=== PATIENT | male | born 1945 | race Caucasian/White ===

== ENCOUNTER → 2016-10-08 | Day surgery (SDC) | payer OTHER, BC ==
[~2016-10-08] VITALS: Ht 172.7 cm; Wt 91.0 kg
[~2016-10-08] MED LIST: ALBU1AER9 INH; ASCO100061 PO; ASPI81TA28 PO; ATV/1 PO; CALC0.25 PO; CALC0.5C2; CRD200 PO; CZR50 PO; DIPH-416 PO; ESCI10TA17 PO; FLUT0.15 NAE; FLUT1INH PO; HYT/2 PO; HYT1 PO; INSDGI SC; LEVO100T7 PO; LIDOCAINE HCL 2% 2 ML VIAL (20MG/ML) ONE; LSX40 PO; MCRK20 PO; METO50TA7 PO; MULT-506 PO; NRV/5 PO; NTRGSL/4 UT; NVLGI/PEN SQ; OMEG10007 PO; ONDA4TAB46 PO; POTA20TA13 PO; PROPOFOL IV EMULSION 10 MG/ML 20 ML VIAL IV ONE; PRT40 PO; TIOT1SPR INH; TRAM-10 PO; VITA400C15 PO; VITACAP26 PO; WARF-246 PO
[2016-10-08 07:02] VITALS: Ht 172.7 cm; Wt 91.0 kg
[2016-10-08 07:03] VITALS: BP 146/90; PULSE 67; TEMP 36.7; O2SAT 98
[2016-10-08 07:40] VITALS: BP 115/75; PULSE 53; O2SAT 94
[2016-10-08 07:45] VITALS: BP 144/102; PULSE 66; O2SAT 94
[2016-10-08 07:47] VITALS: BP 140/92; PULSE 52; O2SAT 94
--- NOTE | 2016-10-08 07:51 | History & Physical Bridge Note ---
H&P Re-Evaluation Bridge Note: I have examined the patient, reviewed the History & Physical and in the interval since the performance of the History & Physical I have noted the following changes of clinical significance: No changes noted
[2016-10-08 07:52] VITALS: BP 123/70; PULSE 53; O2SAT 94
--- NOTE | 2016-10-08 07:56 | Cardiology Procedure Brief Nt ---
Preliminary Cardiology Note Procedure Date Oct 08, 2016. Pre-Procedure Diagnosis Atrial fibrillation Post-Procedure Diagnosis Successful synchronized electrical cardioversion Procedure(s) Performed Successful synchronized electrical cardioversion Pharmacy Technician Assistant Justin Director Of Music(s) None Estimated Blood Loss None Preliminary Findings Successful synchronized electrical cardioversion was performed using intracardiac shocks 35J x3 then external countershock with 200J biphasic shock with return to sinus mechanism ultimately Patient tolerated well Recommendations Continued medical therapies Fluids (cc crystalloids) 70 Specimens None Anesthesia Per consult Complication(s) None Disposition Security Representative Holding Area
--- NOTE | 2016-10-08 08:39 | Discharge Instructions ---
Discharge Instructions Procedure Procedure Date: Oct 08, 2016. Reason for Visit: A-Fib *Dr Anderson Doing* *Anethesia Notified*. Discharge Discharge Date: Oct 08, 2016. Discharge Diagnosis: Successful [id number] electrical cardioversion Last Recorded Wt (Kilograms): 91 Anesthesia Post Anesthesia Instructions: If you have had General Anesthesia or IV Sedation: * Do not drive today. * Resume driving when surgeon permits. * Do not make important decisions or sign legal documents today. * Call surgeon for: 1. Temperature elevations greater than 101 degrees F. 2. Uncontrollable pain. 3. Excessive bleeding. 4. Persistent nausea and vomiting. 5. Medication intolerance (nausea, vomiting or rash). * For nausea and vomiting use only clear liquids such as: tea, soda, bouillon until nausea subsides, then gradually increase diet as tolerated. * If you have any concerns or questions, call your surgeon's office. If physician is unavailable and it is an emergency, call 911 or go to the nearest emergency room. Instructions Activity Recommendations: limitations as noted below Recommended Home Diet: resume previous diet Allergies: Coded Allergies: Amoxicillin (Unverified Allergy, Severe, Anaphylaxis, 07/13/15) Clavulanic Acid (Unverified Allergy, Severe, Anaphylaxis, 07/13/15) Provider Instructions ACTIVITY RECOMMENDATIONS: Resume activities as tolerated with no limitations unless specified. __ No lifting over __ pounds for 24 hours. __ Do not engage in vigorous exercise, sexual activity, or sports for 24 hours. __ Do not drive or operate any motorized equipment for 24 hours. __ You may return to work/school tomorrow. _ Follow Up Follow-up with: Dr Anderson's office as scheduled Karen Reyes Recommendations: Call your doctor if: * Temperature above 101 degrees * Pain not relieved by pain medicine ordered * There is increased drainage or redness from any incision * You have any unanswered questions or concerns. Your Doctors Instructions noted above were prepared by provider Marbin Anderson. Patient Signature Section: Patient Instructions Signature Page Christopher Abbasi Patient (or Guardian) Signature/Date: I have read and understand the instructions given to me by my caregivers. Caregiver/RN/Doctor Signature/Date: The above-named patient and/or guardian has received patient instructions on this date. + Original Patient Signature Page (only) stays with chart. Please make copy for patient.
--- NOTE | 2016-10-08 08:52 | Anesthesiology Progress Note ---
Anesthesia Post Op Note Date & Time Oct 08, 2016 at 08:52 Vital Signs Pain Intensity: 0 Vital Signs Past 12 Hours Date Time Temp Pulse Resp B/P (MAP) Pulse Ox O2 Delivery O2 Flow Rate FiO2 10/08/16 08:45 60 16 130/69 (89) 95 Room Air 10/08/16 08:30 60 16 133/71 (91) 95 Room Air 10/08/16 08:15 55 16 138/75 (96) 95 Room Air 10/08/16 08:10 55 16 127/75 (92) 95 Room Air 10/08/16 08:05 52 16 141/74 (96) 95 Room Air 10/08/16 08:00 52 16 138/75 (96) 95 Room Air 10/08/16 07:55 52 16 128/72 (90) 95 Room Air 10/08/16 07:52 53 16 123/70 94 Room Air 10/08/16 07:47 52 16 140/92 94 Nasal Cannula 6 10/08/16 07:45 66 16 144/102 94 Nasal Cannula 6 10/08/16 07:40 53 16 115/75 94 Nasal Cannula 6 10/08/16 07:03 36.7 67 16 146/90 98 Room Air Notes Mental Status: alert / awake / arousable, participated in evaluation Pt Amnestic to Procedure: Yes Nausea / Vomiting: adequately controlled Pain: adequately controlled Airway Patency, RR, SpO2: stable & adequate BP & HR: stable & adequate Hydration State: stable & adequate Anesthetic Complications: no major complications apparent
[2016-10-08 09:00] VITALS: BP 113/65; PULSE 60; O2SAT 95
--- NOTE | 2016-10-08 10:43 | CARDIOVERSION ---
DATE OF OPERATION: 10/08/2016 DATE OF PROCEDURE: 10/08/2016. INDICATIONS: Atrial fibrillation with elevated ventricular response rate. PROCEDURE: Synchronized electrical cardioversion. PROCEDURE NOTE: After the patient seen and examined and informed consent was obtained the patient was sedated via consultation with Dr. Velez of anesthesia and with device claims service representative present pacer defibrillator was interrogated and patient underwent synchronized electrical cardioversion initially intracardiac using indwelling pacer defibrillator. He received 3 shocks at 35 joules without successful conversion to sinus. External patches had been placed prior to procedure and external defibrillation was performed using synchronized 200 joule biphasic shock with successful conversion to sinus rhythm. Post procedure patient aroused having tolerated well. EKG post procedure demonstrated sinus bradycardia with first degree AV block and rate of 51, Q-waves consistent with old inferior infarct and nonspecific intraventricular conduction delay. The patient aroused after the procedure having tolerated well. RECOMMENDATIONS: Continued medical therapy with continued amiodarone at 200 mg twice per day, reduction of metoprolol to 50 mg per day. Followup will be scheduled in the next month's time. I attest to the content of the Intraoperative Record and any orders documented therein. Any exception s are noted below.
== END | disposition home or self-care (01) ==
LOC: C.CATH 06:22
PROVIDERS: ATTEND Internal Medicine Cardiovascular Disease
DX: I48.0 Paroxysmal atrial fibrillation (principal); I25.5 Ischemic cardiomyopathy; N18.2 Chronic kidney disease, stage 2 (mild); E03.9 Hypothyroidism, unspecified; I10 Essential (primary) hypertension; E78.5 Hyperlipidemia, unspecified; E11.9 Type 2 diabetes mellitus without complications; G47.33 Obstructive sleep apnea (adult) (pediatric); F41.9 Anxiety disorder, unspecified; Z90.49 Acquired absence of other specified parts of digestive tract; Z98.42 Cataract extraction status, left eye; Z87.891 Personal history of nicotine dependence; Z79.4 Long term (current) use of insulin; Z79.01 Long term (current) use of anticoagulants; J44.9 Chronic obstructive pulmonary disease, unspecified; Z95.5 Presence of coronary angioplasty implant and graft; I25.2 Old myocardial infarction

== ENCOUNTER 2017-04-27 15:20 | Inpatient (IN) | payer OTHER, BC ==
[~2017-04-27] VITALS: Ht 172.7 cm; Wt 92.9 kg
[~2017-04-27 15:20] MED LIST changes: -ASCO100061 PO; -HYT1 PO; -LIDOCAINE HCL 2% 2 ML VIAL (20MG/ML) ONE; -MCRK20 PO; -METO50TA7 PO; +METO50TA8 PO; -PROPOFOL IV EMULSION 10 MG/ML 20 ML VIAL IV ONE
[2017-04-27] MEDS ORDERED: NITROGLYCERIN/D5W 100 MCG/ML BTL ONE ×2 (15:27→15:42)
[2017-04-27] MEDS ORDERED: AMIODARONE 150MG / 100ML D5W IV STA (15:31)
[2017-04-27] MEDS ORDERED: ALBUT/IPRATROP 3MG/0.5MG NEB 3 ML VIAL INH STA (15:31)
[2017-04-27] MEDS ORDERED: AMIODARONE 360MG / 200ML D5W IV STA (15:31)
[2017-04-27] MEDS ORDERED: AMIODARONE 150MG / 100ML D5W ONE (15:38)
[2017-04-27] MEDS ORDERED: AMIODARONE 360MG / 200ML D5W ONE (15:39)
[2017-04-27] MEDS ORDERED: FUROSEMIDE 40 MG/4 ML VIAL IV STA (15:42)
[2017-04-27] MEDS ORDERED: NURSING VERBAL MED ORDER ONE ×2 (15:45→19:30)
[2017-04-27] MEDS ORDERED: AMIODARONE / D5W 200 ML IV SCH (15:45)
--- NOTE | 2017-04-27 15:45 | EMERGENCY ROOM VISIT NOTE ---
History Report prepared by Cynthia: David Khalil Under the Supervision of: Dr. Azeem Dietz M.D. First contact with patient: 15:20 Stated Complaint: CARDIAC History of Present Illness The patient is a 71 year old male who presents to the Emergency Room with complaints of left sided chest pain that occurred about 1 hour ago. He has an extensive past medical history including atrial fibrillation, V-Tach, CHF, CAD, CABG, AAA repair, and has a pacemaker/defibrillator in place. Over the past couple of days, the patient has been experiencing flu-like symptoms including a cough. He denies any recent fevers or sore throat. His tested positively for influenza recently. Today, the patient was walking out to his car to come to the ER to be evaluated for a possible flu when he suddenly clutched his chest and maybe briefly lost consciousness, collapsing to the ground. Per EMS, the patient was found to be hypoxic with an oxygen saturation of 78%. CPR was not performed and he was placed onto C-PAP. His oxygenation then stephanie to around 88%. They started him on a Nitroglycerin drip and brought him to the ER. He did not receive ASA. The patient currently states that his chest pain has resolved and he is beginning to feel better. He is currently on Coumadin. The patient states that he would like full resuscitation measures. Source of History: patient, spouse/significant other, EMS Onset: about 1 hour ago Position: chest (left) Symptom Intensity: moderate Quality: sharp Timing: resolved Associated Symptoms: + LOC, + cough, + SOB, No fevers, No sorethroat Review of Systems See HPI for pertinent positives & negatives. A total of 10 systems reviewed and were otherwise negative. Past Medical & Surgical Medical Problems: (1) AAA (abdominal aortic aneurysm) (2) Anticoagulated on warfarin (3) Chest pain (4) CHF (congestive heart failure) (5) CKD (chronic kidney disease) stage 3, GFR 30-59 ml/min (6) Coronary artery disease (7) Diabetes mellitus, type II (8) Dyslipidemia (9) Elevated liver function tests (10) History of ventricular tachycardia (11) HTN (hypertension) (12) Hypomagnesemia (13) Hypothyroidism (14) Non-sustained ventricular tachycardia (15) Pacemaker (16) PAF (paroxysmal atrial fibrillation) (17) V-tach Surgical Problems: (1) S/P triple vessel bypass (2) Status post abdominal aortic aneurysm repair (3) Status post cataract extraction (4) Status post cholecystectomy (5) Status post coronary artery bypass grafting (6) Status post implantation of automatic cardioverter/defibrillator (AICD) Family History FH: heart disease FATHER FH: lung cancer MOTHER Hypertension MOTHER Social History Smoking Status: Former Smoker Alcohol Use: occasionally Drug Use: none Marital Status: Housing Status: lives with family Occupation Status: retired Current/Historical Medications Scheduled Albuterol Sulfate (Proair Hfa), 2 PUFFS INH QID Amiodarone HCl (Amiodarone HCl), 200 MG PO BID Amlodipine Besylate (Amlodipine Besylate), 5 MG PO HS Aspirin (Aspirin Ec), 81 MG PO QPM Calcitriol (Rocaltrol Cap), 1 CAP PO MWF Escitalopram (Lexapro), 10 MG PO DAILY Fish Oil ([place]-3), 1 CAP PO BID Fluticasone Furoate-Vilanterol (Breo Ellipta), 1 PUFF PO DAILY Fluticasone Propionate (Nasal) (Flonase Allergy Relief), 2 SPRAYS PHANI DAILY Furosemide (Lasix), 40 MG PO 5XWK Furosemide (Lasix), 80 MG PO 2XWK Insulin Aspart (Novolog Flexpen), UNITS SQ ACHS Insulin Glargine (Lantus), 40 UNITS SC QPM Levothyroxine Sodium (Levothyroxine Sodium), 1 TAB PO 6XWK Levothyroxine Sodium (Levothyroxine Sodium), 2 TAB PO WK Losartan Potassium (Losartan Potassium), 50 MG PO BID Metoprolol Succ (Toprol Xl) (Toprol-Xl), 50 MG PO DAILY Multivitamin (Multivitamin), 1 TAB PO QPM Pantoprazole (Pantoprazole Sodium), 40 MG PO QAM Potassium Chloride (Micro-K Ext Rel), 10 MEQ PO DAILY Spironolactone (Aldactone), 12.5 MG PO MWF Terazosin Hcl (Hytrin), 2 MG PO HS Tiotropium Laura (Spiriva Respimat), 1 PUFF INH DAILY Tocopheryl Acet,Dl-Alpha (Vitamin E), 400 INTER.UNIT PO QPM Warfarin Sodium (Warfarin Sodium), 1 TAB PO DAILY Scheduled PRN Diphenoxylate/Atropine (Lomotil), 1 TAB PO QID PRN for Diarrhea Lorazepam (Ativan), 1 MG PO Q8 PRN for ANXIETY OR SLEEP Nitroglycerin (Nitrostat), 0.4 MG UT UD PRN for Chest Pain Ondansetron Hcl (Zofran), 4 MG PO Q8 PRN for Nausea Tramadol (Ultram), 50 MG PO Q8H PRN for Pain Allergies Coded Allergies: Amoxicillin (Unverified Allergy, Severe, Anaphylaxis, 07/13/15) Clavulanic Acid (Unverified Allergy, Severe, Anaphylaxis, 07/13/15) Physical Exam Vital Signs Date Time Temp Pulse Resp B/P (MAP) Pulse Ox O2 Delivery O2 Flow Rate FiO2 04/27/17 16:11 79 17 121/76 94 BiPAP 04/27/17 16:04 96 15 106/75 98 BiPAP 04/27/17 15:50 96 19 120/66 96 BiPAP 04/27/17 15:41 96 BiPAP 04/27/17 15:31 94 BiPAP 04/27/17 15:31 124 04/27/17 15:29 37.3 134 28 100/71 92 CPAP 04/27/17 15:27 92 BiPAP Physical Exam GENERAL: Patient is in no acute distress. Presently on BiPAP. HEENT: No acute trauma, normocephalic atraumatic, mucous membranes moist, no nasal congestion, no scleral icterus. NECK: No stridor, no adenopathy, no meningismus, trachea is midline. LUNGS: Crackles bilaterally. No wheezing. Breath sounds are equal. HEART: Tachycardic rate. Auscultation is difficult secondary to overriding lung sounds. Rhythm seems regular. ABDOMEN: Soft, nontender, bowel sounds positive, no hernias, no peritonitis. EXTREMITIES: No cyanosis or edema, full range of motion of all the joints without pain or difficulty, no signs for acute trauma. NEUROLOGIC: Oriented x 3, no acute motor or sensory deficits, no focal weakness. SKIN: No rash, no jaundice, no diaphoresis. Medical Decision & Procedures ER Provider Diagnostic Interpretation: Radiology results as stated below per my review and radiologist interpretation: CHEST ONE VIEW PORTABLE CLINICAL HISTORY: 71 years-old Male presenting with SOB. TECHNIQUE: Portable upright AP view of the chest was obtained. COMPARISON: 07/13/2015. FINDINGS: Left subclavian implanted cardiac defibrillator with 2 leads to the right ventricular apex. Median sternotomy wires, bypass graft rings, and mediastinal surgical clips noted. Atherosclerosis of aortic arch. Cardiac silhouette mildly enlarged, unchanged. Pulmonary vascular prominence. Hazy diffuse opacities with a basilar predominance. Small left pleural effusion may be present. No pneumothorax. IMPRESSION: 1. Cardiomegaly with volume overload and moderate pulmonary edema. Electronically signed by: Isaiah Young M.D. 04/27/2017 3:42 PM Dictated Date/Time: 04/27/2017 3:40 PM Laboratory Results 04/27/17 15:30 04/27/17 15:30 Test 04/27/17 15:30 04/27/17 15:34 04/27/17 15:37 04/27/17 15:55 Red Blood Count 4.59 M/uL (4.7-6.1) Mean Corpuscular Volume 89.1 fL (80-100) Mean Corpuscular Hemoglobin 30.5 pg (25-34) Mean Corpuscular Hemoglobin Concent 34.2 g/dl (32-36) RDW Standard Deviation 46.9 fL (36.4-46.3) RDW Coefficient of Variation 14.4 % (11.5-14.5) Mean Platelet Volume 10.2 fL (7.4-10.4) Prothrombin Time 22.3 SECONDS (9.0-12.0) Prothromb Time International Ratio 2.2 (0.9-1.1) Activated Partial Thromboplast Time 39.3 SECONDS (21.0-31.0) Partial Thromboplastin Ratio 1.5 Est Creatinine Clear Calc Drug Dose 41.1 ml/min Estimated GFR () 39.7 Estimated GFR (Non- 34.3 BUN/Creatinine Ratio 11.0 (10-20) Calcium Level 8.2 mg/dl (8.5-10.1) Magnesium Level 2.3 mg/dl (1.8-2.4) Total Bilirubin 2.1 mg/dl (0.2-1) Aspartate Amino Transf (AST/SGOT) 155 U/L (15-37) Alanine Aminotransferase (ALT/SGPT) 159 U/L (12-78) Alkaline Phosphatase 67 U/L (45-117) Pro-B-Type Natriuretic Peptide 3918 pg/ml (0-900) Total Protein 6.9 gm/dl (6.4-8.2) Albumin 3.0 gm/dl (3.4-5.0) Globulin 3.9 gm/dl (2.5-4.0) Albumin/Globulin Ratio 0.8 (0.9-2) Beta-Hydroxybutyric Acid 3.96 mg/dL (0.2-2.81) Bedside Troponin I < 0.030 ng/ml (0-0.045) Bedside Hemoglobin 14.6 g/dl (14.0-18.0) Bedside Hematocrit 43 % (42-52) Bedside Sodium 137 mEq/L (135-144) Bedside Potassium 4.3 mEq/L (3.3-5.0) Bedside Chloride 99 mEq/L (101-112) Bedside Total CO2 20 mEq/l (24-31) Anion Gap 23.0 mmol/L (16-25) Bedside Blood Urea Nitrogen 23 mg/dl (7-18) Bedside Creatinine 1.6 mg/dl (0.6-1.3) Bedside Glucose (other) 349 mg/dl (70-99) Bedside Ionized Calcium (Mauro) 1.02 mmol/l (1.12-1.32) Influenza Type A (RT-PCR) Neg for Influ A (NEG) Influenza Type B (RT-PCR) Neg for Influ B (NEG) Laboratory results reviewed by me. Medications Administered Medications (Trade) Dose Ordered Sig/Obi Route Start Time Stop Time Status Last Admin Dose Admin Nitroglycerin/ Dextrose (Nitroglycerin/ D5w 100 Mcg/Ml) 25 mg STK-MED ONCE .ROUTE 04/27/17 15:27 04/27/17 15:28 DC 04/27/17 15:46 25 MG Amiodarone HCL/ Dextrose (Nexterone / D5w) 150 mg STK-MED ONCE .ROUTE 04/27/17 15:38 04/27/17 15:39 DC 04/27/17 15:47 150 MG Amiodarone HCL/ Dextrose 200 ml @ 33.3 mls/hr Q6H1M IV 04/27/17 15:45 04/27/17 21:45 04/27/17 15:53 33.3 MLS/HR Albuterol/ Ipratropium (Duoneb) 12 ml NOW STAT INH 04/27/17 15:31 04/27/17 15:43 DC 04/27/17 16:25 12 ML Furosemide (Lasix Inj) 60 mg NOW STAT IV 04/27/17 15:42 04/27/17 15:43 DC 04/27/17 15:48 60 MG ECG Indication: chest pain Rate (beats per minute): 129 Rhythm: other (Wide Complex Tachycardia, rhythm is quite regular) Findings: other (No PVCs or pacer spikes) Comparison ECG Date: 10/08/16 Change: Significant changes have occurred compared to previous. 2nd ECG: Atrial fibrillation at 93 with a LBBB. No PVC's or ST elevations. Patient's electrocardiograms interpreted by me. ED Course 1520: The patient was evaluated in room B1. A complete history and physical exam was performed. 1531: Ordered Bipap, Amiodarone HCl/Dextrose 360 mg IV, Amiodarone HCl/Dextrose 150 mg IV 1533: I discussed the patient's case with Dr. Whitmore of Cardiology at this time. He recommended starting the patient on Amiodarone. He will be coming to the ER to evaluate the patient. 1542: Ordered Lasix Inj 60 mg IV 1621: I discussed the patient's case with Dr. Tiwari of the ICU. He will evaluate the patient in the ICU. 1624: Upon reexamination the patient is resting. I discussed results and treatment plan with the patient and his family. They verbalize agreement and understanding. I spoke with Dr. Porter of the [facility] service. We discussed the patient's results and findings. The patient will be evaluated by her for further management. Medical Decision Differential diagnosis includes but is not limited to ventricular tachycardia, defibrillator firing, MO, electrolyte imbalance, CHF, pneumonia, influenza, and anemia. There is a mild leukocytosis, this could be consistent with infection or the stress of the situation. No concerning anemia. ABG demonstrates a mildly low PO2, no acidosis. No CO2 retention. Chest film does show CHF, no pneumonia. There is evidence for some renal insufficiency/dehydration with an elevation to the creatinine. The patient's glucose is elevated. LFTs are mildly elevated. INR is therapeutic for someone using Coumadin. EKG initially showed a wide complex tachycardia, possibly V. tach. Second EKG showed a rate controlled atrial fibrillation with a left bundle branch block. Cardiac enzyme testing 1 is not consistent with acute cardiac injury. Influenza testing returned negative. The patient presents after grabbing his chest and collapsing. There was concern for defibrillator firing, there was concern for MO. The patient was without complaints of chest pain, he was comfortable with his breathing. His blood pressure was around 100 systolic. Despite the concerning appearing wide complex tachycardia on EKG, the patient seemed to be doing better than just a short time ago. I spoke with Dr. Whitmore of cardiology. The patient was ordered for IV amiodarone as a bolus and then as a drip. Because of the CHF, IV Lasix was given. The nitroglycerin drip was continued at 20 g. The patient was maintained on BiPAP. With this treatment, the patient is continuing to improve. His heart rate is now in the 90s. As mentioned above, the patient's wide-complex tachycardia resolved with just supportive measures, no stat antiarrhythmic medication was given, no defibrillation was performed. I spoke with the on-call lockstitch shoulder joiner, I spoke with the on-call hospitalist. Admission/observation is warranted. The patient and family have been updated. Case management has been involved. Medication Reconcilliation Current Medication List: was personally reviewed by me Blood Pressure Screening Patient's blood pressure: Low blood pressure Consults Time Called: 1530 Consulting Physician: Dr. Whitmore - Cardiology Returned Call: [phone] We discussed the patient's case. He recommended starting the patient on an Amiodarone drip. He will be coming to the ER to evaluate the patient. Additional Consults: Time Called: 1615 Consulted Physician: Dr. Tiwari - ICU Returned Call: [phone] Additional Comments: We discussed the patient's case. He will evaluate the patient in the ICU. Time Called: 1615 Consulted Physician: [facility] Returned Call: [phone] Additional Comments: We discussed the patient's case. She will evaluate the patient in the ICU with Dr. Tiwari with consult to Dr. Whitmore. Impression Primary Impression: CHF (congestive heart failure) Additional Impressions: Dysrhythmia Hypoxia Hyperglycemia Critical Care I have personally spent greater than 46 minutes of critical care time in the direct management of this patient. This includes bedside care, interpretation of diagnostic studies, and testing, discussion with consultants, patient, and family members, and other required patient management activities. This 46 minutes is in excess of all separately billable procedures. Scribe Attestation The scribe's documentation has been prepared under my direction and personally reviewed by me in its entirety. I confirm that the note above accurately reflects all work, treatment, procedures, and medical decision making performed by me. Departure Information Dispostion Being Evaluated By Hospitalist Referrals Candelaria Navas DO (PCP) Problem Qualifiers
[2017-04-27 15:49] LABS: HEMATOCRIT 40.9 % (42-52); MEAN CELL VOLUME 89.1 fL (80-100); MEAN CORPUSCULAR HEMOGLOBIN 30.5 pg (25-34); MEAN CORPUSCULAR HGB CONC 34.2 g/dl (32-36); MEAN PLATELET VOLUME 10.2 fL (7.4-10.4); PLATELET COUNT 178 K/uL (130-400); RED CELL DISTRIBUTION WIDTH CV 14.4 % (11.5-14.5); RED CELL DISTRIBUTION WIDTH SD 46.9 fL (36.4-46.3); WHITE BLOOD COUNT 14.44 K/uL (4.8-10.8)
[2017-04-27 15:49] LABS: ISTAT CREATININE 1.6 mg/dl (0.6-1.3); ISTAT IONIZED CALCIUM 1.02 mmol/l (1.12-1.32); ISTAT POTASSIUM 4.3 mEq/L (3.3-5.0)
[2017-04-27] MEDS ORDERED: TIOT1SPR INH (15:52)
[2017-04-27 15:57] LABS: INR 2.2 (0.9-1.1); PTT PATIENT 39.3 SECONDS (21.0-31.0)
[2017-04-27] MEDS ORDERED: POTA10CA28 PO (16:00)
[2017-04-27] MEDS ORDERED: SPIR25TA PO (16:00)
[2017-04-27] MEDS ORDERED: WARF-246 PO (16:16)
[2017-04-27] MEDS ORDERED: LEVO100T7 PO ×2 (16:16)
[2017-04-27] MEDS ORDERED: FRS/40 PO ×2 (16:18)
[2017-04-27 16:25] VITALS: PULSE 79; O2SAT 97
[2017-04-27 16:26] VITALS: PULSE 129; PULSE 87; O2SAT 97
--- NOTE | 2017-04-27 16:30 | History and Physical ---
History & Physical Date & Time of Service: Apr 27, 2017 at 16:30 Chief Complaint: Cardiac Primary Care Physician: Candelaria Navas DO History of Present Illness Source: patient This is a 71 yo M with complex medical hx of CAD s/p CABG in 1991 , ischemic cardiomyopathy EF 35 % , hx of Vtach s/p ablation in September 2014 s/p AICD placement AAA repair 10/29/2011 presented to ER with syncope /collapse due to Vtach Pt reports of not feeling well for the past 3 days , had flu like symptom with congestion , cough , very poor appetite, generalized weakness , N/V , chills , worsening of GUAN with minimum activity decided to come to ER today -while getting in car -pt collapsed and fell on ground in front of family , EMS was called -pt regained conciseness while in ambulance mentions of having chest pain and SOB pt was found to be Wide complex tachycardia /Vtach , started on IV Nitro gtt , Cxray shows pulmonary congestion -given IV Lasix 60 mg X1 , and placed on Bipap Cardiology evaluated the pt in ER , started on Amiodarone gtt- rhythm converted to Afib rate controlled ICD interrogation showed Vtach with rate > 250 bpm/had ICD firing -converted to sinus later changed to Afib pt is admitted to ICU during my time of interview in ICU 107 /pt is awake and alert , conversing appropriately. on Nasal Canula 2 L 02 ( was not on home 02 prior ) denies of any chest pain or discomfort , has + orthopnea remains in Rate controlled Afib while on Amiodarone gtt Past Medical/Surgical History Medical Problems: (1) AAA (abdominal aortic aneurysm) Status: Chronic (2) Anticoagulated on warfarin Status: Chronic (3) CHF (congestive heart failure) Permanent Comment: echo 05/28/13 LVEF 30-35% Status: Chronic (4) CKD (chronic kidney disease) stage 3, GFR 30-59 ml/min Status: Chronic (5) Coronary artery disease Permanent Comment: s/p PA ischemic cardiomyopathy s/p CABG Status: Chronic (6) Diabetes mellitus, type II Status: Chronic (7) Dyslipidemia Status: Chronic (8) Elevated liver function tests Status: Chronic (9) History of ventricular tachycardia Status: Chronic (10) HTN (hypertension) Status: Chronic (11) Hypomagnesemia Status: Chronic (12) Hypothyroidism Status: Chronic (13) Non-sustained ventricular tachycardia Status: Chronic (14) Pacemaker Status: Chronic (15) PAF (paroxysmal atrial fibrillation) Status: Chronic Surgical Problems: (1) S/P triple vessel bypass Status: Chronic (2) Status post abdominal aortic aneurysm repair [place] [facility] [place]. Gallagher stent graft Status: Chronic (3) Status post cataract extraction Status: Chronic (4) Status post cholecystectomy Status: Chronic (5) Status post coronary artery bypass grafting Status: Chronic (6) Status post implantation of automatic cardioverter/defibrillator (AICD) Status: Chronic Family History FH: heart disease FATHER FH: lung cancer MOTHER Hypertension MOTHER Social History Smoking Status: Former Smoker Drug Use: none Marital Status: Housing status: lives with family Occupational Status: retired Immunizations History of Influenza Vaccine: Yes Influenza Vaccine Date: Nov 25, 2013 History of Tetanus Vaccine?: Yes Tetanus Immunization Date: Apr 18, 2010 History of Pneumococcal: Yes Pneumococcal Date: May 09, 2010 History of Hepatitis B Vaccine: Yes Hepatitis Immunization Date: Aug 21, 1996 Multi-Drug Resistant Organisms History of MDRO: No Allergies Coded Allergies: Amoxicillin (Unverified Allergy, Severe, Anaphylaxis, 07/13/15) Clavulanic Acid (Unverified Allergy, Severe, Anaphylaxis, 07/13/15) Home Medications Scheduled Albuterol Sulfate (Proair Hfa), 2 PUFFS INH QID Amiodarone HCl (Amiodarone HCl), 200 MG PO BID Amlodipine Besylate (Amlodipine Besylate), 5 MG PO HS Aspirin (Aspirin Ec), 81 MG PO QPM Calcitriol (Rocaltrol Cap), 1 CAP PO MWF Escitalopram (Lexapro), 10 MG PO DAILY Fish Oil ([place]-3), 1 CAP PO BID Fluticasone Furoate-Vilanterol (Breo Ellipta), 1 PUFF PO DAILY Fluticasone Propionate (Nasal) (Flonase Allergy Relief), 2 SPRAYS PHANI DAILY Furosemide (Lasix), 40 MG PO 5XWK Furosemide (Lasix), 80 MG PO 2XWK Insulin Aspart (Novolog Flexpen), UNITS SQ ACHS Insulin Glargine (Lantus), 40 UNITS SC QPM Levothyroxine Sodium (Levothyroxine Sodium), 1 TAB PO 6XWK Levothyroxine Sodium (Levothyroxine Sodium), 2 TAB PO WK Losartan Potassium (Losartan Potassium), 50 MG PO BID Metoprolol Succ (Toprol Xl) (Toprol-Xl), 50 MG PO DAILY Multivitamin (Multivitamin), 1 TAB PO QPM Pantoprazole (Pantoprazole Sodium), 40 MG PO QAM Potassium Chloride (Micro-K Ext Rel), 10 MEQ PO DAILY Spironolactone (Aldactone), 12.5 MG PO MWF Terazosin Hcl (Hytrin), 2 MG PO HS Tiotropium [place] (Spiriva Respimat), 1 PUFF INH DAILY Tocopheryl Acet,Dl-Alpha (Vitamin E), 400 INTER.UNIT PO QPM Warfarin Sodium (Warfarin Sodium), 1 TAB PO DAILY Scheduled PRN Diphenoxylate/Atropine (Lomotil), 1 TAB PO QID PRN for Diarrhea Lorazepam (Ativan), 1 MG PO Q8 PRN for ANXIETY OR SLEEP Nitroglycerin (Nitrostat), 0.4 MG UT UD PRN for Chest Pain Ondansetron Hcl (Zofran), 4 MG PO Q8 PRN for Nausea Tramadol (Ultram), 50 MG PO Q8H PRN for Pain Review of Systems Constitutional: + fever, + chills, + sweats, + weakness, + fatigue, + problem reported (generalized body ache ) Respiratory: + cough, + sputum, + wheezing, + shortness of breath, + dyspnea on exertion, + dyspnea at rest, + problem reported (orthopnea ) Cardiovascular: + chest pain, + orthopnea, + palpitations Abdomen: + nausea, + vomiting, + diarrhea Musculoskeletal: + muscle pain Neurologic: + weakness, + numbness/tingling, + vertigo Endocrine: + fatigue Physical Exam Vital Signs Date Time Temp Pulse Resp B/P (MAP) Pulse Ox O2 Delivery O2 Flow Rate FiO2 04/27/17 16:26 87 97 40 04/27/17 16:25 79 25 97 BiPAP/CPAP 40 04/27/17 16:24 77 18 117/71 94 BiPAP 04/27/17 16:11 79 17 121/76 94 BiPAP 04/27/17 16:04 96 15 106/75 98 BiPAP 04/27/17 15:50 96 19 120/66 96 BiPAP 04/27/17 15:41 96 BiPAP 04/27/17 15:31 94 BiPAP 04/27/17 15:31 124 04/27/17 15:29 37.3 134 28 100/71 92 CPAP 04/27/17 15:27 92 BiPAP General Appearance: no apparent distress Head: normocephalic, atraumatic Eyes: PERRL, EOMI, sclerae normal ENT: normal ENT inspection Neck: thyroid normal, no JVD, no carotid bruits, trachea midline Respiratory/Chest: chest non-tender, no respiratory distress, no accessory muscle use, + decreased breath sounds, + rales Cardiovascular: no edema, no JVD, normal peripheral pulses, + irregularly irregular Abdomen/GI: normal bowel sounds, non tender, soft Extremities/Musculoskelatal: normal inspection, no calf tenderness, normal capillary refill, no pedal edema Neurologic/Psych: no motor/sensory deficits, alert, normal mood/affect, oriented x 3 Skin: normal color, warm/dry, no rash Lymphatic: no adenopathy Diagnostics Laboratory Results Results Past 24 Hours Test 04/27/17 15:30 04/27/17 15:34 04/27/17 15:37 04/27/17 15:55 Range/Units White Blood Count 14.44 4.8-10.8 K/uL Red Blood Count 4.59 4.7-6.1 M/uL Hemoglobin 14.0 14.0-18.0 g/dL Hematocrit 40.9 42-52 % Mean Corpuscular Volume 89.1 80-100 fL Mean Corpuscular Hemoglobin 30.5 25-34 pg Mean Corpuscular Hemoglobin Concent 34.2 32-36 g/dl RDW Standard Deviation 46.9 36.4-46.3 fL RDW Coefficient of Variation 14.4 11.5-14.5 % Platelet Count 178 130-400 K/uL Mean Platelet Volume 10.2 7.4-10.4 fL Prothrombin Time 22.3 9.0-12.0 SECONDS Prothromb Time International Ratio 2.2 0.9-1.1 Activated Partial Thromboplast Time 39.3 21.0-31.0 SECONDS Partial Thromboplastin Ratio 1.5 Bedside Troponin I < 0.030 0-0.045 ng/ml Bedside Hemoglobin 14.6 14.0-18.0 g/dl Bedside Hematocrit 43 42-52 % Bedside Sodium 137 135-144 mEq/L Bedside Potassium 4.3 3.3-5.0 mEq/L Bedside Chloride 99 101-112 mEq/L Bedside Total CO2 20 24-31 mEq/l Anion Gap 23.0 16-25 mmol/L Bedside Blood Urea Nitrogen 23 7-18 mg/dl Bedside Creatinine 1.6 0.6-1.3 mg/dl Bedside Glucose (other) 349 70-99 mg/dl Bedside Ionized Calcium (Mauro) 1.02 1.12-1.32 mmol/l Test 04/27/17 16:12 Range/Units Diagnostic Radiology CHEST ONE VIEW PORTABLE CLINICAL HISTORY: 71 years-old Male presenting with SOB. TECHNIQUE: Portable upright AP view of the chest was obtained. COMPARISON: 07/13/2015. FINDINGS: Left subclavian implanted cardiac defibrillator with 2 leads to the right ventricular apex. Median sternotomy wires, bypass graft rings, and mediastinal surgical clips noted. Atherosclerosis of aortic arch. Cardiac silhouette mildly enlarged, unchanged. Pulmonary vascular prominence. Hazy diffuse opacities with a basilar predominance. Small left pleural effusion may be present. No pneumothorax. IMPRESSION: 1. Cardiomegaly with volume overload and moderate pulmonary edema. EKG Vent. rate 93 BPM [place] interval * ms QRS duration 154 ms QT/QTc 540/671 ms P-R-T axes * -6 148 Atrial fibrillation with a competing junctional pacemaker Left bundle branch block Abnormal ECG When compared with ECG of 27-APR-2017 15:25, (unconfirmed) Atrial fibrillation has replaced Wide QRS tachycardia Impression Assessment and Plan VENTRICULAR TACHYCARDIA : presented with wide complex tachycardia -leading to syncope /collapse AICD firing on amiodarone gtt, rhythm changed to Afib appreciate input form Cardiology pt will be monitored in ICU , cont Amiodarone gtt ordered for serial Troponin -initial aquiles negative monitor electrolytes ECHO ordered on AM FLU LIKE SYMPTOM : had poor PO intake , fever , chills , weakness for past 1 week , symptom worse in last 2-3 days possible cause of Cardiac arrhythmia influenza PCR negative cont supportive care sputum culture and gram statin ordered no obvious infiltrate noted in Cxray , leukocytosis 14 K empiric tx with Doxycycline ( avoid quinolones for prolong Qtc ) ACUTE CHF WITH SYSTOLIC DYSFUNCTION : due to ventricular arrhythmia severe ischemic cardiomyopathy EF 35 % chest xray shows pulmonary congestion , BNP elevated 3918 given IV Lasix 60 mg X1 in ER repeat ECHO ordered monitor I's/O's and daily wt cardiology following ACUTE HYPOXEMIC RESPIRATORY FAILURE : due to above symptom improved with Bipap , supplemental 02 cont diuresis as per Cardiology repeat Cxray in AM CAD : hx of CABG in 1991 , repeat Cath in 2005 shows total occlusion of circle Coronary arteries with occluded graft on RCA developed angina symptom due to cardiac arrhythmia on Nitro gtt at present chest pain free serial troponin ordered ECHO in am Cardiology eval appreciated pt is continued with Aspirin , Beta katharina , Nitro , ARB not on Statin due to chronic transaminitis /Elevated liver enzyme fasting lipid panel ordered in AM labs ANNA on CKD STAGE 3 baseline cr 1.2 ( 12/03/2016 ) Cr 1.6 due to decompensated CHF /poor PO intake due to flu like symptom given IV diuretics due to Acute systolic CHF hold diuretics in AM BMP daily ordered avoid contrast studies -unless life saving procedure no NSAID's Nephrology consult requested PAROXYSMAL AFIB : on Coumadin , INR therapeutic cont Beta katharina PROLONG Q TC : Qtc > 600 due to severe arrhythmia /AICD daily EKG ordered avoid medication the prolongs Qtc cardiology following closely TYPE 2 DM : BSG > 300 ,with elevated beta hydroxy butyrate normal AG appreciate Pharmacy consult for glycemic management started on insulin gtt cont basal Lantus for easy transition to SC insulin regimen Hb A1c in AM lab DEPRESSION : Hold SSRI -Celexa due to prolong Qtc FULL CODE DVT PROPHYLAXIS : on Coumadin DISPOSITION : ICU admission due to critical illness /life threatening cardiac arrhythmia will need PT/OT eval when medically stable -generalized weakness /decline in functional status Medicine follow up with Dr Navas Cardiology follow up with Dr Anderson Level of Care Critical Care Resuscitation Status FULL RESUSCITATION VTE Prophylaxis VTE Risk Assessment Done? Y/N: Yes Risk Level: Moderate Given or contraindicated: Warfarin (Coumadin) Additional Copies To Marbin Anderson M.D. Candelaria Navas,DO
[2017-04-27 16:32] LABS: CALCIUM 8.2 mg/dl (8.5-10.1); CREATININE 1.92 mg/dl (0.60-1.40); POTASSIUM 4.2 mmol/L (3.5-5.1)
[2017-04-27 16:34] LABS: TOTAL PROTEIN 6.9 gm/dl (6.4-8.2)
[2017-04-27 16:51] LABS: INFLUENZA A PCR Neg for Influ A (NEG); INFLUENZA B PCR Neg for Influ B (NEG)
--- NOTE | 2017-04-27 17:26 | CARDIOLOGY CONSULTATION ---
DATE OF CONSULTATION: 04/27/2017 REFERRING PHYSICIAN: Dr. Azeem Dietz. REASON FOR CONSULTATION: Ventricular tachycardia. HISTORY OF PRESENT ILLNESS: Mr. Abbasi is a 71-year-old with a complex cardiovascular history listed below. He had been feeling unwell for the past 24 hours with symptoms including nausea, vomiting, poor p.o. intake, fevers, rigors, and chills. He became severely weak and collapsed in front of his family. Family states that they noticed his chest moving as his ICD had fired. They had witnessed this in the past. The patient was brought to the hospital via EMS. The nitroglycerin infusion was initiated and the patient was treated with intravenous Lasix. BiPAP was placed. Upon arrival to the ED, he was noted to be in a wide complex rhythm at approximately 130 beats per minute. This spontaneously slowed down to approximately 100 beats per minute and became regular. The QRS duration also narrowed. It appears he is currently in atrial fibrillation. The patient currently awake on BiPAP. Denies any chest discomfort. Reports profound weakness, fevers, nausea over the past 24 hours. Denies any orthopnea, PND, weight gain, or lower extremity edema. He has been able to take his a.m. medications without vomiting. Denies chest discomfort or palpitations currently. ICD interrogation performed at the bedside in the Emergency Department demonstrated ventricular tachycardia which accelerated to a rate of greater than 250 beats per minute. This was treated initially with antitachycardia pacing followed by ICD discharge of 36 joules. The patient converted to sinus rhythm and then returned to atrial fibrillation. It appears he was in sinus rhythm prior to developing ventricular tachycardia. Amiodarone infusion has been initiated. He received 150 mg bolus and is currently receiving an infusion rate of 1 mg per minute. and daughter are present at bedside. The reports influenza infection approximately 2 weeks ago which is slowly recovering. She offers no other concerns/complaints at this time. REVIEW OF SYSTEMS: The pertinent positives noted as per HPI; comprehensive 10-system review is otherwise negative. PAST MEDICAL HISTORY: 1. Ventricular tachycardia and ventricular storm, status post ventricular tachycardia ablation in September 2014 after a complicated course. 2. Ischemic cardiomyopathy, ejection fraction of 35%. 3. Compensated systolic heart failure. 4. Coronary artery bypass grafting 1991 with epigastric gastroepiploic graft to the right coronary artery, a free right inferior epigastric artery to the left anterior descending and a free gastroepiploic graft to diagonal with noted complete occlusion of the little traverse vessels by cardiac catheterization in 2005, occluded graft to the right coronary noted. 5. Abdominal aortic aneurysm status post percutaneous endovascular repair in 2011. 6. Chronic transaminase elevation. 7. Chronic kidney disease stage III. 8. Hypertension. 9. Hypomagnesemia. 10. Hypothyroidism. 11. ICD. 12. Paroxysmal atrial fibrillation. 13. Diabetes type 2. PAST SURGICAL HISTORY: 1. Coronary artery bypass graft x3 with occluded RCA graft as noted above. 2. Abdominal aortic aneurysm repair percutaneously in 2011. 3. Cataract extraction. 4. Cardiac catheterization. 5. Cholecystectomy. 6. AICD implantation. FAMILY HISTORY: Significant for ischemic heart disease in patient's father. No premature CAD or sudden cardiac . SOCIAL HISTORY: Former tobacco abuse. Uses alcohol occasionally. Retired, lives with his family. ALLERGIES: LISTED TO AUGMENTIN. OUTPATIENT MEDICATIONS: 1. Metoprolol succinate 50 mg daily. 2. Lantus 40 units daily. 3. Lexapro 10 mg daily. 4. Tiotropium bromide monohydrate 2.5 mcg daily. 5. Coumadin 5-10 mg as directed by the anticoagulation clinic. 6. Amiodarone 200 mg twice daily. 7. Synthroid 100 mcg daily. 8. Lasix 40 mg daily plus additional tablet 2 days per week as directed. 9. Protonix 40 mg daily. 10. FlexPen insulin 6-12 units before dinner. 11. Potassium chloride 10 mEq daily. 12. Rocaltrol 0.25 mcg daily. 13. Ativan 1 mg every 8 hours. 14. Aldactone 0.5 mg daily on Wednesday, Wednesday, and Wednesday. 15. Lomotil 4 times a day as needed. 16. Losartan 50 mg twice daily. 17. Ultram 50 mg every 8 hours. 18. Nitrostat as needed. 19. Zofran as needed. 20. Flonase daily. 21. Breo 1 puff daily. 22. Albuterol 2 puffs as needed. 23. Aspirin 81 mg daily. 24. Multivitamin daily. DATA: ICD interrogation demonstrates ventricular tachycardia at a rate entering the VF zone greater than 215 beats per minute, receiving multiple runs of antitachycardia pacing followed by ICD discharge at 36 joules with conversion to sinus rhythm followed by atrial fibrillation. LABORATORY DATA: White blood cell count is 14.44, hemoglobin is 14.0, and platelet count is 178. Sodium is 137, potassium 4.3, chloride 99, CO2 is 20, BUN is 23; creatinine is 1.6, baseline creatinine 1.2; glucose 349. Point of care troponin less than 0.03. INR is 2.2. Per review of records INRs have been therapeutic dating back to December. Chest x-ray on admission demonstrates cardiomegaly with volume overload, interstitial edema. PHYSICAL EXAMINATION: VITAL SIGNS: Temperature 37.3 degrees centigrade, pulse 77 beats per minute and regular, respiratory rate 18, blood pressure 117/71, SAO2 is 94% on BiPAP. GENERAL: NAD, chronically ill, awake, alert and oriented x3. THROAT: His mucous membranes are moist. There is no scleral icterus. Conjunctivae pink. NECK: Supple. There is no JVD or HJR. No carotid bruit. HEART: Regular with a normal S1 and S2. There is no murmur, rub, or gallop. LUNGS: Demonstrate expiratory wheezing and coarse breath sounds bilaterally. There are no rales appreciated. ABDOMEN: Soft, nontender. No rebound or guarding. Normal bowel sounds. EXTREMITIES: Warm and dry with stasis changes; however, no edema, clubbing or cyanosis. NEUROLOGIC: Demonstrates no focal motor deficit. FINAL IMPRESSION: 1. 71-year-old male admitted with syncope/collapse and implantable cardioverter defibrillator interrogation demonstrating ventricular tachycardia reaching the VF zone greater than 250 beats per minute, receiving implantable cardioverter defibrillator shock x1. The patient currently in atrial fibrillation with borderline rate control. Amiodarone infusion has been initiated. I suspect events precipitated by acute febrile illness, nausea, vomiting, electrolyte derangement with acute renal insufficiency, hypoxia and hypotension. 2. History of recurrent ventricular tachycardia, ventricular tachycardia storm, status post ventricular tachycardia ablation in 2014. 3. Paroxysmal atrial fibrillation with a history of external direct current cardioversion September 2016. INR is therapeutic dating back to December 2016. 4. Chronic complex coronary artery disease as noted above. 5. Ischemic cardiomyopathy with ejection fraction 35% - chest x-ray demonstrates pulmonary vascular congestion; however, the patient carries a history of interstitial lung disease. He has received 2 doses of Lasix thus far. His respiratory status is stable on BiPAP. 6. History of abdominal aortic aneurysm status post percutaneous repair. 7. Left bundle branch block - chronic. 8. Diabetes type 2. PLAN AND RECOMMENDATIONS: Continue intravenous amiodarone infusion at 1 mg per minute overnight. We will hold off on further diuretic therapy at this time and wean BiPAP as tolerated. Continue to observe telemetry in the intensive care unit. Cardiac enzymes will be trended x3 sets with plans for repeat resting 2D transthoracic echocardiogram in the a.m. The patient is a full code. Other cardiovascular medications including metoprolol, aspirin, and warfarin will be continued as previously ordered. Further recommendations pending clinical response to medical therapies as well as result of serial testing in the upcoming hours. Thank you for allowing me to take part in the care of your patient. 40 minutes critical care time spent reviewing medical records, examoning patient , formulating plan of care, and discussion of complex medical issues with consultants and family. UZMA
[2017-04-27 17:55] VITALS: BP 115/50; PULSE 82; TEMP 37.1; O2SAT 94; BMI 30.7
--- NOTE | 2017-04-27 18:09 | Critical Care Consultation ---
Critical Care Consultation Date of Consultation: Apr 27, 2017. Attending Physician: Jonel Logan MD Reason for Consultation: V-tach s/p AICD cardioversion, afib, pulmonary edema. History of Present Illness 71 yo male notes past 24-48 hour history of N/V, fevers, and poor PO intake. He noted some left-sided chest pain concurrent to a witnessed brief syncopal event by family. Family says his AICD had fired and EMS was called. Noted to be hypoxic and in afib. On my initial evaluation in the ED, the patient was sitting up on BiPAP, conversing easily and answering questions appropriately. He denied any present chest pain or acute SOB. Says his has recently had (subjective) flu. He denies any known cough or respiratory issues. Past Medical/Surgical History Medical Problems: (1) AAA (abdominal aortic aneurysm) Status: Chronic (2) Anticoagulated on warfarin Status: Chronic (3) CHF (congestive heart failure) Permanent Comment: echo 05/28/13 LVEF 30-35% Status: Chronic (4) CKD (chronic kidney disease) stage 3, GFR 30-59 ml/min Status: Chronic (5) Coronary artery disease Permanent Comment: s/p PR ischemic cardiomyopathy s/p CABG Status: Chronic (6) Diabetes mellitus, type II Status: Chronic (7) Dyslipidemia Status: Chronic (8) Elevated liver function tests Status: Chronic (9) History of ventricular tachycardia Status: Chronic (10) HTN (hypertension) Status: Chronic (11) Hypomagnesemia Status: Chronic (12) Hypothyroidism Status: Chronic (13) Non-sustained ventricular tachycardia Status: Chronic (14) Pacemaker Status: Chronic (15) PAF (paroxysmal atrial fibrillation) Status: Chronic Surgical Problems: (1) S/P triple vessel bypass Status: Chronic (2) Status post abdominal aortic aneurysm repair [place]ermanent [place] [facility] [place]. Gallagher stent graft Status: Chronic (3) Status post cataract extraction Status: Chronic (4) Status post cholecystectomy Status: Chronic (5) Status post coronary artery bypass grafting Status: Chronic (6) Status post implantation of automatic cardioverter/defibrillator (AICD) Status: Chronic Family History FH: heart disease FATHER FH: lung cancer MOTHER Hypertension MOTHER Social History Smoking Status: Former Smoker Drug Use: none Marital Status: Housing Status: lives with family Occupation Status: retired Allergies Coded Allergies: Amoxicillin (Unverified Allergy, Severe, Anaphylaxis, 07/13/15) Clavulanic Acid (Unverified Allergy, Severe, Anaphylaxis, 07/13/15) Home Medications Scheduled Albuterol Sulfate (Proair Hfa), 2 PUFFS INH QID Amiodarone HCl (Amiodarone HCl), 200 MG PO BID Amlodipine Besylate (Amlodipine Besylate), 5 MG PO HS Aspirin (Aspirin Ec), 81 MG PO QPM Calcitriol (Rocaltrol Cap), 1 CAP PO MWF Escitalopram (Lexapro), 10 MG PO DAILY Fish Oil ([place]-3), 1 CAP PO BID Fluticasone Furoate-Vilanterol (Breo Ellipta), 1 PUFF PO DAILY Fluticasone Propionate (Nasal) (Flonase Allergy Relief), 2 SPRAYS PHANI DAILY Furosemide (Lasix), 40 MG PO 5XWK Furosemide (Lasix), 80 MG PO 2XWK Insulin Aspart (Novolog Flexpen), UNITS SQ ACHS Insulin Glargine (Lantus), 40 UNITS SC QPM Levothyroxine Sodium (Levothyroxine Sodium), 1 TAB PO 6XWK Levothyroxine Sodium (Levothyroxine Sodium), 2 TAB PO WK Losartan Potassium (Losartan Potassium), 50 MG PO BID Metoprolol Succ (Toprol Xl) (Toprol-Xl), 50 MG PO DAILY Multivitamin (Multivitamin), 1 TAB PO QPM Pantoprazole (Pantoprazole Sodium), 40 MG PO QAM Potassium Chloride (Micro-K Ext Rel), 10 MEQ PO DAILY Spironolactone (Aldactone), 12.5 MG PO MWF Terazosin Hcl (Hytrin), 2 MG PO HS Tiotropium [place] (Spiriva Respimat), 1 PUFF INH DAILY Tocopheryl Acet,Dl-Alpha (Vitamin E), 400 INTER.UNIT PO QPM Warfarin Sodium (Warfarin Sodium), 1 TAB PO DAILY Scheduled PRN Diphenoxylate/Atropine (Lomotil), 1 TAB PO QID PRN for Diarrhea Lorazepam (Ativan), 1 MG PO Q8 PRN for ANXIETY OR SLEEP Nitroglycerin (Nitrostat), 0.4 MG UT UD PRN for Chest Pain Ondansetron Hcl (Zofran), 4 MG PO Q8 PRN for Nausea Tramadol (Ultram), 50 MG PO Q8H PRN for Pain Current Inpatient Medications Current Inpatient Medications Medications (Trade) Dose Ordered Sig/Obi Route Start Time Stop Time Status Last Admin Dose Admin Amiodarone HCL/ Dextrose 200 ml @ 33.3 mls/hr Q6H1M IV 04/27/17 15:45 04/27/17 21:45 04/27/17 15:53 33.3 MLS/HR Miscellaneous Information (Consult Glycemic Management Pharmacy) 1 ea NOW STAT N/A 04/27/17 17:15 04/27/17 17:16 UNV Review of Systems Constitutional: + fever, + chills Respiratory: No cough, No shortness of breath Cardiovascular: No chest pain, No edema Abdomen: + nausea, + vomiting, No diarrhea (says normal BM recently) Neurologic: No weakness, No numbness/tingling Endocrine: No fatigue, No excessive urination Integumentary: No rash Physical Exam Date Time Temp Pulse Resp B/P (MAP) Pulse Ox O2 Delivery O2 Flow Rate FiO2 04/27/17 17:26 97 18 120/64 95 BiPAP 04/27/17 17:16 87 17 113/63 96 BiPAP 04/27/17 17:05 76 17 117/67 94 BiPAP 04/27/17 16:52 73 18 124/64 95 BiPAP 04/27/17 16:42 97 18 96/69 96 BiPAP 04/27/17 16:26 87 97 40 04/27/17 16:25 79 25 97 BiPAP/CPAP 40 04/27/17 16:24 77 18 117/71 94 BiPAP 04/27/17 16:11 79 17 121/76 94 BiPAP 04/27/17 16:04 96 15 106/75 98 BiPAP 04/27/17 15:50 96 19 120/66 96 BiPAP 04/27/17 15:41 96 BiPAP 04/27/17 15:31 94 BiPAP 04/27/17 15:31 124 04/27/17 15:29 37.3 134 28 100/71 92 CPAP 04/27/17 15:27 92 BiPAP General Appearance: WD/WN, no apparent distress (but has BiPAP in place) Head: normocephalic, atraumatic Eyes: EOMI, conjunctivae normal Neck: normal range of motion, trachea midline, supple Respiratory: other (crackles bilaterally at bases) Cardiovasular: regular rate/rhythm, normal S1S2, no murmur, other (Left upper chest AICD in place. Median sternotomy scar. ) Abdomen: non tender, normal bowel sounds, no rebound, no guarding Upper Extremities: no edema, normal ROM Lower Extremities: no edema, normal ROM Neuro: alert, oriented x 3, normal motor exam, normal sensation Psychiatric: normal affect Laboratory Results Last 24 Hours Test 04/27/17 15:30 04/27/17 15:34 04/27/17 15:37 04/27/17 15:55 White Blood Count 14.44 K/uL Red Blood Count 4.59 M/uL Hemoglobin 14.0 g/dL Hematocrit 40.9 % Mean Corpuscular Volume 89.1 fL Mean Corpuscular Hemoglobin 30.5 pg Mean Corpuscular Hemoglobin Concent 34.2 g/dl RDW Standard Deviation 46.9 fL RDW Coefficient of Variation 14.4 % Platelet Count 178 K/uL Mean Platelet Volume 10.2 fL Prothrombin Time 22.3 SECONDS Prothromb Time International Ratio 2.2 Activated Partial Thromboplast Time 39.3 SECONDS Partial Thromboplastin Ratio 1.5 Sodium Level 134 mmol/L Potassium Level 4.2 mmol/L Chloride Level 99 mmol/L Carbon Dioxide Level 20 mmol/L Anion Gap 14.0 mmol/L 23.0 mmol/L Blood Urea Nitrogen 21 mg/dl Creatinine 1.92 mg/dl Est Creatinine Clear Calc Drug Dose 41.1 ml/min Estimated GFR () 39.7 Estimated GFR (Non- 34.3 BUN/Creatinine Ratio 11.0 Random Glucose 340 mg/dl Calcium Level 8.2 mg/dl Magnesium Level 2.3 mg/dl Total Bilirubin 2.1 mg/dl Aspartate Amino Transf (AST/SGOT) 155 U/L Alanine Aminotransferase (ALT/SGPT) 159 U/L Alkaline Phosphatase 67 U/L Pro-B-Type Natriuretic Peptide 3918 pg/ml Total Protein 6.9 gm/dl Albumin 3.0 gm/dl Globulin 3.9 gm/dl Albumin/Globulin Ratio 0.8 Beta-Hydroxybutyric Acid 3.96 mg/dL Bedside Troponin I < 0.030 ng/ml Bedside Hemoglobin 14.6 g/dl Bedside Hematocrit 43 % Bedside Sodium 137 mEq/L Bedside Potassium 4.3 mEq/L Bedside Chloride 99 mEq/L Bedside Total CO2 20 mEq/l Bedside Blood Urea Nitrogen 23 mg/dl Bedside Creatinine 1.6 mg/dl Bedside Glucose (other) 349 mg/dl Bedside Ionized Calcium ([place]) 1.02 mmol/l Influenza Type A (RT-PCR) Neg for Influ A Influenza Type B (RT-PCR) Neg for Influ B Test 04/27/17 17:11 Arterial Blood pH 7.45 Arterial Blood Partial Pressure CO2 33 mmHg Arterial Blood Partial Pressure O2 78 mm/Hg Arterial Blood HCO3 23 mmol/L Arterial Blood Oxygen Saturation 95.4 % Arterial Blood Base Excess -0.7 mEq/L Arterial Blood Gas Delivery 40% Ted Test p Diagnostic Results CHEST ONE VIEW PORTABLE FINDINGS: Left subclavian implanted cardiac defibrillator with 2 leads to the right ventricular apex. Median sternotomy wires, bypass graft rings, and mediastinal surgical clips noted. Atherosclerosis of aortic arch. Cardiac silhouette mildly enlarged, unchanged. Pulmonary vascular prominence. Hazy diffuse opacities with a basilar predominance. Small left pleural effusion may be present. No pneumothorax. IMPRESSION: 1. Cardiomegaly with volume overload and moderate pulmonary edema. Assessment & Plan 71 yo male presents with recent N/V, fevers/chills, now s/p AICD firing for V tach and noted hypoxia. Notable PMH: AAA s/p endovascular repair, ischemic cardiomyopathy and systolic CHF (EF 35%), CKD stage 3, ventricular tachycardia s/p ablation as well as paroxysmal afib now s/p AICD, CAD s/p three vessel CABG and occluded RCA graft, HTN, DM2, hypothyroidism. RUMPER: Awake, alert, conversing, no focal deficits. CAM-ICU negative. Pulm: Reported history of underlying interstitial lung disease. Hypoxia to 78% in ED, placed on CPAP. CXR suggestive of cardiomegaly, volume overload, and moderate pulmonary edema. ABG 7.45/33/23. Received NTG and lasix in ED. - Monitor I&O. Keep on BiPAP overnight (uses same at home). CVS: On interrogation, noted V tach / V fib with rates to >250. AICD shock x 1 , then noted to be in afib. All thought to be precipitated by acute N/V along with flu-like illness ( with similar symptoms). Has PMH afib, on coumadin at home. In ED was started on NTG infusion and given IV lasix. BNP 3918. Initial TnI <0.03. - Began amiodarone bolus then infusion. On BiPAP with wean as tolerated. - Trend TnI. TTE in AM. - Cardiology onboard. ID: [id number], may be related to stress from acute N/V. Negative for influenza here. Soft, non-peritoneal abdomen. Endo: PMH hypothyroidism and DM2. HbA1c pending. Glucose on admit 340. - Begin inpatient glycemic control. Renal/Electrolytes: Hx CKD stage 3. Admit Cr 1.92 (with most recent comparison in Jun 2015 of 1.2). Low Ca. - Monitoring. GI: Mildly elevated transaminases. Low albumin. Heme: Hb 14.0. INR 2.2. Skin: Mild chronic stasis changes on lower legs. Lines: RUE PIV. LUE PIV. Code status: Full code. DVT prophy: PT/OT: Hold for now. Dispo: Admit to ICU. Resident Physician Supervision Note: Dr. Yoder was resident physician during care of patient. I separately evaluated patient and did history and exam. I discussed the case with the resident and generally agree with the findings and plan. This note is reflective of service dated April 27, 2017. Patient is not experiencing any chest pain during my evaluation. He is coming for close observation with a history of ventricular tachycardia requiring AICD placement. It is reported that he has a very pronounced SIRS type response when he falls ill. His influenza is negative despite his being told she had influenza. She was not directly tested for influenza. We will replete his electrolytes. Continue to trend his troponins and evaluate for ischemic event. Resident Tracking Resident Involvement: Resident Care Provided (ICU care) Care Provided: Adult Hospital Medicine
[2017-04-27] MEDS ORDERED: LORAZEPAM 2 MG/ML 1 ML VIAL IV PRN (18:15)
[2017-04-27] MEDS ORDERED: NITROGLYCERIN 0.4 MG SL PER TAB CHARGE SL PRN (18:15)
[2017-04-27] MEDS ORDERED: ICU PROTOCOL FOR HYPERGLYCEMIA PRN (18:15)
[2017-04-27] MEDS ORDERED: PHARMACY GLYCEMIC MGMT CONSULT PRN (18:26)
[2017-04-27] MEDS ORDERED: NITROGLYCERIN 0.4 MG SL PER TAB CHARGE UT PRN (18:30)
[2017-04-27] MEDS ORDERED: TRAMADOL HCL 50 MG TAB PO PRN (18:30)
[2017-04-27] MEDS ORDERED: PHARMACY GLYCEMIC MGMT CONSULT STA (18:39)
[2017-04-27] MEDS ORDERED: DEXTROSE 50% 50 ML SYR IV PRN (18:45)
[2017-04-27] MEDS ORDERED: GLUCAGON FOR INJ 1 MG VIAL SQ PRN (18:45)
[2017-04-27] MEDS ORDERED: GLUCOSE 10 TABS/TUBE PO PRN (18:45)
[2017-04-27] MEDS ORDERED: GLUCOSE 40% GEL 15 GM TUBE PO PRN (18:45)
[2017-04-27] MEDS: ACETAMINOPHEN 325 MG TAB PO PRN (19:41)
--- NOTE | 2017-04-27 19:48 | Pharmacy Progress Note ---
Glycemic Control Intl Consult Date of Service Apr 27, 2017. Scope Glycemic Pharmacist consulted by Dr Porter on 04/27/17 for glycemic control and to write orders per [facility] inpatient glycemic control protocol Objective Weight (Kilograms): 91.700 Accuchecks BSG (last 24hrs): Test 04/27/17 15:30 Random Glucose 340 mg/dl (70-99) Laboratory Data (last 24hrs) Test 04/27/17 15:30 04/27/17 15:37 Anion Gap 14.0 mmol/L 23.0 mmol/L BUN/Creatinine Ratio 11.0 Blood Urea Nitrogen 21 mg/dl Creatinine 1.92 mg/dl Potassium Level 4.2 mmol/L Sodium Level 134 mmol/L White Blood Count 14.44 K/uL HbA1c Test 04/27/17 15:30 Recent Pertinent Medications Outpatient Anti-diabetic Regimen: * Lantus 40 units qPM * Novolog 6-8 units w/ meals * TDD ~ 64 units * A1c = 6.3 % 06/23/15 -> updated one currently pending Risk Factors for Insulin Resistance: * Vtach * Diet: AHA diet ordered Assessment & Plan ASSESSMENT: * 71 y/o male admitted for V tach, history of type 2 diabetes managed w/ basal + bolus insulin * Outpatient regimen heavily weighted on basal insulin but patient needs that much for now w/ current stress/BSG * ICU hyperlglycemia protocol in place so patient will be appropriately initiated on an insulin drip * Will continue basal insulin in addition to the insulin drip for ease of transition off the drip when appropriate -> may need to decrease once stressors removed PLAN FOR INPATIENT GLYCEMIC CONTROL: * Starting IV insulin infusion per severe stress protocol * Goal Range 110 - 180 mg/dl * In the critical care setting, continuous IV insulin infusion has been shown to be the best method for achieving glycemic targets. * Continue basal insulin with LANTUS 40 units qPM * Please note that the plan above was derived based on current level of insulin resistance and hospital stress. These recommendations are appropriate for inpatient admission only. Plan of care upon discharge will need to be reassessed to avoid potential outpatient hypo/hyperglycemia. Thank you.
[2017-04-27 20:00] VITALS: BP 96/56; PULSE 96; TEMP 38.1; O2SAT 93
[2017-04-27] MEDS ORDERED: MODERATE STRESS LEVEL ONE (20:00)
[2017-04-27] MEDS ORDERED: INSULIN PROTOCOL GOAL RANGE ONE (20:00)
[2017-04-27] MEDS ORDERED: INSULIN IV INFUSION PROTOCOL ONE (20:03)
[2017-04-27] MEDS: TOCOPHERYL, DL-ALPHA 400 INTER.UNIT CAP PO SCH (20:10)
[2017-04-27] MEDS: OMEGA-3 (PURIFIED FISH OIL) 1 GM CAP PO SCH (20:10)
[2017-04-27] MEDS: ALBUTEROL HFA 8 GM INHALER INH SCH (20:10)
[2017-04-27] MEDS: ASPIRIN 81 MG ECTAB PO SCH (20:11)
[2017-04-27] MEDS: MULTIVITAMIN TAB PO SCH (20:11)
[2017-04-27] MEDS: LOSARTAN POTASSIUM 50 MG TAB PO SCH (20:11)
[2017-04-27] MEDS ORDERED: NovoLIN R BOLUS FROM BAG IV ONE (20:15)
[2017-04-27] MEDS: INSULIN REGULAR 250 UNITS in SODIUM CHLORIDE 0.9% 250ML 250 ML IV SCH (20:24)
[2017-04-27] MEDS: INSULIN GLARGINE SOLOSTAR 100 UNITS/ML 3 ML PEN SC SCH (20:25)
[2017-04-27] MEDS: INSULIN ASPART 100 UNITS/ML 3 ML PEN SC SCH (21:30)
[2017-04-27] MEDS ORDERED: AMIODARONE IV BOLUS / DRIP IV STA (21:47)
[2017-04-27 22:00] VITALS: BP 93/63; PULSE 104; O2SAT 93
[2017-04-27] MEDS: AMIODARONE / D5W 200 ML IV SCH (22:03)
[2017-04-27 23:59] VITALS: O2SAT 93
[2017-04-28] VITALS (12 sets, daily range): BP systolic 88–138; BP diastolic 58–82; PULSE 89–106; TEMP 36.8–38; O2SAT 93–96; Ht 172.7 cm; Wt 92.9 kg
[2017-04-28] MEDS: DOXYCYCLINE HYCLATE 100 MG CAP PO SCH ×3 (02:29→19:41)
[2017-04-28] MEDS: LEVOTHYROXINE 100 MCG TAB PO SCH (05:52)
[2017-04-28 06:00] LABS: BASO % 0.1 %; BASO ABS # 0.01 K/uL (0-0.2); EOS % 0.2 %; EOS ABS # 0.02 K/uL (0-0.5); HEMATOCRIT 36.1 % (42-52); HEMOGLOBIN 12.5 g/dL (14.0-18.0); IG# 0.02 K/uL (0.00-0.02); LYMPH % 8.5 %; LYMPH ABS # 0.86 K/uL (1.2-3.4); MEAN CELL VOLUME 86.8 fL (80-100); MEAN CORPUSCULAR HGB CONC 34.6 g/dl (32-36); MEAN PLATELET VOLUME 9.7 fL (7.4-10.4); MONO % 5.2 %; MONO ABS # 0.53 K/uL (0.11-0.59); NEUT % 85.8 %; NEUT ABS # 8.68 K/uL (1.4-6.5); PLATELET COUNT 150 K/uL (130-400); RED CELL DISTRIBUTION WIDTH CV 14.4 % (11.5-14.5); RED CELL DISTRIBUTION WIDTH SD 45.5 fL (36.4-46.3); WHITE BLOOD COUNT 10.12 K/uL (4.8-10.8)
[2017-04-28 06:32] LABS: INR 1.9 (0.9-1.1); PTT PATIENT 42.1 SECONDS (21.0-31.0)
[2017-04-28 06:45] LABS: ALBUMIN 2.8 gm/dl (3.4-5.0); CREATININE 1.84 mg/dl (0.60-1.40); PHOSPHORUS 2.5 mg/dl (2.5-4.9); TOTAL PROTEIN 6.3 gm/dl (6.4-8.2)
[2017-04-28] MEDS ORDERED: POTASSIUM CHLORIDE 20 MEQ TABCR PO STA (06:48)
[2017-04-28] MEDS ORDERED: PERFLUTREN LIPID MICROSPHERE (DEFINITY) IV ONE (06:51)
--- NOTE | 2017-04-28 07:18 | Clinical Documentation Query ---
Dr. SILVA, [facility] : CLINICAL DOCUMENTATION QUERY Patient is a 71 year old male admitted for evaluation of syncope/collapse in the setting of ventricular tachycardia and ICD firing. Initial serum troponin negative with subsequent values of 16.6 and 13.1 ng/ml. He's been treated with IV amiodarone, repeat 2D echocardiogram, lopressor, ASA, warfarin, cardiology consultation, ICU standard of care. In your clinical opinion is this patient being managed for: ( X ) Type 2 IL ( ) Not Agree ( ) Other explanation of clinical findings (Please Explain) ( ) Unable to determine (Please Define) ( ) Need to Discuss The medical record reflects the following clinical findings, treatment, and risk factors. Clinical Indicators: As above Treatment: IV amiodarone, repeat 2D echocardiogram, lopressor, ASA, warfarin Risk Factors: CAD, ischemic cardiomyopathy, acute on chronic systolic CHF, acute febrile illness, vomiting, electrolyte derangement. Please clarify and document your clinical opinion in the progress notes and discharge summary. Terms such as "probable", "suspected", "likely", "questionable", "possible", or "still to be ruled out" are acceptable. IF IN AGREEMENT, YOU MUST DOCUMENT ABOVE DIAGNOSTIC STATEMENT IN DAILY PROGRESS NOTES AND DISCHARGE SUMMARY. This document is not part of the patient's record. Thank You, Edinson Urena, JEFFREY [phone]
--- NOTE | 2017-04-28 07:27 | DIAGNOSTIC IMAGING REPORT ---
CHEST ONE VIEW PORTABLE CLINICAL HISTORY: Shortness of breath. COMPARISON STUDY: Chest radiograph April 27, 2017. FINDINGS: A left subclavian pacer/AICD, median sternotomy wires and mediastinal surgical clips are noted. Moderate cardiomegaly is unchanged. Mild elevation of the left hemidiaphragm is unchanged. There may be a small left pleural effusion. Interstitial thickening has improved. There is mild residual interstitial thickening. IMPRESSION: Interval improvement in pulmonary edema. Electronically signed by: Reilly Rock M.D. 04/28/2017 7:26 AM Dictated Date/Time: 04/28/2017 7:25 AM
[2017-04-28] MEDS: POTASSIUM CHLR 10 MEQ / WTR 10 MEQ in PREMIXED WATER 100 ML IV SCH ×2 (07:34→08:45)
[2017-04-28] MEDS: PANTOprazole SOD 40 MG TAB PO SCH (07:35)
[2017-04-28] MEDS ORDERED: POTASSIUM CHLR 10 MEQ / WTR 10 MEQ in PREMIXED WATER 100 ML IV SCH (07:45)
[2017-04-28] MEDS: INSULIN ASPART 100 UNITS/ML 3 ML PEN SC SCH ×4 (08:00→20:54)
--- NOTE | 2017-04-28 08:37 | NEPHROLOGY CONSULTATION ---
DATE OF CONSULTATION: 04/28/2017 ATTENDING OF RECORD: Dr. Logan. REASON FOR CONSULTATION: ANNA. HISTORY OF PRESENT ILLNESS: This is a 71-year-old male who was last seen in my office about a year ago and at that time had CKD stage II with microalbuminuria with the right kidney of 12.4 cm and left kidney of 12.6 cm, diabetes and hypertension. He has had hypertension for over 15 years and diabetes for over 4 years with underlying history of significant heart disease with a bypass in 1991 with defibrillator in 2006 with a history of paroxysmal AFib as well as a history of AAA repair in 2011 and 2 stents and a new defibrillator placed in December 2015. He has been on BiPAP. Creatinine at the time that I saw him a year ago was around 1 with microalbuminuria and was trying to control his diabetes better. Blood pressure was well controlled. The patient's creatinines have been in the 1.2-1.3 range at baseline. The patient comes into the hospital after not feeling well for several days with poor appetite, generalized weakness, nausea, vomiting and worsening shortness of breath. The patient also noted worsening abdominal pain, quite severe with having bowel movements. The patient collapsed while trying to get into his car and was found to be in V-tach. He was started on IV nitro. Also given Lasix for some pulmonary congestion. He was on an amiodarone drip with AFib and when interrogated the defibrillator, the patient noted to have rate greater than 250 in V-tach and with the defibrillator firing and then eventually converting over to AFib. The patient is still quite exhausted and weak with nausea, but overall feeling better than he did when he came in. PAST MEDICAL HISTORY/PAST SURGICAL HISTORY: CKD stage III with baseline creatinine of 1.2-1.3, CHF, history of AAA, bypass surgery, type 2 diabetes, hypertension, history of V-tach with defibrillator, paroxysmal AFib, cataract surgery, cholecystectomy, defibrillator, stenting, bypass, and AAA repair. FAMILY HISTORY: Significant for heart disease. SOCIAL HISTORY: Former smoker. No alcohol. No drugs. He is and lives with family. CURRENT MEDICATIONS: Levothyroxine 100 mcg daily; doxycycline 100 mg p.o. b.i.d.; amiodarone drip; insulin drip; Lantus 40 units at night; aspirin 81 mg a day; Cozaar 50 mg p.o. b.i.d.; multivitamin daily; Hytrin 2 mg at night; Flonase 2 sprays daily; Protonix 40 mg daily; Toprol-XL 50 mg daily; spironolactone 12.5 mg p.o. on Mondays, Wednesdays, and Fridays; potassium 10 mEq daily; and Coumadin 5 mg daily. REVIEW OF SYSTEMS: Positive fatigue. Positive nausea. Positive decreased appetite. Positive generalized weakness. Positive cough. Denies chest pain. Denies headaches. No blurry vision. No dysphagia. No rash. No diarrhea. No dysuria or hematuria. All other review of systems otherwise negative. PHYSICAL EXAMINATION: VITAL SIGNS: The patient did have a T-max of 38.1 last night, now down to 37.5, pulse of 90, respiratory rate is 14, blood pressure is 118/77, and satting 96% on 3 liters. GENERAL: Awake, alert, and oriented x3. HEENT: Moist mucous membranes. NECK: Supple. PULMONARY: Decreased breath sounds at the bases. CARDIAC: Irregularly irregular. ABDOMEN: Bowel sounds positive. Soft and nontender. EXTREMITIES: No clubbing, cyanosis or edema. NEUROLOGICALLY: Nonfocal. DERMATOLOGIC: No rash or ulcers noted. LABORATORY DATA: Flu is negative. Sodium level is 136, potassium 3, chloride is 103, bicarb is 24, BUN is 30, creatinine is 1.84, glucose is 84, and calcium is 8. AST is 15.05 and ALT 1085. Troponins peaked at 16 and trending down to 13. Albumin is 2.8. T-bili is 1.4. Mag is 2.4. Phos 2.5. White count 10, H&H 12 and 36, and platelet count is 150. INR is 1.9. Chest x-ray on admission showed cardiomegaly with volume overload and moderate pulmonary edema. ASSESSMENT AND PLAN: Acute kidney injury with a baseline creatinine of 1.2-1.3 and it was 1.92 on admission in the setting of a viral upper respiratory tract infection with findings of congestive heart failure and then likely with hemodynamic compromise in the setting of ventricular tachycardia, requiring defibrillator firing. He did receive a dose of Lasix last night for moderate pulmonary congestion. No indication for emergent dialysis at this time. Trying to optimize his electrolytes with low potassium of 3. It appears that the patient's liver enzymes are trending up significantly. Troponins elevated. We will discuss the case further with cardiology and would respectfully defer to cardiology to try to optimize heart rhythm as best as possible. If needed to diurese more, okay to diuresis. Once the patient's cardiac function stabilizes, hopefully, creatinine will eventually trend back down to baseline. For now, diuresis as needed and optimize heart and lungs. The patient did have a temperature of 38. Could consider checking blood cultures to be thorough to make sure there is no underlying infection and would consider checking a urine culture as well. We will order a UA with micro to be thorough. I appreciate the consultation. UZMA
[2017-04-28] MEDS: AMIODARONE / D5W 200 ML IV SCH (08:46)
[2017-04-28] MEDS: CALCITRIOL 0.25 MCG CAP PO SCH (08:49)
[2017-04-28] MEDS: SPIRONOLACTONE 25 MG TAB PO SCH (08:49)
[2017-04-28] MEDS: LOSARTAN POTASSIUM 50 MG TAB PO SCH ×2 (08:50→19:43)
[2017-04-28] MEDS: FLUTICASONE PROPIONATE NA SPR 16 GM BTL NAE SCH (08:50)
[2017-04-28] MEDS: ALBUTEROL HFA 8 GM INHALER INH SCH ×4 (08:50→19:42)
[2017-04-28] MEDS: POTASSIUM CHLORIDE 10 MEQ TABCR PO SCH (08:50)
[2017-04-28] MEDS: OMEGA-3 (PURIFIED FISH OIL) 1 GM CAP PO SCH ×2 (08:51→19:41)
[2017-04-28] MEDS: TIOTROPIUM BROMIDE 5 PUFF/90 MCG INH INH SCH (08:51)
[2017-04-28] MEDS ORDERED: METOPROLOL SUCC 50MG EXT REL TAB PO SCH (09:00)
--- NOTE | 2017-04-28 09:10 | ECHOCARDIOGRAM REPORT ---
*NOTICE TO RECEIVING [employer] This information is strictly Confidential and protected under [place] law. [place] law prohibits you from making any further disclosure of this information unless further disclosure is expressly permitted by the written consent of the person to whom it pertains or is authorized by law. A general authorization for the release of medical or other information is not sufficient for this purpose. Hospital accepts no responsibility if the information is made available to any other person, INCLUDING THE PATIENT. Interpretation Summary * The study was technically limited. * Compared to prior study, changes are noted. * -- Conclusions -- * The rhythm is atrial fibrillation. * Ejection Fraction = 20-25%. * Akinesis of the inferior, inferolateral and apical fofana, otherwise, moderate global hypokinesis. * Aortic valve sclerosis moderate, without significant aortic valvular stenosis. * There is mild mitral regurgitation. * There is mild tricuspid regurgitation. * Doppler findings do not suggest pulmonary hypertension. Procedure Details * A complete two-dimensional transthoracic echocardiogram was performed (2D, M-mode, Doppler and color flow Doppler). * The study was technically difficult. * A contrast injection of Definity was performed to improve assessment of LV function. * Contrast was injected into an intravenous site in the left arm. * One vial of Definity ultrasound contrast was diluted in normal saline to a total volume of 10 ml. A total of '2' ml of solution was administered during imaging. * Lot # [id number] of Definity utilized for procedure. * Expiration date . * The attending nurse who injected the contrast agent was JEFFREY Bynum. Left Ventricle * The left ventricle is mildly dilated. * The rhythm is atrial fibrillation. * The is myocardial thinning of the inferior wall consistent with scar. The LV myocardial thickness is otherwise normal. * Ejection Fraction = 20-25%. * Akinesis of the inferior, inferolateral and apical fofana, otherwise, moderate global hypokinesis. Right Ventricle * The right ventricle is not well visualized. * Right ventricular function cannot be assessed due to poor image quality. Atria * The left atrium is mildly dilated. * Right atrium not well visualized. Mitral Valve * The mitral valve anatomy is normal. * There is no mitral valve stenosis. * There is mild mitral regurgitation. Tricuspid Valve * The tricuspid valve is not well visualized. * There is no tricuspid stenosis. * There is mild tricuspid regurgitation. * Doppler findings do not suggest pulmonary hypertension. Aortic Valve * The aortic valve is trileaflet. * Aortic valve sclerosis moderate, without significant aortic valvular stenosis. * Trace aortic regurgitation. Pulmonic Valve * The pulmonary valve is not well seen, but the Doppler examination is normal without significant regurgitation or stenosis. Pericardium/Pleural * There is no pericardial effusion. Great Vessels * Normal IVC diameter with limited respiratory variation suggesting RA pressure of 8mmHg. Left Ventricular Diastolic Function * Pulse wave TDI of the anterior and posterior mitral annulas demonstrates abnormal LV relaxation MMode 2D Measurements and Calculations IVSd 1.0 cm IVSs 1.3 cm LVIDd 6.3 cm LVIDs 5.4 cm LVPWd 1.1 cm LVPWs 1.4 cm IVS/LVPW 0.96 FS 14.5 % EDV(Teich) 200.3 ml ESV(Teich) 139.9 ml EF(Teich) 30.1 % EDV(cubed) 248.6 ml ESV(cubed) 155.4 ml EF(cubed) 37.5 % % IVS thick 22.5 % % LVPW thick 24.3 % LV mass(C)d 290.8 grams LV mass(C)dI 135.2 grams/m\S\2 LV mass(C)s 299.2 grams LV mass(C)sI 139.1 grams/m\S\2 SV(Teich) 60.4 ml SI(Teich) 28.1 ml/m\S\2 SV(cubed) 93.1 ml SI(cubed) 43.3 ml/m\S\2 EPSS 2.4 cm Ao root diam 3.4 cm Ao root area 9.1 cm\S\2 ACS 2.0 cm LA dimension 4.6 cm LA/Ao 1.3 LVAd ap4 39.9 cm\S\2 LVLd ap4 9.5 cm EDV(MOD-sp4) 139.3 ml EDV(sp4-el) 142.6 ml LVAs ap4 33.3 cm\S\2 LVLs ap4 9.0 cm ESV(MOD-sp4) 102.3 ml ESV(sp4-el) 104.5 ml EF(MOD-sp4) 26.6 % EF(sp4-el) 26.7 % LVAd ap2 29.8 cm\S\2 LVLd ap2 8.7 cm EDV(MOD-sp2) 84.3 ml EDV(sp2-el) 86.5 ml LVAs ap2 24.7 cm\S\2 LVLs ap2 8.7 cm ESV(MOD-sp2) 58.2 ml ESV(sp2-el) 59.4 ml EF(MOD-sp2) 31.0 % EF(sp2-el) 31.4 % LVLd %diff -8.84 % EDV(MOD-bp) 113.5 ml LVLs %diff -2.99 % ESV(MOD-bp) 77.9 ml EF(MOD-bp) 31.3 % SV(MOD-sp4) 37.0 ml SI(MOD-sp4) 17.2 ml/m\S\2 SV(MOD-sp2) 26.1 ml SI(MOD-sp2) 12.1 ml/m\S\2 SV(MOD-bp) 35.6 ml SI(MOD-bp) 16.5 ml/m\S\2 SV(sp4-el) 38.1 ml SI(sp4-el) 17.7 ml/m\S\2 SV(sp2-el) 27.2 ml SI(sp2-el) 12.6 ml/m\S\2 Doppler Measurements and Calculations MV E max jey 139.2 cm/sec MV dec time 0.17 sec Ao V2 max 143.0 cm/sec Ao max PG 8.2 mmHg Ao max PG (full) 4.9 mmHg AI max jey 243.1 cm/sec AI max PG 23.6 mmHg AI dec slope 220.0 cm/sec\S\2 AI P1/2t 323.7 msec LV V1 max PG 3.3 mmHg LV V1 max 90.8 cm/sec PA V2 max 74.8 cm/sec PA max PG 2.2 mmHg TR max jey 268.5 cm/sec
[2017-04-28] MEDS: AMIODARONE 200 MG TAB PO SCH ×2 (10:03→19:41)
--- NOTE | 2017-04-28 10:38 | Gastrointestinal Consultation ---
Gastrointestinal Consultation Date of Consultation: Apr 28, 2017 Attending Physician: Te Consulting Physician: Oren Reason for Consultation: amiodorne hepatitis History of Present Illness Patient is a 71 year old male w/ PMH significant for AAA, CHF, CKD, CAD, vtach, HTN, hypothyroidism w/ history of CABG triple vessel bypass, AAA repair, pacemaker placement following a syncopal episode. Pt is seen and evaluated, chart reviewed. Family is at bedside. who is aiding in history. Per , she had viral gastroenteritis and sinus infection about a week ago - a lot of nausea , vomiting and diarrhea. About 4 days ago, her developed similar symptoms. He endorses generalized abd pain, nausea, vomiting and diarrhea without evidence of hematemesis, coffee ground emesis, black/bloody stools. Was concerned bout his symptoms, went to PCP with negative flu swab. His symptoms persisted and he developed fiver, chills rigors. Family was planning to take the pt to the ED as the pt developed left sided CP, when he collapsed. Pt notes that he does not recall the incident. When EMS arrived, pt was hypoxic, sating 78% on RA, he was placed on CPAP and nitro drip on route to ED. In the ED, he had resolution of his CP, vtach on monitor w/ rate in 250's requiring defib firing. Was evaluated by cardiology, started on amiodarone gtt with conversion to afib. Now, converted to PO. GI was ask to evaluate the pt for his elevated LFTs. Today, no fever, chills. Did have nausea and dry heaving last night. No vomiting x 24 hours. Continue to have loose stools. + SOB on O2. No CP. He is afebrile, [employer] 122/79 tachycardiac w/ rate 106. No evidence of leukocytosis, stable H&H with LFT trending below. TB 2.1 --> 1.4 DB 0.6 --> AST 155 --> 1505 ALT 159 --> 1085 ALKP 67 --> 65 INR 2.2 --> 1.9 RUQ US 04/28/17: ordered Chest XR 04/28/17: Interval improvement in pulmonary edema. Chest XR 04/27/17: Cardiomegaly with volume overload and moderate pulmonary edema. Past Medical/Surgical History Medical Problems: (1) Acute chest pain Status: Acute (2) Allergic reaction Status: Acute (3) CHF (congestive heart failure) Permanent Comment: echo 05/28/13 LVEF 30-35% Status: Chronic (4) CHF (congestive heart failure) Status: Acute (5) Dysrhythmia Status: Acute (6) Hyperglycemia Status: Acute (7) Hypoxia Status: Acute (8) Subtherapeutic international normalized ratio (INR) Status: Acute Past Medical History: AAA, CHF, CKD, CAD, T2DM, hyperlipidemia, elevated LFTs, vtach, HTN, hypothyroidism Past Surgical History: CABG, S/P triple vessel bypass, AAA repair, pacemaker, cholecystectomy, cataract Family History FH: heart disease FATHER FH: lung cancer MOTHER Hypertension MOTHER Social History Smoking Status: Former Smoker Alcohol Use: occasionally Drug Use: none Marital Status: Housing Status: lives with family Occupation Status: retired Allergies Coded Allergies: Amoxicillin (Unverified Allergy, Severe, Anaphylaxis, 07/13/15) Clavulanic Acid (Unverified Allergy, Severe, Anaphylaxis, 07/13/15) Current Medications Home Meds and Scripts Medications Dose Route/Sig Max Daily Dose Days Date Category Dose Instructions Lasix (Furosemide) 40 Mg Tab 80 Mg PO 2XWK 04/27/17 Reported TUESDAYS AND THURSDAYS Lasix (Furosemide) 40 Mg Tab 40 Mg PO 5XWK 04/27/17 Reported Levothyroxine Sodium 100 Mcg Tab 2 Tab PO WK 30 04/27/17 Reported SUNDAYS Levothyroxine Sodium 100 Mcg Tab 1 Tab PO 6XWK 30 04/27/17 Reported Warfarin Sodium 5 Mg Tab 1 Tab PO DAILY 90 04/27/17 Reported Aldactone (Spironolactone) 25 Mg Tab 12.5 Mg PO MWF 04/27/17 Reported Micro-K Ext Rel (Potassium Chloride) 10 Meq Capcr 10 Meq PO DAILY 04/27/17 Reported Spiriva Respimat (Tiotropium Clarence) 2.5 Mcg/Act Spr 1 Puff INH DAILY 04/27/17 Reported Amiodarone HCl 200 Mg Tab 200 Mg PO BID 10/08/16 Rx Toprol-Xl (Metoprolol Succinate) 50 Mg Tabcr 50 Mg PO DAILY 10/08/16 Rx Lomotil (Diphenoxylate HCl/Atropine) Tab 1 Tab PO QID PRN 10/08/16 Reported Lexapro (Escitalopram Oxalate) 10 Mg Tab 10 Mg PO DAILY 10/08/16 Reported Rocaltrol Cap (Calcitriol) 0.25 Mcg Cap 1 Cap PO MWF 30 10/08/16 Reported Hytrin (Terazosin HCl) 2 Mg Cap 2 Mg PO HS 10/08/16 Reported Pantoprazole Sodium (Pantoprazole) 40 Mg Tab 40 Mg PO QAM 7 07/14/15 Rx 30 minutes before breakfast Flonase Allergy Relief (Fluticasone Propionate (Nasal)) 50 Mcg/Act Spr 2 Sprays PHANI DAILY 07/13/15 Reported Zofran (Ondansetron HCl) 4 Mg Tab 4 Mg PO Q8 PRN 07/13/15 Reported [place]-3 (Fish Oil) 1 Ea Cap 1 Cap PO BID 06/23/15 Reported Breo Ellipta (Fluticasone Furoate-Vilanterol) 1 Inh Inh 1 Puff PO DAILY 04/02/15 Reported 100/25MCG/INH STRENGTH Ativan (Lorazepam) 1 Mg Tab 1 Mg PO Q8 PRN 04/02/15 Reported Lantus (Insulin Glargine) Vial 40 Units SC QPM 04/02/15 Reported Ultram (Tramadol HCl) 50 Mg Tab 50 Mg PO Q8H PRN 04/02/15 Reported Vitamin E (tz-Csmjt-Hxabnognar Acetate) 400 Inter.unit Cap 400 Inter.unit PO QPM 05/18/14 Reported Aspirin Ec (Aspirin) 81 Mg Tab 81 Mg PO QPM 05/18/14 Reported Amlodipine Besylate 5 Mg Tab 5 Mg PO HS 05/18/14 Reported Losartan Potassium 50 Mg Tab 50 Mg PO BID 05/18/14 Reported Proair Hfa (Albuterol Sulfate) 108 Mcg/ Aer 2 Puffs INH QID 05/18/14 Reported Novolog Flexpen (Insulin Aspart) 100 Units/Ml Inj Units SQ ACHS 04/13/14 Reported COVERAGE DIRECTED BY SLIDING SCALE. USUALLY TAKES 6-8 UNITS W/ MEALS PER SCALE. Nitrostat (Nitroglycerin) 0.4 Mg Tab 0.4 Mg UT UD PRN 03/25/10 Reported Multivitamin (Multivitamins) Tab 1 Tab PO QPM 08/23/06 Reported Review of Systems Constitutional: + weakness, + fatigue, No fever, No chills, No sweats Eyes: No diplopia ENT: + nasal symptoms, No unusual epistaxis, No tinnitus, No trouble swallowing , No pain on swallowing Respiratory: + shortness of breath, + dyspnea on exertion, No sputum, No wheezing, No hemoptysis Cardiac: No chest pain, No edema Abdomen: + nausea, No pain, No vomiting, No diarrhea, No constipation, No GI bleeding, No dysphagia, No odynophagia Musculoskeletal: No joint pain Male : No dysuria Neuro: No numbness/tingling, No vertigo Endo: + fatigue Skin: No rash, No itch Physical Exam Date Time Temp Pulse Resp B/P (MAP) Pulse Ox O2 Delivery O2 Flow Rate FiO2 04/28/17 10:07 37.3 106 18 122/79 (93) 95 Nasal Cannula 3.0 04/28/17 08:02 Nasal Cannula 3.0 04/28/17 08:00 36.8 105 20 112/79 (90) 94 Nasal Cannula 3.0 04/28/17 06:00 90 14 118/77 (91) 96 Nasal Cannula 3.0 04/28/17 04:00 37.5 96 20 96/66 (76) 95 Nasal Cannula 3.0 04/28/17 04:00 95 Nasal Cannula 3.0 04/28/17 02:00 94 20 88/58 (68) 94 Nasal Cannula 4.0 04/28/17 00:01 38.0 99 15 113/82 (92) 93 Nasal Cannula 5.0 Humidified Oxygen 04/27/17 23:59 93 Nasal Cannula 5.0 04/27/17 22:00 104 22 93/63 (73) 93 Nasal Cannula 5.0 04/27/17 20:00 93 Room Air 5.0 Humidified Air 04/27/17 20:00 38.1 96 20 96/56 (69) 93 Nasal Cannula 5.0 Humidified Oxygen 04/27/17 17:55 37.1 82 16 115/50 94 BiPAP 40 04/27/17 17:26 97 18 120/64 95 BiPAP 04/27/17 17:16 87 17 113/63 96 BiPAP 04/27/17 17:05 76 17 117/67 94 BiPAP 04/27/17 16:52 73 18 124/64 95 BiPAP 04/27/17 16:42 97 18 96/69 96 BiPAP 04/27/17 16:26 87 97 40 04/27/17 16:25 79 25 97 BiPAP/CPAP 40 04/27/17 16:24 77 18 117/71 94 BiPAP 04/27/17 16:11 79 17 121/76 94 BiPAP 04/27/17 16:04 96 15 106/75 98 BiPAP 04/27/17 15:50 96 19 120/66 96 BiPAP 04/27/17 15:41 96 BiPAP 04/27/17 15:31 94 BiPAP 04/27/17 15:31 124 04/27/17 15:29 37.3 134 28 100/71 92 CPAP 04/27/17 15:27 92 BiPAP General Appearance: no apparent distress (pt is resting comfortably in bed wearing O2, at bedside) Eyes: PERRL ENT: hearing grossly normal Neck: supple, trachea midline Respiratory/Chest: chest non-tender, no respiratory distress, no accessory muscle use, + crackles (bilateral), + pertinent finding (wearing O2) Cardiovascular: no edema, no gallop, no JVD, no murmur, + tachycardia, + irregularly irregular, + pertinent finding (normal s1, s2) Abdomen: normal bowel sounds, non tender, soft, no organomegaly, no pulsatile mass Neurologic/Psych: alert, normal mood/affect, oriented x 3 Skin: normal color, warm/dry, no rash Laboratory Results Last 24 Hours Test 04/27/17 15:30 04/27/17 15:34 04/27/17 15:37 04/27/17 15:55 White Blood Count 14.44 K/uL Red Blood Count 4.59 M/uL Hemoglobin 14.0 g/dL Hematocrit 40.9 % Mean Corpuscular Volume 89.1 fL Mean Corpuscular Hemoglobin 30.5 pg Mean Corpuscular Hemoglobin Concent 34.2 g/dl RDW Standard Deviation 46.9 fL RDW Coefficient of Variation 14.4 % Platelet Count 178 K/uL Mean Platelet Volume 10.2 fL Prothrombin Time 22.3 SECONDS Prothromb Time International Ratio 2.2 Activated Partial Thromboplast Time 39.3 SECONDS Partial Thromboplastin Ratio 1.5 Sodium Level 134 mmol/L Potassium Level 4.2 mmol/L Chloride Level 99 mmol/L Carbon Dioxide Level 20 mmol/L Anion Gap 14.0 mmol/L 23.0 mmol/L Blood Urea Nitrogen 21 mg/dl Creatinine 1.92 mg/dl Est Creatinine Clear Calc Drug Dose 41.1 ml/min Estimated GFR () 39.7 Estimated GFR (Non- 34.3 BUN/Creatinine Ratio 11.0 Random Glucose 340 mg/dl Estimated Average Glucose 212 mg/dl Hemoglobin A1c 9.0 % Calcium Level 8.2 mg/dl Magnesium Level 2.3 mg/dl Total Bilirubin 2.1 mg/dl Aspartate Amino Transf (AST/SGOT) 155 U/L Alanine Aminotransferase (ALT/SGPT) 159 U/L Alkaline Phosphatase 67 U/L Pro-B-Type Natriuretic Peptide 3918 pg/ml Total Protein 6.9 gm/dl Albumin 3.0 gm/dl Globulin 3.9 gm/dl Albumin/Globulin Ratio 0.8 Beta-Hydroxybutyric Acid 3.96 mg/dL Bedside Troponin I < 0.030 ng/ml Bedside Hemoglobin 14.6 g/dl Bedside Hematocrit 43 % Bedside Sodium 137 mEq/L Bedside Potassium 4.3 mEq/L Bedside Chloride 99 mEq/L Bedside Total CO2 20 mEq/l Bedside Blood Urea Nitrogen 23 mg/dl Bedside Creatinine 1.6 mg/dl Bedside Glucose (other) 349 mg/dl Bedside Ionized Calcium (Mauro) 1.02 mmol/l Influenza Type A (RT-PCR) Neg for Influ A Influenza Type B (RT-PCR) Neg for Influ B Test 04/27/17 17:11 04/27/17 19:47 04/27/17 21:36 04/27/17 22:33 Arterial Blood pH 7.45 Arterial Blood Partial Pressure CO2 33 mmHg Arterial Blood Partial Pressure O2 78 mm/Hg Arterial Blood HCO3 23 mmol/L Arterial Blood Oxygen Saturation 95.4 % Arterial Blood Base Excess -0.7 mEq/L Arterial Blood Gas Delivery 40% Ted Test p Bedside Glucose 349 mg/dl 291 mg/dl 237 mg/dl Test 04/27/17 23:26 04/28/17 00:11 04/28/17 00:35 04/28/17 01:32 Bedside Glucose 241 mg/dl 192 mg/dl 168 mg/dl Troponin I 16.600 ng/ml Test 04/28/17 02:32 04/28/17 03:35 04/28/17 05:34 04/28/17 05:40 Bedside Glucose 164 mg/dl 143 mg/dl 85 mg/dl White Blood Count 10.12 K/uL Red Blood Count 4.16 M/uL Hemoglobin 12.5 g/dL Hematocrit 36.1 % Mean Corpuscular Volume 86.8 fL Mean Corpuscular Hemoglobin 30.0 pg Mean Corpuscular Hemoglobin Concent 34.6 g/dl Platelet Count 150 K/uL Mean Platelet Volume 9.7 fL Neutrophils (%) (Auto) 85.8 % Lymphocytes (%) (Auto) 8.5 % Monocytes (%) (Auto) 5.2 % Eosinophils (%) (Auto) 0.2 % Basophils (%) (Auto) 0.1 % Neutrophils # (Auto) 8.68 K/uL Lymphocytes # (Auto) 0.86 K/uL Monocytes # (Auto) 0.53 K/uL Eosinophils # (Auto) 0.02 K/uL Basophils # (Auto) 0.01 K/uL RDW Standard Deviation 45.5 fL RDW Coefficient of Variation 14.4 % Immature Granulocyte % (Auto) 0.2 % Immature Granulocyte # (Auto) 0.02 K/uL Prothrombin Time 19.4 SECONDS Prothromb Time International Ratio 1.9 Activated Partial Thromboplast Time 42.1 SECONDS Partial Thromboplastin Ratio 1.6 Sodium Level 136 mmol/L Potassium Level 3.0 mmol/L Chloride Level 103 mmol/L Carbon Dioxide Level 24 mmol/L Anion Gap 9.0 mmol/L Blood Urea Nitrogen 30 mg/dl Creatinine 1.84 mg/dl Est Creatinine Clear Calc Drug Dose 38.5 ml/min Estimated GFR () 41.8 Estimated GFR (Non- 36.1 BUN/Creatinine Ratio 16.3 Random Glucose 87 mg/dl Calcium Level 8.0 mg/dl Phosphorus Level 2.5 mg/dl Magnesium Level 2.4 mg/dl Total Bilirubin 1.4 mg/dl Direct Bilirubin 0.6 mg/dl Aspartate Amino Transf (AST/SGOT) 1505 U/L Alanine Aminotransferase (ALT/SGPT) 1085 U/L Alkaline Phosphatase 65 U/L Troponin I 13.100 ng/ml Total Protein 6.3 gm/dl Albumin 2.8 gm/dl Triglycerides Level 162 mg/dl Cholesterol Level 241 mg/dl HDL Cholesterol 33 mg/dl LDL Cholesterol, Calculated 176 mg/dl VLDL Cholesterol, Calculated 32 mg/dl Cholesterol/HDL Ratio 7.3 Beta-Hydroxybutyric Acid 1.25 mg/dL Test 04/28/17 06:04 04/28/17 07:07 04/28/17 08:02 04/28/17 08:43 Bedside Glucose 87 mg/dl 110 mg/dl 142 mg/dl Hepatitis B Surface Antigen NEG Test 04/28/17 08:56 04/28/17 09:20 04/28/17 10:15 Bedside Glucose 159 mg/dl Urine Color DK YELLOW Urine Appearance CLOUDY Urine pH 5.0 Urine Specific [place] 1.023 Urine Protein 2+ Urine Glucose (UA) NEG Urine Ketones TRACE Urine Occult Blood 2+ Urine Nitrite POS Urine Bilirubin NEG Urine Urobilinogen POS Urine Leukocyte Esterase TRACE Urine WBC (Auto) 1-5 /hpf Urine RBC (Auto) 0-4 /hpf Urine Hyaline Casts (Auto) 1-5 /lpf Urine Epithelial Cells (Auto) >30 /lpf Urine Bacteria (Auto) NEG Urine Crystals AMORPHOUS SEDIMENT Urine Pathogenic Casts /lpf Urine Yeast (Auto) Blood Gas Sample Site R Radial Bedside Blood Gas pH (LAB) 7.49 Bedside Blood Gas pCO2 (LAB) 29 mmHg Bedside Blood Gas pO2 (LAB) 64 mmHg Bedside Blood Gas HCO3 (LAB) 22 meq/L Bedside Blood Gas Total CO2 23 mEq/l Bedside Blood Gas Base Excess (LAB) -1.0 meq/L Bedside Blood Gas O2 Saturation 94.0 % Ted Test Pass Oxygen Delivery Device Cannula Impression Patient is a 71 year old male admitted following nausea, vomiting, diarrhea x 1 week w/ acute CP followed by syncopal episode, EMS called w/ nitrodrip initiated. He was in v-tach rates >250 w/ defibrillation shock x 1, was evaluated by cardiology who started IV amiodarone. GI was asked to evaluate the pt given elevated LFTs. On exam, no RUQ, nausea, vomiting, evidence of asterixis or confusion. TB 2.1 --> 1.4 DB 0.6 --> AST 155 --> 1505 ALT 159 --> 1085 ALKP 67 --> 65 INR 2.2 --> 1.9 DILI vs shock liver vs other. Amiodarone induced liver injury from IV administration of drug during admission is low on the differential as there is little tissue accumulation of this drug in short term IV use. Will order acute hepatitis panel, CHRIST, AMA, ASMA. He likely has acute hepatitis secondary to shock liver Plan Please continue Amiodarone Follow up ABD US Follow up acute hepatitis panel Follow up CHRIST, AMA, ASMA Daily LFTs Daily PT/INR Daily abd exam, mental status evaluation Currently, no role for liver biopsy GI will continue to follow LFTs during course of admission. Please call with any questions or concerns I have seen , examined and agree with the plan as outlined by VERONICA Rivers as above. -Exam reveals soft abd -No signs of hepatic decompensation -May have some chronic amiodarone issues, but acute setting is likely due to ischemic hepatopathy. -Given issues of continued VT, certainly defer usage to cardiology and is clearly indicated at this time for cardioprotection. -Follow Daily LFT's -Follow daily INR (aware on Coumadin) -If has development of jaundice, or confusion, then likely needs transfer given overall clinical issues.
[2017-04-28 10:41] LABS: HEP C IGG 13 YRS+OLDER_RFLX NEG (NEG)
--- NOTE | 2017-04-28 11:24 | Critical Care Progress Note ---
Critical Care Progress Note Date of Service Apr 28, 2017. ICU Day ICU Day Number: [address] Tiwari Subjective Found patient resting comfortably, NC in place, pleasantly conversant. Denies any current N/V, focal pains, CP or SOB, or acute concerns. Objective General Appearance: Awake, alert, oriented, lucid, and in NAD. HEENT: NCAT, EOMI, clear conjunctiva, supple neck. Respiratory: Minimal crackles at bases. Cardiovascular: +S1S2 irregularly irregular with borderline tachycardia, no murmur. Left upper chest AICD in place. Median sternotomy scar. Abdomen: + BS, soft, non-tender, non-distended. Extremities: Moving about easily, no distal edema. Neuro: alert, oriented, normal motor exam, normal sensation Assessment & Plan 71 yo male presents with recent N/V, fevers/chills, now s/p AICD firing for V tach and noted hypoxia. Notable PMH: AAA s/p endovascular repair, ischemic cardiomyopathy and systolic CHF (EF 35%), CKD stage 3, ventricular tachycardia s/p ablation as well as paroxysmal afib now s/p AICD, CAD s/p three vessel CABG and occluded RCA graft, HTN, DM2, hypothyroidism. 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 CAM-ICU negative. PMH depression, holding SSRI due to prolonged QTc. Pulm: Acute hypoxic respiratory failure (78% in ED), placed on CPAP, given NTG and lasix. Last ABG 7.49/29/22. Now on 3L NC. CXR interval improvement in pulmonary edema. Reported PMH underlying interstitial lung disease, ? related to chronic amiodarone use. On albuterol QID scheduled, spiriva. - Monitor I&O. Keep on BiPAP overnight (uses same at home). CVS: Initial V tach, AICD shock x1, then afib. ? precipitated by infectious issue. Has PMH afib, on coumadin at home. In ED was started on NTG infusion, given IV lasix, & started on amiodarone infusion. Transitioned to PO amiodarone. BNP 3918. TnI up to 13.1. QTc 549. 14Feb TTE noted EF 20-25%, moderate global hypokinesis, moderate aortic sclerosis without stenosis, mild MR and TR, and not suggestive of pulm HTN. Here on metoprolol, losartan, spironolactone, terazosin. - Wondering about amiodarone options (? other agent, ? stop amio for now). - Monitor for afib with RVR vs other ectopy vs return of V tach. - Cardiology onboard. ID: Febrile overnight. WBC 14 -> 10. Negative for influenza here. Soft, non- tender, non-peritoneal abdomen. Recent acute N/V. LFT issues here (see "GI"). Nasal MRSA negative. 13Feb sputum gram stain positive for gram-pos cocci, gram neg bacilli, gram pos bacilli (with culture pending). - 14Feb BCx x 2 pending. Endo: PMH hypothyroidism (on synthroid) and DM2 (on lantus + novolog). HbA1c 9.0. Glucose improved since admit. Renal/Electrolytes: Hx CKD stage 2. Admit Cr 1.92 (with most recent comparison in Jun 2015 of 1.2), stable. Monitoring I&O's. Low Ca. Replacing K. - Checking UA. - Nephrology onboard. GI: Acutely worsening AST and ALT but improved T bili. Did have recent N/V without diarrhea. AHA diet here. - Ordered hepatitis panel and abdominal ultrasound. - GI consulted. Heme: Hb 12.5. INR 1.9, on coumadin for afib. - Monitor INR in light of GI issues as above. Skin: Mild chronic stasis changes on lower legs. Lines: RUE PIV. LUE PIV. Code status: Full code. Palliative care consult ordered. DVT prophy: On coumadin (also for afib). PT/OT: Hold for now. Dispo: ICU. We have consulted gastroenterology regarding the elevation of his LFTs, I believe at this time it is likely secondary to amiodarone use. I have sent a hepatitis panel. I discussed the case with cardiology with regards to amiodarone use, we have discontinued the IV amiodarone was discussed that the patient may have a low level amiodarone toxicity at all times, however, stopping amiodarone given his extreme electrical irritability of his conducting system it is felt that amiodarone is his best antiarrhythmic at this time. A abdominal ultrasound is pending to exclude an anatomic cause. I have personally spent 35 minutes of critical care time in the direct management of this patient. This is a life/limb threatening event. This includes time spent evaluating patient, direct bedside care, chart review, placing orders, interpretation of diagnostic studies, discussion with consultants, patient, and/or family members regarding treatment decisions, as well as other required patient management activities. This time is exclusive of all separately billable procedures, and teaching time and separate from and in addition to any other critical care service time. Documented By: Edinson Tiwari DO Consults & Procedures Consultants: Cardiology (Dr. Whitmore) Nephrology (Dr. Barry) GI pending Data Medications: Current Inpatient Medications Medications (Trade) Dose Ordered Sig/Obi Route Start Time Stop Time Status Last Admin Dose Admin Miscellaneous Information (Consult Glycemic Management Pharmacy) 1 ea UD PRN N/A 04/27/17 18:26 05/27/17 18:25 Lorazepam (Ativan Inj) 1 mg Q6H PRN IV 04/27/17 18:15 05/27/17 18:14 Nitroglycerin (Nitrostat Tab) 0.4 mg UD PRN SL 04/27/17 18:15 05/27/17 18:14 Miscellaneous Information (Icu Protocol For Hyperglycemia) 1 ea PRN PRN N/A 04/27/17 18:15 04/29/17 18:14 Albuterol (Ventolin Hfa Inhaler) 2 puffs QID INH 04/27/17 21:00 05/27/17 20:59 04/28/17 08:50 2 PUFFS Aspirin (Ecotrin Tab) 81 mg QPM PO 04/27/17 21:00 05/27/17 20:59 04/27/17 20:11 81 MG Calcitriol (Rocaltrol Cap) 0.25 mcg MoWeFr@0900 PO 04/28/17 09:00 05/28/17 08:59 04/28/17 08:49 0.25 MCG Fish Oil ([place]-3 (Purified Fish Oil) Cap) 1 gm BID PO 04/27/17 21:00 05/27/17 20:59 04/28/17 08:51 1 GM Fluticasone Propionate (Flonase Nasal [place]) 2 sprays DAILY PHANI 04/28/17 09:00 05/28/17 08:59 04/28/17 08:50 2 SPRAYS Insulin Glargine (Lantus Solostar Pen) 40 units QPM SC 04/27/17 21:00 05/27/17 20:59 04/27/17 20:25 40 UNITS Levothyroxine Sodium (Synthroid Tab) 100 mcg MoTuWeThFrSa@0600 PO 04/28/17 06:00 05/28/17 05:59 04/28/17 05:52 100 MCG Levothyroxine Sodium (Synthroid Tab) 200 mcg Humphrey@0600 PO 05/02/17 06:00 06/01/17 05:59 Lorazepam (Ativan Tab) 1 mg Q8 PRN PO 04/27/17 18:30 05/27/17 18:29 Losartan Potassium (coZAAR TAB) 50 mg BID PO 04/27/17 21:00 05/27/17 20:59 04/28/17 08:50 50 MG Metoprolol Succinate (Toprol Xl Tab) 50 mg DAILY PO 04/28/17 09:00 05/28/17 08:59 04/28/17 08:49 50 MG Multivitamins (Multivitamin Tab) 1 tab QPM PO 04/27/17 21:00 05/27/17 20:59 04/27/17 20:11 1 TAB Pantoprazole Sodium (Protonix Tab) 40 mg DAILY@0645 PO 04/28/17 06:45 05/28/17 06:44 04/28/17 07:35 40 MG Potassium Chloride (Klor-Con M10) 10 meq DAILY PO 04/28/17 09:00 05/28/17 08:59 04/28/17 08:50 10 MEQ Spironolactone (Aldactone Tab) 12.5 mg MoWeFr@0900 PO 04/28/17 09:00 05/28/17 08:59 04/28/17 08:49 12.5 MG Terazosin HCl (Hytrin Cap) 2 mg HS PO 04/27/17 21:00 05/27/17 20:59 04/27/17 20:11 2 MG xd-Mxyui-Aabdujshhj Acetate (Vitamin E Cap) 400 interunit QPM PO 04/27/17 21:00 05/27/17 20:59 04/27/17 20:10 400 INTERUNIT Warfarin Sodium (Coumadin Tab) 5 mg DAILY@1600 PO 04/28/17 16:00 05/28/17 15:59 Miscellaneous Information (Order Awaiting Action) 1 ea QS N/A 04/27/17 18:00 05/27/17 17:59 Tiotropium [place] (Spiriva Handihaler Inhaler) 1 puff DAILY INH 04/28/17 09:00 05/28/17 08:59 04/28/17 08:51 1 PUFF Glucose (Glucose 40% Gel) 15-30 GRAMS 15 GRAMS... UD PRN PO 04/27/17 18:45 05/27/17 18:44 Glucose (Glucose Chew Tab) 4-8 Tablets 4 Tabl... UD PRN PO 04/27/17 18:45 05/27/17 18:44 Dextrose (Dextrose 50% 50ML Syringe) 25-50ML OF 50% DW IV FOR... UD PRN IV 04/27/17 18:45 05/27/17 18:44 Glucagon (Glucagon Inj) 1 mg UD PRN SQ 04/27/17 18:45 05/27/17 18:44 Acetaminophen (Tylenol Tab) 650 mg Q6H PRN PO 04/27/17 19:45 05/27/17 19:44 04/27/17 19:41 650 MG Insulin Aspart (novoLOG ASPART) SLIDING SCALE HS KS 04/27/17 21:00 05/27/17 20:59 Insulin Human Regular 250 units/ Sodium Chloride 252.5 ml @ 0 mls/hr Q24H IV 04/27/17 20:15 05/27/17 20:14 04/27/17 20:24 2.3 MLS/HR Doxycycline Hyclate (Vibramycin Cap) 100 mg BID PO 04/28/17 02:00 05/05/17 01:59 04/28/17 08:51 100 MG Amiodarone HCl (Cordarone Tab) 200 mg BID PO 04/28/17 10:30 05/28/17 10:29 04/28/17 10:03 200 MG Vital Signs: Date Time Temp Pulse Resp B/P (MAP) Pulse Ox O2 Delivery O2 Flow Rate FiO2 04/28/17 10:07 37.3 106 18 122/79 (93) 95 Nasal Cannula 3.0 04/28/17 08:02 Nasal Cannula 3.0 04/28/17 08:00 36.8 105 20 112/79 (90) 94 Nasal Cannula 3.0 04/28/17 06:00 90 14 118/77 (91) 96 Nasal Cannula 3.0 04/28/17 04:00 37.5 96 20 96/66 (76) 95 Nasal Cannula 3.0 04/28/17 04:00 95 Nasal Cannula 3.0 04/28/17 02:00 94 20 88/58 (68) 94 Nasal Cannula 4.0 04/28/17 00:01 38.0 99 15 113/82 (92) 93 Nasal Cannula 5.0 Humidified Oxygen 04/27/17 23:59 93 Nasal Cannula 5.0 04/27/17 22:00 104 22 93/63 (73) 93 Nasal Cannula 5.0 04/27/17 20:00 93 Room Air 5.0 Humidified Air 04/27/17 20:00 38.1 96 20 96/56 (69) 93 Nasal Cannula 5.0 Humidified Oxygen 04/27/17 17:55 37.1 82 16 115/50 94 BiPAP 40 04/27/17 17:26 97 18 120/64 95 BiPAP 04/27/17 17:16 87 17 113/63 96 BiPAP 04/27/17 17:05 76 17 117/67 94 BiPAP 04/27/17 16:52 73 18 124/64 95 BiPAP 04/27/17 16:42 97 18 96/69 96 BiPAP 04/27/17 16:26 87 97 40 04/27/17 16:25 79 25 97 BiPAP/CPAP 40 04/27/17 16:24 77 18 117/71 94 BiPAP 04/27/17 16:11 79 17 121/76 94 BiPAP 04/27/17 16:04 96 15 106/75 98 BiPAP 04/27/17 15:50 96 19 120/66 96 BiPAP 04/27/17 15:41 96 BiPAP 04/27/17 15:31 94 BiPAP 04/27/17 15:31 124 04/27/17 15:29 37.3 134 28 100/71 92 CPAP 04/27/17 15:27 92 BiPAP Laboratory Results: Last 24 Hours Test 04/27/17 15:30 04/27/17 15:34 04/27/17 15:37 04/27/17 15:55 White Blood Count 14.44 K/uL Red Blood Count 4.59 M/uL Hemoglobin 14.0 g/dL Hematocrit 40.9 % Mean Corpuscular Volume 89.1 fL Mean Corpuscular Hemoglobin 30.5 pg Mean Corpuscular Hemoglobin Concent 34.2 g/dl RDW Standard Deviation 46.9 fL RDW Coefficient of Variation 14.4 % Platelet Count 178 K/uL Mean Platelet Volume 10.2 fL Prothrombin Time 22.3 SECONDS Prothromb Time International Ratio 2.2 Activated Partial Thromboplast Time 39.3 SECONDS Partial Thromboplastin Ratio 1.5 Sodium Level 134 mmol/L Potassium Level 4.2 mmol/L Chloride Level 99 mmol/L Carbon Dioxide Level 20 mmol/L Anion Gap 14.0 mmol/L 23.0 mmol/L Blood Urea Nitrogen 21 mg/dl Creatinine 1.92 mg/dl Est Creatinine Clear Calc Drug Dose 41.1 ml/min Estimated GFR () 39.7 Estimated GFR (Non- 34.3 BUN/Creatinine Ratio 11.0 Random Glucose 340 mg/dl Estimated Average Glucose 212 mg/dl Hemoglobin A1c 9.0 % Calcium Level 8.2 mg/dl Magnesium Level 2.3 mg/dl Total Bilirubin 2.1 mg/dl Aspartate Amino Transf (AST/SGOT) 155 U/L Alanine Aminotransferase (ALT/SGPT) 159 U/L Alkaline Phosphatase 67 U/L Pro-B-Type Natriuretic Peptide 3918 pg/ml Total Protein 6.9 gm/dl Albumin 3.0 gm/dl Globulin 3.9 gm/dl Albumin/Globulin Ratio 0.8 Beta-Hydroxybutyric Acid 3.96 mg/dL Bedside Troponin I < 0.030 ng/ml Bedside Hemoglobin 14.6 g/dl Bedside Hematocrit 43 % Bedside Sodium 137 mEq/L Bedside Potassium 4.3 mEq/L Bedside Chloride 99 mEq/L Bedside Total CO2 20 mEq/l Bedside Blood Urea Nitrogen 23 mg/dl Bedside Creatinine 1.6 mg/dl Bedside Glucose (other) 349 mg/dl Bedside Ionized Calcium (Mauro) 1.02 mmol/l Influenza Type A (RT-PCR) Neg for Influ A Influenza Type B (RT-PCR) Neg for Influ B Test 04/27/17 17:11 04/27/17 19:47 04/27/17 21:36 04/27/17 22:33 Arterial Blood pH 7.45 Arterial Blood Partial Pressure CO2 33 mmHg Arterial Blood Partial Pressure O2 78 mm/Hg Arterial Blood HCO3 23 mmol/L Arterial Blood Oxygen Saturation 95.4 % Arterial Blood Base Excess -0.7 mEq/L Arterial Blood Gas Delivery 40% Ted Test p Bedside Glucose 349 mg/dl 291 mg/dl 237 mg/dl Test 04/27/17 23:26 04/28/17 00:11 04/28/17 00:35 04/28/17 01:32 Bedside Glucose 241 mg/dl 192 mg/dl 168 mg/dl Troponin I 16.600 ng/ml Test 04/28/17 02:32 04/28/17 03:35 04/28/17 05:34 04/28/17 05:40 Bedside Glucose 164 mg/dl 143 mg/dl 85 mg/dl White Blood Count 10.12 K/uL Red Blood Count 4.16 M/uL Hemoglobin 12.5 g/dL Hematocrit 36.1 % Mean Corpuscular Volume 86.8 fL Mean Corpuscular Hemoglobin 30.0 pg Mean Corpuscular Hemoglobin Concent 34.6 g/dl Platelet Count 150 K/uL Mean Platelet Volume 9.7 fL Neutrophils (%) (Auto) 85.8 % Lymphocytes (%) (Auto) 8.5 % Monocytes (%) (Auto) 5.2 % Eosinophils (%) (Auto) 0.2 % Basophils (%) (Auto) 0.1 % Neutrophils # (Auto) 8.68 K/uL Lymphocytes # (Auto) 0.86 K/uL Monocytes # (Auto) 0.53 K/uL Eosinophils # (Auto) 0.02 K/uL Basophils # (Auto) 0.01 K/uL RDW Standard Deviation 45.5 fL RDW Coefficient of Variation 14.4 % Immature Granulocyte % (Auto) 0.2 % Immature Granulocyte # (Auto) 0.02 K/uL Prothrombin Time 19.4 SECONDS Prothromb Time International Ratio 1.9 Activated Partial Thromboplast Time 42.1 SECONDS Partial Thromboplastin Ratio 1.6 Sodium Level 136 mmol/L Potassium Level 3.0 mmol/L Chloride Level 103 mmol/L Carbon Dioxide Level 24 mmol/L Anion Gap 9.0 mmol/L Blood Urea Nitrogen 30 mg/dl Creatinine 1.84 mg/dl Est Creatinine Clear Calc Drug Dose 38.5 ml/min Estimated GFR () 41.8 Estimated GFR (Non- 36.1 BUN/Creatinine Ratio 16.3 Random Glucose 87 mg/dl Calcium Level 8.0 mg/dl Phosphorus Level 2.5 mg/dl Magnesium Level 2.4 mg/dl Total Bilirubin 1.4 mg/dl Direct Bilirubin 0.6 mg/dl Aspartate Amino Transf (AST/SGOT) 1505 U/L Alanine Aminotransferase (ALT/SGPT) 1085 U/L Alkaline Phosphatase 65 U/L Troponin I 13.100 ng/ml Total Protein 6.3 gm/dl Albumin 2.8 gm/dl Triglycerides Level 162 mg/dl Cholesterol Level 241 mg/dl HDL Cholesterol 33 mg/dl LDL Cholesterol, Calculated 176 mg/dl VLDL Cholesterol, Calculated 32 mg/dl Cholesterol/HDL Ratio 7.3 Beta-Hydroxybutyric Acid 1.25 mg/dL Test 04/28/17 06:04 04/28/17 07:07 04/28/17 08:02 04/28/17 08:43 Bedside Glucose 87 mg/dl 110 mg/dl 142 mg/dl Hepatitis B Surface Antigen NEG Hepatitis C Antibody NEG Test 04/28/17 08:56 04/28/17 09:20 04/28/17 10:15 Bedside Glucose 159 mg/dl Urine Color DK YELLOW Urine Appearance CLOUDY Urine pH 5.0 Urine Specific [place] 1.023 Urine Protein 2+ Urine Glucose (UA) NEG Urine Ketones TRACE Urine Occult Blood 2+ Urine Nitrite POS Urine Bilirubin NEG Urine Urobilinogen POS Urine Leukocyte Esterase TRACE Urine WBC (Auto) 1-5 /hpf Urine RBC (Auto) 0-4 /hpf Urine Hyaline Casts (Auto) 1-5 /lpf Urine Epithelial Cells (Auto) >30 /lpf Urine Bacteria (Auto) NEG Urine Crystals AMORPHOUS SEDIMENT Urine Pathogenic Casts /lpf Urine Yeast (Auto) Blood Gas Sample Site R Radial Bedside Blood Gas pH (LAB) 7.49 Bedside Blood Gas pCO2 (LAB) 29 mmHg Bedside Blood Gas pO2 (LAB) 64 mmHg Bedside Blood Gas HCO3 (LAB) 22 meq/L Bedside Blood Gas Total CO2 23 mEq/l Bedside Blood Gas Base Excess (LAB) -1.0 meq/L Bedside Blood Gas O2 Saturation 94.0 % Ted Test Pass Oxygen Delivery Device Cannula Resident Tracking Resident Involvement: Resident Care Provided Care Provided: Adult Hospital Medicine (ICU care)
[2017-04-28] MEDS: LORAZEPAM 1 MG TAB PO PRN ×2 (12:10→19:40)
--- NOTE | 2017-04-28 12:24 | CARDIOLOGY PROGRESS NOTE ---
DATE: 04/28/2017 CARDIOLOGY FOLLOWUP SUBJECTIVE: The patient is seen and examined at the bedside. He is feeling better today. Denies shortness of breath or chest discomfort. Troponins and transaminases elevated as noted below. He remains in atrial fibrillation on telemetry with a heart rate of approximately 100 beats per minute. Remains on an intravenous amiodarone infusion. Hypokalemia noted this morning as well. No orthopnea or PND. Denies palpitations or recurrent lightheadedness. Notes muscular aches which have improved. Offers no other complaints at this time. is present at bedside. REVIEW OF SYSTEMS: The pertinent positives noted above and a 4-system review including cardiovascular, pulmonary, gastroenterologic, and musculoskeletal systems otherwise negative. MEDICATIONS: Reviewed via EMR. Please see list for details. LABORATORY DATA: Sodium 136, potassium 3.0, chloride is 103, CO2 is 24, BUN is 30, and creatinine is 1.84. AST is 1505, ALT is 1085. Initial troponin 16.60 and repeat troponin is 13.10. Triglycerides 162, total cholesterol 241 and LDL is 176. White blood cell count 10.12, hemoglobin is 12.5, platelet count is 150. Blood gas performed this morning is 7.49/29/64/23/94% on nasal cannula. INR is 1.9. Hepatitis panel is pending; mycoplasma, IgG, IgM pending. TELEMETRY: Atrial fibrillation with a heart rate of approximately 100 beats per minute on average. PHYSICAL EXAMINATION: VITAL SIGNS: Temperature is 37.3 degrees centigrade. T-max overnight 38.1 degrees centigrade. Pulse is 106 beats per minute and irregular, respiratory rate is 18 breaths per minute, blood pressure 122/70, SAO2 is 95% on 3 liters. GENERAL: NAD, awake, alert and oriented x3. THROAT: His mucous membranes are dry. No scleral icterus. Conjunctivae pink. NECK: Supple. Neck veins are flat. No JVD or HJR. HEART: Irregular and borderline tachycardic with a normal S1, S2. There is no murmur, rub, or gallop appreciated. LUNGS: Demonstrate coarse breath sounds bilaterally with rhonchi at the bases. ABDOMEN: Soft, nontender. No rebound or guarding. EXTREMITIES: Warm and dry without clubbing, cyanosis, or edema. NEUROLOGIC: Demonstrates no focal neuro deficit. FINAL IMPRESSION: 1. A 71-year-old male admitted with sustained ventricular tachycardia status post implantable cardioverter defibrillator shock. 2. Paroxysmal atrial fibrillation with borderline rate control. 3. Ischemic cardiomyopathy with compensated systolic heart failure 4. Elevated troponin secondary to hypotension, hypoxia, decompensated heart failure, sustained ventricular dysrhythmia, rapid atrial fibrillation. Plaque rupture less likely without new discrete wall motion abnormality on echocardiogram, although left ventricular systolic function has declined mildly. 5. Interstitial lung disease. 6. 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 7. History of abdominal aortic aneurysm status post percutaneous repair. 8. Chronic left bundle branch block. 9. Diabetes. PLAN AND RECOMMENDATIONS: Case discussed with critical care medicine. I have also discussed the case with the patient's outpatient patient service representative. The only other antiarrhythmic option at this point appears to be mexiletine, however, will continue oral amiodarone and trend transaminase levels serially. If there is a significant increase, may withhold amiodarone within the upcoming days. This will be a day to day treatment decision. I do not believe the patient requires additional IV diuretic therapy today. We will continue his beta-katharina and Coumadin as previously ordered. Will continue to follow the patient during hospitalization. UZMA
[2017-04-28] MEDS: CEFTRIAXONE SOD INJ 1 GM in DEXTROSE 5% ADD-VANTAGE 50ML 50 ML IV SCH (12:59)
--- NOTE | 2017-04-28 13:25 | DIAGNOSTIC IMAGING REPORT ---
ABDOMEN COMPLETE (US) CLINICAL HISTORY: 71 years-old Male presenting with elevated LFTs, eval liver. TECHNIQUE: Real-time grayscale and limited color Doppler ultrasound imaging of the abdomen was performed. COMPARISON: CT from 07/13/2015 and ultrasound from 11/04/2014. FINDINGS: Pancreas: Visualized portions of the pancreatic head and body normal. Liver: Mildly hyperechogenic parenchyma, although the right hemidiaphragm remains visible, likely indicating mild steatosis. The liver measures 18.0 cm in maximal sagittal dimension. No sonographic evidence of hepatic mass. Main portal vein patent with normal directional flow. Biliary: No intrahepatic biliary ductal dilatation. Common bile duct measures up to 9 mm in diameter. Hypoechogenic debris may be present in the common duct. Gallbladder: Surgically absent. Spleen: Normal in echogenicity and size, measuring 12 cm in length. Splenule noted. Kidneys: 5 mm hyperechogenic focus at the lower pole of the right kidney as well as a 5 mm hyperechogenic focus at the upper pole of the right kidney, suggestive of nonobstructing renal calculi. 6 mm hyperechogenic focus at the lower pole the left kidney with twinkling artifact consistent with renal calculus. Right kidney measures 13.0 cm, and left kidney measures 13.0 cm. No hydronephrosis. Vasculature: Aneurysmal dilatation of the mid abdominal aorta as seen on prior CT. The midportion measures approximately 3.4 cm in maximal transverse dimension, previously 4.[address] A stent is visualized. Ascites: None. IMPRESSION: 1. Suggestion of mild hepatic steatosis. Correlate with liver function tests to exclude steatohepatitis. 2. Infrarenal abdominal aortic aneurysm, measuring approximately 3.4 cm. This would be better depicted on CT. Please see previous CT from 07/13/2015. 3. Bilateral nephrolithiasis suspected. No hydronephrosis. 4. Status post cholecystectomy. 5. Biliary ductal prominence likely a reservoir effect in the post cholecystectomy state. Apparent hypoechogenic debris in the common duct may represent sludge or be artifactual. No intrahepatic biliary ductal dilatation. Electronically signed by: Isaiah Young M.D. 04/28/2017 1:24 PM Dictated Date/Time: 04/28/2017 1:19 PM
[2017-04-28 15:39] LABS: CREATININE 1.54 mg/dl (0.60-1.40); POTASSIUM 4.2 mmol/L (3.5-5.1)
[2017-04-28] MEDS ORDERED: WARFARIN SOD 5 MG TAB PO SCH (16:00)
--- NOTE | 2017-04-28 17:47 | Progress Note ---
Internal Med Progress Note Date of Service: Apr 28, 2017. Provider Documentation: SUBJECTIVE: Seen and examined at bedside States having nausea and intermittent dizziness Denies chest pain Less SOB Denies abdominal pain No other complaints Family at bedside Off amiodarone drip OBJECTIVE: Vital Signs-as noted below Physical Exam: General Appearance:Moderately built and nourished, no apparent distress Head: normocephalic, Atraumatic Eyes: normal inspection, EOMI, PERRL Neck: supple, Trachea midline Respiratory/Chest: Normal breath sounds, scattered wheezes and rales Cardiovascular: Irregular, +Tachycardia, No murmur Abdomen/GI:Soft, Non tender, Bowel sounds present Extremities/Musculoskelatal:normal inspection, no edema Neurologic/Psych:AAOX3, grossly no focal neurological deficits Skin: normal color, warm Lab data as noted below. ASSESSMENT & PLAN: Sustained Ventricular Tachycardia S/P AICD shock P.Afib Chronic LBBB Ischemic cardiomyopathy with systolic heart failure Type II demand Ischemia Repeat CXR:Improved Pulmonary edema Troponin trending down Received IV lasix yesterday Patient denies chest pain Currently off amiodarone drip Continue PO amiodarone, metoprolol Continue Aldactone Appreciate Cardiology and [employer] Input monitor electrolytes ECHO as below On Coumadin for anticoagulation Monitor INR:1.9 today Pacemaker Interrogation done Acute Hypoxic respiratory failure H/O Interstitial lung disease ?? related to amiodarone Influenza PCR negative Leukocytosis normalized Fever resolved CXR:Improved pulmonary edema. Sputum culture: Normal rad Blood cultures: Pending Continue empiric Antibiotics Continue nebs, Oxygen support BiPAP PRN Mycoplasma serology pending CAD: H/O CABG in 1991 , repeat Cath in 2005 shows total occlusion of [place] Coronary arteries with occluded graft on RCA Nitro gtt discontinued Denies chest pain Cardiology on board continue Aspirin , Beta katharina , Nitro , ARB Not on Statin due to chronic transaminitis /Elevated liver enzyme ANNA on CKD III baseline cr 1.2 ( 12/03/2016 ) Cr 1.54 today Monitor renal function On Aldactone and losartan Appreciate Nephrology Input Prolonged QTC : Qtc > 600 due to severe arrhythmia /AICD Monitor QTC avoid medication that prolong QTC DM II: A1C:9.0 appreciate Pharmacy consult for glycemic management Insulin gtt discontinued Continue ISS, lantus Transaminitis: Likely secondary to shock liver Denies abd pain Amiodarone could be contributing to elevated LFTs Monitor LFTS Abd USD:suggestive of mild hepatic steatosis Appreciate GI input Follow up Hepatitis panel Hypothyroidism: Continue levothyroxine Check TSH, Free T4 in AM H/O AAA: S/P endovascular repair Depression: Hold SSRI -Celexa due to prolong Qtc Code Status: Full Code DVT Px: on Coumadin Disposition: Monitor in ICU PROCEDURES: ECHO: * The rhythm is atrial fibrillation. * Ejection Fraction = 20-25%. * Akinesis of the inferior, inferolateral and apical fofana, otherwise, moderate global hypokinesis. * Aortic valve sclerosis moderate, without significant aortic valvular stenosis. * There is mild mitral regurgitation. * There is mild tricuspid regurgitation. * Doppler findings do not suggest pulmonary hypertension. Vital Signs: Date Time Temp Pulse Resp B/P (MAP) Pulse Ox O2 Delivery O2 Flow Rate FiO2 04/28/17 18:00 104 15 99/58 (72) 94 Nasal Cannula 6.0 04/28/17 16:00 37.1 105 20 118/67 (84) 95 Nasal Cannula 6.0 04/28/17 16:00 Nasal Cannula 6.0 04/28/17 14:00 89 23 117/75 (89) 95 Nasal Cannula 6.0 04/28/17 12:00 Nasal Cannula 6.0 04/28/17 12:00 37.4 95 21 107/80 (89) 94 Nasal Cannula 6.0 04/28/17 10:07 37.3 106 18 122/79 (93) 95 Nasal Cannula 3.0 04/28/17 08:02 Nasal Cannula 3.0 04/28/17 08:00 36.8 105 20 112/79 (90) 94 Nasal Cannula 3.0 04/28/17 08:00 Nasal Cannula 04/28/17 06:00 90 14 118/77 (91) 96 Nasal Cannula 3.0 04/28/17 04:00 37.5 96 20 96/66 (76) 95 Nasal Cannula 3.0 04/28/17 04:00 95 Nasal Cannula 3.0 04/28/17 02:00 94 20 88/58 (68) 94 Nasal Cannula 4.0 04/28/17 00:01 38.0 99 15 113/82 (92) 93 Nasal Cannula 5.0 Humidified Oxygen 04/27/17 23:59 93 Nasal Cannula 5.0 04/27/17 22:00 104 22 93/63 (73) 93 Nasal Cannula 5.0 04/27/17 20:00 93 Room Air 5.0 Humidified Air 04/27/17 20:00 38.1 96 20 96/56 (69) 93 Nasal Cannula 5.0 Humidified Oxygen Lab Results: Results Past 24 Hours Test 04/27/17 19:47 04/27/17 21:36 04/27/17 22:33 04/27/17 23:26 Range/Units Bedside Glucose 349 291 237 241 70-99 mg/dl Test 04/28/17 00:11 04/28/17 00:35 04/28/17 01:32 04/28/17 02:32 Range/Units Troponin I 16.600 0-0.045 ng/ml Bedside Glucose 192 168 164 70-99 mg/dl Test 04/28/17 03:35 04/28/17 05:34 04/28/17 05:40 04/28/17 06:04 Range/Units Bedside Glucose 143 85 87 70-99 mg/dl White Blood Count 10.12 4.8-10.8 K/uL Red Blood Count 4.16 4.7-6.1 M/uL Hemoglobin 12.5 14.0-18.0 g/dL Hematocrit 36.1 42-52 % Mean Corpuscular Volume 86.8 80-100 fL Mean Corpuscular Hemoglobin 30.0 25-34 pg Mean Corpuscular Hemoglobin Concent 34.6 32-36 g/dl Platelet Count 150 130-400 K/uL Mean Platelet Volume 9.7 7.4-10.4 fL Neutrophils (%) (Auto) 85.8 % Lymphocytes (%) (Auto) 8.5 % Monocytes (%) (Auto) 5.2 % Eosinophils (%) (Auto) 0.2 % Basophils (%) (Auto) 0.1 % Neutrophils # (Auto) 8.68 1.4-6.5 K/uL Lymphocytes # (Auto) 0.86 1.2-3.4 K/uL Monocytes # (Auto) 0.53 0.11-0.59 K/uL Eosinophils # (Auto) 0.02 0-0.5 K/uL Basophils # (Auto) 0.01 0-0.2 K/uL RDW Standard Deviation 45.5 36.4-46.3 fL RDW Coefficient of Variation 14.4 11.5-14.5 % Immature Granulocyte % (Auto) 0.2 % Immature Granulocyte # (Auto) 0.02 0.00-0.02 K/uL Prothrombin Time 19.4 9.0-12.0 SECONDS Prothromb Time International Ratio 1.9 0.9-1.1 Activated Partial Thromboplast Time 42.1 21.0-31.0 SECONDS Partial Thromboplastin Ratio 1.6 Sodium Level 136 136-145 mmol/L Potassium Level 3.0 3.5-5.1 mmol/L Chloride Level 103 98-107 mmol/L Carbon Dioxide Level 24 21-32 mmol/L Anion Gap 9.0 3-11 mmol/L Blood Urea Nitrogen 30 7-18 mg/dl Creatinine 1.84 0.60-1.40 mg/dl Est Creatinine Clear Calc Drug Dose 38.5 ml/min Estimated GFR () 41.8 Estimated GFR (Non- 36.1 BUN/Creatinine Ratio 16.3 10-20 Random Glucose 87 70-99 mg/dl Calcium Level 8.0 8.5-10.1 mg/dl Phosphorus Level 2.5 2.5-4.9 mg/dl Magnesium Level 2.4 1.8-2.4 mg/dl Total Bilirubin 1.4 0.2-1 mg/dl Direct Bilirubin 0.6 0-0.2 mg/dl Aspartate Amino Transf (AST/SGOT) 1505 15-37 U/L Alanine Aminotransferase (ALT/SGPT) 1085 12-78 U/L Alkaline Phosphatase 65 45-117 U/L Troponin I 13.100 0-0.045 ng/ml Total Protein 6.3 6.4-8.2 gm/dl Albumin 2.8 3.4-5.0 gm/dl Triglycerides Level 162 0-150 mg/dl Cholesterol Level 241 0-200 mg/dl HDL Cholesterol 33 mg/dl LDL Cholesterol, Calculated 176 mg/dl VLDL Cholesterol, Calculated 32 mg/dl Cholesterol/HDL Ratio 7.3 Beta-Hydroxybutyric Acid 1.25 0.2-2.81 mg/dL Test 04/28/17 07:07 04/28/17 08:02 04/28/17 08:43 04/28/17 08:56 Range/Units Bedside Glucose 110 142 159 70-99 mg/dl Hepatitis B Surface Antigen NEG NEG Hepatitis C Antibody NEG NEG Test 2/14/18 09:20 04/28/17 10:15 04/28/17 12:24 04/28/17 13:02 Range/Units Urine Color DK YELLOW Urine Appearance CLOUDY CLEAR Urine pH 5.0 4.5-7.5 Urine Specific [place] 1.023 1.000-1.030 Urine Protein 2+ NEG Urine Glucose (UA) NEG NEG Urine Ketones TRACE NEG Urine Occult Blood 2+ NEG Urine Nitrite POS NEG Urine Bilirubin NEG NEG Urine Urobilinogen POS NEG Urine Leukocyte Esterase TRACE NEG Urine WBC (Auto) 1-5 0-5 /hpf Urine RBC (Auto) 0-4 0-4 /hpf Urine Hyaline Casts (Auto) 1-5 0-5 /lpf Urine Epithelial Cells (Auto) >30 0-5 /lpf Urine Bacteria (Auto) NEG NEG Urine Crystals AMORPHOUS SEDIMENT NONE PRSENT Urine Pathogenic Casts 0 /lpf Urine Yeast (Auto) NONE PRSENT Blood Gas Sample Site R Radial Bedside Blood Gas pH (LAB) 7.49 7.35-7.45 Bedside Blood Gas pCO2 (LAB) 29 35-46 mmHg Bedside Blood Gas pO2 (LAB) 64 80-95 mmHg Bedside Blood Gas HCO3 (LAB) 22 19-24 meq/L Bedside Blood Gas Total CO2 23 24-31 mEq/l Bedside Blood Gas Base Excess (LAB) -1.0 -9-1.8 meq/L Bedside Blood Gas O2 Saturation 94.0 90-95 % Ted Test Pass Oxygen Delivery Device Cannula Troponin I 6.260 0-0.045 ng/ml Lipase 45 73-393 U/L Bedside Glucose 174 70-99 mg/dl Test 04/28/17 15:03 04/28/17 15:07 04/28/17 17:48 Range/Units Bedside Glucose 159 70-99 mg/dl Sodium Level 132 136-145 mmol/L Potassium Level 4.2 3.5-5.1 mmol/L Chloride Level 102 98-107 mmol/L Carbon Dioxide Level 23 21-32 mmol/L Anion Gap 7.0 3-11 mmol/L Blood Urea Nitrogen 25 7-18 mg/dl Creatinine 1.54 0.60-1.40 mg/dl Est Creatinine Clear Calc Drug Dose 46.0 ml/min Estimated GFR () 51.8 Estimated GFR (Non- 44.7 BUN/Creatinine Ratio 16.0 10-20 Random Glucose 157 70-99 mg/dl Calcium Level 8.0 8.5-10.1 mg/dl Microbiology Results 04/28/17 Blood Culture, Received Pending 04/28/17 Blood Culture, Received Pending
--- NOTE | 2017-04-28 17:50 | Critical Care Progress Note ---
Critical Care Progress Note Date of Service Apr 28, 2017. Critical Care Progress Note Patient has started to have runs of either slow ventricular tachycardia or A. fib with aberrancy. I believe it is more consistent with ventricular tachycardia. I am rechecking his electrolytes at this point and will be giving cardiology a call once we have these results regarding further management. We have discontinued the amiodarone infusion at this point. I am unsure if he may be a candidate for an overdrive pace setting in his AICD.
[2017-04-28] MEDS ORDERED: METOPROLOL TARTRATE 1 MG/ML VIAL ONE (18:57)
[2017-04-28 18:58] LABS: CALCIUM 8.1 mg/dl (8.5-10.1); CREATININE 1.52 mg/dl (0.60-1.40); PHOSPHORUS 1.8 mg/dl (2.5-4.9); POTASSIUM 4.1 mmol/L (3.5-5.1)
[2017-04-28] MEDS ORDERED: NURSING VERBAL MED ORDER ONE ×2 (19:00→19:45)
[2017-04-28] MEDS ORDERED: METOPROLOL TARTRATE 1 MG/ML VIAL IV ONE ×2 (19:05→19:45)
[2017-04-28] MEDS ORDERED: POTASSIUM PHOS 3 MMOL/1 ML INFUSION IV STA (19:37)
[2017-04-28] MEDS: TOCOPHERYL, DL-ALPHA 400 INTER.UNIT CAP PO SCH (19:40)
[2017-04-28] MEDS: MULTIVITAMIN TAB PO SCH (19:41)
[2017-04-28] MEDS: ASPIRIN 81 MG ECTAB PO SCH (19:42)
[2017-04-28] MEDS ORDERED: POTASSIUM PHOSPHATE INJ 21 MMOL in SODIUM CHLORIDE 0.9% 500ML 500 ML IV ONE (20:15)
[2017-04-28] MEDS: INSULIN REGULAR 250 UNITS in SODIUM CHLORIDE 0.9% 250ML 250 ML IV SCH (20:52)
[2017-04-28] MEDS: INSULIN GLARGINE SOLOSTAR 100 UNITS/ML 3 ML PEN SC SCH (20:54)
[2017-04-28] MEDS: METOPROLOL TARTRATE 1 MG/ML VIAL IV. SCH (23:42)
[2017-04-28] MEDS: ACETAMINOPHEN 325 MG TAB PO PRN (23:43)
[2017-04-29] VITALS (36 sets, daily range): BP systolic 71–140; BP diastolic 58–88; PULSE 63–132; TEMP 36.5–38.5; O2SAT 90–96
[2017-04-29] MEDS ORDERED: METOPROLOL TARTRATE 1 MG/ML VIAL IV STA (01:32)
[2017-04-29] MEDS ORDERED: COUGH DROP (SUGAR FREE) LOZ 24 LOZ/1 BOX LOZ ONE (01:37)
[2017-04-29] MEDS: METOPROLOL TARTRATE 1 MG/ML VIAL IV. SCH ×2 (04:00→07:50)
[2017-04-29] MEDS: LEVOTHYROXINE 100 MCG TAB PO SCH (05:17)
[2017-04-29 05:36] LABS: HEPATITIS A IGM TC 51813E NON-REACTIVE (NON-REACTIVE); HEPATITIS B CORE IGM TC51854R NON-REACTIVE (NON-REACTIVE)
[2017-04-29 05:55] LABS: BASO % 0.1 %; BASO ABS # 0.01 K/uL (0-0.2); EOS % 1.4 %; HEMATOCRIT 36.1 % (42-52); HEMOGLOBIN 12.4 g/dL (14.0-18.0); IG# 0.02 K/uL (0.00-0.02); LYMPH % 11.2 %; LYMPH ABS # 0.78 K/uL (1.2-3.4); MEAN CORPUSCULAR HEMOGLOBIN 30.2 pg (25-34); MEAN CORPUSCULAR HGB CONC 34.3 g/dl (32-36); MEAN PLATELET VOLUME 10.3 fL (7.4-10.4); MONO % 8.9 %; MONO ABS # 0.62 K/uL (0.11-0.59); NEUT % 78.1 %; NEUT ABS # 5.46 K/uL (1.4-6.5); PLATELET COUNT 163 K/uL (130-400); RED CELL DISTRIBUTION WIDTH CV 14.6 % (11.5-14.5); RED CELL DISTRIBUTION WIDTH SD 47.4 fL (36.4-46.3); WHITE BLOOD COUNT 6.99 K/uL (4.8-10.8)
[2017-04-29 06:10] LABS: INR 1.6 (0.9-1.1); PTT PATIENT 38.7 SECONDS (21.0-31.0)
[2017-04-29 06:27] LABS: ALBUMIN 2.5 gm/dl (3.4-5.0); CALCIUM 8.2 mg/dl (8.5-10.1); CREATININE 1.39 mg/dl (0.60-1.40); POTASSIUM 3.9 mmol/L (3.5-5.1)
[2017-04-29 06:36] LABS: PHOSPHORUS 3.7 mg/dl (2.5-4.9)
[2017-04-29] MEDS: PANTOprazole SOD 40 MG TAB PO SCH (07:02)
--- NOTE | 2017-04-29 07:02 | DIAGNOSTIC IMAGING REPORT ---
CHEST ONE VIEW PORTABLE HISTORY: 71 years-old Male SOB acute shortness of breath COMPARISON: Chest radiograph 04/28/2017 TECHNIQUE: Portable AP view of the chest FINDINGS: Cardiac silhouette is again enlarged. Prior median sternotomy. Surgical clips project over the left mediastinum. Left subclavian pacer/AICD appears unchanged. Pulmonary vascular congestion with persistent interstitial coarsening compatible with pulmonary edema. Mild blunting of the left costophrenic angle suggests trace effusion. Patchy subsegmental left basilar opacities appear unchanged. Bones of the chest appear grossly intact. IMPRESSION: 1. Cardiomegaly with persistent mild pulmonary edema. 2. Trace left pleural effusion with unchanged patchy left basilar opacities suggesting atelectasis or pneumonitis. The above report was generated using voice recognition software. It may contain grammatical, syntax or spelling errors. Electronically signed by: Robinson Tejeda M.D. 04/29/2017 7:01 AM Dictated Date/Time: 04/29/2017 6:59 AM
[2017-04-29] MEDS: INSULIN ASPART 100 UNITS/ML 3 ML PEN SC SCH ×4 (07:50→23:16)
[2017-04-29] MEDS: FLUTICASONE FUROATE-VILANTEROL 30 PUFFS/INHALER INH INH SCH (09:38)
[2017-04-29] MEDS: AMIODARONE 200 MG TAB PO SCH ×2 (09:39→19:20)
[2017-04-29] MEDS: LOSARTAN POTASSIUM 50 MG TAB PO SCH (09:39)
[2017-04-29] MEDS: OMEGA-3 (PURIFIED FISH OIL) 1 GM CAP PO SCH ×2 (09:40→20:35)
[2017-04-29] MEDS: FLUTICASONE PROPIONATE NA SPR 16 GM BTL NAE SCH (09:40)
[2017-04-29] MEDS: TIOTROPIUM BROMIDE 5 PUFF/90 MCG INH INH SCH (09:41)
[2017-04-29] MEDS: ALBUTEROL HFA 8 GM INHALER INH SCH ×4 (09:41→19:57)
[2017-04-29] MEDS: DOXYCYCLINE HYCLATE 100 MG CAP PO SCH ×2 (09:42→20:35)
[2017-04-29] MEDS: POTASSIUM CHLORIDE 10 MEQ TABCR PO SCH (09:44)
--- NOTE | 2017-04-29 10:22 | Gastroenterology Progress Note ---
Progress Note Date of Service: Apr 29, 2017 Subjective Pt evaluation today including: conversation w/ patient, physical exam, chart review, lab review, review of studies, review of inpatient medication list Mr. Abbasi is a 71 yr old male with a hx of heart disease, with defibrillator , on amiodorone who experienced a GI illness with diarrhea as well as sinus symptoms (now for a total of 6 days), then on 04/27, experienced chest pain, syncope, V-tach 250's requiring defibrillation. GI is consulted for elevated LFTs. when asked about abdominal pain, he describes a few minutes of significant RLQ cramping in the morning on 04/27 which was relieved with defecation, otherwise no abdominal pain. No jaundice. Regarding his diarrheal illness, he continues with loose BMs, about 5 BMs in the past 24 hrs. No blood in stools. LFTs: Baseline (June 2015) 04/27 04/28 today WBC was 14 on arrival, now normal. T Bili 1.0 2.1 1.3 D Bili 0.2 0.6 0.6 AST 41 155 1505 903 ALT 72 159 1085 1088 Alk Phos 62 67 62 RUQ Ultrasound 04/28: possible sludge in the CBD w/o biliary ductal dilation. CBD 9mm. Review of Systems Constitutional: No fever Respiratory: No cough Cardiac: + see HPI, No edema Abdomen: + pain, + diarrhea, No nausea, No vomiting, No constipation, No GI bleeding Male : No dysuria Neuro: No memory loss Psych: No depression symptoms Heme: No abnormal bleeding/bruising Skin: No rash, No jaundice Medications Current Inpatient Medications Medications (Trade) Dose Ordered Sig/Obi Route Start Time Stop Time Status Last Admin Dose Admin Miscellaneous Information (Consult Glycemic Management Pharmacy) 1 ea UD PRN N/A 04/27/17 18:26 05/27/17 18:25 Lorazepam (Ativan Inj) 1 mg Q6H PRN IV 04/27/17 18:15 05/27/17 18:14 Nitroglycerin (Nitrostat Tab) 0.4 mg UD PRN SL 04/27/17 18:15 05/27/17 18:14 Albuterol (Ventolin Hfa Inhaler) 2 puffs QID INH 04/27/17 21:00 05/27/17 20:59 04/28/17 19:42 2 PUFFS Aspirin (Ecotrin Tab) 81 mg QPM PO 04/27/17 21:00 05/27/17 20:59 04/28/17 19:42 81 MG Calcitriol (Rocaltrol Cap) 0.25 mcg MoWeFr@0900 PO 04/28/17 09:00 05/28/17 08:59 04/28/17 08:49 0.25 MCG Fish Oil ([place]-3 (Purified Fish Oil) Cap) 1 gm BID PO 04/27/17 21:00 05/27/17 20:59 04/28/17 19:41 1 GM Fluticasone Propionate (Flonase Nasal [place]) 2 sprays DAILY PHANI 04/28/17 09:00 05/28/17 08:59 04/28/17 08:50 2 SPRAYS Insulin Glargine (Lantus Solostar Pen) 40 units QPM SC 04/27/17 21:00 05/27/17 20:59 04/28/17 20:54 40 UNITS Levothyroxine Sodium (Synthroid Tab) 100 mcg MoTuWeThFrSa@0600 PO 04/28/17 06:00 05/28/17 05:59 04/29/17 05:17 100 MCG Levothyroxine Sodium (Synthroid Tab) 200 mcg [place]@0600 PO 05/02/17 06:00 06/01/17 05:59 Lorazepam (Ativan Tab) 1 mg Q8 PRN PO 04/27/17 18:30 05/27/17 18:29 04/28/17 19:40 1 MG Losartan Potassium (coZAAR TAB) 50 mg BID PO 04/27/17 21:00 05/27/17 20:59 04/28/17 19:43 50 MG Metoprolol Succinate (Toprol Xl Tab) 50 mg DAILY PO 04/28/17 09:00 05/28/17 08:59 04/28/17 08:49 50 MG Multivitamins (Multivitamin Tab) 1 tab QPM PO 04/27/17 21:00 05/27/17 20:59 04/28/17 19:41 1 TAB Pantoprazole Sodium (Protonix Tab) 40 mg DAILY@0645 PO 04/28/17 06:45 05/28/17 06:44 04/29/17 07:02 40 MG Potassium Chloride (Klor-Con M10) 10 meq DAILY PO 04/28/17 09:00 05/28/17 08:59 04/28/17 08:50 10 MEQ Spironolactone (Aldactone Tab) 12.5 mg MoWeFr@0900 PO 04/28/17 09:00 05/28/17 08:59 04/28/17 08:49 12.5 MG Terazosin HCl (Hytrin Cap) 2 mg HS PO 04/27/17 21:00 05/27/17 20:59 04/28/17 19:43 2 MG gi-Ntnwk-[place] Acetate (Vitamin E Cap) 400 interunit QPM PO 04/27/17 21:00 05/27/17 20:59 04/28/17 19:40 400 INTERUNIT Warfarin Sodium (Coumadin Tab) 5 mg DAILY@1600 PO 04/28/17 16:00 05/28/17 15:59 04/28/17 16:26 5 MG Tiotropium [place] (Spiriva Handihaler Inhaler) 1 puff DAILY INH 04/28/17 09:00 05/28/17 08:59 04/28/17 08:51 1 PUFF Glucose (Glucose 40% Gel) 15-30 GRAMS 15 GRAMS... UD PRN PO 04/27/17 18:45 05/27/17 18:44 Glucose (Glucose Chew Tab) 4-8 Tablets 4 Tabl... UD PRN PO 04/27/17 18:45 05/27/17 18:44 Dextrose (Dextrose 50% 50ML Syringe) 25-50ML OF 50% DW IV FOR... UD PRN IV 04/27/17 18:45 05/27/17 18:44 04/29/17 05:49 25 ML Glucagon (Glucagon Inj) 1 mg UD PRN SQ 04/27/17 18:45 05/27/17 18:44 Acetaminophen (Tylenol Tab) 650 mg Q6H PRN PO 04/27/17 19:45 05/27/17 19:44 04/28/17 23:43 650 MG Insulin Aspart (novoLOG ASPART) SLIDING SCALE PCHS SC 04/27/17 21:00 05/27/17 20:59 04/29/17 07:50 4 UNITS Insulin Human Regular 250 units/ Sodium Chloride 252.5 ml @ 0 mls/hr Q24H IV 04/27/17 20:15 05/27/17 20:14 04/28/17 20:52 1.9 MLS/HR Doxycycline Hyclate (Vibramycin Cap) 100 mg BID PO 04/28/17 02:00 05/05/17 01:59 04/28/17 19:41 100 MG Amiodarone HCl (Cordarone Tab) 200 mg BID PO 04/28/17 10:30 05/28/17 10:29 04/28/17 19:41 200 MG Ceftriaxone Sodium 1 gm/ Dextrose 50 ml @ 100 mls/hr Q24H IV 04/28/17 12:30 05/05/17 12:29 04/28/17 12:59 100 MLS/HR Metoprolol Tartrate (Lopressor Iv) 5 mg Q4 IV. 04/28/17 23:30 05/28/17 23:29 04/29/17 07:50 5 MG Fluticasone/ Vilanterol (Breo Ellipta 100-25 Mcg/Inh) 1 puffs DAILY INH 04/29/17 09:00 05/29/17 08:59 Objective Vital Signs Date Time Temp Pulse Resp B/P (MAP) Pulse Ox O2 Delivery O2 Flow Rate FiO2 04/29/17 08:04 36.5 63 21 95/63 (74) 93 Nasal Cannula 4.0 04/29/17 07:50 71 101/59 04/29/17 06:00 68 18 111/68 (82) 96 4.0 04/29/17 04:00 36.6 79 27 98/64 (75) 94 4.0 04/29/17 04:00 94 Nasal Cannula 4.0 04/29/17 04:00 68 98/64 04/29/17 02:00 80 18 105/64 (78) 4.0 04/29/17 01:46 87 20 95/63 (74) 93 4.0 04/29/17 01:31 84 22 97/66 (76) 94 4.0 04/29/17 01:21 92 21 90/68 (75) 94 4.0 04/29/17 01:16 102 15 98/64 (75) 93 4.0 04/29/17 01:11 124 21 76/58 (64) 93 4.0 04/29/17 01:08 122 17 81/60 (67) 93 4.0 04/29/17 01:03 124 20 78/65 (69) 94 4.0 04/29/17 01:01 125 19 78/59 (65) 93 4.0 04/29/17 01:00 125 76/54 04/29/17 00:01 38.5 102 20 110/71 (84) 94 Nasal Cannula 4.0 04/28/17 23:59 Nasal Cannula 4.0 04/28/17 23:42 100 121/83 04/28/17 22:00 95 15 128/75 (92) 96 Nasal Cannula 6.0 04/28/17 20:00 Nasal Cannula 6.0 04/28/17 20:00 36.8 97 16 138/81 (100) 96 Nasal Cannula 6.0 04/28/17 19:47 100 135/77 04/28/17 19:01 104 158/78 04/28/17 18:00 104 15 99/58 (72) 94 Nasal Cannula 6.0 04/28/17 16:00 37.1 105 20 118/67 (84) 95 Nasal Cannula 6.0 04/28/17 16:00 Nasal Cannula 6.0 04/28/17 14:00 89 23 117/75 (89) 95 Nasal Cannula 6.0 04/28/17 12:00 Nasal Cannula 6.0 04/28/17 12:00 37.4 95 21 107/80 (89) 94 Nasal Cannula 6.0 04/28/17 10:07 37.3 106 18 122/79 (93) 95 Nasal Cannula 3.0 Physical Exam General Appearance: no apparent distress Neck: supple, no JVD Respiratory/Chest: lungs clear Cardiovascular: regular rate, rhythm, no murmur Abdomen: non tender, soft Extremities: no pedal edema Neurologic/Psych: alert, normal mood/affect, oriented x 3 Skin: no jaundice, warm/dry Laboratory Results Last 24 Hours Test 04/28/17 10:00 04/28/17 10:15 04/28/17 10:59 04/28/17 12:01 Bedside Glucose 159 mg/dl 171 mg/dl 164 mg/dl Blood Gas Sample Site R Radial Bedside Blood Gas pH (LAB) 7.49 Bedside Blood Gas pCO2 (LAB) 29 mmHg Bedside Blood Gas pO2 (LAB) 64 mmHg Bedside Blood Gas HCO3 (LAB) 22 meq/L Bedside Blood Gas Total CO2 23 mEq/l Bedside Blood Gas Base Excess (LAB) -1.0 meq/L Bedside Blood Gas O2 Saturation 94.0 % Ted Test Pass Oxygen Delivery Device Cannula Test 04/28/17 12:24 04/28/17 13:02 04/28/17 15:03 04/28/17 15:07 Troponin I 6.260 ng/ml Lipase 45 U/L Bedside Glucose 174 mg/dl 159 mg/dl Sodium Level 132 mmol/L Potassium Level 4.2 mmol/L Chloride Level 102 mmol/L Carbon Dioxide Level 23 mmol/L Anion Gap 7.0 mmol/L Blood Urea Nitrogen 25 mg/dl Creatinine 1.54 mg/dl Est Creatinine Clear Calc Drug Dose 46.0 ml/min Estimated GFR () 51.8 Estimated GFR (Non- 44.7 BUN/Creatinine Ratio 16.0 Random Glucose 157 mg/dl Calcium Level 8.0 mg/dl Test 04/28/17 16:29 04/28/17 18:26 04/28/17 20:50 04/28/17 20:56 Bedside Glucose 137 mg/dl 130 mg/dl Sodium Level 134 mmol/L Potassium Level 4.1 mmol/L Chloride Level 102 mmol/L Carbon Dioxide Level 24 mmol/L Anion Gap 8.0 mmol/L Blood Urea Nitrogen 24 mg/dl Creatinine 1.52 mg/dl Est Creatinine Clear Calc Drug Dose 46.6 ml/min Estimated GFR () 52.7 Estimated GFR (Non- 45.4 BUN/Creatinine Ratio 15.9 Random Glucose 143 mg/dl Calcium Level 8.1 mg/dl Phosphorus Level 1.8 mg/dl Magnesium Level 2.1 mg/dl Troponin I 3.720 ng/ml Test 04/29/17 01:09 04/29/17 05:20 04/29/17 05:21 04/29/17 05:43 Bedside Glucose 112 mg/dl 71 mg/dl 76 mg/dl White Blood Count 6.99 K/uL Red Blood Count 4.10 M/uL Hemoglobin 12.4 g/dL Hematocrit 36.1 % Mean Corpuscular Volume 88.0 fL Mean Corpuscular Hemoglobin 30.2 pg Mean Corpuscular Hemoglobin Concent 34.3 g/dl Platelet Count 163 K/uL Mean Platelet Volume 10.3 fL Neutrophils (%) (Auto) 78.1 % Lymphocytes (%) (Auto) 11.2 % Monocytes (%) (Auto) 8.9 % Eosinophils (%) (Auto) 1.4 % Basophils (%) (Auto) 0.1 % Neutrophils # (Auto) 5.46 K/uL Lymphocytes # (Auto) 0.78 K/uL Monocytes # (Auto) 0.62 K/uL Eosinophils # (Auto) 0.10 K/uL Basophils # (Auto) 0.01 K/uL RDW Standard Deviation 47.4 fL RDW Coefficient of Variation 14.6 % Immature Granulocyte % (Auto) 0.3 % Immature Granulocyte # (Auto) 0.02 K/uL Prothrombin Time 16.9 SECONDS Prothromb Time International Ratio 1.6 Activated Partial Thromboplast Time 38.7 SECONDS Partial Thromboplastin Ratio 1.5 Sodium Level 138 mmol/L Potassium Level 3.9 mmol/L Chloride Level 105 mmol/L Carbon Dioxide Level 25 mmol/L Anion Gap 8.0 mmol/L Blood Urea Nitrogen 24 mg/dl Creatinine 1.39 mg/dl Est Creatinine Clear Calc Drug Dose 54.3 ml/min Estimated GFR () 58.7 Estimated GFR (Non- 50.6 BUN/Creatinine Ratio 17.1 Random Glucose 67 mg/dl Calcium Level 8.2 mg/dl Phosphorus Level 3.7 mg/dl Magnesium Level 2.3 mg/dl Total Bilirubin 1.3 mg/dl Direct Bilirubin 0.6 mg/dl Aspartate Amino Transf (AST/SGOT) 903 U/L Alanine Aminotransferase (ALT/SGPT) 1088 U/L Alkaline Phosphatase 62 U/L Total Protein 6.0 gm/dl Albumin 2.5 gm/dl Thyroid Stimulating Hormone (TSH) 1.470 uIu/ml Free Thyroxine 1.70 ng/dl Test 04/29/17 06:07 Bedside Glucose 121 mg/dl Assessment and Plan Mr. Abbasi is a 71 yr old male with elevated LFTs, mostly in a hepatocellular pattern. At baseline, his LFTs are approx 1.5 times the upper limit of normal, likely from either non alcoholic fatty liver disease or from Amiodarone. He experienced a sudden dramatic rise in his transaminases after a syncopal event which included V-fib and defibrillation during which time the liver likely had a lower blood flow. Most likely, his current dramatic increase in his transaminases represents shock liver. His RUQ ultrasound suggests some possible debris in the CBD with borderline upper limit of normal diameter of 9mm post cholecystectomy. Because he has not had typical symptoms of biliary colic, WBC has normalized, and the LFT elevation is in the hepatocellular pattern, it is unlikely that his elevated LFTs are caused by bile duct obstruction. We are unable to perform MRCP as his defibrillator is not compatible with MRI. Plan: 1. Will continue to trend LFTs. 2. No plans for further biliary imaging or for ERCP at this time. 3. Regarding diarrhea, will order stool for C-diff and culture. 4. Diet as tolerated. I have seen , examined and agree with the plan as outlined by VERONICA Marroquin as above. -Exam reveals soft abd -LFTs improved -Reviewed US with Radiology, upon a review there seems to be a consensus and low likelihood that any sludge is in bile duct, nonetheless, would not intervene on in the absence of ascending cholangitis until arrhythmia is very stable given very high anesthesia risks. He is clinically improving and has no signs of infection now. -Follow Liver functions daily.
[2017-04-29] MEDS: METOPROLOL SUCC 50MG EXT REL TAB PO SCH (11:05)
[2017-04-29] MEDS ORDERED: POTASSIUM CHLORIDE 20 MEQ TABCR PO ONE (11:30)
[2017-04-29] MEDS ORDERED: FUROSEMIDE 40 MG TAB PO SCH (11:30)
[2017-04-29] MEDS ORDERED: INSULIN GLARGINE SOLOSTAR 100 UNITS/ML 3 ML PEN SC ONE (11:45)
[2017-04-29 11:54] LABS: BASO % 0.2 %; BASO ABS # 0.01 K/uL (0-0.2); EOS % 1.9 %; EOS ABS # 0.12 K/uL (0-0.5); HEMATOCRIT 36.9 % (42-52); HEMOGLOBIN 12.6 g/dL (14.0-18.0); IG# 0.01 K/uL (0.00-0.02); LYMPH % 8.4 %; LYMPH ABS # 0.54 K/uL (1.2-3.4); MEAN CELL VOLUME 87.4 fL (80-100); MEAN CORPUSCULAR HEMOGLOBIN 29.9 pg (25-34); MEAN PLATELET VOLUME 10.2 fL (7.4-10.4); MONO % 8.8 %; MONO ABS # 0.57 K/uL (0.11-0.59); NEUT % 80.5 %; NEUT ABS # 5.21 K/uL (1.4-6.5); PLATELET COUNT 147 K/uL (130-400); RED CELL DISTRIBUTION WIDTH CV 14.6 % (11.5-14.5); RED CELL DISTRIBUTION WIDTH SD 47.1 fL (36.4-46.3); WHITE BLOOD COUNT 6.46 K/uL (4.8-10.8)
[2017-04-29 11:59] LABS: MEAN CORPUSCULAR HGB CONC 34.1 g/dl (32-36)
[2017-04-29] MEDS ORDERED: INSULIN ASPART 100 UNITS/ML 3 ML PEN SC SCH (12:00)
[2017-04-29] MEDS ORDERED: INSULIN DRIP - STOP ORDER ONE ×2 (12:00→16:00)
[2017-04-29] MEDS ORDERED: INSULIN ASPART 100 UNITS/ML 3 ML PEN SC ONE (12:00)
[2017-04-29 12:02] LABS: INR 1.6 (0.9-1.1); PTT PATIENT 35.3 SECONDS (21.0-31.0)
[2017-04-29] MEDS: CEFTRIAXONE SOD INJ 1 GM in DEXTROSE 5% ADD-VANTAGE 50ML 50 ML IV SCH (12:23)
[2017-04-29] MEDS: HEPARIN 25,000 UNIT/500ML D5W 500 ML IV PRN (12:31)
--- NOTE | 2017-04-29 12:50 | Pharmacy Progress Note ---
Glycemic Control Progress Note Date of Service Apr 29, 2017. Scope Glycemic Pharmacist consulted for glycemic control to write orders per [facility] inpatient glycemic control protocol. Objective Accuchecks BSG (last 24hrs): Test 04/28/17 13:02 04/28/17 15:03 04/28/17 15:07 04/28/17 16:29 Bedside Glucose 174 mg/dl (70-99) 159 mg/dl (70-99) 137 mg/dl (70-99) Random Glucose 157 mg/dl (70-99) Test 04/28/17 18:26 04/28/17 20:50 04/29/17 01:09 04/29/17 05:20 Random Glucose 143 mg/dl (70-99) Bedside Glucose 130 mg/dl (70-99) 112 mg/dl (70-99) 71 mg/dl (70-99) Test 04/29/17 05:21 04/29/17 05:43 04/29/17 06:07 04/29/17 08:12 Random Glucose 67 mg/dl (70-99) Bedside Glucose 76 mg/dl (70-99) 121 mg/dl (70-99) 178 mg/dl (70-99) Test 04/29/17 09:57 Bedside Glucose 167 mg/dl (70-99) HbA1c: Test 04/27/17 15:30 Hemoglobin A1c 9.0 % (4.5-5.6) H Recent Pertinent Medications The patient is currently receiving: * Basal insulin: Lantus 40 units SC HS * Correctional Insulin: Insulin drip * Prandial insulin: Per carb ratio determined by insulin drip rates Assessment & Plan ASSESSMENT: * On home dose of Lantus * Insulin drip running at 1.1 units/hr this AM, but then BSG's increased 2nd post-prandial elevation with only minimal coverage due to [facility] insulin calculator * OK to transition to basal/bolus today per Dr. Tiwari * Will give pre-specified CHO ratio at lunch (instead of relying on insulin gtt calculator) * Will give very small additional dose of Lantus, but will aim to maintain larger dose qHS to help with transition back to outpatient regimen * Will initiate Novolog at dinner with correction factor and carb ratio based on estimated basal dose of 40 units * Two overnight checks * Stop insulin drip at dinner PLAN FOR INPATIENT GLYCEMIC CONTROL: * Stop IV insulin infusion @ 1600 * Basal insulin: Lantus 10 units SQ x1 now then qHS based on BSG * 20 units for BSG less than 110 mg/dL * 30 units for BSG 110-180 mg/dL * 40 units for BSG greater than 180 mg/dL * Bolus insulin * NovoLog per scale ACHS or Q6hrs while NPO and two overnight checks * Goal Range: Low 120 mg/dL - High 160 mg/dL * Correction Factor: 20 mg/dL/unit * Nutritional / Prandial insulin per carb ratio of 1 unit per 7 grams CHO consumed * Please note that the plan above was derived based on current level of insulin resistance and hospital stress. These recommendations are appropriate for inpatient admission only. Plan of care upon discharge will need to be reassessed to avoid potential outpatient hypo/hyperglycemia. Thank you.
--- NOTE | 2017-04-29 14:56 | Progress Note ---
Internal Med Progress Note Date of Service: Apr 29, 2017. Provider Documentation: SUBJECTIVE: Seen and examined at bedside Diarrhea improving Feels well overall Denies chest pain Less SOB and cough Denies abdominal pain No other complaints OBJECTIVE: Vital Signs-as noted below Physical Exam: General Appearance:Moderately built and nourished, no apparent distress Head: normocephalic, Atraumatic Eyes: normal inspection, EOMI, PERRL Neck: supple, Trachea midline Respiratory/Chest: Normal breath sounds, CTA Cardiovascular: Irregular, No murmur Abdomen/GI:Soft, Non tender, Bowel sounds present Extremities/Musculoskelatal:normal inspection, no edema Neurologic/Psych:AAOX3, grossly no focal neurological deficits Skin: normal color, warm Lab data as noted below. ASSESSMENT & PLAN: Sustained Ventricular Tachycardia S/P AICD shock P.Afib Chronic LBBB Ischemic cardiomyopathy with systolic heart failure Type II demand Ischemia Repeat CXR:Improved Pulmonary edema Troponin trended down Received IV lasix Patient denies chest pain Currently off amiodarone drip Continue PO amiodarone, metoprolol for rate control Continue Aldactone Appreciate Cardiology and Inspector Missile Input monitor electrolytes ECHO as below Continue Coumadin for anticoagulation Monitor INR:1.6 today Pacemaker Interrogation done Also on heparin drip Acute Hypoxic respiratory failure H/O Interstitial lung disease ?? related to amiodarone Influenza PCR negative Leukocytosis normalized Fever resolved CXR:Improved pulmonary edema. Sputum culture: gram negative bacilli Blood cultures: Pending Continue empiric Antibiotics Continue nebs, Oxygen support BiPAP PRN Mycoplasma serology pending CAD: H/O CABG in 1991 , repeat Cath in [address] [place] Coronary arteries with occluded graft on RCA Nitro gtt discontinued Denies chest pain Cardiology on board continue Aspirin , Beta katharina , Nitro , ARB Not on Statin due to chronic transaminitis /Elevated liver enzyme Diarrhea: Stool for C.diff negative Monitor ANNA on CKD III baseline cr 1.2 ( 12/03/2016 ) Cr 1.39 today Monitor renal function On Aldactone and losartan Appreciate Nephrology Input Prolonged QTC : Qtc > 600 due to severe arrhythmia /AICD Monitor QTC avoid medication that prolong QTC DM II: A1C:9.0 appreciate Pharmacy consult for glycemic management Insulin gtt discontinued Continue ISS, lantus Transaminitis: Likely secondary to shock liver Denies abd pain Amiodarone could be contributing to elevated LFTs Monitor LFTS Abd USD:suggestive of mild hepatic steatosis Appreciate GI input Hepatitis panel negative No plan for biliary imaging or ERCP Hypothyroidism: Continue levothyroxine TSH, Free T4 normal H/O AAA: S/P endovascular repair Depression: Hold SSRI -Celexa due to prolong Qtc Code Status: Full Code DVT Px: on Coumadin Disposition: To be determined PROCEDURES: ECHO: * The rhythm is atrial fibrillation. * Ejection Fraction = 20-25%. * Akinesis of the inferior, inferolateral and apical fofana, otherwise, moderate global hypokinesis. * Aortic valve sclerosis moderate, without significant aortic valvular stenosis. * There is mild mitral regurgitation. * There is mild tricuspid regurgitation. * Doppler findings do not suggest pulmonary hypertension. Vital Signs: Date Time Temp Pulse Resp B/P (MAP) Pulse Ox O2 Delivery O2 Flow Rate FiO2 04/29/17 14:00 78 15 105/67 (80) 95 Nasal Cannula 4.0 04/29/17 12:01 37.1 77 16 113/71 (85) 92 Nasal Cannula 4.0 04/29/17 12:00 Nasal Cannula 4.0 04/29/17 10:00 72 19 71/62 (65) 96 Nasal Cannula 4.0 04/29/17 08:04 36.5 63 21 95/63 (74) 93 Nasal Cannula 4.0 04/29/17 08:00 Nasal Cannula 04/29/17 08:00 Nasal Cannula 4.0 04/29/17 07:50 71 101/59 04/29/17 06:00 68 18 111/68 (82) 96 4.0 04/29/17 04:00 36.6 79 27 98/64 (75) 94 4.0 04/29/17 04:00 94 Nasal Cannula 4.0 04/29/17 04:00 68 98/64 04/29/17 02:00 80 18 105/64 (78) 4.0 04/29/17 01:46 87 20 95/63 (74) 93 4.0 04/29/17 01:31 84 22 97/66 (76) 94 4.0 04/29/17 01:21 92 21 90/68 (75) 94 4.0 04/29/17 01:16 102 15 98/64 (75) 93 4.0 04/29/17 01:11 124 21 76/58 (64) 93 4.0 04/29/17 01:08 122 17 81/60 (67) 93 4.0 04/29/17 01:03 124 20 78/65 (69) 94 4.0 04/29/17 01:01 125 19 78/59 (65) 93 4.0 04/29/17 01:00 125 76/54 04/29/17 00:01 38.5 102 20 110/71 (84) 94 Nasal Cannula 4.0 04/28/17 23:59 Nasal Cannula 4.0 04/28/17 23:42 100 121/83 04/28/17 22:00 95 15 128/75 (92) 96 Nasal Cannula 6.0 04/28/17 20:00 Nasal Cannula 6.0 04/28/17 20:00 36.8 97 16 138/81 (100) 96 Nasal Cannula 6.0 04/28/17 19:47 100 135/77 04/28/17 19:01 104 158/78 04/28/17 18:00 104 15 99/58 (72) 94 Nasal Cannula 6.0 04/28/17 16:00 37.1 105 20 118/67 (84) 95 Nasal Cannula 6.0 04/28/17 16:00 Nasal Cannula 6.0 Lab Results: Results Past 24 Hours Test 04/28/17 15:03 04/28/17 15:07 04/28/17 16:29 04/28/17 18:26 Range/Units Bedside Glucose 159 137 70-99 mg/dl Sodium Level 132 134 136-145 mmol/L Potassium Level 4.2 4.1 3.5-5.1 mmol/L Chloride Level 102 102 98-107 mmol/L Carbon Dioxide Level 23 24 21-32 mmol/L Anion Gap 7.0 8.0 3-11 mmol/L Blood Urea Nitrogen 25 24 7-18 mg/dl Creatinine 1.54 1.52 0.60-1.40 mg/dl Est Creatinine Clear Calc Drug Dose 46.0 46.6 ml/min Estimated GFR () 51.8 52.7 Estimated GFR (Non- 44.7 45.4 BUN/Creatinine Ratio 16.0 15.9 10-20 Random Glucose 157 143 70-99 mg/dl Calcium Level 8.0 8.1 8.5-10.1 mg/dl Phosphorus Level 1.8 2.5-4.9 mg/dl Magnesium Level 2.1 1.8-2.4 mg/dl Test 04/28/17 20:50 04/28/17 20:56 04/29/17 01:09 04/29/17 05:20 Range/Units Bedside Glucose 130 112 71 70-99 mg/dl Troponin I 3.720 0-0.045 ng/ml Test 04/29/17 05:21 04/29/17 05:43 04/29/17 06:07 04/29/17 08:12 Range/Units White Blood Count 6.99 4.8-10.8 K/uL Red Blood Count 4.10 4.7-6.1 M/uL Hemoglobin 12.4 14.0-18.0 g/dL Hematocrit 36.1 42-52 % Mean Corpuscular Volume 88.0 80-100 fL Mean Corpuscular Hemoglobin 30.2 25-34 pg Mean Corpuscular Hemoglobin Concent 34.3 32-36 g/dl Platelet Count 163 130-400 K/uL Mean Platelet Volume 10.3 7.4-10.4 fL Neutrophils (%) (Auto) 78.1 % Lymphocytes (%) (Auto) 11.2 % Monocytes (%) (Auto) 8.9 % Eosinophils (%) (Auto) 1.4 % Basophils (%) (Auto) 0.1 % Neutrophils # (Auto) 5.46 1.4-6.5 K/uL Lymphocytes # (Auto) 0.78 1.2-3.4 K/uL Monocytes # (Auto) 0.62 0.11-0.59 K/uL Eosinophils # (Auto) 0.10 0-0.5 K/uL Basophils # (Auto) 0.01 0-0.2 K/uL RDW Standard Deviation 47.4 36.4-46.3 fL RDW Coefficient of Variation 14.6 11.5-14.5 % Immature Granulocyte % (Auto) 0.3 % Immature Granulocyte # (Auto) 0.02 0.00-0.02 K/uL Prothrombin Time 16.9 9.0-12.0 SECONDS Prothromb Time International Ratio 1.6 0.9-1.1 Activated Partial Thromboplast Time 38.7 21.0-31.0 SECONDS Partial Thromboplastin Ratio 1.5 Sodium Level 138 136-145 mmol/L Potassium Level 3.9 3.5-5.1 mmol/L Chloride Level 105 98-107 mmol/L Carbon Dioxide Level 25 21-32 mmol/L Anion Gap 8.0 3-11 mmol/L Blood Urea Nitrogen 24 7-18 mg/dl Creatinine 1.39 0.60-1.40 mg/dl Est Creatinine Clear Calc Drug Dose 54.3 ml/min Estimated GFR () 58.7 Estimated GFR (Non- 50.6 BUN/Creatinine Ratio 17.1 10-20 Random Glucose 67 70-99 mg/dl Calcium Level 8.2 8.5-10.1 mg/dl Phosphorus Level 3.7 2.5-4.9 mg/dl Magnesium Level 2.3 1.8-2.4 mg/dl Total Bilirubin 1.3 0.2-1 mg/dl Direct Bilirubin 0.6 0-0.2 mg/dl Aspartate Amino Transf (AST/SGOT) 903 15-37 U/L Alanine Aminotransferase (ALT/SGPT) 1088 12-78 U/L Alkaline Phosphatase 62 45-117 U/L Total Protein 6.0 6.4-8.2 gm/dl Albumin 2.5 3.4-5.0 gm/dl Thyroid Stimulating Hormone (TSH) 1.470 0.300-4.500 uIu/ml Free Thyroxine 1.70 0.80-1.60 ng/dl Bedside Glucose 76 121 178 70-99 mg/dl Test 04/29/17 09:57 04/29/17 11:37 Range/Units Bedside Glucose 167 70-99 mg/dl White Blood Count 6.46 4.8-10.8 K/uL Red Blood Count 4.22 4.7-6.1 M/uL Hemoglobin 12.6 14.0-18.0 g/dL Hematocrit 36.9 42-52 % Mean Corpuscular Volume 87.4 80-100 fL Mean Corpuscular Hemoglobin 29.9 25-34 pg Mean Corpuscular Hemoglobin Concent 34.1 32-36 g/dl Platelet Count 147 130-400 K/uL Mean Platelet Volume 10.2 7.4-10.4 fL Neutrophils (%) (Auto) 80.5 % Lymphocytes (%) (Auto) 8.4 % Monocytes (%) (Auto) 8.8 % Eosinophils (%) (Auto) 1.9 % Basophils (%) (Auto) 0.2 % Neutrophils # (Auto) 5.21 1.4-6.5 K/uL Lymphocytes # (Auto) 0.54 1.2-3.4 K/uL Monocytes # (Auto) 0.57 0.11-0.59 K/uL Eosinophils # (Auto) 0.12 0-0.5 K/uL Basophils # (Auto) 0.01 0-0.2 K/uL RDW Standard Deviation 47.1 36.4-46.3 fL RDW Coefficient of Variation 14.6 11.5-14.5 % Immature Granulocyte % (Auto) 0.2 % Immature Granulocyte # (Auto) 0.01 0.00-0.02 K/uL Prothrombin Time 16.4 9.0-12.0 SECONDS Prothromb Time International Ratio 1.6 0.9-1.1 Activated Partial Thromboplast Time 35.3 21.0-31.0 SECONDS Partial Thromboplastin Ratio 1.4 Microbiology Results 04/29/17 C.difficile Toxin B Gene (PCR) - Final, Complete No C. difficile toxin B gene detected 04/29/17 Shiga Toxin Test, Received Pending 04/29/17 Stool Culture, Received Pending
--- NOTE | 2017-04-29 15:14 | Critical Care Progress Note ---
Critical Care Progress Note Date of Service Apr 29, 2017. ICU Day ICU Day Number: [address] Tiwari Subjective Found patient resting comfortably. Pleasantly conversational, denies any present concerns to include any CP, SOB, abdominal pain, or N/V/D. When asked about overnight events, though, he says he was unaware that he had any arrhythmia issues. Objective General Appearance: Awake, alert, oriented to person/place/time at present, and in NAD. HEENT: NCAT, EOMI, clear conjunctiva, supple neck. Respiratory: Minimal crackles at bases. Cardiovascular: +S1S2 irregularly irregular with borderline tachycardia, no murmur. Left upper chest AICD in place. Median sternotomy scar. Abdomen: + BS, soft, non-tender, non-distended. Extremities: Moving about easily, no distal edema. Neuro: No focal neuro deficits, moving extremities easily. Assessment & Plan 71 yo male presents with recent N/V, fevers/chills, now s/p AICD firing for V tach and noted hypoxia. Notable PMH: AAA s/p endovascular repair, ischemic cardiomyopathy and systolic CHF (EF 35%), CKD stage 3, ventricular tachycardia s/p ablation as well as paroxysmal afib now s/p AICD, CAD s/p three vessel CABG and occluded RCA graft, HTN, DM2, hypothyroidism. [employer]: CAM-positive with some new delirium, confused/unaware about last night's cardiac events. Overall, though, remains awake, aware of name + date + location , pleasantly conversational. PMH depression, holding SSRI due to prolonged QTc. Pulm: Acute hypoxic respiratory failure (78% in ED), placed on CPAP, given NTG and lasix. Last ABG (14Feb) 7.49/. Currently on 4 liters NC. CXR with improved but persistent mild pulmonary edema and patchy left basilar opacities ( see "ID" below). Reported PMH underlying interstitial lung disease, ? related to chronic amiodarone use. On albuterol QID scheduled, spiriva. - Monitor I&O (see "renal/lytes" below). Keep on BiPAP overnight (uses same at home). CVS: (1) Initial V tach, AICD shock x1, then afib. ? precipitated by infectious issue. In ED was started on NTG infusion, given IV lasix, & started on amiodarone infusion. Transitioned to PO amiodarone. QTc 549. Overnight 14- 15Feb noted 25 minute period of likely afib with aberrancy, treated with metoprolol 5 mg IV. No immediate return of same. - Place on metoprolol succinate XL 75 mg BID. Will keep metoprolol tartrate 5 mg IV prn for wide tachycardia for a HR > 115 that lasts over one minute. - Holding amlodipine. Still on losartan. - ? candidate for overdrive pacing though he has an AICD. May benefit from EP study. (2) NSTEMI: TnI up to 16.1, since trending down. (3) 14Feb TTE noted EF 20-25%, moderate global hypokinesis, moderate aortic sclerosis without stenosis, mild MR and TR, and not suggestive of pulm HTN. BNP 3918. (4) Has PMH afib, on coumadin at home. Cardiology onboard. ID: Continued febrile overnight. - Resp: Negative for influenza here. Nasal MRSA negative. CXR concerning for left basilar opacities. 13Feb sputum gram stain positive for gram-pos cocci, gram neg bacilli, gram pos bacilli. Prelim sputum culture results noted moderate normal rad. Mycoplasma pneumoniae IgG & IgM pending. - Blood: 14Feb BCx x 2 pending. WBC 14 -> 6. - Abdomen: Recent acute N/V. Soft, non-tender, non-peritoneal abdomen. Hepatitis panel negative. C diff negative. 15Feb shiga toxin and stool culture pending. LFT issues here (see "GI"). - Renal: UA was positive for LE and nitrites but a reflex UCx was not performed. - Overall plan: On doxy empirically for ? URI. Started 14Feb ceftriaxone (now D2). Sending UCx today, knowing patient has already been on abx as above. Endo: PMH hypothyroidism (on synthroid) and DM2 (on lantus + novolog, with goal transition off insulin drip). HbA1c 9.0. Glucose improved since admit. Renal/Lytes: ANNA: Admit Cr 1.92, trending down (Hx CKD stage 2 with most recent comparison in Jun 2015 of 1.2). On K replacement. On spironolactone. Yesterday UOP 0.34 mL/kg/hr, net positive 824 mL. Overall balance positive 1798 mL. - Goal for electrolyte optimization, including K > 4.5. Ordered KDur today. - Goal net negative I/O today. Single-dose lasix 40 mg PO today. Watching UOP. - Nephrology onboard. GI: Acute hepatitis with acutely worsening AST & ALT, though improved today. Hepatocellular pattern. Prior cholecystectomy. 14Feb RUQ u/s noted possible sludge in the CBD w/o biliary ductal dilation and CBD 9 mm. Cannot do MRCP due to AICD incompatibility. Thought that above is related to NAFLD along with amiodarone toxicity. Has not had RUQ ttp or classic colicky symptoms. Lipase 45. See "ID" for cultures. - Follow LFTs. - AHA, DM2 diet with 1800 mL fluid restriction and carb counting. - GI onboard. Heme: Hb stable in 12's. INR down to 1.6, on coumadin for afib. - Increased coumadin to 7.5 mg daily. Monitor INR in light of GI issues as above. Skin: Mild chronic stasis changes on lower legs. Lines: LUE PIV. Code status: Full code. Palliative care consult ordered. DVT prophy: On coumadin (also for afib and low EF) but will start heparin due to low INR. PT/OT: Hold for now. Dispo: ICU. Resident Physician Supervision Note: Dr. Yoder was resident physician during care of patient. I separately evaluated patient and did history and exam. I discussed the case with the resident and generally agree with the findings and plan. Started heparin drip due to low INR. Patient having frequent bouts of what appears to be atrial fibrillation with rapid ventricular response and aberrant conduction. Rates routinely are less than 130. We have increased his beta- katharina and taken off his alpha blockade at this time. He is also on Rocephin and doxycycline which will cover both atypicals as well as urinary and respiratory pathogens. Given significant comorbidities I discussed the case with palliative care, if the patient were to suffer cardiac arrest I anticipate a very poor outcome if we were even to able to reestablish spontaneous circulation. In discussion with patient and his medical caregivers should he be incapacitated all are in agreement that he would want attempted resuscitation however would not want long-term life-sustaining treatment. Patient is not experiencing hemodynamic instability from his arrhythmias. Is stable for downgrade out of the ICU to telemetry status. Documented By: Edinson Tiwari DO Consults & Procedures Consultants: Cardiology (Dr. Whitmore) Nephrology (Dr. Barry) GI (Dr. Lott) Data Medications: Current Inpatient Medications Medications (Trade) Dose Ordered Sig/Obi Route Start Time Stop Time Status Last Admin Dose Admin Miscellaneous Information (Consult Glycemic Management Pharmacy) 1 ea UD PRN N/A 04/27/17 18:26 05/27/17 18:25 Lorazepam (Ativan Inj) 1 mg Q6H PRN IV 04/27/17 18:15 05/27/17 18:14 Nitroglycerin (Nitrostat Tab) 0.4 mg UD PRN SL 04/27/17 18:15 05/27/17 18:14 Albuterol (Ventolin Hfa Inhaler) 2 puffs QID INH 04/27/17 21:00 05/27/17 20:59 04/29/17 12:24 2 PUFFS Aspirin (Ecotrin Tab) 81 mg QPM PO 04/27/17 21:00 05/27/17 20:59 04/28/17 19:42 81 MG Calcitriol (Rocaltrol Cap) 0.25 mcg MoWeFr@0900 PO 04/28/17 09:00 05/28/17 08:59 04/28/17 08:49 0.25 MCG Fish Oil ([place]-3 (Purified Fish Oil) Cap) 1 gm BID PO 04/27/17 21:00 05/27/17 20:59 04/29/17 09:40 1 GM Fluticasone Propionate (Flonase Nasal [place]) 2 sprays DAILY PHANI 04/28/17 09:00 05/28/17 08:59 04/29/17 09:40 2 SPRAYS Levothyroxine Sodium (Synthroid Tab) 100 mcg MoTuWeThFrSa@0600 PO 04/28/17 06:00 05/28/17 05:59 04/29/17 05:17 100 MCG Levothyroxine Sodium (Synthroid Tab) 200 mcg [place]@0600 PO 05/02/17 06:00 06/01/17 05:59 Lorazepam (Ativan Tab) 1 mg Q8 PRN PO 04/27/17 18:30 05/27/17 18:29 04/28/17 19:40 1 MG Multivitamins (Multivitamin Tab) 1 tab QPM PO 04/27/17 21:00 05/27/17 20:59 04/28/17 19:41 1 TAB Pantoprazole Sodium (Protonix Tab) 40 mg DAILY@0645 PO 04/28/17 06:45 05/28/17 06:44 04/29/17 07:02 40 MG Potassium Chloride (Klor-Con M10) 10 meq DAILY PO 04/28/17 09:00 05/28/17 08:59 04/29/17 09:44 10 MEQ Spironolactone (Aldactone Tab) 12.5 mg MoWeFr@0900 PO 04/28/17 09:00 05/28/17 08:59 04/28/17 08:49 12.5 MG su-[id number]-Hgdpxvvlcs Acetate (Vitamin E Cap) 400 interunit QPM PO 04/27/17 21:00 05/27/17 20:59 04/28/17 19:40 400 INTERUNIT Tiotropium [place] (Spiriva Handihaler Inhaler) 1 puff DAILY INH 04/28/17 09:00 05/28/17 08:59 04/29/17 09:41 1 PUFF Glucose (Glucose 40% Gel) 15-30 GRAMS 15 GRAMS... UD PRN PO 04/27/17 18:45 05/27/17 18:44 Glucose (Glucose Chew Tab) 4-8 Tablets 4 Tabl... UD PRN PO 04/27/17 18:45 05/27/17 18:44 Dextrose (Dextrose 50% 50ML Syringe) 25-50ML OF 50% DW IV FOR... UD PRN IV 04/27/17 18:45 05/27/17 18:44 04/29/17 05:49 25 ML Glucagon (Glucagon Inj) 1 mg UD PRN SQ 04/27/17 18:45 05/27/17 18:44 Acetaminophen (Tylenol Tab) 650 mg Q6H PRN PO 04/27/17 19:45 05/27/17 19:44 04/28/17 23:43 650 MG Insulin Human Regular 250 units/ Sodium Chloride 252.5 ml @ 0 mls/hr Q24H IV 04/27/17 20:15 04/29/17 16:00 04/28/17 20:52 1.9 MLS/HR Doxycycline Hyclate (Vibramycin Cap) 100 mg BID PO 04/28/17 02:00 05/05/17 01:59 04/29/17 09:42 100 MG Amiodarone HCl (Cordarone Tab) 200 mg BID PO 04/28/17 10:30 05/28/17 10:29 04/29/17 09:39 200 MG Ceftriaxone Sodium 1 gm/ Dextrose 50 ml @ 100 mls/hr Q24H IV 04/28/17 12:30 05/05/17 12:29 04/29/17 12:23 100 MLS/HR Fluticasone/ Vilanterol (Breo Ellipta 100-25 Mcg/Inh) 1 puffs DAILY INH 04/29/17 09:00 05/29/17 08:59 04/29/17 09:38 1 PUFFS Metoprolol Succinate (Toprol Xl Tab) 75 mg DAILY PO 04/29/17 11:00 05/29/17 10:59 04/29/17 11:05 75 MG Metoprolol Tartrate (Lopressor Iv) 5 mg Q4 PRN IV 04/29/17 10:45 05/29/17 10:44 Warfarin Sodium (Coumadin Tab) 7.5 mg TODAY@1600 ONCE PO 04/29/17 16:00 04/29/17 16:01 Furosemide (Lasix Tab) 40 mg DAILY PO 04/29/17 11:30 05/29/17 11:29 04/29/17 12:21 40 MG Insulin Aspart (novoLOG ASPART) SLIDING SCALE TODAY@0000,0400 SC 04/30/17 00:00 04/30/17 04:01 Heparin Sodium/ Dextrose 500 ml @ 28 mls/hr [id number] PRN IV 04/29/17 11:45 05/29/17 11:44 04/29/17 12:31 28 MLS/HR Insulin Aspart (novoLOG ASPART) SLIDING SCALE ACHS SC 04/29/17 16:00 05/29/17 15:59 Miscellaneous (Stop Order) 1 ea TODAY@1600 ONCE N/A 04/29/17 16:00 04/29/17 16:01 Insulin Glargine (Lantus Solostar Pen) QPM SC 04/29/17 21:00 05/29/17 20:59 Losartan Potassium (coZAAR TAB) 50 mg DAILY PO 04/30/17 09:00 05/27/17 20:59 I & O: 24-Hour Column 04/30/17 08:00 Intake Total 636 ml Balance 636 ml Vital Signs: Date Time Temp Pulse Resp B/P (MAP) Pulse Ox O2 Delivery O2 Flow Rate FiO2 04/29/17 14:00 78 15 105/67 (80) 95 Nasal Cannula 4.0 04/29/17 12:01 37.1 77 16 113/71 (85) 92 Nasal Cannula 4.0 04/29/17 12:00 Nasal Cannula 4.0 04/29/17 10:00 72 19 71/62 (65) 96 Nasal Cannula 4.0 04/29/17 08:04 36.5 63 21 95/63 (74) 93 Nasal Cannula 4.0 04/29/17 08:00 Nasal Cannula 04/29/17 08:00 Nasal Cannula 4.0 04/29/17 07:50 71 101/59 04/29/17 06:00 68 18 111/68 (82) 96 4.0 04/29/17 04:00 36.6 79 27 98/64 (75) 94 4.0 04/29/17 04:00 94 Nasal Cannula 4.0 04/29/17 04:00 68 98/64 04/29/17 02:00 80 18 105/64 (78) 4.0 04/29/17 01:46 87 20 95/63 (74) 93 4.0 04/29/17 01:31 84 22 97/66 (76) 94 4.0 04/29/17 01:21 92 21 90/68 (75) 94 4.0 04/29/17 01:16 102 15 98/64 (75) 93 4.0 04/29/17 01:11 124 21 76/58 (64) 93 4.0 04/29/17 01:08 122 17 81/60 (67) 93 4.0 04/29/17 01:03 124 20 78/65 (69) 94 4.0 04/29/17 01:01 125 19 78/59 (65) 93 4.0 04/29/17 01:00 125 76/54 04/29/17 00:01 38.5 102 20 110/71 (84) 94 Nasal Cannula 4.0 04/28/17 23:59 Nasal Cannula 4.0 04/28/17 23:42 100 121/83 04/28/17 22:00 95 15 128/75 (92) 96 Nasal Cannula 6.0 04/28/17 20:00 Nasal Cannula 6.0 04/28/17 20:00 36.8 97 16 138/81 (100) 96 Nasal Cannula 6.0 04/28/17 19:47 100 135/77 04/28/17 19:01 104 158/78 04/28/17 18:00 104 15 99/58 (72) 94 Nasal Cannula 6.0 04/28/17 16:00 37.1 105 20 118/67 (84) 95 Nasal Cannula 6.0 04/28/17 16:00 Nasal Cannula 6.0 Laboratory Results: Last 24 Hours Test 04/28/17 16:29 04/28/17 18:26 04/28/17 20:50 04/28/17 20:56 Bedside Glucose 137 mg/dl 130 mg/dl Sodium Level 134 mmol/L Potassium Level 4.1 mmol/L Chloride Level 102 mmol/L Carbon Dioxide Level 24 mmol/L Anion Gap 8.0 mmol/L Blood Urea Nitrogen 24 mg/dl Creatinine 1.52 mg/dl Est Creatinine Clear Calc Drug Dose 46.6 ml/min Estimated GFR () 52.7 Estimated GFR (Non- 45.4 BUN/Creatinine Ratio 15.9 Random Glucose 143 mg/dl Calcium Level 8.1 mg/dl Phosphorus Level 1.8 mg/dl Magnesium Level 2.1 mg/dl Troponin I 3.720 ng/ml Test 04/29/17 01:09 04/29/17 05:20 04/29/17 05:21 04/29/17 05:43 Bedside Glucose 112 mg/dl 71 mg/dl 76 mg/dl White Blood Count 6.99 K/uL Red Blood Count 4.10 M/uL Hemoglobin 12.4 g/dL Hematocrit 36.1 % Mean Corpuscular Volume 88.0 fL Mean Corpuscular Hemoglobin 30.2 pg Mean Corpuscular Hemoglobin Concent 34.3 g/dl Platelet Count 163 K/uL Mean Platelet Volume 10.3 fL Neutrophils (%) (Auto) 78.1 % Lymphocytes (%) (Auto) 11.2 % Monocytes (%) (Auto) 8.9 % Eosinophils (%) (Auto) 1.4 % Basophils (%) (Auto) 0.1 % Neutrophils # (Auto) 5.46 K/uL Lymphocytes # (Auto) 0.78 K/uL Monocytes # (Auto) 0.62 K/uL Eosinophils # (Auto) 0.10 K/uL Basophils # (Auto) 0.01 K/uL RDW Standard Deviation 47.4 fL RDW Coefficient of Variation 14.6 % Immature Granulocyte % (Auto) 0.3 % Immature Granulocyte # (Auto) 0.02 K/uL Prothrombin Time 16.9 SECONDS Prothromb Time International Ratio 1.6 Activated Partial Thromboplast Time 38.7 SECONDS Partial Thromboplastin Ratio 1.5 Sodium Level 138 mmol/L Potassium Level 3.9 mmol/L Chloride Level 105 mmol/L Carbon Dioxide Level 25 mmol/L Anion Gap 8.0 mmol/L Blood Urea Nitrogen 24 mg/dl Creatinine 1.39 mg/dl Est Creatinine Clear Calc Drug Dose 54.3 ml/min Estimated GFR () 58.7 Estimated GFR (Non- 50.6 BUN/Creatinine Ratio 17.1 Random Glucose 67 mg/dl Calcium Level 8.2 mg/dl Phosphorus Level 3.7 mg/dl Magnesium Level 2.3 mg/dl Total Bilirubin 1.3 mg/dl Direct Bilirubin 0.6 mg/dl Aspartate Amino Transf (AST/SGOT) 903 U/L Alanine Aminotransferase (ALT/SGPT) 1088 U/L Alkaline Phosphatase 62 U/L Total Protein 6.0 gm/dl Albumin 2.5 gm/dl Thyroid Stimulating Hormone (TSH) 1.470 uIu/ml Free Thyroxine 1.70 ng/dl Test 04/29/17 06:07 04/29/17 08:12 04/29/17 09:57 04/29/17 11:37 Bedside Glucose 121 mg/dl 178 mg/dl 167 mg/dl White Blood Count 6.46 K/uL Red Blood Count 4.22 M/uL Hemoglobin 12.6 g/dL Hematocrit 36.9 % Mean Corpuscular Volume 87.4 fL Mean Corpuscular Hemoglobin 29.9 pg Mean Corpuscular Hemoglobin Concent 34.1 g/dl Platelet Count 147 K/uL Mean Platelet Volume 10.2 fL Neutrophils (%) (Auto) 80.5 % Lymphocytes (%) (Auto) 8.4 % Monocytes (%) (Auto) 8.8 % Eosinophils (%) (Auto) 1.9 % Basophils (%) (Auto) 0.2 % Neutrophils # (Auto) 5.21 K/uL Lymphocytes # (Auto) 0.54 K/uL Monocytes # (Auto) 0.57 K/uL Eosinophils # (Auto) 0.12 K/uL Basophils # (Auto) 0.01 K/uL RDW Standard Deviation 47.1 fL RDW Coefficient of Variation 14.6 % Immature Granulocyte % (Auto) 0.2 % Immature Granulocyte # (Auto) 0.01 K/uL Prothrombin Time 16.4 SECONDS Prothromb Time International Ratio 1.6 Activated Partial Thromboplast Time 35.3 SECONDS Partial Thromboplastin Ratio 1.4 Resident Tracking Resident Involvement: Resident Care Provided Care Provided: Adult Hospital Medicine (ICU care)
[2017-04-29] MEDS ORDERED: WARFARIN SOD 7.5 MG TAB PO ONE (16:00)
--- NOTE | 2017-04-29 16:09 | PROGRESS NOTE ---
DATE: 04/29/2017 The patient seen and examined. Chart, medications, telemetry reviewed. SUBJECTIVE: The patient feels improved this morning, arrhythmia issues have settled down since last evening and remains in atrial fibrillation. Denies any chest pains. Notes breathing is substantially improved. Notes no fevers, chills though has a loose rhonchorous cough, persistent. Has been able to eat today which represents a new finding. Notes no headache or visual changes. OBJECTIVE: VITAL SIGNS: Heart rate is 78, blood pressure is 105/67. NECK: Thick. There is no distinct jugular venous distention. LUNGS: Notable for coarse rhonchorous sounds on forced expiration and cough. CARDIOVASCULAR: IRREG There is no S3 gallop. ABDOMEN: Soft with mild distention. There is no palpable hepatosplenomegaly. EXTREMITIES: Without cyanosis or clubbing. There are chronic stasis changes with trace edema. LABORATORY DATA: White cell count today is 6.4, hemoglobin is 12.6. Sodium is 138, potassium is 3.9, chloride is 105, bicarbonate is 25, BUN is 24, creatinine is 1.3. Hepatic enzymes remain elevated but are trending downward substantially. TSH is 1.47. IMAGING DATA: Chest x-ray today demonstrates cardiomegaly with mild increase in interstitial markings, trace edema with left basilar opacity. IMPRESSION: A very complex 71-year-old male well known to me with issues as follows: 1. Acute clinical decline, possibly in a relationship to tracheobronchitis pneumonia with associated paroxysmal ventricular and atrial arrhythmias consistent with patient's prior history, carries an underlying history of atrial and ventricular arrhythmias and prior defibrillator implantation with appropriate defibrillator shock this admission. Rhythms have come under control with use of beta katharina. I agree with increase in Toprol dosing. Despite elevated hepatic enzymes and chronic interstitial lung disease, amiodarone remains necessary and will be continued at oral dosing. I agree with holding terazosin for blood pressure and as well as reducing losartan today. Clinical course is depending on gradual improvement as he has already appears to be making such. will be to initiate anticoagulation as already begun. Continue amiodarone and Toprol for rhythm and rate control. Amiodarone will be used for ventricular arrhythmias rather than atrial arrhythmias and will be maintained even in the setting of atrial fibrillation. Heart failure at this time appears relatively compensated and usual dose of 40 mg of furosemide has been ordered. Will continue to follow closely in the hospital. UZMA
--- NOTE | 2017-04-29 16:19 | Palliative Care Consultation ---
Consultation Date of Consultation: Apr 29, 2017. Requesting Physician: Dr Tiwari Attending Physician: Dr Tiwari Reason for Consultation: Address goals of care and address code status History of Present Illness Pt seen and examined, daughter,Stephanie, at bedside. Chart, consult notes, X rays and labs reviewed. Pt stated his HCSs are his and daughter Stephanie. He also has 3 sons that live locally. Pt is a 71 yo male with a PMH of A fib, V tach - s/p AICD, CHF, CAD, CKD, DM, HLD, HTN and PHAN who was brought in by EMS when he collapsed at his home. Pt stated his had been sick for approx 10 days and he felt like he was starting to be ill. Pt with a h/o easily decompensated CHF with mild illness. He has been vomiting for 24-48 hours, had minimal PO intake and was starting to have diarrhea. He stated he knew he had waited too long to seek medical attention for illness. He was getting ready to go to ER when he collapsed. His daughter was present and reports "feeling" his AICD fire. Pt was brought to ER by EMS. Pt was found to be hypoxic - sat 78%, he was placed on CPAP, he was nory having chest pain and a NTG drip was started en route. Pt admitted to ICU due to cardiac issues and arrhythmia. His creat was up at 1.92, INR was therapeutic at 2.2, bili was elevated at 2.1, BNP 3918. LFT's elevated with ALT> AST. An ECHO showed decreased EF from prior study - now 20-25%, prior was 25-30% . Pt tested negative for Flu A&B, as well as MRSA and C diff. Diarrhea improving - only 2 bouts so far today. Discussed what pt would want done and not want done incase of further decompensation - pt did want to be intubated and resuscitated. He does not want to be kept alive on life support if there was no chance of recovery. Pt reports he decompensates with any illness, but has always returned to his prior baseline. Pt's 3 children have moved back to the area over the past 2 years and he has 8 grandchildren ranging in age from 9 mos to 17 years. He wants to live as long as possible for his grandchildren. Daughter and aware of his wishes. Past Medical/Surgical History Medical History: A fib, V tach,CHF, CAD, s/p 3 vessel CABG, AAA repair, ablation , AICD, CKD stage III, DM, HLD, HTN, PHAN Surgical History: Triple vessel CABG, AAA repair, cataract, cholecystectomy, AICD Family History + for heart disease, cancer and HTN Social History Smoking Status: Former Smoker History of Alcohol Use: No Drug Use: none Marital Status: Housing Status: lives with family Occupation Status: retired Review of Systems Constitutional: No fever, No chills Eyes: No worsening of vision ENT: No hearing loss Respiratory: + shortness of breath, No cough Cardiac: No chest pain, No edema Abdomen: + diarrhea, No pain Male : No dysuria Neurologic: No memory loss Psychiatric: No depression symptoms, No anxiety Heme: No abnormal bleeding/bruising Allergies Coded Allergies: Amoxicillin (Verified Allergy, Severe, Anaphylaxis, 04/28/17) Clavulanic Acid (Verified Allergy, Severe, Anaphylaxis, 04/28/17) Medications Current Inpatient Medications Medications (Trade) Dose Ordered Sig/Obi Route Start Time Stop Time Status Last Admin Dose Admin Miscellaneous Information (Consult Glycemic Management Pharmacy) 1 ea UD PRN N/A 04/27/17 18:26 05/27/17 18:25 Lorazepam (Ativan Inj) 1 mg Q6H PRN IV 04/27/17 18:15 05/27/17 18:14 Nitroglycerin (Nitrostat Tab) 0.4 mg UD PRN SL 04/27/17 18:15 05/27/17 18:14 Albuterol (Ventolin Hfa Inhaler) 2 puffs QID INH 04/27/17 21:00 05/27/17 20:59 04/29/17 12:24 2 PUFFS Aspirin (Ecotrin Tab) 81 mg QPM PO 04/27/17 21:00 05/27/17 20:59 04/28/17 19:42 81 MG Calcitriol (Rocaltrol Cap) 0.25 mcg MoWeFr@0900 PO 04/28/17 09:00 05/28/17 08:59 04/28/17 08:49 0.25 MCG Fish Oil ([place]-3 (Purified Fish Oil) Cap) 1 gm BID PO 04/27/17 21:00 05/27/17 20:59 04/29/17 09:40 1 GM Fluticasone Propionate (Flonase Nasal [place]) 2 sprays DAILY PHANI 04/28/17 09:00 05/28/17 08:59 04/29/17 09:40 2 SPRAYS Levothyroxine Sodium (Synthroid Tab) 100 mcg MoTuWeThFrSa@0600 PO 04/28/17 06:00 05/28/17 05:59 04/29/17 05:17 100 MCG Levothyroxine Sodium (Synthroid Tab) 200 mcg Humphrey@0600 PO 05/02/17 06:00 06/01/17 05:59 Lorazepam (Ativan Tab) 1 mg Q8 PRN PO 04/27/17 18:30 05/27/17 18:29 04/28/17 19:40 1 MG Multivitamins (Multivitamin Tab) 1 tab QPM PO 04/27/17 21:00 05/27/17 20:59 04/28/17 19:41 1 TAB Pantoprazole Sodium (Protonix Tab) 40 mg DAILY@0645 PO 04/28/17 06:45 05/28/17 06:44 04/29/17 07:02 40 MG Potassium Chloride (Klor-Con M10) 10 meq DAILY PO 04/28/17 09:00 05/28/17 08:59 04/29/17 09:44 10 MEQ Spironolactone (Aldactone Tab) 12.5 mg MoWeFr@0900 PO 04/28/17 09:00 05/28/17 08:59 04/28/17 08:49 12.5 MG sg-Laftb-Bfyzhaqxeg Acetate (Vitamin E Cap) 400 interunit QPM PO 04/27/17 21:00 05/27/17 20:59 04/28/17 19:40 400 INTERUNIT Tiotropium [place] (Spiriva Handihaler Inhaler) 1 puff DAILY INH 04/28/17 09:00 05/28/17 08:59 04/29/17 09:41 1 PUFF Glucose (Glucose 40% Gel) 15-30 GRAMS 15 GRAMS... UD PRN PO 04/27/17 18:45 05/27/17 18:44 Glucose (Glucose Chew Tab) 4-8 Tablets 4 Tabl... UD PRN PO 04/27/17 18:45 05/27/17 18:44 Dextrose (Dextrose 50% 50ML Syringe) 25-50ML OF 50% DW IV FOR... UD PRN IV 04/27/17 18:45 05/27/17 18:44 04/29/17 05:49 25 ML Glucagon (Glucagon Inj) 1 mg UD PRN SQ 04/27/17 18:45 05/27/17 18:44 Acetaminophen (Tylenol Tab) 650 mg Q6H PRN PO 04/27/17 19:45 05/27/17 19:44 04/28/17 23:43 650 MG Insulin Human Regular 250 units/ Sodium Chloride 252.5 ml @ 0 mls/hr Q24H IV 04/27/17 20:15 04/29/17 16:00 04/28/17 20:52 1.9 MLS/HR Doxycycline Hyclate (Vibramycin Cap) 100 mg BID PO 04/28/17 02:00 05/05/17 01:59 04/29/17 09:42 100 MG Amiodarone HCl (Cordarone Tab) 200 mg BID PO 04/28/17 10:30 05/28/17 10:29 04/29/17 09:39 200 MG Ceftriaxone Sodium 1 gm/ Dextrose 50 ml @ 100 mls/hr Q24H IV 04/28/17 12:30 05/05/17 12:29 04/29/17 12:23 100 MLS/HR Fluticasone/ Vilanterol (Breo Ellipta 100-25 Mcg/Inh) 1 puffs DAILY INH 04/29/17 09:00 05/29/17 08:59 04/29/17 09:38 1 PUFFS Metoprolol Succinate (Toprol Xl Tab) 75 mg DAILY PO 04/29/17 11:00 05/29/17 10:59 04/29/17 11:05 75 MG Metoprolol Tartrate (Lopressor Iv) 5 mg Q4 PRN IV 04/29/17 10:45 05/29/17 10:44 Warfarin Sodium (Coumadin Tab) 7.5 mg TODAY@1600 ONCE PO 04/29/17 16:00 04/29/17 16:01 Furosemide (Lasix Tab) 40 mg DAILY PO 04/29/17 11:30 05/29/17 11:29 04/29/17 12:21 40 MG Insulin Aspart (novoLOG ASPART) SLIDING SCALE TODAY@0000,0400 SC 04/30/17 00:00 04/30/17 04:01 Heparin Sodium/ Dextrose 500 ml @ 28 mls/hr [id number] PRN IV 04/29/17 11:45 05/29/17 11:44 04/29/17 12:31 28 MLS/HR Insulin Aspart (novoLOG ASPART) SLIDING SCALE ACHS SC 04/29/17 16:00 05/29/17 15:59 Miscellaneous (Stop Order) 1 ea TODAY@1600 ONCE N/A 04/29/17 16:00 04/29/17 16:01 Insulin Glargine (Lantus Solostar Pen) QPM SC 04/29/17 21:00 05/29/17 20:59 Losartan Potassium (coZAAR TAB) 50 mg DAILY PO 04/30/17 09:00 05/27/17 20:59 Physical Exam Date Time Temp Pulse Resp B/P (MAP) Pulse Ox O2 Delivery O2 Flow Rate FiO2 04/29/17 14:00 78 15 105/67 (80) 95 Nasal Cannula 4.0 04/29/17 12:01 37.1 77 16 113/71 (85) 92 Nasal Cannula 4.0 04/29/17 12:00 Nasal Cannula 4.0 04/29/17 10:00 72 19 71/62 (65) 96 Nasal Cannula 4.0 04/29/17 08:04 36.5 63 21 95/63 (74) 93 Nasal Cannula 4.0 04/29/17 08:00 Nasal Cannula 04/29/17 08:00 Nasal Cannula 4.0 04/29/17 07:50 71 101/59 04/29/17 06:00 68 18 111/68 (82) 96 4.0 04/29/17 04:00 36.6 79 27 98/64 (75) 94 4.0 04/29/17 04:00 94 Nasal Cannula 4.0 04/29/17 04:00 68 98/64 04/29/17 02:00 80 18 105/64 (78) 4.0 04/29/17 01:46 87 20 95/63 (74) 93 4.0 04/29/17 01:31 84 22 97/66 (76) 94 4.0 04/29/17 01:21 92 21 90/68 (75) 94 4.0 04/29/17 01:16 102 15 98/64 (75) 93 4.0 04/29/17 01:11 124 21 76/58 (64) 93 4.0 04/29/17 01:08 122 17 81/60 (67) 93 4.0 04/29/17 01:03 124 20 78/65 (69) 94 4.0 04/29/17 01:01 125 19 78/59 (65) 93 4.0 04/29/17 01:00 125 76/54 04/29/17 00:01 38.5 102 20 110/71 (84) 94 Nasal Cannula 4.0 04/28/17 23:59 Nasal Cannula 4.0 04/28/17 23:42 100 121/83 04/28/17 22:00 95 15 128/75 (92) 96 Nasal Cannula 6.0 04/28/17 20:00 Nasal Cannula 6.0 04/28/17 20:00 36.8 97 16 138/81 (100) 96 Nasal Cannula 6.0 04/28/17 19:47 100 135/77 04/28/17 19:01 104 158/78 04/28/17 18:00 104 15 99/58 (72) 94 Nasal Cannula 6.0 04/28/17 16:00 37.1 105 20 118/67 (84) 95 Nasal Cannula 6.0 04/28/17 16:00 Nasal Cannula 6.0 General Appearance: no apparent distress (on O2) Eyes: EOMI ENT: hearing grossly normal Neck: supple Respiratory: + decreased breath sounds, + crackles Cardiovascular: + pertinent finding (irreg, with long periods of RR) Abdomen: normal bowel sounds, non tender, soft Musculoskeletal: normal tone Neurologic/Psychiatric: alert, normal mood/affect Skin: warm/dry Laboratory Results Last 24 Hours Test 04/28/17 16:29 04/28/17 18:26 04/28/17 20:50 04/28/17 20:56 Bedside Glucose 137 mg/dl 130 mg/dl Sodium Level 134 mmol/L Potassium Level 4.1 mmol/L Chloride Level 102 mmol/L Carbon Dioxide Level 24 mmol/L Anion Gap 8.0 mmol/L Blood Urea Nitrogen 24 mg/dl Creatinine 1.52 mg/dl Est Creatinine Clear Calc Drug Dose 46.6 ml/min Estimated GFR () 52.7 Estimated GFR (Non- 45.4 BUN/Creatinine Ratio 15.9 Random Glucose 143 mg/dl Calcium Level 8.1 mg/dl Phosphorus Level 1.8 mg/dl Magnesium Level 2.1 mg/dl Troponin I 3.720 ng/ml Test 04/29/17 01:09 04/29/17 05:20 04/29/17 05:21 04/29/17 05:43 Bedside Glucose 112 mg/dl 71 mg/dl 76 mg/dl White Blood Count 6.99 K/uL Red Blood Count 4.10 M/uL Hemoglobin 12.4 g/dL Hematocrit 36.1 % Mean Corpuscular Volume 88.0 fL Mean Corpuscular Hemoglobin 30.2 pg Mean Corpuscular Hemoglobin Concent 34.3 g/dl Platelet Count 163 K/uL Mean Platelet Volume 10.3 fL Neutrophils (%) (Auto) 78.1 % Lymphocytes (%) (Auto) 11.2 % Monocytes (%) (Auto) 8.9 % Eosinophils (%) (Auto) 1.4 % Basophils (%) (Auto) 0.1 % Neutrophils # (Auto) 5.46 K/uL Lymphocytes # (Auto) 0.78 K/uL Monocytes # (Auto) 0.62 K/uL Eosinophils # (Auto) 0.10 K/uL Basophils # (Auto) 0.01 K/uL RDW Standard Deviation 47.4 fL RDW Coefficient of Variation 14.6 % Immature Granulocyte % (Auto) 0.3 % Immature Granulocyte # (Auto) 0.02 K/uL Prothrombin Time 16.9 SECONDS Prothromb Time International Ratio 1.6 Activated Partial Thromboplast Time 38.7 SECONDS Partial Thromboplastin Ratio 1.5 Sodium Level 138 mmol/L Potassium Level 3.9 mmol/L Chloride Level 105 mmol/L Carbon Dioxide Level 25 mmol/L Anion Gap 8.0 mmol/L Blood Urea Nitrogen 24 mg/dl Creatinine 1.39 mg/dl Est Creatinine Clear Calc Drug Dose 54.3 ml/min Estimated GFR () 58.7 Estimated GFR (Non- 50.6 BUN/Creatinine Ratio 17.1 Random Glucose 67 mg/dl Calcium Level 8.2 mg/dl Phosphorus Level 3.7 mg/dl Magnesium Level 2.3 mg/dl Total Bilirubin 1.3 mg/dl Direct Bilirubin 0.6 mg/dl Aspartate Amino Transf (AST/SGOT) 903 U/L Alanine Aminotransferase (ALT/SGPT) 1088 U/L Alkaline Phosphatase 62 U/L Total Protein 6.0 gm/dl Albumin 2.5 gm/dl Thyroid Stimulating Hormone (TSH) 1.470 uIu/ml Free Thyroxine 1.70 ng/dl Test 04/29/17 06:07 04/29/17 08:12 04/29/17 09:57 04/29/17 11:37 Bedside Glucose 121 mg/dl 178 mg/dl 167 mg/dl White Blood Count 6.46 K/uL Red Blood Count 4.22 M/uL Hemoglobin 12.6 g/dL Hematocrit 36.9 % Mean Corpuscular Volume 87.4 fL Mean Corpuscular Hemoglobin 29.9 pg Mean Corpuscular Hemoglobin Concent 34.1 g/dl Platelet Count 147 K/uL Mean Platelet Volume 10.2 fL Neutrophils (%) (Auto) 80.5 % Lymphocytes (%) (Auto) 8.4 % Monocytes (%) (Auto) 8.8 % Eosinophils (%) (Auto) 1.9 % Basophils (%) (Auto) 0.2 % Neutrophils # (Auto) 5.21 K/uL Lymphocytes # (Auto) 0.54 K/uL Monocytes # (Auto) 0.57 K/uL Eosinophils # (Auto) 0.12 K/uL Basophils # (Auto) 0.01 K/uL RDW Standard Deviation 47.1 fL RDW Coefficient of Variation 14.6 % Immature Granulocyte % (Auto) 0.2 % Immature Granulocyte # (Auto) 0.01 K/uL Prothrombin Time 16.4 SECONDS Prothromb Time International Ratio 1.6 Activated Partial Thromboplast Time 35.3 SECONDS Partial Thromboplastin Ratio 1.4 Assessment & Plan Palliative Performance Scale: 50 % (1) CHF (congestive heart failure) Status: Acute Assessment & Plan: Improving clinically (2) Hypoxia Status: Acute Assessment & Plan: Still requiring O2 (3) Dysrhythmia Status: Acute Assessment & Plan: Cards following - in contact with EP (4) Elevated liver function tests Status: Acute Assessment & Plan: Improving (5) CKD (chronic kidney disease) stage 3, GFR 30-59 ml/min Status: Chronic Assessment & Plan: Improved from admission Diarrhea - subsiding Advanced Care Planning - pt's HCS are his and daughter - they are aware of his wishes. Counseling and Coordination Total time 55 min with > 50 % of time spent at bedside with pt and daughter discussing pt's current status and goals of care.
[2017-04-29] MEDS: METOPROLOL TARTRATE 1 MG/ML VIAL IV PRN ×2 (16:36→20:40)
[2017-04-29] MEDS: LORAZEPAM 1 MG TAB PO PRN (17:50)
[2017-04-29 19:15] LABS: PTT PATIENT 60.8 SECONDS (21.0-31.0)
[2017-04-29] MEDS: ACETAMINOPHEN 325 MG TAB PO PRN (19:19)
[2017-04-29] MEDS: MULTIVITAMIN TAB PO SCH (20:34)
[2017-04-29] MEDS: ASPIRIN 81 MG ECTAB PO SCH (20:34)
[2017-04-29] MEDS: TOCOPHERYL, DL-ALPHA 400 INTER.UNIT CAP PO SCH (20:36)
[2017-04-29] MEDS ORDERED: INSULIN GLARGINE SOLOSTAR 100 UNITS/ML 3 ML PEN SC SCH (21:00)
[2017-04-30] VITALS (47 sets, daily range): BP systolic 78–128; BP diastolic 55–91; PULSE 77–145; TEMP 36.8–38.2; O2SAT 89–98
[2017-04-30] MEDS: METOPROLOL TARTRATE 1 MG/ML VIAL IV PRN (00:51)
[2017-04-30] MEDS ORDERED: POTASSIUM CHLORIDE 10 MEQ TABCR PO STA (01:07)
[2017-04-30] MEDS ORDERED: MoRPHine SULFATE 4 MG/ML 1 ML CARP\\VIAL ONE (01:09)
[2017-04-30] MEDS ORDERED: TRAMADOL HCL 50 MG TAB PO PRN (01:15)
[2017-04-30] MEDS ORDERED: MoRPHine SULFATE 4 MG/ML 1 ML CARP\\VIAL IV PRN (01:15)
[2017-04-30] MEDS ORDERED: PROCHLORPERAZINE INJ 5 MG in SYRINGE 4 ML IV PRN (01:15)
[2017-04-30] MEDS ORDERED: LORAZEPAM 2 MG/ML 1 ML VIAL IV PRN (01:30)
[2017-04-30] MEDS ORDERED: AMIODARONE 200 MG TAB PO ONE (01:30)
[2017-04-30 01:32] LABS: BASO % 0.1 %; BASO ABS # 0.01 K/uL (0-0.2); EOS % 1.2 %; EOS ABS # 0.11 K/uL (0-0.5); HEMATOCRIT 36.8 % (42-52); HEMOGLOBIN 12.6 g/dL (14.0-18.0); IG# 0.04 K/uL (0.00-0.02); MEAN CELL VOLUME 88.2 fL (80-100); MEAN CORPUSCULAR HEMOGLOBIN 30.2 pg (25-34); MEAN CORPUSCULAR HGB CONC 34.2 g/dl (32-36); MEAN PLATELET VOLUME 10.3 fL (7.4-10.4); MONO % 9.7 %; MONO ABS # 0.89 K/uL (0.11-0.59); NEUT % 76.6 %; NEUT ABS # 7.02 K/uL (1.4-6.5); PLATELET COUNT 175 K/uL (130-400); RED CELL DISTRIBUTION WIDTH CV 14.6 % (11.5-14.5); RED CELL DISTRIBUTION WIDTH SD 47.3 fL (36.4-46.3); WHITE BLOOD COUNT 9.17 K/uL (4.8-10.8)
[2017-04-30 01:52] LABS: INR 1.9 (0.9-1.1)
[2017-04-30 01:53] LABS: ALBUMIN 2.5 gm/dl (3.4-5.0); CALCIUM 7.7 mg/dl (8.5-10.1); CREATININE 1.33 mg/dl (0.60-1.40); POTASSIUM 4.2 mmol/L (3.5-5.1)
[2017-04-30 02:05] LABS: PTT PATIENT 75.5 SECONDS (21.0-31.0)
[2017-04-30] MEDS ORDERED: METOPROLOL TARTRATE 1 MG/ML VIAL IV STA ×4 (02:12→08:37)
[2017-04-30 02:14] LABS: TOTAL PROTEIN 6.3 gm/dl (6.4-8.2)
[2017-04-30] MEDS ORDERED: LEVALBUTEROL/IPRATROPIUM NEB INH STA (02:18)
[2017-04-30] MEDS ORDERED: IPRATROPIUM BROMIDE NEB SOLN 0.02% 2.5 ML VIAL INH STA (02:24)
[2017-04-30] MEDS ORDERED: LEVALBUTEROL 1.25MG/0.5ML NEB INH STA (02:24)
[2017-04-30] MEDS ORDERED: LEVALBUTEROL/IPRATROPIUM NEB INH PRN (02:30)
[2017-04-30] MEDS ORDERED: LEVALBUTEROL 1.25MG/0.5ML NEB INH PRN (02:30)
[2017-04-30] MEDS ORDERED: IPRATROPIUM BROMIDE NEB SOLN 0.02% 2.5 ML VIAL INH PRN (02:30)
[2017-04-30] MEDS ORDERED: FUROSEMIDE INJ 40 MG in SYRINGE 0 ML IV ONE ×2 (02:45→09:00)
[2017-04-30] MEDS ORDERED: AMIODARONE IV BOLUS / DRIP IV STA (02:51)
[2017-04-30] MEDS ORDERED: METOPROLOL SUCC 25MG EXT REL TAB PO STA (02:51)
[2017-04-30] MEDS ORDERED: AMIODARONE / D5W 100 ML IV SCH (03:00)
[2017-04-30] MEDS ORDERED: AMIODARONE / D5W 200 ML IV SCH ×2 (03:15→09:15)
--- NOTE | 2017-04-30 04:30 | Critical Care Progress Note ---
Critical Care Progress Note Date of Service Apr 30, 2017. Attending Dr. Tiwari Subjective Christopher Abbasi is a 71yo male who had recently been admitted to the ICU for non-sustained ventricular tachycardia after having be shocked once by his AICD just prior to arrival. Pt was downgraded yesterday to PCU status and is being closely followed by Cardiology. At 1250 this evening, his nurse noted his arrhythmia was prolonged. Please see nursing note for documented timing. EKG demonstrated the same Wide QRS as previously. However, for the first time since arrival pt was complaining of chest pain and shortness of breath. His O2 demands were significantly increased from 4L nasal cannula to 12L oxymask to maintain saturations above 90%. At this time, nursing contacted hospitalist who gave orders for morphine and nitro. CXR taken, pt received lasix and breathing treatment. Cardiology was paged multiple times only to find that call schedule was incorrect. Nursing contacted Dr. Tomlinson again to have pt transferred back to ICU status with my approval. I ordered administration of 5mg Metoprolol q5mins x 3 without return to prior rhythm. At this point the pt was in a rather sustained V. Tach for over 2 hours with rates varying from 120- 200's. Pt was no longer complaining of chest pain and at times stated his breathing was better. However, pt was also intermittently confused. Dr. Anderson was ultimately paged and we learned that he was the on-call doctor despite the call schedule. Dr. Anderson asked nursing to order Amiodarone infusion with bolus to begin again and give a 1 time dose of 25mg Toprol XL. At this time, pts rhythm is relatively unchanged; however, fluctuating more often between a. fib and v tach. Pt did also received 40meq of Potassium. Objective Vital Signs - as noted Laboratory Data - as noted Physical Exam: General - NAD Eyes - EOMI No icterus, gaze conjugate Neck - Supple, trachea midline, no masses or lymphadenopathy, no JVD or bruits Lungs - No paradoxical chest wall movement, clear to auscultation bilaterally with mild crackles at the bases, no wheezes or rales Heart - Wide complex tachycardia noted on telemetry at 120-200's No murmur, rubs , clicks, or gallops appreciated Abdomen - BS present Extremities - No edema, pedal pulses intact Neuro - A&OX3, intermittently confused Strength extremities equal and appropriate bilaterally CN: EOMI, no facial asymmetry, uvula/tongue midline Assessment & Plan (1) Hypothyroidism (2) Diabetes mellitus, type II (3) Coronary artery disease (4) History of ventricular tachycardia (5) CKD (chronic kidney disease) stage 3, GFR 30-59 ml/min (6) Dyslipidemia (7) Elevated liver function tests (8) PAF (paroxysmal atrial fibrillation) (9) Non-sustained ventricular tachycardia (10) HTN (hypertension) (11) V-tach (12) CHF (congestive heart failure) (13) Delirium due to another medical condition (14) Abnormal QT interval present on electrocardiogram (15) Hyperglycemia (16) Hypoxia (17) Dysrhythmia Reason Critically Ill: Patient is an 71-year-old male who is transferred to the ICU for sustained wide complex tachycardia with rates of 120-200 and symptoms including: SOB, CP and Diaphoresis. PLAN: CV: * Dr. Justin larsen: took orders to begin Amiodarone infusion with bolus and 25mg Toprol XL PO * Pt continues with sustained wide complex tachycardia, though intermittently flips to A. Fib in the 90's-100's * No response to Metoprolol IV 5mg q5m x 3 * Troponin still trending down * Pt returned to ICU Status * SBP: continues to be adequate. MAP > 60 * Continue to monitor on telemetry * Optimize electrolytes: K > 4.5 & Mg >2.0 Neuro: * Neuro checks per protocol * Chest Pain resolved, Trend Pain scale Resp: * Supplemental oxygen as required * CXR: demonstrated continued vacular congestion * Lasix gvn by hospitalist team * Pt deferring a change to bipap. * Continue to monitor closely for need to intubate if O2 demands continue to escalate * Breathing treatments ordered Fluids/Renal: * Strict I&Os * Daily PRP * Electrolytes per CV above ID: * Abx: Rocephin q2rh and Doxycycline BID (First day 04/28) * Blood Cultures 04/28 pending * Sputum: Gram Neg Bacilli * C dif Neg, Shiga toxin pending * Urine Culture pending GI/Nutrition: * LFTs elevated: continue work up concern for toxicity from Amiodarone vs non alcoholic fatty liver disease. * Sudden increase in LFTs thought to be from low flow state during VF and defibrillator causing possible shocked liver. * GI following * Diet as tolerated Heme: * Trend CBC * Continues on heparin infusion, PTT per protocol Endocrine: * Accu-Checks per protocol, started insulin infusion for 2 blood sugars greater than 180 * Continue home thyroid medications CCT: 70 Minutes; This time is exclusive of all separately billable procedures. Thank you for involving us in the care of this patient. Please refer to Dr. Edinson Tiwari's addendum for further recommendations. I have personally evaluated and examined this patient. I agree with assessment and plan of Juliano Davies PA-C. Patient was discussed during multidisciplinary rounds. I also individually evaluated the patient discussed the care with Dr. Anderson of cardiology. We have increased his metoprolol to 100 mg twice daily. He is mildly volume up and going to continue to diurese him and optimize his potassium and magnesium. It is noted that his liver enzymes continue to improve his creatinine has had a slight bump after several days of improvement. With regards to infectious disease I am continuing the IV Rocephin and doxycycline at this time, doxycycline to cover possible atypical organisms Rocephin for the gram negative bacteria, I do not believe the patient is at risk for Pseudomonas as he is clinically improving. I would treat him for a total of 7 days today is day 3 of 7. The patient has continued to have incessant tachycardia, electrical storm. Due to this he will be transferred to [facility]. I have personally spent 20 minutes of critical care time in the direct management of this patient. This is a life/limb threatening event. This includes time spent evaluating patient, direct bedside care, chart review, placing orders, interpretation of diagnostic studies, discussion with consultants, patient, and/or family members regarding treatment decisions, as well as other required patient management activities. This time is exclusive of all separately billable procedures, and teaching time and separate from and in addition to any other critical care service time. Consults & Procedures Consultants: Cardiology (Dr. Whitmore) Nephrology (Dr. Barry) GI (Dr. Lott) Data Medications: Current Inpatient Medications Medications (Trade) Dose Ordered Sig/Obi Route Start Time Stop Time Status Last Admin Dose Admin Miscellaneous Information (Consult Glycemic Management Pharmacy) 1 ea UD PRN N/A 04/27/17 18:26 05/27/17 18:25 Lorazepam (Ativan Inj) 1 mg Q6H PRN IV 2/13/18 18:15 05/27/17 18:14 Nitroglycerin (Nitrostat Tab) 0.4 mg UD PRN SL 04/27/17 18:15 05/27/17 18:14 04/30/17 00:58 0.4 MG Albuterol (Ventolin Hfa Inhaler) 2 puffs QID INH 04/27/17 21:00 05/27/17 20:59 04/29/17 19:57 2 PUFFS Aspirin (Ecotrin Tab) 81 mg QPM PO 04/27/17 21:00 05/27/17 20:59 04/29/17 20:34 81 MG Calcitriol (Rocaltrol Cap) 0.25 mcg MoWeFr@0900 PO 04/28/17 09:00 05/28/17 08:59 04/28/17 08:49 0.25 MCG Fish Oil ([place]yr-3 (Purified Fish Oil) Cap) 1 gm BID PO 04/27/17 21:00 05/27/17 20:59 04/29/17 20:35 1 GM Fluticasone Propionate (Flonase Nasal [place]) 2 sprays DAILY PHANI 04/28/17 09:00 05/28/17 08:59 04/29/17 09:40 2 SPRAYS Levothyroxine Sodium (Synthroid Tab) 100 mcg MoTuWeThFrSa@0600 PO 04/28/17 06:00 05/28/17 05:59 04/29/17 05:17 100 MCG Levothyroxine Sodium (Synthroid Tab) 200 mcg Humphrey@0600 PO 05/02/17 06:00 06/01/17 05:59 Lorazepam (Ativan Tab) 1 mg Q8 PRN PO 04/27/17 18:30 05/27/17 18:29 04/29/17 17:50 1 MG Multivitamins (Multivitamin Tab) 1 tab QPM PO 04/27/17 21:00 05/27/17 20:59 04/29/17 20:34 1 TAB Pantoprazole Sodium (Protonix Tab) 40 mg DAILY@0645 PO 04/28/17 06:45 05/28/17 06:44 04/29/17 07:02 40 MG Potassium Chloride (Klor-Con M10) 10 meq DAILY PO 04/28/17 09:00 05/28/17 08:59 04/29/17 09:44 10 MEQ Spironolactone (Aldactone Tab) 12.5 mg MoWeFr@0900 PO 04/28/17 09:00 05/28/17 08:59 04/28/17 08:49 12.5 MG ee-[id number]-[id number] Acetate (Vitamin E Cap) 400 interunit QPM PO 04/27/17 21:00 05/27/17 20:59 04/29/17 20:36 400 INTERUNIT Tiotropium [place] (Spiriva Handihaler Inhaler) 1 puff DAILY INH 04/28/17 09:00 05/28/17 08:59 04/29/17 09:41 1 PUFF Glucose (Glucose 40% Gel) 15-30 GRAMS 15 GRAMS... UD PRN PO 04/27/17 18:45 05/27/17 18:44 Glucose (Glucose Chew Tab) 4-8 Tablets 4 Tabl... UD PRN PO 04/27/17 18:45 05/27/17 18:44 Dextrose (Dextrose 50% 50ML Syringe) 25-50ML OF 50% DW IV FOR... UD PRN IV 04/27/17 18:45 05/27/17 18:44 04/29/17 05:49 25 ML Glucagon (Glucagon Inj) 1 mg UD PRN SQ 04/27/17 18:45 05/27/17 18:44 Acetaminophen (Tylenol Tab) 650 mg Q6H PRN PO 04/27/17 19:45 05/27/17 19:44 04/29/17 19:19 650 MG Doxycycline Hyclate (Vibramycin Cap) 100 mg BID PO 04/28/17 02:00 05/05/17 01:59 04/29/17 20:35 100 MG Ceftriaxone Sodium 1 gm/ Dextrose 50 ml @ 100 mls/hr Q24H IV 04/28/17 12:30 05/05/17 12:29 04/29/17 12:23 100 MLS/HR Fluticasone/ Vilanterol (Breo Ellipta 100-25 Mcg/Inh) 1 puffs DAILY INH 04/29/17 09:00 05/29/17 08:59 04/29/17 09:38 1 PUFFS Metoprolol Succinate (Toprol Xl Tab) 75 mg DAILY PO 04/29/17 11:00 05/29/17 10:59 04/29/17 11:05 75 MG Metoprolol Tartrate (Lopressor Iv) 5 mg Q4 PRN IV 04/29/17 10:45 05/29/17 10:44 04/30/17 00:51 5 MG Insulin Aspart (novoLOG ASPART) SLIDING SCALE TODAY@0000,0400 SC 04/30/17 00:00 04/30/17 04:01 Heparin Sodium/ Dextrose 500 ml @ 28 mls/hr [id number] PRN IV 04/29/17 11:45 05/29/17 11:44 04/29/17 12:31 28 MLS/HR Insulin Aspart (novoLOG ASPART) SLIDING SCALE ACHS SC 04/29/17 16:00 05/29/17 15:59 04/29/17 20:49 1 UNITS Insulin Glargine (Lantus Solostar Pen) QPM SC 04/29/17 21:00 05/29/17 20:59 04/29/17 20:39 30 UNITS Losartan Potassium (coZAAR TAB) 50 mg DAILY PO 04/30/17 09:00 05/27/17 20:59 Tramadol HCl (Ultram Tab) not relieved by tylenol @ Q6H PRN PO 04/30/17 01:15 05/30/17 01:14 Prochlorperazine Edisylate 5 mg/ Syringe 5 ml @ 5 mls/min Q6H PRN IV 04/30/17 01:15 05/30/17 01:14 Morphine Sulfate (MoRPHine SULFATE INJ) 4 mg Q3H PRN IV 04/30/17 01:15 05/14/17 01:14 Amiodarone HCl (Cordarone Tab) 200 mg BID PO 04/30/17 21:00 05/28/17 10:29 Ipratropium [place] (Atrovent 0.02% 0.5MG/2.5ML Neb) 0.5 mg Q4H PRN INH 04/30/17 02:30 05/30/17 02:29 Levalbuterol (Xopenex 1.25MG/ 0.5ML Neb) 1.25 mg Q4H PRN INH 04/30/17 02:30 05/30/17 02:29 Furosemide (Lasix Tab) 40 mg DAILY PO 05/01/17 09:00 05/29/17 11:29 Amiodarone HCL/ Dextrose 200 ml @ 33.3 mls/hr Q6H1M IV 04/30/17 03:15 04/30/17 09:15 04/30/17 03:21 33.3 MLS/HR Amiodarone HCL/ Dextrose 200 ml @ 16.7 mls/hr [id number] IV 04/30/17 09:15 05/30/17 09:14 Vital Signs: Date Time Temp Pulse Resp B/P (MAP) Pulse Ox O2 Delivery O2 Flow Rate FiO2 04/30/17 03:01 122 19 89/68 (79) 92 04/30/17 02:57 122 14 95/64 (79) 93 04/30/17 02:48 120 24 93 Mask 10.0 04/30/17 02:44 120 98/69 04/30/17 02:43 121 25 98/69 (71) 91 04/30/17 02:38 126 17 87/60 (79) 92 04/30/17 02:34 121 22 90/71 (73) 93 04/30/17 02:31 123 23 100/73 (82) 93 04/30/17 02:31 123 23 100/73 (79) 93 04/30/17 02:28 135 82/53 04/30/17 02:27 124 16 83/58 (66) 93 04/30/17 02:26 124 04/30/17 02:19 127 18 100/60 (73) 93 04/30/17 02:13 115 23 124/70 (88) 90 04/30/17 02:01 133 16 99/73 (82) 93 04/30/17 01:51 145 23 98/73 (81) 89 04/30/17 00:57 129 21 97/70 (79) 92 04/30/17 00:51 134 114/73 04/30/17 00:09 37.0 131 17 114/73 (87) 90 04/30/17 00:00 115 20 91 04/29/17 23:45 112 25 91 04/29/17 23:30 103 22 94 04/29/17 23:15 94 19 92 04/29/17 23:09 115 22 114/73 (87) 91 04/29/17 23:00 94 23 92 04/29/17 22:45 129 19 92 04/29/17 22:30 93 22 92 04/29/17 22:15 97 21 92 04/29/17 22:00 98 20 93 04/29/17 21:45 98 21 91 04/29/17 21:30 96 21 91 04/29/17 21:15 129 23 93 04/29/17 21:00 123 20 92 04/29/17 20:45 132 22 91 04/29/17 20:40 130 105/82 04/29/17 20:31 118 19 105/82 (90) 04/29/17 20:30 130 19 04/29/17 20:15 128 20 04/29/17 20:00 Nasal Cannula 4.0 04/29/17 20:00 125 20 90 04/29/17 19:15 38.5 111 19 140/88 (105) 90 Nasal Cannula 4.0 04/29/17 16:36 122 113/81 04/29/17 16:00 Nasal Cannula 4.0 04/29/17 16:00 37.5 80 20 118/78 (91) 94 Nasal Cannula 4.0 04/29/17 14:00 78 15 105/67 (80) 95 Nasal Cannula 4.0 04/29/17 12:01 37.1 77 16 113/71 (85) 92 Nasal Cannula 4.0 04/29/17 12:00 Nasal Cannula 4.0 04/29/17 10:00 72 19 71/62 (65) 96 Nasal Cannula 4.0 04/29/17 08:04 36.5 63 21 95/63 (74) 93 Nasal Cannula 4.0 04/29/17 08:00 Nasal Cannula 04/29/17 08:00 Nasal Cannula 4.0 04/29/17 07:50 71 101/59 04/29/17 06:00 68 18 111/68 (82) 96 4.0 04/29/17 04:00 36.6 79 27 98/64 (75) 94 4.0 04/29/17 04:00 94 Nasal Cannula 4.0 04/29/17 04:00 68 98/64 Laboratory Results: Last 24 Hours Test 04/29/17 05:20 04/29/17 05:21 04/29/17 05:43 04/29/17 06:07 Bedside Glucose 71 mg/dl 76 mg/dl 121 mg/dl White Blood Count 6.99 K/uL Red Blood Count 4.10 M/uL Hemoglobin 12.4 g/dL Hematocrit 36.1 % Mean Corpuscular Volume 88.0 fL Mean Corpuscular Hemoglobin 30.2 pg Mean Corpuscular Hemoglobin Concent 34.3 g/dl Platelet Count 163 K/uL Mean Platelet Volume 10.3 fL Neutrophils (%) (Auto) 78.1 % Lymphocytes (%) (Auto) 11.2 % Monocytes (%) (Auto) 8.9 % Eosinophils (%) (Auto) 1.4 % Basophils (%) (Auto) 0.1 % Neutrophils # (Auto) 5.46 K/uL Lymphocytes # (Auto) 0.78 K/uL Monocytes # (Auto) 0.62 K/uL Eosinophils # (Auto) 0.10 K/uL Basophils # (Auto) 0.01 K/uL RDW Standard Deviation 47.4 fL RDW Coefficient of Variation 14.6 % Immature Granulocyte % (Auto) 0.3 % Immature Granulocyte # (Auto) 0.02 K/uL Prothrombin Time 16.9 SECONDS Prothromb Time International Ratio 1.6 Activated Partial Thromboplast Time 38.7 SECONDS Partial Thromboplastin Ratio 1.5 Sodium Level 138 mmol/L Potassium Level 3.9 mmol/L Chloride Level 105 mmol/L Carbon Dioxide Level 25 mmol/L Anion Gap 8.0 mmol/L Blood Urea Nitrogen 24 mg/dl Creatinine 1.39 mg/dl Est Creatinine Clear Calc Drug Dose 54.3 ml/min Estimated GFR () 58.7 Estimated GFR (Non- 50.6 BUN/Creatinine Ratio 17.1 Random Glucose 67 mg/dl Calcium Level 8.2 mg/dl Phosphorus Level 3.7 mg/dl Magnesium Level 2.3 mg/dl Total Bilirubin 1.3 mg/dl Direct Bilirubin 0.6 mg/dl Aspartate Amino Transf (AST/SGOT) 903 U/L Alanine Aminotransferase (ALT/SGPT) 1088 U/L Alkaline Phosphatase 62 U/L Total Protein 6.0 gm/dl Albumin 2.5 gm/dl Thyroid Stimulating Hormone (TSH) 1.470 uIu/ml Free Thyroxine 1.70 ng/dl Test 04/29/17 08:12 04/29/17 09:57 04/29/17 11:37 04/29/17 12:13 Bedside Glucose 178 mg/dl 167 mg/dl 221 mg/dl White Blood Count 6.46 K/uL Red Blood Count 4.22 M/uL Hemoglobin 12.6 g/dL Hematocrit 36.9 % Mean Corpuscular Volume 87.4 fL Mean Corpuscular Hemoglobin 29.9 pg Mean Corpuscular Hemoglobin Concent 34.1 g/dl Platelet Count 147 K/uL Mean Platelet Volume 10.2 fL Neutrophils (%) (Auto) 80.5 % Lymphocytes (%) (Auto) 8.4 % Monocytes (%) (Auto) 8.8 % Eosinophils (%) (Auto) 1.9 % Basophils (%) (Auto) 0.2 % Neutrophils # (Auto) 5.21 K/uL Lymphocytes # (Auto) 0.54 K/uL Monocytes # (Auto) 0.57 K/uL Eosinophils # (Auto) 0.12 K/uL Basophils # (Auto) 0.01 K/uL RDW Standard Deviation 47.1 fL RDW Coefficient of Variation 14.6 % Immature Granulocyte % (Auto) 0.2 % Immature Granulocyte # (Auto) 0.01 K/uL Prothrombin Time 16.4 SECONDS Prothromb Time International Ratio 1.6 Activated Partial Thromboplast Time 35.3 SECONDS Partial Thromboplastin Ratio 1.4 Test 04/29/17 13:16 04/29/17 15:37 04/29/17 18:44 04/29/17 19:25 Bedside Glucose 235 mg/dl 210 mg/dl Activated Partial Thromboplast Time 60.8 SECONDS Partial Thromboplastin Ratio 2.3 Test 04/29/17 20:29 04/29/17 23:14 04/30/17 01:24 Bedside Glucose 166 mg/dl 142 mg/dl White Blood Count 9.17 K/uL Red Blood Count 4.17 M/uL Hemoglobin 12.6 g/dL Hematocrit 36.8 % Mean Corpuscular Volume 88.2 fL Mean Corpuscular Hemoglobin 30.2 pg Mean Corpuscular Hemoglobin Concent 34.2 g/dl Platelet Count 175 K/uL Mean Platelet Volume 10.3 fL Neutrophils (%) (Auto) 76.6 % Lymphocytes (%) (Auto) 12.0 % Monocytes (%) (Auto) 9.7 % Eosinophils (%) (Auto) 1.2 % Basophils (%) (Auto) 0.1 % Neutrophils # (Auto) 7.02 K/uL Lymphocytes # (Auto) 1.10 K/uL Monocytes # (Auto) 0.89 K/uL Eosinophils # (Auto) 0.11 K/uL Basophils # (Auto) 0.01 K/uL RDW Standard Deviation 47.3 fL RDW Coefficient of Variation 14.6 % Immature Granulocyte % (Auto) 0.4 % Immature Granulocyte # (Auto) 0.04 K/uL Prothrombin Time 19.9 SECONDS Prothromb Time International Ratio 1.9 Activated Partial Thromboplast Time 75.5 SECONDS Partial Thromboplastin Ratio 2.9 Sodium Level 132 mmol/L Potassium Level 4.2 mmol/L Chloride Level 103 mmol/L Carbon Dioxide Level 20 mmol/L Anion Gap 9.0 mmol/L Blood Urea Nitrogen 24 mg/dl Creatinine 1.33 mg/dl Est Creatinine Clear Calc Drug Dose 56.7 ml/min Estimated GFR () 61.9 Estimated GFR (Non- 53.4 BUN/Creatinine Ratio 17.7 Random Glucose 171 mg/dl Lactic Acid Level 1.1 mmol/L Calcium Level 7.7 mg/dl Magnesium Level 2.0 mg/dl Total Bilirubin 1.0 mg/dl Aspartate Amino Transf (AST/SGOT) 343 U/L Alanine Aminotransferase (ALT/SGPT) 846 U/L Alkaline Phosphatase 69 U/L Troponin I 1.070 ng/ml Total Protein 6.3 gm/dl Albumin 2.5 gm/dl Globulin 3.8 gm/dl Albumin/Globulin Ratio 0.7
[2017-04-30 05:03] LABS: HEMATOCRIT 36.1 % (42-52); HEMOGLOBIN 12.3 g/dL (14.0-18.0); MEAN CELL VOLUME 88.5 fL (80-100); MEAN CORPUSCULAR HEMOGLOBIN 30.1 pg (25-34); MEAN CORPUSCULAR HGB CONC 34.1 g/dl (32-36); MEAN PLATELET VOLUME 10.3 fL (7.4-10.4); PLATELET COUNT 162 K/uL (130-400); RED CELL DISTRIBUTION WIDTH CV 14.5 % (11.5-14.5); RED CELL DISTRIBUTION WIDTH SD 47.7 fL (36.4-46.3)
[2017-04-30 05:20] LABS: CALCIUM 7.8 mg/dl (8.5-10.1); CREATININE 1.44 mg/dl (0.60-1.40); POTASSIUM 4.2 mmol/L (3.5-5.1)
[2017-04-30 05:31] LABS: PHOSPHORUS 2.8 mg/dl (2.5-4.9)
[2017-04-30] MEDS: PANTOprazole SOD 40 MG TAB PO SCH (05:48)
[2017-04-30] MEDS: LEVOTHYROXINE 100 MCG TAB PO SCH (05:48)
[2017-04-30] MEDS: HEPARIN 25,000 UNIT/500ML D5W 500 ML IV PRN (05:50)
[2017-04-30] MEDS: INSULIN ASPART 100 UNITS/ML 3 ML PEN SC SCH ×4 (05:54→16:53)
[2017-04-30] MEDS ORDERED: POTASSIUM CHLORIDE 20 MEQ TABCR PO STA (07:02)
--- NOTE | 2017-04-30 07:13 | DIAGNOSTIC IMAGING REPORT ---
CHEST ONE VIEW PORTABLE CLINICAL HISTORY: 71 years-old Male presenting with low o2. TECHNIQUE: Portable upright AP view of the chest was obtained. COMPARISON: 04/29/2017. FINDINGS: Left subclavian implanted cardiac defibrillator with to leads to the right ventricular apex. Median sternotomy wires and bypass graft rings noted. Multiple mediastinal surgical clips. Atherosclerosis of aortic arch. Cardiac silhouette mildly enlarged, unchanged. Bronchial wall thickening evident. Interval increase in the mid to basilar predominant bilateral pulmonary opacities greater on the left. Elevation of the left hemidiaphragm unchanged. No large pleural effusion or pneumothorax. Degenerative changes of the thoracic spine. External leads overlie the upper abdomen degrading evaluation. IMPRESSION: 1. Findings most suggestive of worsening pulmonary edema in the setting of mild cardiomegaly. Given the asymmetric greater consolidation at the left lung base, superimposed infection is difficult to exclude. Electronically signed by: Isaiah Young M.D. 04/30/2017 7:11 AM Dictated Date/Time: 04/30/2017 7:09 AM
[2017-04-30] MEDS ORDERED: MAGNESIUM SULFATE 1GM / D5W 1 GM in PREMIXED IN D5W 100 ML IV ONE (07:15)
[2017-04-30] MEDS: DOXYCYCLINE HYCLATE 100 MG CAP PO SCH (08:03)
[2017-04-30] MEDS: CALCITRIOL 0.25 MCG CAP PO SCH (08:03)
[2017-04-30] MEDS: METOPROLOL SUCC 50MG EXT REL TAB PO SCH (08:04)
[2017-04-30] MEDS: OMEGA-3 (PURIFIED FISH OIL) 1 GM CAP PO SCH (08:05)
[2017-04-30] MEDS: SPIRONOLACTONE 25 MG TAB PO SCH (08:05)
[2017-04-30] MEDS: POTASSIUM CHLORIDE 10 MEQ TABCR PO SCH (08:08)
[2017-04-30] MEDS: LORAZEPAM 1 MG TAB PO SCH ×2 (08:10→13:41)
[2017-04-30] MEDS: FLUTICASONE PROPIONATE NA SPR 16 GM BTL NAE SCH (08:12)
[2017-04-30] MEDS: FLUTICASONE FUROATE-VILANTEROL 30 PUFFS/INHALER INH INH SCH (08:12)
[2017-04-30] MEDS: TIOTROPIUM BROMIDE 5 PUFF/90 MCG INH INH SCH (08:13)
[2017-04-30] MEDS: ALBUTEROL HFA 8 GM INHALER INH SCH ×3 (08:13→17:06)
[2017-04-30] MEDS ORDERED: METOPROLOL SUCC 50MG EXT REL TAB PO ONE (08:45)
[2017-04-30] MEDS ORDERED: LOSARTAN POTASSIUM 50 MG TAB PO SCH (09:00)
[2017-04-30 09:01] LABS: PTT PATIENT 72.3 SECONDS (21.0-31.0)
--- NOTE | 2017-04-30 09:26 | Gastroenterology Progress Note ---
Progress Note Date of Service: Apr 30, 2017 Subjective Pt evaluation today including: conversation w/ patient, physical exam, chart review, lab review, review of studies, review of inpatient medication list Mr. Abbasi is a 71 yr old male admitted after a syncopal event on 04/27/17. V- fib. GI was consulted for elevated LFT. Last night, pt with sustained V-tach, medically managed with beta katharina and amiodarone. Chest pain at that time, now no chest pain. At 1AM this morning, LFTs were much improved: T bili 1.0 (max 2.1 on 04/27), AST 343 (max 1505 on 03/28), ALT 846 (max 1088 on 04/29). Pt awake, alert, oriented, denies any pain. Diarrhea continues, he tells me two loose BMs this morning. C-diff (-), Stool Cx pending. Review of Systems Constitutional: No fever Respiratory: No cough Cardiac: + see HPI Abdomen: + diarrhea, No pain, No nausea, No vomiting, No constipation, No GI bleeding Musculoskeletal: No joint pain Male : No dysuria Neuro: No memory loss Psych: No depression symptoms Heme: No abnormal bleeding/bruising Endo: No fatigue Skin: No rash Medications Current Inpatient Medications Medications (Trade) Dose Ordered Sig/Obi Route Start Time Stop Time Status Last Admin Dose Admin Miscellaneous Information (Consult Glycemic Management Pharmacy) 1 ea UD PRN N/A 04/27/17 18:26 05/27/17 18:25 Lorazepam (Ativan Inj) 1 mg Q6H PRN IV 04/27/17 18:15 05/27/17 18:14 Nitroglycerin (Nitrostat Tab) 0.4 mg UD PRN SL 04/27/17 18:15 05/27/17 18:14 04/30/17 00:58 0.4 MG Albuterol (Ventolin Hfa Inhaler) 2 puffs QID INH 04/27/17 21:00 05/27/17 20:59 04/30/17 08:13 2 PUFFS Aspirin (Ecotrin Tab) 81 mg QPM PO 04/27/17 21:00 05/27/17 20:59 04/29/17 20:34 81 MG Calcitriol (Rocaltrol Cap) 0.25 mcg MoWeFr@0900 PO 04/28/17 09:00 05/28/17 08:59 04/30/17 08:03 0.25 MCG Fish Oil ([place]-3 (Purified Fish Oil) Cap) 1 gm BID PO 04/27/17 21:00 05/27/17 20:59 04/30/17 08:05 1 GM Fluticasone Propionate (Flonase Nasal [place]) 2 sprays DAILY PHANI 04/28/17 09:00 05/28/17 08:59 04/30/17 08:12 2 SPRAYS Levothyroxine Sodium (Synthroid Tab) 100 mcg MoTuWeThFrSa@0600 PO 04/28/17 06:00 05/28/17 05:59 04/30/17 05:48 100 MCG Levothyroxine Sodium (Synthroid Tab) 200 mcg Humphrey@0600 PO 05/02/17 06:00 06/01/17 05:59 Multivitamins (Multivitamin Tab) 1 tab QPM PO 04/27/17 21:00 05/27/17 20:59 04/29/17 20:34 1 TAB Pantoprazole Sodium (Protonix Tab) 40 mg DAILY@0645 PO 04/28/17 06:45 05/28/17 06:44 04/30/17 05:48 40 MG Potassium Chloride (Klor-Con M10) 10 meq DAILY PO 04/28/17 09:00 05/28/17 08:59 04/30/17 08:08 10 MEQ Spironolactone (Aldactone Tab) 12.5 mg MoWeFr@0900 PO 04/28/17 09:00 05/28/17 08:59 04/30/17 08:05 12.5 MG rf-Bikdt-Mfivkjdtmv Acetate (Vitamin E Cap) 400 interunit QPM PO 04/27/17 21:00 05/27/17 20:59 04/29/17 20:36 400 INTERUNIT Tiotropium [place] (Spiriva Handihaler Inhaler) 1 puff DAILY INH 04/28/17 09:00 05/28/17 08:59 04/30/17 08:13 1 PUFF Glucose (Glucose 40% Gel) 15-30 GRAMS 15 GRAMS... UD PRN PO 04/27/17 18:45 05/27/17 18:44 Glucose (Glucose Chew Tab) 4-8 Tablets 4 Tabl... UD PRN PO 04/27/17 18:45 05/27/17 18:44 Dextrose (Dextrose 50% 50ML Syringe) 25-50ML OF 50% DW IV FOR... UD PRN IV 04/27/17 18:45 05/27/17 18:44 04/29/17 05:49 25 ML Glucagon (Glucagon Inj) 1 mg UD PRN SQ 04/27/17 18:45 05/27/17 18:44 Acetaminophen (Tylenol Tab) 650 mg Q6H PRN PO 04/27/17 19:45 05/27/17 19:44 04/29/17 19:19 650 MG Doxycycline Hyclate (Vibramycin Cap) 100 mg BID PO 04/28/17 02:00 05/05/17 01:59 04/30/17 08:03 100 MG Ceftriaxone Sodium 1 gm/ Dextrose 50 ml @ 100 mls/hr Q24H IV 04/28/17 12:30 05/05/17 12:29 04/29/17 12:23 100 MLS/HR Fluticasone/ Vilanterol (Breo Ellipta 100-25 Mcg/Inh) 1 puffs DAILY INH 04/29/17 09:00 05/29/17 08:59 04/30/17 08:12 1 PUFFS Metoprolol Succinate (Toprol Xl Tab) 75 mg DAILY PO 04/29/17 11:00 05/29/17 10:59 04/30/17 08:04 75 MG Metoprolol Tartrate (Lopressor Iv) 5 mg Q4 PRN IV 04/29/17 10:45 05/29/17 10:44 04/30/17 00:51 5 MG Heparin Sodium/ Dextrose 500 ml @ 26 mls/hr [id number] PRN IV 04/29/17 11:45 05/29/17 11:44 04/30/17 05:50 26 MLS/HR Insulin Aspart (novoLOG ASPART) SLIDING SCALE ACHS SC 04/29/17 16:00 05/29/17 15:59 04/30/17 08:22 13 UNITS Insulin Glargine (Lantus Solostar Pen) QPM SC 04/29/17 21:00 05/29/17 20:59 04/29/17 20:39 30 UNITS Losartan Potassium (coZAAR TAB) 50 mg DAILY PO 04/30/17 09:00 05/27/17 20:59 04/30/17 08:08 50 MG Tramadol HCl (Ultram Tab) not relieved by tylenol @ Q6H PRN PO 04/30/17 01:15 05/30/17 01:14 Prochlorperazine Edisylate 5 mg/ Syringe 5 ml @ 5 mls/min Q6H PRN IV 04/30/17 01:15 05/30/17 01:14 Morphine Sulfate (MoRPHine SULFATE INJ) 4 mg Q3H PRN IV 04/30/17 01:15 05/14/17 01:14 Amiodarone HCl (Cordarone Tab) 200 mg BID PO 04/30/17 21:00 05/28/17 10:29 Ipratropium [place] (Atrovent 0.02% 0.5MG/2.5ML Neb) 0.5 mg Q4H PRN INH 04/30/17 02:30 05/30/17 02:29 Levalbuterol (Xopenex 1.25MG/ 0.5ML Neb) 1.25 mg Q4H PRN INH 04/30/17 02:30 05/30/17 02:29 Furosemide (Lasix Tab) 40 mg DAILY PO 05/01/17 09:00 05/29/17 11:29 Amiodarone HCL/ Dextrose 200 ml @ 33.3 mls/hr Q6H1M IV 04/30/17 03:15 04/30/17 09:15 04/30/17 03:21 33.3 MLS/HR Amiodarone HCL/ Dextrose 200 ml @ 16.7 mls/hr [id number] IV 04/30/17 09:15 05/30/17 09:14 04/30/17 08:23 16.7 MLS/HR Lorazepam (Ativan Tab) 1 mg Q8 PO 04/30/17 06:30 05/27/17 18:29 04/30/17 08:10 1 MG Furosemide 40 mg/ Syringe 4 ml @ 4 mls/min ONE ONCE IV 04/30/17 09:00 04/30/17 09:01 Objective Vital Signs Date Time Temp Pulse Resp B/P (MAP) Pulse Ox O2 Delivery O2 Flow Rate FiO2 2/16/18 06:37 96 20 112/76 (88) 93 04/30/17 06:37 96 20 112/76 (82) 93 04/30/17 06:01 105 21 110/73 (77) 96 04/30/17 06:01 105 21 110/73 (85) 96 04/30/17 05:31 113 20 114/78 (90) 94 04/30/17 05:31 113 20 114/78 (81) 94 04/30/17 05:01 122 24 100/58 (91) 94 04/30/17 05:01 38.2 122 24 100/58 (72) 94 04/30/17 05:00 121 25 94 04/30/17 04:01 119 27 108/59 (75) 96 Oxymask 12.0 04/30/17 04:01 119 27 108/59 (70) 96 04/30/17 04:00 Mask 12.0 04/30/17 03:31 118 23 115/73 (87) 93 04/30/17 03:01 122 19 89/68 (75) 92 04/30/17 03:01 122 19 89/68 (79) 92 04/30/17 03:01 122 19 89/68 (79) 92 04/30/17 03:00 121 25 92 04/30/17 02:57 122 14 95/64 (79) 93 04/30/17 02:48 120 24 93 Mask 10.0 04/30/17 02:44 120 98/69 04/30/17 02:43 121 25 98/69 (71) 91 04/30/17 02:38 126 17 87/60 (79) 92 04/30/17 02:34 121 22 90/71 (73) 93 04/30/17 02:31 123 23 100/73 (82) 93 04/30/17 02:31 123 23 100/73 (79) 93 04/30/17 02:28 135 82/53 04/30/17 02:27 124 16 83/58 (66) 93 04/30/17 02:26 124 04/30/17 02:19 127 18 100/60 (73) 93 04/30/17 02:13 115 23 124/70 (88) 90 04/30/17 02:01 133 16 99/73 (82) 93 04/30/17 01:51 145 23 98/73 (81) 89 04/30/17 00:57 129 21 97/70 (79) 92 04/30/17 00:51 134 114/73 04/30/17 00:09 37.0 131 17 114/73 (87) 90 04/30/17 00:00 115 20 91 04/29/17 23:59 Nasal Cannula 6.0 04/29/17 23:45 112 25 91 04/29/17 23:30 103 22 94 04/29/17 23:15 94 19 92 04/29/17 23:09 115 22 114/73 (87) 91 04/29/17 23:00 94 23 92 04/29/17 22:45 129 19 92 04/29/17 22:30 93 22 92 04/29/17 22:15 97 21 92 04/29/17 22:00 98 20 93 04/29/17 21:45 98 21 91 04/29/17 21:30 96 21 91 04/29/17 21:15 129 23 93 04/29/17 21:00 123 20 92 04/29/17 20:45 132 22 91 04/29/17 20:40 130 105/82 04/29/17 20:31 118 19 105/82 (90) 04/29/17 20:30 130 19 04/29/17 20:15 128 20 04/29/17 20:00 Nasal Cannula 4.0 04/29/17 20:00 125 20 90 04/29/17 19:15 38.5 111 19 140/88 (105) 90 Nasal Cannula 4.0 04/29/17 16:36 122 113/81 04/29/17 16:00 Nasal Cannula 4.0 04/29/17 16:00 37.5 80 20 118/78 (91) 94 Nasal Cannula 4.0 04/29/17 14:00 78 15 105/67 (80) 95 Nasal Cannula 4.0 04/29/17 12:01 37.1 77 16 113/71 (85) 92 Nasal Cannula 4.0 04/29/17 12:00 Nasal Cannula 4.0 04/29/17 10:00 72 19 71/62 (65) 96 Nasal Cannula 4.0 Physical Exam General Appearance: no apparent distress ENT: pharynx normal Neck: supple, thyroid normal, no JVD Respiratory/Chest: lungs clear Cardiovascular: no JVD, no murmur, + pertinent finding (HR 110's, regular) Abdomen: non tender, soft Extremities: normal inspection Neurologic/Psych: alert, normal mood/affect, oriented x 3 Skin: no jaundice Laboratory Results Last 24 Hours Test 04/29/17 09:57 04/29/17 11:37 04/29/17 12:13 04/29/17 13:16 Bedside Glucose 167 mg/dl 221 mg/dl 235 mg/dl White Blood Count 6.46 K/uL Red Blood Count 4.22 M/uL Hemoglobin 12.6 g/dL Hematocrit 36.9 % Mean Corpuscular Volume 87.4 fL Mean Corpuscular Hemoglobin 29.9 pg Mean Corpuscular Hemoglobin Concent 34.1 g/dl Platelet Count 147 K/uL Mean Platelet Volume 10.2 fL Neutrophils (%) (Auto) 80.5 % Lymphocytes (%) (Auto) 8.4 % Monocytes (%) (Auto) 8.8 % Eosinophils (%) (Auto) 1.9 % Basophils (%) (Auto) 0.2 % Neutrophils # (Auto) 5.21 K/uL Lymphocytes # (Auto) 0.54 K/uL Monocytes # (Auto) 0.57 K/uL Eosinophils # (Auto) 0.12 K/uL Basophils # (Auto) 0.01 K/uL RDW Standard Deviation 47.1 fL RDW Coefficient of Variation 14.6 % Immature Granulocyte % (Auto) 0.2 % Immature Granulocyte # (Auto) 0.01 K/uL Prothrombin Time 16.4 SECONDS Prothromb Time International Ratio 1.6 Activated Partial Thromboplast Time 35.3 SECONDS Partial Thromboplastin Ratio 1.4 Test 04/29/17 15:37 04/29/17 18:44 04/29/17 19:25 04/29/17 20:29 Bedside Glucose 210 mg/dl 166 mg/dl Activated Partial Thromboplast Time 60.8 SECONDS Partial Thromboplastin Ratio 2.3 Test 04/29/17 23:14 04/30/17 01:24 04/30/17 04:54 04/30/17 08:22 Bedside Glucose 142 mg/dl White Blood Count 9.17 K/uL 9.10 K/uL Red Blood Count 4.17 M/uL 4.08 M/uL Hemoglobin 12.6 g/dL 12.3 g/dL Hematocrit 36.8 % 36.1 % Mean Corpuscular Volume 88.2 fL 88.5 fL Mean Corpuscular Hemoglobin 30.2 pg 30.1 pg Mean Corpuscular Hemoglobin Concent 34.2 g/dl 34.1 g/dl Platelet Count 175 K/uL 162 K/uL Mean Platelet Volume 10.3 fL 10.3 fL Neutrophils (%) (Auto) 76.6 % Lymphocytes (%) (Auto) 12.0 % Monocytes (%) (Auto) 9.7 % Eosinophils (%) (Auto) 1.2 % Basophils (%) (Auto) 0.1 % Neutrophils # (Auto) 7.02 K/uL Lymphocytes # (Auto) 1.10 K/uL Monocytes # (Auto) 0.89 K/uL Eosinophils # (Auto) 0.11 K/uL Basophils # (Auto) 0.01 K/uL RDW Standard Deviation 47.3 fL 47.7 fL RDW Coefficient of Variation 14.6 % 14.5 % Immature Granulocyte % (Auto) 0.4 % Immature Granulocyte # (Auto) 0.04 K/uL Prothrombin Time 19.9 SECONDS Prothromb Time International Ratio 1.9 Activated Partial Thromboplast Time 75.5 SECONDS Partial Thromboplastin Ratio 2.9 Sodium Level 132 mmol/L 131 mmol/L Potassium Level 4.2 mmol/L 4.2 mmol/L Chloride Level 103 mmol/L 101 mmol/L Carbon Dioxide Level 20 mmol/L 20 mmol/L Anion Gap 9.0 mmol/L 10.0 mmol/L Blood Urea Nitrogen 24 mg/dl 25 mg/dl Creatinine 1.33 mg/dl 1.44 mg/dl Est Creatinine Clear Calc Drug Dose 56.7 ml/min 52.4 ml/min Estimated GFR () 61.9 56.2 Estimated GFR (Non- 53.4 48.5 BUN/Creatinine Ratio 17.7 17.4 Random Glucose 171 mg/dl 212 mg/dl Lactic Acid Level 1.1 mmol/L 1.4 mmol/L Calcium Level 7.7 mg/dl 7.8 mg/dl Magnesium Level 2.0 mg/dl 1.9 mg/dl Total Bilirubin 1.0 mg/dl Aspartate Amino Transf (AST/SGOT) 343 U/L Alanine Aminotransferase (ALT/SGPT) 846 U/L Alkaline Phosphatase 69 U/L Troponin I 1.070 ng/ml Total Protein 6.3 gm/dl Albumin 2.5 gm/dl Globulin 3.8 gm/dl Albumin/Globulin Ratio 0.7 Phosphorus Level 2.8 mg/dl Test 04/30/17 08:46 Assessment and Plan Mr. Abbasi is a 71 yr old male with elevated LFTs, in a hepatocellular pattern. Mild baseline transaminase elevation is likely from Non alcoholic fatty liver and/or amiodarone. Recent dramatic increase and now rapid return toward normal is most likely from shock liver. Because no biliary colic type pain and imaging not clearly with any bile abnormalities, obstruction such as from stones, sludge is very unlikely. Plan: 1. Will continue to trend LFTs. 2. No plans for further biliary imaging or for ERCP at this time. 3. Regarding diarrhea, will order Imodium prn. 4. Diet as tolerated. I have seen , examined and agree with the plan as outlined by VERONICA Marroquin as above. -Exam reveals soft abd -No abdominal pain -LFT's improved last night -[place] [facility] [place] -Recommend following liver function tests and re-eval of biliary obstruction if necessary
[2017-04-30] MEDS ORDERED: LOPERAMIDE HCL 2 MG CAP PO PRN (09:30)
--- NOTE | 2017-04-30 12:29 | Palliative Care Progress Note ---
Palliative Care Progress Note Date of Service Apr 30, 2017. Subjective Pt evaluation today including: conversation w/ patient, conversation w/ family , physical exam, chart review, lab review, conversation w/ international travel consultant Pain: none PO Intake: fair Voiding: no voiding problems Attended ICU rounds with ICU attending, Cardiology and Nephrology - Met with pt and , son, DIL and grandson present later. Pt had an episode of symptomatic sustained V tach - required increase in O2 and eventually BiPAP. Pt feeling better this am. cardiology awaiting input from EP physician at [facility] to discuss options for treatment. Pt remains optimistic regarding condition and prognosis. Met several family members, will cont to provide support to family as pt's condition changes. Review of Systems Constitutional: No fever Eyes: No worsening of vision ENT: No hearing loss Respiratory: No cough Cardiac: No chest pain (this am) Abdomen: + diarrhea, No pain Male : No dysuria Neurologic: No memory loss Psychiatric: + anxiety Heme: No abnormal bleeding/bruising Endo: + fatigue Skin: No new/changing skin lesions Objective Vital Signs Date Time Temp Pulse Resp B/P (MAP) Pulse Ox O2 Delivery O2 Flow Rate FiO2 04/30/17 09:01 122 24 102/73 (83) 93 04/30/17 08:58 122 119/91 04/30/17 08:31 94 22 119/91 (100) 93 04/30/17 08:02 36.9 104 23 114/80 (91) 90 Nasal Cannula 6.0 04/30/17 08:00 Nasal Cannula 04/30/17 08:00 Nasal Cannula 6.0 04/30/17 07:31 92 20 110/74 (86) 92 04/30/17 07:01 77 28 104/72 (83) 96 04/30/17 06:37 96 20 112/76 (88) 93 04/30/17 06:37 96 20 112/76 (82) 93 04/30/17 06:01 105 21 110/73 (77) 96 04/30/17 06:01 105 21 110/73 (85) 96 04/30/17 05:31 113 20 114/78 (90) 94 04/30/17 05:31 113 20 114/78 (81) 94 04/30/17 05:01 122 24 100/58 (91) 94 04/30/17 05:01 38.2 122 24 100/58 (72) 94 04/30/17 05:00 121 25 94 04/30/17 04:01 119 27 108/59 (75) 96 Oxymask 12.0 04/30/17 04:01 119 27 108/59 (70) 96 1618 04:00 Mask 12.0 04/30/17 03:31 118 23 115/73 (87) 93 04/30/17 03:01 122 19 89/68 (75) 92 04/30/17 03:01 122 19 89/68 (79) 92 18 03:01 122 19 89/68 (79) 92 04/30/17 03:00 121 25 92 04/30/17 02:57 122 14 95/64 (79) 93 04/30/17 02:48 120 24 93 Mask 10.0 04/30/17 02:44 120 98/69 04/30/17 02:43 121 25 98/69 (71) 91 04/30/17 02:38 126 17 87/60 (79) 92 04/30/17 02:34 121 22 90/71 (73) 93 04/30/17 02:31 123 23 100/73 (82) 93 18 02:31 123 23 100/73 (79) 93 18 02:28 135 82/53 04/30/17 02:27 124 16 83/58 (66) 93 04/30/17 02:26 124 04/30/17 02:19 127 18 100/60 (73) 93 04/30/17 02:13 115 23 124/70 (88) 90 04/30/17 02:01 133 16 99/73 (82) 93 18 01:51 145 23 98/73 (81) 89 04/30/17 00:57 129 21 97/70 (79) 92 04/30/17 00:51 134 114/73 04/30/17 00:09 37.0 131 17 114/73 (87) 90 04/30/17 00:00 115 20 91 04/29/17 23:59 Nasal Cannula 6.0 04/29/17 23:45 112 25 91 04/29/17 23:30 103 22 94 04/29/17 23:15 94 19 92 04/29/17 23:09 115 22 114/73 (87) 91 04/29/17 23:00 94 23 92 04/29/17 22:45 129 19 92 04/29/17 22:30 93 22 92 04/29/17 22:15 97 21 92 04/29/17 22:00 98 20 93 04/29/17 21:45 98 21 91 04/29/17 21:30 96 21 91 04/29/17 21:15 129 23 93 04/29/17 21:00 123 20 92 04/29/17 20:45 132 22 91 04/29/17 20:40 130 105/82 04/29/17 20:31 118 19 105/82 (90) 04/29/17 20:30 130 19 04/29/17 20:15 128 20 04/29/17 20:00 Nasal Cannula 4.0 04/29/17 20:00 125 20 90 04/29/17 19:15 38.5 111 19 140/88 (105) 90 Nasal Cannula 4.0 04/29/17 16:36 122 113/81 04/29/17 16:00 Nasal Cannula 4.0 04/29/17 16:00 37.5 80 20 118/78 (91) 94 Nasal Cannula 4.0 04/29/17 14:00 78 15 105/67 (80) 95 Nasal Cannula 4.0 Physical Exam General Appearance: no apparent distress (smiling , conversing with family ) Eyes: EOMI ENT: hearing grossly normal Neck: supple Respiratory/Chest: + pertinent finding (mild to moderate SOB with minmal exertion - ie: reaching for item on bedside table) Cardiovascular: + tachycardia Abdomen: non tender, + distended Extremities: + pertinent finding (normal tone) Neurologic/Psychiatric: alert Skin: warm/dry Laboratory Results Last 24 Hours Test 04/29/17 13:16 04/29/17 14:12 04/29/17 15:37 04/29/17 18:44 Bedside Glucose 235 mg/dl 221 mg/dl 210 mg/dl Activated Partial Thromboplast Time 60.8 SECONDS Partial Thromboplastin Ratio 2.3 Test 04/29/17 19:25 04/29/17 20:29 04/29/17 23:14 04/30/17 01:24 Bedside Glucose 166 mg/dl 142 mg/dl White Blood Count 9.17 K/uL Red Blood Count 4.17 M/uL Hemoglobin 12.6 g/dL Hematocrit 36.8 % Mean Corpuscular Volume 88.2 fL Mean Corpuscular Hemoglobin 30.2 pg Mean Corpuscular Hemoglobin Concent 34.2 g/dl Platelet Count 175 K/uL Mean Platelet Volume 10.3 fL Neutrophils (%) (Auto) 76.6 % Lymphocytes (%) (Auto) 12.0 % Monocytes (%) (Auto) 9.7 % Eosinophils (%) (Auto) 1.2 % Basophils (%) (Auto) 0.1 % Neutrophils # (Auto) 7.02 K/uL Lymphocytes # (Auto) 1.10 K/uL Monocytes # (Auto) 0.89 K/uL Eosinophils # (Auto) 0.11 K/uL Basophils # (Auto) 0.01 K/uL RDW Standard Deviation 47.3 fL RDW Coefficient of Variation 14.6 % Immature Granulocyte % (Auto) 0.4 % Immature Granulocyte # (Auto) 0.04 K/uL Prothrombin Time 19.9 SECONDS Prothromb Time International Ratio 1.9 Activated Partial Thromboplast Time 75.5 SECONDS Partial Thromboplastin Ratio 2.9 Sodium Level 132 mmol/L Potassium Level 4.2 mmol/L Chloride Level 103 mmol/L Carbon Dioxide Level 20 mmol/L Anion Gap 9.0 mmol/L Blood Urea Nitrogen 24 mg/dl Creatinine 1.33 mg/dl Est Creatinine Clear Calc Drug Dose 56.7 ml/min Estimated GFR () 61.9 Estimated GFR (Non- 53.4 BUN/Creatinine Ratio 17.7 Random Glucose 171 mg/dl Lactic Acid Level 1.1 mmol/L Calcium Level 7.7 mg/dl Magnesium Level 2.0 mg/dl Total Bilirubin 1.0 mg/dl Aspartate Amino Transf (AST/SGOT) 343 U/L Alanine Aminotransferase (ALT/SGPT) 846 U/L Alkaline Phosphatase 69 U/L Troponin I 1.070 ng/ml Total Protein 6.3 gm/dl Albumin 2.5 gm/dl Globulin 3.8 gm/dl Albumin/Globulin Ratio 0.7 Test 04/30/17 04:54 04/30/17 08:22 04/30/17 08:58 White Blood Count 9.10 K/uL Red Blood Count 4.08 M/uL Hemoglobin 12.3 g/dL Hematocrit 36.1 % Mean Corpuscular Volume 88.5 fL Mean Corpuscular Hemoglobin 30.1 pg Mean Corpuscular Hemoglobin Concent 34.1 g/dl RDW Standard Deviation 47.7 fL RDW Coefficient of Variation 14.5 % Platelet Count 162 K/uL Mean Platelet Volume 10.3 fL Sodium Level 131 mmol/L Potassium Level 4.2 mmol/L Chloride Level 101 mmol/L Carbon Dioxide Level 20 mmol/L Anion Gap 10.0 mmol/L Blood Urea Nitrogen 25 mg/dl Creatinine 1.44 mg/dl Est Creatinine Clear Calc Drug Dose 52.4 ml/min Estimated GFR () 56.2 Estimated GFR (Non- 48.5 BUN/Creatinine Ratio 17.4 Random Glucose 212 mg/dl Lactic Acid Level 1.4 mmol/L Calcium Level 7.8 mg/dl Phosphorus Level 2.8 mg/dl Magnesium Level 1.9 mg/dl Activated Partial Thromboplast Time 72.3 SECONDS Partial Thromboplastin Ratio 2.8 Ionized Calcium 1.01 mmol/l Assessment and Plan (1) CHF (congestive heart failure) Status: Acute Assessment & Plan: Continues to have arrhythmias - Cardiology following closely (2) Hypoxia Status: Acute Assessment & Plan: Required in increased O2 level and BiPAP overnight (3) Dysrhythmia Status: Acute Assessment & Plan: Further treatment per Cardiology and EP (4) Elevated liver function tests Status: Acute Assessment & Plan: improving (5) CKD (chronic kidney disease) stage 3, GFR 30-59 ml/min Status: Chronic Assessment & Plan: Nephrology involved - plan to diurese pt Palliative Performance Scale: 30 % Continued [facility] stay due to: other (arrythmia) Discharge planning: uncertain Counseling and Coordination total time : 35 min with > 50% of time spent at bedside providing support to pt and family. Pt and family will need continued support given pt's prognosis and his wishes for resuscitation even with poor prognosis.
[2017-04-30] MEDS: CEFTRIAXONE SOD INJ 1 GM in DEXTROSE 5% ADD-VANTAGE 50ML 50 ML IV SCH (12:35)
--- NOTE | 2017-04-30 12:41 | Progress Note ---
Internal Med Progress Note Date of Service: Apr 30, 2017. Provider Documentation: SUBJECTIVE: Seen and examined at bedside Ventricular Tachycardia is uncontrolled Denies chest pain Denies being SOB with oxygen support Planned to transferred to [facility], [place] Reports mild LLQ abd pain On and Off confused per family OBJECTIVE: Vital Signs-as noted below Physical Exam: General Appearance:Moderately built and nourished, no apparent distress Head: normocephalic, Atraumatic Eyes: normal inspection, EOMI, PERRL Neck: supple, Trachea midline Respiratory/Chest: Normal breath sounds, CTA Cardiovascular: Irregular, +Tachycardia, No murmur Abdomen/GI:Soft, Non tender, Bowel sounds present Extremities/Musculoskelatal:normal inspection, no edema Neurologic/Psych:AAOX3, grossly no focal neurological deficits Skin: normal color, warm Lab data as noted below. ASSESSMENT & PLAN: Sustained Ventricular Tachycardia S/P AICD shock P.Afib Chronic LBBB Ischemic cardiomyopathy with systolic heart failure Type II demand Ischemia Repeat CXR:Improved Pulmonary edema Troponin trended down Received IV lasix Patient denies chest pain Continue amiodarone drip and PO amiodarone Metoprolol dose increased to 100mg daily Continue Aldactone, lasix per cardiology Appreciate Cardiology and Commercial Real Estate Sales Manager Input monitor electrolytes ECHO as below Continue Coumadin for anticoagulation Monitor INR:1.6 today Pacemaker Interrogation done Also on heparin drip Planned to be discharged to [facility] for further management Acute Hypoxic respiratory failure Possible atypical Klebsiella Pneumonia H/O Interstitial lung disease ?? related to amiodarone Influenza PCR negative Leukocytosis normalized Intermittent Fever CXR:Improved pulmonary edema. Repeat CXR:worsening pulmonary edema Sputum culture: Klebsiella Blood cultures: no growth to date Continue Antibiotics:ceftriaxone, Doxy Continue nebs, Oxygen support BiPAP PRN Mycoplasma serology pending CAD: H/O CABG in 1991 , repeat Cath in 2005 shows total occlusion of [place] Coronary arteries with occluded graft on RCA Nitro gtt discontinued Denies chest pain Cardiology on board continue Aspirin , Beta katharina , Nitro , ARB Not on Statin due to chronic transaminitis /Elevated liver enzyme Diarrhea: Stool for C.diff negative Monitor ANNA on CKD III baseline cr 1.2 ( 12/03/2016 ) Cr 1.44 today Monitor renal function On Aldactone and losartan Appreciate Nephrology Input Prolonged QTC : Qtc > 600 due to severe arrhythmia /AICD Monitor QTC avoid medication that prolong QTC DM II: A1C:9.0 appreciate Pharmacy consult for glycemic management Insulin gtt discontinued Continue ISS, lantus Transaminitis: Likely secondary to shock liver Denies abd pain Amiodarone could be contributing to elevated LFTs Monitor LFTS improving Abd USD:suggestive of mild hepatic steatosis Appreciate GI input Hepatitis panel negative No plan for biliary imaging or ERCP Hypothyroidism: Continue levothyroxine TSH, Free T4 normal H/O AAA: S/P endovascular repair Depression: Hold SSRI -Celexa due to prolong Qtc Code Status: Full Code DVT Px: on Coumadin Disposition: Transfer to [facility] for further care, Dr.Joyce Gupta accepted the patient PROCEDURES: ECHO: * The rhythm is atrial fibrillation. * Ejection Fraction = 20-25%. * Akinesis of the inferior, inferolateral and apical fofana, otherwise, moderate global hypokinesis. * Aortic valve sclerosis moderate, without significant aortic valvular stenosis. * There is mild mitral regurgitation. * There is mild tricuspid regurgitation. * Doppler findings do not suggest pulmonary hypertension. Vital Signs: Date Time Temp Pulse Resp B/P (MAP) Pulse Ox O2 Delivery O2 Flow Rate FiO2 04/30/17 12:00 Nasal Cannula 6.0 04/30/17 09:01 122 24 102/73 (83) 93 04/30/17 08:58 122 119/91 04/30/17 08:31 94 22 119/91 (100) 93 04/30/17 08:02 36.9 104 23 114/80 (91) 90 Nasal Cannula 6.0 04/30/17 08:00 Nasal Cannula 04/30/17 08:00 Nasal Cannula 6.0 04/30/17 07:31 92 20 110/74 (86) 92 04/30/17 07:01 77 28 104/72 (83) 96 04/30/17 06:37 96 20 112/76 (88) 93 04/30/17 06:37 96 20 112/76 (82) 93 04/30/17 06:01 105 21 110/73 (77) 96 04/30/17 06:01 105 21 110/73 (85) 96 04/30/17 05:31 113 20 114/78 (90) 94 04/30/17 05:31 113 20 114/78 (81) 94 04/30/17 05:01 122 24 100/58 (91) 94 2/16/18 05:01 38.2 122 24 100/58 (72) 94 04/30/17 05:00 121 25 94 04/30/17 04:01 119 27 108/59 (75) 96 Oxymask 12.0 04/30/17 04:01 119 27 108/59 (70) 96 18 04:00 Mask 12.0 04/30/17 03:31 118 23 115/73 (87) 93 04/30/17 03:01 122 19 89/68 (75) 92 04/30/17 03:01 122 19 89/68 (79) 92 04/30/17 03:01 122 19 89/68 (79) 92 04/30/17 03:00 121 25 92 04/30/17 02:57 122 14 95/64 (79) 93 04/30/17 02:48 120 24 93 Mask 10.0 04/30/17 02:44 120 98/69 04/30/17 02:43 121 25 98/69 (71) 91 04/30/17 02:38 126 17 87/60 (79) 92 04/30/17 02:34 121 22 90/71 (73) 93 04/30/17 02:31 123 23 100/73 (82) 93 04/30/17 02:31 123 23 100/73 (79) 93 04/30/17 02:28 135 82/53 04/30/17 02:27 124 16 83/58 (66) 93 04/30/17 02:26 124 04/30/17 02:19 127 18 100/60 (73) 93 04/30/17 02:13 115 23 124/70 (88) 90 04/30/17 02:01 133 16 99/73 (82) 93 04/30/17 01:51 145 23 98/73 (81) 89 04/30/17 00:57 129 21 97/70 (79) 92 04/30/17 00:51 134 114/73 04/30/17 00:09 37.0 131 17 114/73 (87) 90 04/30/17 00:00 115 20 91 04/29/17 23:59 Nasal Cannula 6.0 04/29/17 23:45 112 25 91 04/29/17 23:30 103 22 94 04/29/17 23:15 94 19 92 04/29/17 23:09 115 22 114/73 (87) 91 04/29/17 23:00 94 23 92 04/29/17 22:45 129 19 92 04/29/17 22:30 93 22 92 04/29/17 22:15 97 21 92 04/29/17 22:00 98 20 93 04/29/17 21:45 98 21 91 04/29/17 21:30 96 21 91 04/29/17 21:15 129 23 93 04/29/17 21:00 123 20 92 04/29/17 20:45 132 22 91 04/29/17 20:40 130 105/82 04/29/17 20:31 118 19 105/82 (90) 04/29/17 20:30 130 19 04/29/17 20:15 128 20 04/29/17 20:00 Nasal Cannula 4.0 04/29/17 20:00 125 20 90 04/29/17 19:15 38.5 111 19 140/88 (105) 90 Nasal Cannula 4.0 04/29/17 16:36 122 113/81 04/29/17 16:00 Nasal Cannula 4.0 04/29/17 16:00 37.5 80 20 118/78 (91) 94 Nasal Cannula 4.0 04/29/17 14:00 78 15 105/67 (80) 95 Nasal Cannula 4.0 Lab Results: Results Past 24 Hours Test 04/29/17 13:16 04/29/17 14:12 04/29/17 15:37 04/29/17 18:44 Range/Units Bedside Glucose 235 221 210 70-99 mg/dl Activated Partial Thromboplast Time 60.8 21.0-31.0 SECONDS Partial Thromboplastin Ratio 2.3 Test 04/29/17 19:25 04/29/17 20:29 04/29/17 23:14 04/30/17 01:24 Range/Units Bedside Glucose 166 142 70-99 mg/dl White Blood Count 9.17 4.8-10.8 K/uL Red Blood Count 4.17 4.7-6.1 M/uL Hemoglobin 12.6 14.0-18.0 g/dL Hematocrit 36.8 42-52 % Mean Corpuscular Volume 88.2 80-100 fL Mean Corpuscular Hemoglobin 30.2 25-34 pg Mean Corpuscular Hemoglobin Concent 34.2 32-36 g/dl Platelet Count 175 130-400 K/uL Mean Platelet Volume 10.3 7.4-10.4 fL Neutrophils (%) (Auto) 76.6 % Lymphocytes (%) (Auto) 12.0 % Monocytes (%) (Auto) 9.7 % Eosinophils (%) (Auto) 1.2 % Basophils (%) (Auto) 0.1 % Neutrophils # (Auto) 7.02 1.4-6.5 K/uL Lymphocytes # (Auto) 1.10 1.2-3.4 K/uL Monocytes # (Auto) 0.89 0.11-0.59 K/uL Eosinophils # (Auto) 0.11 0-0.5 K/uL Basophils # (Auto) 0.01 0-0.2 K/uL RDW Standard Deviation 47.3 36.4-46.3 fL RDW Coefficient of Variation 14.6 11.5-14.5 % Immature Granulocyte % (Auto) 0.4 % Immature Granulocyte # (Auto) 0.04 0.00-0.02 K/uL Prothrombin Time 19.9 9.0-12.0 SECONDS Prothromb Time International Ratio 1.9 0.9-1.1 Activated Partial Thromboplast Time 75.5 21.0-31.0 SECONDS Partial Thromboplastin Ratio 2.9 Sodium Level 132 136-145 mmol/L Potassium Level 4.2 3.5-5.1 mmol/L Chloride Level 103 98-107 mmol/L Carbon Dioxide Level 20 21-32 mmol/L Anion Gap 9.0 3-11 mmol/L Blood Urea Nitrogen 24 7-18 mg/dl Creatinine 1.33 0.60-1.40 mg/dl Est Creatinine Clear Calc Drug Dose 56.7 ml/min Estimated GFR () 61.9 Estimated GFR (Non- 53.4 BUN/Creatinine Ratio 17.7 10-20 Random Glucose 171 70-99 mg/dl Lactic Acid Level 1.1 0.4-2.0 mmol/L Calcium Level 7.7 8.5-10.1 mg/dl Magnesium Level 2.0 1.8-2.4 mg/dl Total Bilirubin 1.0 0.2-1 mg/dl Aspartate Amino Transf (AST/SGOT) 343 15-37 U/L Alanine Aminotransferase (ALT/SGPT) 846 12-78 U/L Alkaline Phosphatase 69 45-117 U/L Troponin I 1.070 0-0.045 ng/ml Total Protein 6.3 6.4-8.2 gm/dl Albumin 2.5 3.4-5.0 gm/dl Globulin 3.8 2.5-4.0 gm/dl Albumin/Globulin Ratio 0.7 0.9-2 Test 04/30/17 04:54 04/30/17 08:22 04/30/17 08:58 Range/Units White Blood Count 9.10 4.8-10.8 K/uL Red Blood Count 4.08 4.7-6.1 M/uL Hemoglobin 12.3 14.0-18.0 g/dL Hematocrit 36.1 42-52 % Mean Corpuscular Volume 88.5 80-100 fL Mean Corpuscular Hemoglobin 30.1 25-34 pg Mean Corpuscular Hemoglobin Concent 34.1 32-36 g/dl RDW Standard Deviation 47.7 36.4-46.3 fL RDW Coefficient of Variation 14.5 11.5-14.5 % Platelet Count 162 130-400 K/uL Mean Platelet Volume 10.3 7.4-10.4 fL Sodium Level 131 136-145 mmol/L Potassium Level 4.2 3.5-5.1 mmol/L Chloride Level 101 98-107 mmol/L Carbon Dioxide Level 20 21-32 mmol/L Anion Gap 10.0 3-11 mmol/L Blood Urea Nitrogen 25 7-18 mg/dl Creatinine 1.44 0.60-1.40 mg/dl Est Creatinine Clear Calc Drug Dose 52.4 ml/min Estimated GFR () 56.2 Estimated GFR (Non- 48.5 BUN/Creatinine Ratio 17.4 10-20 Random Glucose 212 70-99 mg/dl Lactic Acid Level 1.4 0.4-2.0 mmol/L Calcium Level 7.8 8.5-10.1 mg/dl Phosphorus Level 2.8 2.5-4.9 mg/dl Magnesium Level 1.9 1.8-2.4 mg/dl Activated Partial Thromboplast Time 72.3 21.0-31.0 SECONDS Partial Thromboplastin Ratio 2.8 Ionized Calcium 1.01 1.12-1.32 mmol/l Microbiology Results 04/29/17 Urine Culture, Received Pending
[2017-04-30] MEDS ORDERED: DXY100 PO (12:45)
[2017-04-30] MEDS ORDERED: METO50TA8 PO (12:45)
[2017-04-30] MEDS ORDERED: CZR50 PO (12:45)
--- NOTE | 2017-04-30 12:50 | Discharge Instructions ---
Discharge Instructions Date of Service Apr 30, 2017. Admission Reason for Admission: Chest Pain, V-Tach Discharge Discharge Diagnosis / Problem: Sustained Ventricular Tachycardia Discharge Goals Goal(s): Decrease discomfort, Improve function Activity Recommendations Activity Level: Bedrest . Additional Information Patient informed of condition: Yes Advance Directives: Yes DNR: No Level of Care: Other (Acute Care) Communicable Disease: No Prognosis: Deteriorating Instructions / Follow-Up Instructions / Follow-Up Follow up with Dr.Joyce Morgan at [facility] for further care Please review the paper medication reconciliation for complete medication reconciliation Current Hospital Diet Patient's current hospital diet: AHA Diet (Heart Healthy), Diabetes Type 2 Diet Discharge Diet Recommended Diet: AHA Diet (Heart Healthy), Diabetes Type 2 Diet Pending Studies Studies pending at discharge: yes List of pending studies: Blood and Urine culture, Mycoplasma and Legionella serologies Laboratory Results Hemoglobin A1c Test 04/27/17 15:30 Range/Units Estimated Average Glucose 212 mg/dl Hemoglobin A1c 9.0 H 4.5-5.6 % Lipid Panel Test 04/28/17 05:34 Range/Units Triglycerides Level 162 H 0-150 mg/dl Cholesterol Level 241 H 0-200 mg/dl HDL Cholesterol 33 mg/dl Cholesterol/HDL Ratio 7.3 LDL Cholesterol, Calculated 176 mg/dl Medical Emergencies . Who to Call and When: Medical Emergencies: If at any time you feel your situation is an emergency, please call 911 immediately. . Non-Emergent Contact Non-Emergency issues call your: Primary Care Provider, Diesel Power Shovel Operator Call Non-Emergent contact if: you have a fever, your pain is not controlled, your pain is worsening, your pain is unusual for you, your pain is concerning you, you have any medication questions Seek immediate medical attention if your symptoms reoccur or worsen . . "Provider Documentation" section prepared by Jonel Logan. . Core Measure Problem Core Measures: None
--- NOTE | 2017-04-30 12:57 | Discharge Summary ---
Discharge Summary Date of Service Apr 30, 2017. Discharge Summary Admission Date: Apr 27, 2017 at 16:21 Discharge Date: Apr 30, 2017 Discharge Disposition: Acute care facility Principal Diagnosis: Sustained Ventricular Tachycardia Procedures: ECHO: * The rhythm is atrial fibrillation. * Ejection Fraction = 20-25%. * Akinesis of the inferior, inferolateral and apical fofana, otherwise, moderate global hypokinesis. * Aortic valve sclerosis moderate, without significant aortic valvular stenosis. * There is mild mitral regurgitation. * There is mild tricuspid regurgitation. CXR: . Findings most suggestive of worsening pulmonary edema in the setting of mild cardiomegaly. Given the asymmetric greater consolidation at the left lung base, superimposed infection is difficult to exclude. ABD USD: 1. Suggestion of mild hepatic steatosis. Correlate with liver function tests to exclude steatohepatitis. 2. Infrarenal abdominal aortic aneurysm, measuring approximately 3.4 cm. This would be better depicted on CT. Please see previous CT from 07/13/2015. 3. Bilateral nephrolithiasis suspected. No hydronephrosis. 4. Status post cholecystectomy. 5. Biliary ductal prominence likely a reservoir effect in the post cholecystectomy state. Apparent hypoechogenic debris in the common duct may represent sludge or be artifactual. No intrahepatic biliary ductal dilatation. Consultations: Cardiology, GI, Nephrology, Critical Care Pending Studies/Follow-Up: [place]Joyce [place] [facility] [place] Please review the paper medication reconciliation for complete medication reconciliation Medication Reconciliation New Medications: Doxycycline Hyclate (Doxycycline Hyclate) 100 Mg Cap 100 MG PO BID for 7 Days, #14 CAP Changed Medications: Losartan Potassium (Losartan Potassium) 50 Mg Tab 50 MG PO DAILY for 7 Days (Changed from: BID) Metoprolol Succ (Toprol Xl) (Toprol-Xl) 50 Mg Tabcr 100 MG PO DAILY, #30 TAB (Changed from: 50 MG) Continued Medications: Albuterol Sulfate (Proair Hfa) 108 Mcg/ Aer 2 PUFFS INH QID Amiodarone HCl (Amiodarone HCl) 200 Mg Tab 200 MG PO BID, #60 6 Refills Aspirin (Aspirin Ec) 81 Mg Tab 81 MG PO QPM Calcitriol (Rocaltrol Cap) 0.25 Mcg Cap 1 CAP PO MWF for 30 Days, CAP 5 Refills Diphenoxylate/Atropine (Lomotil) Tab 1 TAB PO QID PRN for Diarrhea, TAB Escitalopram (Lexapro) 10 Mg Tab 10 MG PO DAILY, TAB Fish Oil (Innis-3) 1 Ea Cap 1 CAP PO BID, CAP Fluticasone Furoate-Vilanterol (Breo Ellipta) 1 Inh Inh 1 PUFF PO DAILY 100/25MCG/INH STRENGTH Fluticasone Propionate (Nasal) (Flonase Allergy Relief) 50 Mcg/Act Spr 2 SPRAYS PHANI DAILY Furosemide (Lasix) 40 Mg Tab 40 MG PO 5XWK, TAB Furosemide (Lasix) 40 Mg Tab 80 MG PO 2XWK, TAB TUESDAYS AND THURSDAYS Insulin Aspart (Novolog Flexpen) 100 Units/Ml Inj UNITS SQ ACHS COVERAGE DIRECTED BY SLIDING SCALE. USUALLY TAKES 6-8 UNITS W/ MEALS PER SCALE. Insulin Glargine (Lantus) Vial 40 UNITS SC QPM, VIAL Levothyroxine Sodium (Levothyroxine Sodium) 100 Mcg Tab 1 TAB PO 6XWK for 30 Days, TAB 5 Refills Levothyroxine Sodium (Levothyroxine Sodium) 100 Mcg Tab 2 TAB PO WK for 30 Days, TAB 5 Refills SUNDAYS Lorazepam (Ativan) 1 Mg Tab 1 MG PO Q8 PRN for ANXIETY OR SLEEP, TAB Multivitamin (Multivitamin) Tab 1 TAB PO QPM, 0 Refills Nitroglycerin (Nitrostat) 0.4 Mg Tab 0.4 MG UT UD PRN for Chest Pain, 0 Refills Ondansetron Hcl (Zofran) 4 Mg Tab 4 MG PO Q8 PRN for Nausea, TAB Pantoprazole (Pantoprazole Sodium) 40 Mg Tab 40 MG PO QAM for 7 Days, #7 TAB 2 Refills 30 minutes before breakfast Potassium Chloride (Micro-K Ext Rel) 10 Meq Capcr 10 MEQ PO DAILY, CAP Spironolactone (Aldactone) 25 Mg Tab 12.5 MG PO MWF, TAB Terazosin Hcl (Hytrin) 2 Mg Cap 2 MG PO HS, CAP Tiotropium [place] (Spiriva Respimat) 2.5 Mcg/Act Spr 1 PUFF INH DAILY, INHALER Tocopheryl Acet,Dl-Alpha (Vitamin E) 400 Inter.unit Cap 400 INTER.UNIT PO QPM, CAP Tramadol (Ultram) 50 Mg Tab 50 MG PO Q8H PRN for Pain, TAB Warfarin Sodium (Warfarin Sodium) 5 Mg Tab 1 TAB PO DAILY for 90 Days, #90 TAB 1 Refill Discontinued Medications: Amlodipine Besylate (Amlodipine Besylate) 5 Mg Tab 5 MG PO HS Admission Information HPI (per Admitting provider): This is a 71 yo M with complex medical hx of CAD s/p CABG in 1991 , ischemic cardiomyopathy EF 35 % , hx of Vtach s/p ablation in September 2014 s/p AICD placement AAA repair 10/29/2011 presented to ER with syncope /collapse due to Vtach Pt reports of not feeling well for the past 3 days , had flu like symptom with congestion , cough , very poor appetite, generalized weakness , N/V , chills , worsening of GUAN with minimum activity decided to come to ER today -while getting in car -pt collapsed and fell on ground in front of family , EMS was called -pt regained conciseness while in ambulance mentions of having chest pain and SOB pt was found to be Wide complex tachycardia /Vtach , started on IV Nitro gtt , Cxray shows pulmonary congestion -given IV Lasix 60 mg X1 , and placed on Bipap Cardiology evaluated the pt in ER , started on Amiodarone gtt- rhythm converted to Afib rate controlled ICD interrogation showed Vtach with rate > 250 bpm/had ICD firing -converted to sinus later changed to Afib pt is admitted to ICU during my time of interview in ICU 107 /pt is awake and alert , conversing appropriately. on Nasal Canula 2 L 02 ( was not on home 02 prior ) denies of any chest pain or discomfort , has + orthopnea remains in Rate controlled Afib while on Amiodarone gtt Physical Exam (per Admitting): General Appearance: no apparent distress Head: normocephalic, atraumatic Eyes: PERRL, EOMI, sclerae normal ENT: normal ENT inspection Neck: thyroid normal, no JVD, no carotid bruits, trachea midline Respiratory/Chest: chest non-tender, no respiratory distress, no accessory muscle use, + decreased breath sounds, + rales Cardiovascular: no edema, no JVD, normal peripheral pulses, + irregularly irregular Abdomen/GI: normal bowel sounds, non tender, soft Extremities/Musculoskelatal: normal inspection, no calf tenderness, normal capillary refill, no pedal edema Neurologic/Psych: no motor/sensory deficits, alert, normal mood/affect, oriented x 3 Skin: normal color, warm/dry, no rash Lymphatic: no adenopathy Hospital Course Sustained Ventricular Tachycardia S/P AICD shock P.Afib Chronic LBBB Ischemic cardiomyopathy with systolic heart failure Type II demand Ischemia Repeat CXR:Improved Pulmonary edema Troponin trended down Received IV lasix Patient denies chest pain Continue amiodarone drip and PO amiodarone Metoprolol dose increased to 100mg daily Continue Aldactone, lasix per cardiology Appreciate Cardiology and Medical Records Custodian Input monitor electrolytes ECHO as below Continue Coumadin for anticoagulation Monitor INR:1.6 today Pacemaker Interrogation done Also on heparin drip Planned to be discharged [place] [facility] [place] Acute Hypoxic respiratory failure Possible atypical Klebsiella Pneumonia H/O Interstitial lung disease ?? related to amiodarone Influenza PCR negative Leukocytosis normalized Intermittent Fever CXR:Improved pulmonary edema. Repeat CXR:worsening pulmonary edema Sputum culture: Klebsiella Blood cultures: no growth to date Continue Antibiotics:ceftriaxone, Doxy Continue nebs, Oxygen support BiPAP PRN Mycoplasma serology pending CAD: H/O CABG in 1991 , repeat Cath in 2005 shows total occlusion of [place] Coronary arteries with occluded graft on RCA Nitro gtt discontinued Denies chest pain Cardiology on board continue Aspirin , Beta katharina , Nitro , ARB Not on Statin due to chronic transaminitis /Elevated liver enzyme Diarrhea: Stool for C.diff negative Monitor ANNA on CKD III baseline cr 1.2 ( 12/03/2016 ) Cr 1.44 today Monitor renal function On Aldactone and losartan Appreciate Nephrology Input Prolonged QTC : Qtc > 600 due to severe arrhythmia /AICD Monitor QTC avoid medication that prolong QTC DM II: A1C:9.0 appreciate Pharmacy consult for glycemic management Insulin gtt discontinued Continue ISS, lantus Transaminitis: Likely secondary to shock liver Denies abd pain Amiodarone could be contributing to elevated LFTs Monitor LFTS improving Abd USD:suggestive of mild hepatic steatosis Appreciate GI input Hepatitis panel negative No plan for biliary imaging or ERCP Hypothyroidism: Continue levothyroxine TSH, Free T4 normal H/O AAA: S/P endovascular repair Depression: Hold SSRI -Celexa due to prolong Qtc Code Status: Full Code DVT Px: on Coumadin Disposition: Transfer [place] [facility] [place], Dr.Joyce Gupta accepted the patient PROCEDURES: ECHO: * The rhythm is atrial fibrillation. * Ejection Fraction = 20-25%. * Akinesis of the inferior, inferolateral and apical fofana, otherwise, moderate global hypokinesis. * Aortic valve sclerosis moderate, without significant aortic valvular stenosis. * There is mild mitral regurgitation. * There is mild tricuspid regurgitation. * Doppler findings do not suggest pulmonary hypertension. Total time spent on discharge = 45 minutes This includes examination of the patient, discharge planning, medication reconciliation, and communication with other providers. Discharge Instructions Discharge Instructions Date of Service Apr 30, 2017. Admission Reason for Admission: Chest Pain, V-Tach Discharge Discharge Diagnosis / Problem: Sustained Ventricular Tachycardia Discharge Goals Goal(s): Decrease discomfort, Improve function Activity Recommendations Activity Level: Bedrest . Additional Information Patient informed of condition: Yes Advance Directives: Yes DNR: No Level of Care: Other (Acute Care) Communicable Disease: No Prognosis: Deteriorating Instructions / Follow-Up Instructions / Follow-Up Follow up with Dr.Joyce Morgan [place] [facility] [place] Please review the paper medication reconciliation for complete medication reconciliation Current Hospital Diet Patient's current hospital diet: AHA Diet (Heart Healthy), Diabetes Type 2 Diet Discharge Diet Recommended Diet: AHA Diet (Heart Healthy), Diabetes Type 2 Diet Pending Studies Studies pending at discharge: yes List of pending studies: Blood and Urine culture, Mycoplasma and Legionella serologies Laboratory Results Hemoglobin A1c Test 04/27/17 15:30 Range/Units Estimated Average Glucose 212 mg/dl Hemoglobin A1c 9.0 H 4.5-5.6 % Lipid Panel Test 04/28/17 05:34 Range/Units Triglycerides Level 162 H 0-150 mg/dl Cholesterol Level 241 H 0-200 mg/dl HDL Cholesterol 33 mg/dl Cholesterol/HDL Ratio 7.3 LDL Cholesterol, Calculated 176 mg/dl Medical Emergencies . Who to Call and When: Medical Emergencies: If at any time you feel your situation is an emergency, please call 911 immediately. . Non-Emergent Contact Non-Emergency issues call your: Primary Care Provider, Casting Chipper Call Non-Emergent contact if: you have a fever, your pain is not controlled, your pain is worsening, your pain is unusual for you, your pain is concerning you, you have any medication questions Seek immediate medical attention if your symptoms reoccur or worsen . . "Provider Documentation" section prepared by Jonel Logan. . Core Measure Problem Core Measures: None
[2017-04-30] MEDS ORDERED: INSULIN GLARGINE SOLOSTAR 100 UNITS/ML 3 ML PEN SC ONE (14:00)
--- NOTE | 2017-04-30 14:03 | PROGRESS NOTE ---
DATE: 04/30/2017 The patient seen and examined. Chart, medications, telemetry reviewed. SUBJECTIVE: Overnight history is notable for once again recurrence of wide complex tachycardia, sustained. Recurrence was associated with mild drop in blood pressure and mild increase in dyspnea. He noted no chest pains. He was treated with BiPAP overnight as well as reinstitution at my request of IV amiodarone with amiodarone bolus. He has had transient recurrent baseline atrial fibrillation and this morning had extended duration in atrial fibrillation only to relapse intermittently into ventricular tachycardia, rates 120-130 with wide QRS complex. He is currently comfortable. Denies specifically chest pain, though blood pressures do decline when the patient lapses into atrial fibrillation. He has not required pacing or shock, device is functioning appropriately, though VT rates appear to be below therapeutic levels of rates on device on interrogation today. He notes no fevers, chills or productive cough. Notes no abdominal pain or discomfort. He remains anticoagulated with IV heparin since admission given newly observed atrial fibrillation. He notes no melena or hematochezia. Appetite is improving. OBJECTIVE: VITAL SIGNS: Baseline heart rate is 94, blood pressure 123/64; when in ventricular tachycardia, rates are 125, blood pressure 90/66. HEENT: Normocephalic and atraumatic. NECK: Thick. There is no distinct jugular venous distention. LUNGS: Reveal diminished breath sounds with few scattered rhonchi at the right base. Crackles diffusely. CARDIOVASCULAR: Irregularly irregular with a grade 1/6 systolic murmur. ABDOMEN: Soft. EXTREMITIES: Without cyanosis or clubbing. There is 1+ lower extremity edema. LABORATORY DATA: This morning, white cell count is 9.1, hemoglobin is 12.3, hematocrit is 36.1, platelet count is 162. Sodium is 131, potassium is 4.2, chloride is 101, bicarbonate is 20, BUN is 25, creatinine is 1.44, calcium level is 7.8. Troponin I is 1.07, though declining from admission. IMPRESSION: A very complex 71-year-old male who presents now with persistent ventricular tachycardia/ventricular tachycardia storm after hospitalization acutely on 04/27/2017 with worsening respiratory status, possible viral infection, with subsequent acute decline including device intervention for ventricular fibrillation. Initial course was notable for marked elevation of transaminases and respiratory failure which is now slowly improving. He continues to have persistent runs of ventricular tachycardia, sustained, which have not responded to titration upward of antiarrhythmic therapy with amiodarone, addition of increasing doses of Toprol. The patient tolerates ventricular tachycardia marginally well but overall function appears to be gradually declining. Discussed the options of management in detail. He has undergone prior VT ablation. Would recommend transfer to [facility] for consideration of ultimate therapies, additional antiarrhythmic therapy and possible cardioversion back to sinus rhythm. The patient is agreeable. Arrangements made for transfer later today via ambulance. No current adjustments made. We will continue IV amiodarone, IV heparin with anticipation to long-term conversion to warfarin. All other medications have been continued as ordered, though losartan has been decreased from 50 mg twice per day to 25 mg once per day given transient hypotension during arrhythmia. We will appreciate further recommendations via tertiary EP service. UZMA
--- NOTE | 2017-04-30 14:14 | Pharmacy Progress Note ---
Glycemic Control Progress Note Date of Service Apr 30, 2017. Scope Glycemic Pharmacist consulted for glycemic control to write orders per [facility] inpatient glycemic control protocol. Objective Accuchecks BSG (last 24hrs): Test 04/29/17 14:12 04/29/17 15:37 04/29/17 20:29 04/29/17 23:14 Bedside Glucose 221 mg/dl (70-99) 210 mg/dl (70-99) 166 mg/dl (70-99) 142 mg/dl (70-99) Test 04/30/17 01:24 04/30/17 04:54 Random Glucose 171 mg/dl (70-99) 212 mg/dl (70-99) HbA1c: Test 04/27/17 15:30 Hemoglobin A1c 9.0 % (4.5-5.6) H Recent Pertinent Medications The patient is currently receiving: * Basal insulin: Lantus 10 units SQ x1 04/29 afternoon then qHS based on BSG * 20 units for BSG less than 110 mg/dL * 30 units for BSG 110-180 mg/dL * 40 units for BSG greater than 180 mg/dL * Bolus insulin * NovoLog per scale ACHS or Q6hrs while NPO and two overnight checks * Goal Range: Low 120 mg/dL - High 160 mg/dL * Correction Factor: 20 mg/dL/unit * Nutritional / Prandial insulin per carb ratio of 1 unit per 7 grams CHO consumed Assessment & Plan ASSESSMENT: 04/29 * On home dose of Lantus * Insulin drip running at 1.1 units/hr this AM, but then BSG's increased 2nd post-prandial elevation with only minimal coverage due to [facility] insulin calculator * OK to transition to basal/bolus today per Dr. Tiwari * Will give pre-specified CHO ratio at lunch (instead of relying on insulin gtt calculator) * Will give very small additional dose of Lantus, but will aim to maintain larger dose qHS to help with transition back to outpatient regimen * Will initiate Novolog at dinner with correction factor and carb ratio based on estimated basal dose of 40 units * Two overnight checks * Stop insulin drip at dinner 04/30 * Transition off of drip yesterday went well with BSG's 166 and 142 mg/dL after , but then increased to 212 mg/dL overnight, likely coinciding with increased physiologic stress 2nd sustained VTach x hours. * Amiodarone drip (mixed in dextrose) resumed * Fasting BSG elevated this AM - OK to give small supplemental dose of Lantus now, but will not be aggressive in order to help ease transition back to home regimen (Lantus 40 units HS) * Will also decrease Novolog goal range and tighten CHO ratio PLAN FOR INPATIENT GLYCEMIC CONTROL: * Basal insulin: Increase Lantus 10 units SQ x1 now then qHS based on BSG * 25 units for BSG less than 120 mg/dL * 40 units for BSG 120-200 mg/dL * 50 units for BSG greater than 200 mg/dL * Bolus insulin * NovoLog per scale ACHS or Q6hrs while NPO and two overnight checks * Decrease Goal Range: Low 120 mg/dL - High 150 mg/dL * Correction Factor: 20 mg/dL/unit * Tighten Nutritional / Prandial insulin per carb ratio of 1 unit per 6 grams CHO consumed * Please note that the plan above was derived based on current level of insulin resistance and hospital stress. These recommendations are appropriate for inpatient admission only. Plan of care upon discharge will need to be reassessed to avoid potential outpatient hypo/hyperglycemia. Thank you.
[2017-04-30 14:55] LABS: ANA SCREEN TC 249X NEGATIVE (NEGATIVE)
[2017-04-30 15:53] LABS: PTT PATIENT 73.2 SECONDS (21.0-31.0)
[2017-04-30] MEDS ORDERED: WARFARIN SOD 5 MG TAB PO SCH (16:00)
[2017-04-30] MEDS ORDERED: AMIODARONE 200 MG TAB PO SCH (21:00)
[2017-04-30] MEDS ORDERED: MAGNESIUM OXIDE 400 MG TAB PO SCH (21:00)
[2017-05-01] MEDS ORDERED: INSULIN ASPART 100 UNITS/ML 3 ML PEN SC ONE (02:00)
[2017-05-01] MEDS ORDERED: FUROSEMIDE 40 MG TAB PO SCH (09:00)
[2017-05-01] MEDS ORDERED: METOPROLOL SUCC 50MG EXT REL TAB PO SCH (09:00)
[2017-05-02] MEDS ORDERED: LEVOTHYROXINE 100 MCG TAB PO SCH (06:00)
== END 2017-04-30 18:48 | disposition short-term general hospital (02) | DRG 280 ==
LOC: EDBD 15:20 → C.EDB 15:22 → C.MSICU 16:21 → EDBEDREQ 16:48 → ENRESERV 16:56
PROVIDERS: ADMIT Hospitalist; ATTEND Internal Medicine
DX: I47.2 Ventricular tachycardia (principal); J15.0 Pneumonia due to Klebsiella pneumoniae; I21.A1 Myocardial infarction type 2; J96.01 Acute respiratory failure with hypoxia; K72.00 Acute and subacute hepatic failure without coma; I50.21 Acute systolic (congestive) heart failure; N17.9 Acute kidney failure, unspecified; I13.0 Hypertensive heart and chronic kidney disease with heart failure and stage 1 through stage 4 chronic kidney disease, or unspecified chronic kidney disease; J84.9 Interstitial pulmonary disease, unspecified; R50.9 Fever, unspecified; R11.2 Nausea with vomiting, unspecified; T46.2X5A Adverse effect of other antidysrhythmic drugs, initial encounter; I45.81 Long QT syndrome; I44.7 Left bundle-branch block, unspecified; I25.5 Ischemic cardiomyopathy; I48.0 Paroxysmal atrial fibrillation; R19.7 Diarrhea, unspecified; I25.10 Atherosclerotic heart disease of native coronary artery without angina pectoris; E11.65 Type 2 diabetes mellitus with hyperglycemia; E11.22 Type 2 diabetes mellitus with diabetic chronic kidney disease; N18.3 Chronic kidney disease, stage 3 (moderate); F32.9 Major depressive disorder, single episode, unspecified; E03.9 Hypothyroidism, unspecified; Z95.810 Presence of automatic (implantable) cardiac defibrillator; Z95.1 Presence of aortocoronary bypass graft; Z98.890 Other specified postprocedural states; Z86.79 Personal history of other diseases of the circulatory system; Z90.49 Acquired absence of other specified parts of digestive tract; Z87.891 Personal history of nicotine dependence; Z79.01 Long term (current) use of anticoagulants; Z79.4 Long term (current) use of insulin; Z79.51 Long term (current) use of inhaled steroids; Z79.82 Long term (current) use of aspirin; Z79.899 Other long term (current) drug therapy; Z88.0 Allergy status to penicillin; Z82.49 Family history of ischemic heart disease and other diseases of the circulatory system; Z80.1 Family history of malignant neoplasm of trachea, bronchus and lung

== ENCOUNTER 2017-05-18 21:16 | Observation (INO) | payer OTHER, BC ==
[~2017-05-18] VITALS: Ht 172.7 cm; Wt 91.5 kg
[~2017-05-18 21:16] MED LIST changes: -CALC0.5C2; +DXY100 PO; +FRS/40 PO; -LSX40 PO; +POTA10CA28 PO; -POTA20TA13 PO; +SPIR25TA PO; -VITACAP26 PO
--- NOTE | 2017-05-18 21:44 | EMERGENCY ROOM VISIT NOTE ---
History Report prepared by Cynthia: Nathaly Dodd Under the Supervision of: Dr. Kvng Phelan D.O. First contact with patient: 21:24 Chief Complaint: CARDIAC ASSESSMENT Stated Complaint: HEART ISSUES,COLD,LIFE FLIGHTED TO [facility] LAST WEEK Nursing Triage Summary: pt reports spent 2 weeks in [facility] for cardiac problems and was to [facility] X 1 week. Dc from [facility] on wednesday . Pt reports I caught a cold while in rehab and since I have been home I have been feeling increasingly tired, weak. I also have a cough with mucus production. Pt also reports intermittent chest pressure since wednesday . 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 7 days job captain, she reports he was retaining fluid and his defibrillator shocked him. The patient notes he spent 2 weeks in [facility] for cardiac problems and spent 1 week in [facility], where his thinks he got a cold The patient reports his symptoms are worsening which prompted his visit today. He states he has a persistent cough, runny nose, SOB, weakness, and a sore throat but denies any fevers. 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 Review of Systems See HPI for pertinent positives & negatives. A total of 10 systems reviewed and were otherwise negative. Past Medical & Surgical Medical Problems: (1) AAA (abdominal aortic aneurysm) (2) Abnormal QT interval present on electrocardiogram (3) Anticoagulated on warfarin (4) Automatic implantable cardiac defibrillator in situ (5) Chest pain (6) CHF (congestive heart failure) (7) Chronic systolic (congestive) heart failure (8) CKD (chronic kidney disease) stage 3, GFR 30-59 ml/min (9) Coronary artery disease (10) Delirium due to another medical condition (11) Diabetes mellitus, type II (12) Dyslipidemia (13) History of ventricular tachycardia (14) HTN (hypertension) (15) Hypomagnesemia (16) Hypothyroidism (17) Non-sustained ventricular tachycardia (18) PHAN treated with BiPAP (19) Pacemaker (20) PAF (paroxysmal atrial fibrillation) (21) V-tach Surgical Problems: (1) S/P triple vessel bypass (2) Status post abdominal aortic aneurysm repair (3) Status post cataract extraction (4) Status post cholecystectomy (5) Status post coronary artery bypass grafting (6) Status post implantation of automatic cardioverter/defibrillator (AICD) Family History FH: heart disease FATHER FH: lung cancer MOTHER Hypertension MOTHER Social History Smoking Status: Never Smoker Alcohol Use: occasionally Drug Use: none Marital Status: Housing Status: lives with family Occupation Status: retired Current/Historical Medications Scheduled Amiodarone Hcl (Cordarone), 200 MG PO Q8 Amlodipine Besylate (Amlodipine Besylate), 5 MG PO QAM Ascorbic Acid (Vitamin C), 1,000 MG PO BID Aspirin (Aspirin Ec), 81 MG PO QAM Calcitriol (Calcitriol), 0.25 MCG PO MWF Escitalopram Oxalate (Lexapro), 1 TAB PO DAILY Fluticasone Furoate-Vilanterol (Breo Ellipta), 1 PUFF PO QAM Fluticasone Propionate (Nasal) (Flonase Allergy Relief), 2 SPRAYS PHANI QAM Furosemide (Furosemide), 80 MG PO BID Insulin Aspart (Novolog Flexpen), 5 UNITS SQ ACHS Insulin Glargine (Lantus Solostar), 40 UNITS SC QPM Isosorbide Mononitrate Ext Rel (Imdur Ext Rel), 30 MG PO QAM Levothyroxine Sodium (Levothyroxine Sodium), 100 MCG PO DAILY Lorazepam (Ativan), 1 MG PO Q8H Metoprolol Succinate (Toprol Xl), 25 MG PO DAILY Multivitamins/Minerals (Mvi With Minerals), 1 TAB PO DAILY Nystatin (Nystatin Suspension), 5 ML PO QID [place]-3 Fatty Acids (Fish Oil), 1,000 MG PO BID Pantoprazole (Pantoprazole Sodium), 40 MG PO QAM Potassium Chloride (Potassium Chloride Cr), 10 MEQ PO BID Spironolactone (Spironolactone), 12.5 MG PO MWF Terazosin Hcl (Hytrin), 1 CAP PO HS Tiotropium [place] (Spiriva Handihaler), 1 CAP INH QAM Vitamin E (E-400), 400 UNITS PO DAILY Warfarin Sodium (Warfarin Sodium), 2.5 MG PO HS Scheduled PRN Albuterol Sulfate (Proair Respiclick), 2 PUFF INH QID PRN for SOB/wheezing Nitroglycerin (Nitrostat), 0.4 MG UT PRN PRN for chest pain Allergies Coded Allergies: Amoxicillin (Verified Allergy, Severe, Anaphylaxis, 04/28/17) Clavulanic Acid (Verified Allergy, Severe, Anaphylaxis, 04/28/17) Physical Exam Vital Signs Date Time Temp Pulse Resp B/P (MAP) Pulse Ox O2 Delivery O2 Flow Rate FiO2 05/18/17 23:09 67 20 137/77 95 Room Air 05/18/17 22:14 65 12 126/69 95 Room Air 05/18/17 21:44 65 05/18/17 21:39 96 Room Air 05/18/17 21:22 36.8 65 20 127/69 94 Room Air Physical Exam GENERAL: Patient is awake, alert, and in no acute distress. Patient is resting comfortably and showing no signs of anxiety EYES: The conjunctivae are clear. The pupils are round and reactive. EARS, NOSE, MOUTH AND THROAT: The nose is without any evidence of any deformity. Mucous membranes are moist tongue is midline NECK: The neck is nontender and supple. RESPIRATORY: Lung sounds were diminished at both bases. CARDIOVASCULAR: Regular rate and rhythm noted. There was no definite murmur noted. GASTROINTESTINAL: The abdomen is soft. Bowel sounds are present in all quadrants. Abdomen is nontender MUSCULOSKELETAL/EXTREMITIES: There is no evidence of gross deformity full range of motion is noted in the hips and shoulders SKIN: Pedal edema bilaterally. NEUROLOGIC: Patient is awake alert and oriented x3. Medical Decision & Procedures ER Provider Diagnostic Interpretation: Radiology results as stated below per my review and radiologist interpretation: CHEST ONE VIEW PORTABLE CLINICAL HISTORY: 71 years-old Male presenting with EVALUATE RESPIRATORY DISTRESS.DYSPNEA. TECHNIQUE: Portable upright AP view of the chest was obtained. COMPARISON: 04/30/2017. FINDINGS: Left subclavian implanted cardiac defibrillator with 2 leads to the right ventricular apex, one of which may be abandoned. Median sternotomy wires, bypass graft rings, and multiple mediastinal surgical clips again noted. Few external leads project over the right hemithorax degrading image quality. Atherosclerosis of the aortic arch. Cardiac silhouette mildly enlarged, slightly decreased from prior. Interval decrease in central and left basilar predominant hazy opacity. No large pleural effusion or pneumothorax. Degenerative changes of the bilateral acromioclavicular joints. IMPRESSION: 1. Interval decrease central and left basilar hazy opacities compatible with improving pulmonary edema. 2. Apparent decreased cardiac enlargement. Electronically signed by: Isaiah Young M.D. 05/18/2017 9:57 PM Dictated Date/Time: 05/18/2017 9:55 PM Laboratory Results Test 05/18/17 21:38 05/18/17 21:40 Total Creatine Kinase 60 U/L (39-308) Creatine Kinase MB 0.8 ng/ml (0.5-3.6) Creatine Kinase MB Ratio 1.3 (0-3.0) Pro-B-Type Natriuretic Peptide 1243 pg/ml (0-900) Influenza Type A (RT-PCR) Neg for Influ A (NEG) Influenza Type B (RT-PCR) Neg for Influ B (NEG) Laboratory results per my review. ECG Per My Interpretation Indication: SOB/dyspnea Rate (beats per minute): 66 Rhythm: sinus rhythm Findings: 1st degree AV block, LBBB, ST depression (Lateral) Comparison ECG Date: 04/29/17 Change: no significant change ED Course 2129: The patient was evaluated in room A2. A complete history and physical examination were performed. 2244: I discussed the patient's case with Dr. Gaines, Cardiology. He recommends considering the patient for an observation. 2255: Upon reevaluation, the patient is agreeable. I discussed results and treatment plan with him. He verbalizes agreement and understanding. I spoke with Dr. Garcia, [facility] Hospitalist. The patient will be evaluated for further management and care. Medical Decision Prior records/ancillary studies reviewed. Triage Nursing notes reviewed. Additional history obtained from the family. The patient's history was concerning for respiratory difficulties. Differential diagnosis: Etiologies such as infections, reactive airway disease, pneumonia, pneumothorax , COPD, CHF, cardiac ischemia, pulmonary embolism, musculoskeletal, gastrointestinal, as well as others were entertained. The patient is a 71-year-old male who presented to the emergency department for an evaluation of "just not feeling well". The patient has a history of cardiac problems. He has a cardiac defibrillator for low ejection fraction and history of wide-complex tachycardia. The patient was seen in our facility recently but transferred to [facility] for further evaluation because of CHF. The patient had a stay in an inpatient rehab. The patient presents to the emergency department today because he is not feeling well. He has noticed some episodes of chest discomfort as well as dyspnea on exertion. The patient had his medications changed recently. He had an increase in his Lasix. Overall his pulmonary edema pattern clinically as well as radiographically appears improved but this also has left him with an increase in his creatinine. I discussed patient's laboratory and radiographic studies with him. At this time there is no definite non-ST segment elevation MS findings but because the patient's history I discussed his case with his primary cardiology group. At this time the very concerned about the patient's overall well-being especially given his recent episodes of wide-complex tachycardia. For that reason they recommended that I discussed this case with the on-call [facility] hospitalist. I discussed this case with the on-call [facility] hospitalist group. They have agreed to evaluate the patient in the emergency department for further management and disposition. Medication Reconcilliation Current Medication List: was personally reviewed by me Blood Pressure Screening Patient's blood pressure: Normal blood pressure Blood pressure disposition: Did not require urgent referral Consults Time Called: 2234 Consulting Physician: Dr. Gaines, Cardiology Returned Call: [phone] He recommends considering the patient for an observation Additional Consults: Time Called: 2250 Consulted Physician: Dr. Garcia [facility] Hospitalist Returned Call: [phone] Additional Comments: He will further evaluate the patient. Impression Primary Impression: Chest pain Additional Impressions: Dyspnea on exertion Acute kidney injury Scribe Attestation The scribe's documentation has been prepared under my direction and personally reviewed by me in its entirety. I confirm that the note above accurately reflects all work, treatment, procedures, and medical decision making performed by me. Departure Information Dispostion Being Evaluated By Hospitalist (Dr. Garcia [facility] Hospitalist ) Referrals Candelaria Navas DO (PCP) Patient Instructions My [facility] Problem Qualifiers Primary Impression: Chest pain Chest pain type: unspecified Qualified Codes: R07.9 - Chest pain, unspecified
[2017-05-18 21:47] LABS: BASO % 0.1 %; BASO ABS # 0.01 K/uL (0-0.2); EOS ABS # 0.28 K/uL (0-0.5); HEMOGLOBIN 12.1 g/dL (14.0-18.0); IG# 0.03 K/uL (0.00-0.02); LYMPH % 17.3 %; MEAN CELL VOLUME 88.7 fL (80-100); MEAN CORPUSCULAR HEMOGLOBIN 29.8 pg (25-34); MEAN CORPUSCULAR HGB CONC 33.6 g/dl (32-36); MEAN PLATELET VOLUME 9.5 fL (7.4-10.4); MONO % 9.7 %; NEUT % 69.6 %; NEUT ABS # 6.43 K/uL (1.4-6.5); PLATELET COUNT 175 K/uL (130-400); RED CELL DISTRIBUTION WIDTH CV 14.8 % (11.5-14.5); RED CELL DISTRIBUTION WIDTH SD 48.1 fL (36.4-46.3); WHITE BLOOD COUNT 9.25 K/uL (4.8-10.8)
[2017-05-18 21:57] LABS: INR 1.5 (0.9-1.1); PTT PATIENT 34.1 SECONDS (21.0-31.0)
--- NOTE | 2017-05-18 21:59 | DIAGNOSTIC IMAGING REPORT ---
CHEST ONE VIEW PORTABLE CLINICAL HISTORY: 71 years-old Male presenting with EVALUATE RESPIRATORY DISTRESS.DYSPNEA. TECHNIQUE: Portable upright AP view of the chest was obtained. COMPARISON: 04/30/2017. FINDINGS: Left subclavian implanted cardiac defibrillator with 2 leads to the right ventricular apex, one of which may be abandoned. Median sternotomy wires, bypass graft rings, and multiple mediastinal surgical clips again noted. Few external leads project over the right hemithorax degrading image quality. Atherosclerosis of the aortic arch. Cardiac silhouette mildly enlarged, slightly decreased from prior. Interval decrease in central and left basilar predominant hazy opacity. No large pleural effusion or pneumothorax. Degenerative changes of the bilateral acromioclavicular joints. IMPRESSION: 1. Interval decrease central and left basilar hazy opacities compatible with improving pulmonary edema. 2. Apparent decreased cardiac enlargement. Electronically signed by: Isaiah Young M.D. 05/18/2017 9:57 PM Dictated Date/Time: 05/18/2017 9:55 PM
[2017-05-18 22:06] LABS: ALBUMIN 2.8 gm/dl (3.4-5.0); CREATININE 2.04 mg/dl (0.60-1.40); POTASSIUM 3.7 mmol/L (3.5-5.1)
[2017-05-18 22:11] LABS: CKMB 0.8 ng/ml (0.5-3.6); TOTAL PROTEIN 6.6 gm/dl (6.4-8.2)
[2017-05-18] MEDS ORDERED: PANT40TA2 PO (22:18)
[2017-05-18] MEDS ORDERED: NYSS/ PO (22:18)
[2017-05-18] MEDS ORDERED: POTA10TA30 PO (22:18)
[2017-05-18] MEDS ORDERED: ISOS30TA35 PO (22:18)
[2017-05-18] MEDS ORDERED: LSX40 PO (22:18)
[2017-05-18] MEDS ORDERED: VNTHFA/IN INH (22:18)
[2017-05-18] MEDS ORDERED: AMIO200T4 PO (22:18)
[2017-05-18] MEDS ORDERED: INSDGIPEN SC (22:18)
[2017-05-18] MEDS ORDERED: SPRIN/30 INH (22:23)
[2017-05-18] MEDS ORDERED: WARF-280 PO (22:23)
[2017-05-18 22:48] LABS: INFLUENZA A PCR Neg for Influ A (NEG); INFLUENZA B PCR Neg for Influ B (NEG)
[2017-05-19] VITALS (8 sets, daily range): BP systolic 109–156; BP diastolic 52–84; PULSE 52–69; TEMP 37.1–37.5; O2SAT 91–96; Ht 172.7 cm; Wt 91.5 kg
[2017-05-19] MEDS ORDERED: ACETAMINOPHEN 325 MG TAB PO PRN
[2017-05-19] MEDS ORDERED: ONDANSETRON INJ 2 MG/ML 2 ML VIAL IV PRN
[2017-05-19] MEDS ORDERED: NITROGLYCERIN 0.4 MG SL PER TAB CHARGE SL PRN
[2017-05-19] MEDS ORDERED: POLYETHYLENE (MIRALAX) 17 GM PACK PO PRN
[2017-05-19] MEDS ORDERED: ASPIRIN 81 MG CHEW PO STA (00:08)
[2017-05-19] MEDS ORDERED: GLUCOSE 10 TABS/TUBE PO PRN (00:15)
[2017-05-19] MEDS ORDERED: GLUCAGON FOR INJ 1 MG VIAL SQ PRN (00:15)
[2017-05-19] MEDS ORDERED: GLUCOSE 40% GEL 15 GM TUBE PO PRN (00:15)
[2017-05-19] MEDS ORDERED: DEXTROSE 50% 50 ML SYR IV PRN (00:15)
[2017-05-19] MEDS ORDERED: ALBU18002 INH (00:18)
[2017-05-19] MEDS ORDERED: ASCO10003 PO (00:18)
[2017-05-19] MEDS ORDERED: OMEGCAP2 PO (00:18)
[2017-05-19] MEDS ORDERED: VITACAP37 PO (00:18)
[2017-05-19] MEDS ORDERED: HYT/2 PO (00:18)
[2017-05-19] MEDS ORDERED: SPR25 PO (00:18)
[2017-05-19] MEDS ORDERED: RCL25 PO (00:18)
[2017-05-19] MEDS ORDERED: ATV/1 PO (00:18)
[2017-05-19] MEDS ORDERED: MULTTAB PO (00:18)
[2017-05-19] MEDS ORDERED: NTRGSL/4 UT (00:18)
[2017-05-19] MEDS ORDERED: METO-478 PO (00:18)
[2017-05-19] MEDS ORDERED: ESCI1TAB9 PO (00:18)
[2017-05-19] MEDS ORDERED: ALBUTEROL HFA 8 GM INHALER INH PRN (00:30)
--- NOTE | 2017-05-19 00:40 | History and Physical ---
History & Physical Date & Time of Service: May 19, 2017 at 00:23 Chief Complaint: Heart Issues,Cold,[place] [facility] [place] Care Physician: Candelaria Navas DO History of Present Illness Source: patient, clinic records, hospital records The patient is a 71-year-old male who presents to the emergency room with complaints of cardiac pain beginning 3 days ago. He reports that his was sick with the flu for about 2 weeks and 1 week ago he developed vomiting and diarrhea. A couple of days later he developed a persistent cough runny nose and shortness of breath secondary to nasal congestion as well as weakness and a sore throat. He denied any fevers chills blood per rectum and after a couple of days of the vomiting and diarrhea this cleared up. He is now tolerating p.o. without issue. Tonight he reports that he came to the ER because everything "seem to be getting worse." Specifically his chest pain had stayed the same which was intermittent lasting 30-45 seconds at a time and described as a point tenderness without radiation and unrelated to his index anginal pain. He also reported an improvement in his cough resolution of diarrhea however his low energy level was what was concerning him the most. He was recently admitted to [facility] with ventricular storm and was life flighted to [facility] on 04/30. There he was thought to be an exacerbation of congestive heart failure brought on by persistent recurrent ventricular tachycardia. He had underwent aggressive diuresis and IV amiodarone infusion. He was admitted on 04/30 and underwent DC cardioversion into sinus rhythm from a chronic atrial fibrillation rhythm. A right heart cath at that time also revealed pulmonary edema consistent with CHF. [place] was [place] [facility] [place] and went to rehab at [facility] recently discharged from [facility] on 05/16, two days ago. Tonight in the ER his vital signs were stable and he was afebrile oxygenating well on room air physical exam was unremarkable a chest x-ray revealed improvement in pulmonary edema EKG revealed normal sinus rhythm status post prior cardioversion lab results revealed a creatinine slightly worse at 2.0 up from 1.44 on discharge 04/30 AST of 56 down from 333 ALT of 124 down from 846, proBNP of 1243 down from 3918. The patient denies any shock or syncopal events since discharge [place] [facility] [place] . Troponin level is negative. Past Medical/Surgical History Medical Problems: (1) AAA (abdominal aortic aneurysm) Status: Chronic (2) Anticoagulated on warfarin Status: Chronic (3) Automatic implantable cardiac defibrillator in situ Status: Chronic (4) CHF (congestive heart failure) Permanent Comment: echo 05/28/13 LVEF 30-35% Status: Chronic (5) Chronic systolic (congestive) heart failure Status: Chronic (6) CKD (chronic kidney disease) stage 3, GFR 30-59 ml/min Status: Chronic (7) Coronary artery disease Permanent Comment: s/p ID ischemic cardiomyopathy s/p CABG Status: Chronic (8) Diabetes mellitus, type II Status: Chronic (9) Dyslipidemia Status: Chronic (10) History of ventricular tachycardia Status: Chronic (11) HTN (hypertension) Status: Chronic (12) Hypothyroidism Status: Chronic (13) Non-sustained ventricular tachycardia Status: Chronic (14) PHAN treated with BiPAP Status: Chronic (15) PAF (paroxysmal atrial fibrillation) Status: Chronic Surgical Problems: (1) S/P triple vessel bypass Status: Chronic (2) Status post abdominal aortic aneurysm repair Permanent Comment: [facility] 10/29/11 Dr. Gallagher stent graft Status: Chronic (3) Status post cataract extraction Status: Chronic (4) Status post cholecystectomy Status: Chronic (5) Status post coronary artery bypass grafting Status: Chronic (6) Status post implantation of automatic cardioverter/defibrillator (AICD) Status: Chronic Family History FH: heart disease FATHER FH: lung cancer MOTHER Hypertension MOTHER Social History Smoking Status: Former Smoker (quit 2010) Smokeless Tobacco Use: No Alcohol Use: none Drug Use: none Marital Status: Housing status: lives with significant other Occupational Status: retired Immunizations History of Influenza Vaccine: Yes Influenza Vaccine Date: Dec 01, 2016 History of Tetanus Vaccine?: Yes Tetanus Immunization Date: Apr 18, 2010 History of Pneumococcal: Yes Pneumococcal Date: Dec 01, 2016 History of Hepatitis B Vaccine: Yes Hepatitis Immunization Date: Aug 21, 1996 Allergies Coded Allergies: Amoxicillin (Verified Allergy, Severe, Anaphylaxis, 04/28/17) Clavulanic Acid (Verified Allergy, Severe, Anaphylaxis, 04/28/17) Home Medications Scheduled Amiodarone Hcl (Cordarone), 200 MG PO Q8 Amlodipine Besylate (Amlodipine Besylate), 5 MG PO QAM Ascorbic Acid (Vitamin C), 1,000 MG PO BID Aspirin (Aspirin Ec), 81 MG PO QAM Calcitriol (Calcitriol), 0.25 MCG PO MWF Escitalopram Oxalate (Lexapro), 1 TAB PO DAILY Fluticasone Furoate-Vilanterol (Breo Ellipta), 1 PUFF PO QAM Fluticasone Propionate (Nasal) (Flonase Allergy Relief), 2 SPRAYS PHANI QAM Furosemide (Furosemide), 80 MG PO BID Insulin Aspart (Novolog Flexpen), 5 UNITS SQ ACHS Insulin Glargine (Lantus Solostar), 40 UNITS SC QPM Isosorbide Mononitrate Ext Rel (Imdur Ext Rel), 30 MG PO QAM Levothyroxine Sodium (Levothyroxine Sodium), 100 MCG PO DAILY Lorazepam (Ativan), 1 MG PO Q8H Metoprolol Succinate (Toprol Xl), 25 MG PO DAILY Multivitamins/Minerals (Mvi With Minerals), 1 TAB PO DAILY Nystatin (Nystatin Suspension), 5 ML PO QID Twilight-3 Fatty Acids (Fish Oil), 1,000 MG PO BID Pantoprazole (Pantoprazole Sodium), 40 MG PO QAM Potassium Chloride (Potassium Chloride Cr), 10 MEQ PO BID Spironolactone (Spironolactone), 12.5 MG PO MWF Terazosin Hcl (Hytrin), 1 CAP PO HS Tiotropium [place] (Spiriva Handihaler), 1 CAP INH QAM Vitamin E (E-400), 400 UNITS PO DAILY Warfarin Sodium (Warfarin Sodium), 2.5 MG PO HS Scheduled PRN Albuterol Sulfate (Proair Respiclick), 2 PUFF INH QID PRN for SOB/wheezing Nitroglycerin (Nitrostat), 0.4 MG UT PRN PRN for chest pain Review of Systems At least ten systems were reviewed and negative except as otherwise indicated in HPI above. Physical Exam Vital Signs Date Time Temp Pulse Resp B/P (MAP) Pulse Ox O2 Delivery O2 Flow Rate FiO2 05/18/17 22:14 65 12 126/69 95 Room Air 05/18/17 21:44 65 05/18/17 21:39 96 Room Air 05/18/17 21:22 36.8 65 20 127/69 94 Room Air General Appearance: WD/WN, no apparent distress Head: normocephalic, atraumatic Eyes: normal inspection, PERRL, sclerae normal ENT: normal ENT inspection, hearing grossly normal, TMs normal, pharynx normal , + pertinent finding (no sinus TTP) Neck: supple, no adenopathy, no JVD, trachea midline Respiratory/Chest: lungs clear, normal breath sounds, no respiratory distress, no accessory muscle use, + pertinent finding (TTP of L anterior chest wall just inferior to ICD pocket) Cardiovascular: regular rate, rhythm, no edema, no gallop, no JVD, no murmur, normal peripheral pulses Abdomen/GI: normal bowel sounds, non tender, soft, no organomegaly Back: normal inspection Extremities/Musculoskelatal: normal inspection, normal capillary refill, no pedal edema, normal range of motion 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/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: 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 as tested, no motor/sensory deficits, alert, normal mood/affect, oriented x 3 Skin: normal color, warm/dry, no rash Diagnostics Laboratory Results 05/18/17 21:38 Red Blood Count 4.06, Mean Corpuscular Volume 88.7, Mean Corpuscular Hemoglobin 29.8, Mean Corpuscular Hemoglobin Concent 33.6, Mean Platelet Volume 9.5, Neutrophils (%) (Auto) 69.6, Lymphocytes (%) (Auto) 17.3, Monocytes (%) (Auto) 9.7, Eosinophils (%) (Auto) 3.0, Basophils (%) (Auto) 0.1, Neutrophils # (Auto) 6.43, Lymphocytes # (Auto) 1.60, Monocytes # (Auto) 0.90, Eosinophils # (Auto) 0.28, Basophils # (Auto) 0.01 05/18/17 21:38 Test 05/18/17 21:38 05/18/17 21:40 05/18/17 21:43 White Blood Count 9.25 K/uL (4.8-10.8) Red Blood Count 4.06 M/uL (4.7-6.1) Hemoglobin 12.1 g/dL (14.0-18.0) Hematocrit 36.0 % (42-52) Mean Corpuscular Volume 88.7 fL (80-100) Mean Corpuscular Hemoglobin 29.8 pg (25-34) Mean Corpuscular Hemoglobin Concent 33.6 g/dl (32-36) Platelet Count 175 K/uL (130-400) Mean Platelet Volume 9.5 fL (7.4-10.4) Neutrophils (%) (Auto) 69.6 % Lymphocytes (%) (Auto) 17.3 % Monocytes (%) (Auto) 9.7 % Eosinophils (%) (Auto) 3.0 % Basophils (%) (Auto) 0.1 % Neutrophils # (Auto) 6.43 K/uL (1.4-6.5) Lymphocytes # (Auto) 1.60 K/uL (1.2-3.4) Monocytes # (Auto) 0.90 K/uL (0.11-0.59) Eosinophils # (Auto) 0.28 K/uL (0-0.5) Basophils # (Auto) 0.01 K/uL (0-0.2) RDW Standard Deviation 48.1 fL (36.4-46.3) RDW Coefficient of Variation 14.8 % (11.5-14.5) Immature Granulocyte % (Auto) 0.3 % Immature Granulocyte # (Auto) 0.03 K/uL (0.00-0.02) Prothrombin Time 15.5 SECONDS (9.0-12.0) Prothromb Time International Ratio 1.5 (0.9-1.1) Activated Partial Thromboplast Time 34.1 SECONDS (21.0-31.0) Partial Thromboplastin Ratio 1.3 Anion Gap 9.0 mmol/L (3-11) Est Creatinine Clear Calc Drug Dose 35.6 ml/min Estimated GFR () 36.9 Estimated GFR (Non- 31.8 BUN/Creatinine Ratio 16.1 (10-20) Calcium Level 8.0 mg/dl (8.5-10.1) Total Bilirubin 0.8 mg/dl (0.2-1) Aspartate Amino Transf (AST/SGOT) 56 U/L (15-37) Alanine Aminotransferase (ALT/SGPT) 124 U/L (12-78) Alkaline Phosphatase 74 U/L (45-117) Total Creatine Kinase 60 U/L (39-308) Creatine Kinase MB 0.8 ng/ml (0.5-3.6) Creatine Kinase MB Ratio 1.3 (0-3.0) Troponin I 0.015 ng/ml (0-0.045) Pro-B-Type Natriuretic Peptide 1243 pg/ml (0-900) Total Protein 6.6 gm/dl (6.4-8.2) Albumin 2.8 gm/dl (3.4-5.0) Globulin 3.8 gm/dl (2.5-4.0) Albumin/Globulin Ratio 0.7 (0.9-2) Influenza Type A (RT-PCR) Neg for Influ A (NEG) Influenza Type B (RT-PCR) Neg for Influ B (NEG) Magnesium Level 2.3 mg/dl (1.8-2.4) Results Past 24 Hours Test 05/18/17 21:38 05/18/17 21:40 05/18/17 21:43 Range/Units White Blood Count 9.25 4.8-10.8 K/uL Red Blood Count 4.06 4.7-6.1 M/uL Hemoglobin 12.1 14.0-18.0 g/dL Hematocrit 36.0 42-52 % Mean Corpuscular Volume 88.7 80-100 fL Mean Corpuscular Hemoglobin 29.8 25-34 pg Mean Corpuscular Hemoglobin Concent 33.6 32-36 g/dl Platelet Count 175 130-400 K/uL Mean Platelet Volume 9.5 7.4-10.4 fL Neutrophils (%) (Auto) 69.6 % Lymphocytes (%) (Auto) 17.3 % Monocytes (%) (Auto) 9.7 % Eosinophils (%) (Auto) 3.0 % Basophils (%) (Auto) 0.1 % Neutrophils # (Auto) 6.43 1.4-6.5 K/uL Lymphocytes # (Auto) 1.60 1.2-3.4 K/uL Monocytes # (Auto) 0.90 0.11-0.59 K/uL Eosinophils # (Auto) 0.28 0-0.5 K/uL Basophils # (Auto) 0.01 0-0.2 K/uL RDW Standard Deviation 48.1 36.4-46.3 fL RDW Coefficient of Variation 14.8 11.5-14.5 % Immature Granulocyte % (Auto) 0.3 % Immature Granulocyte # (Auto) 0.03 0.00-0.02 K/uL Prothrombin Time 15.5 9.0-12.0 SECONDS Prothromb Time International Ratio 1.5 0.9-1.1 Activated Partial Thromboplast Time 34.1 21.0-31.0 SECONDS Partial Thromboplastin Ratio 1.3 Sodium Level 135 136-145 mmol/L Potassium Level 3.7 3.5-5.1 mmol/L Chloride Level 99 98-107 mmol/L Carbon Dioxide Level 27 21-32 mmol/L Anion Gap 9.0 3-11 mmol/L Blood Urea Nitrogen 33 7-18 mg/dl Creatinine 2.04 0.60-1.40 mg/dl Est Creatinine Clear Calc Drug Dose 35.6 ml/min Estimated GFR () 36.9 Estimated GFR (Non- 31.8 BUN/Creatinine Ratio 16.1 10-20 Random Glucose 211 70-99 mg/dl Calcium Level 8.0 8.5-10.1 mg/dl Total Bilirubin 0.8 0.2-1 mg/dl Aspartate Amino Transf (AST/SGOT) 56 15-37 U/L Alanine Aminotransferase (ALT/SGPT) 124 12-78 U/L Alkaline Phosphatase 74 45-117 U/L Total Creatine Kinase 60 39-308 U/L Creatine Kinase MB 0.8 0.5-3.6 ng/ml Creatine Kinase MB Ratio 1.3 0-3.0 Troponin I 0.015 0-0.045 ng/ml Pro-B-Type Natriuretic Peptide 1243 0-900 pg/ml Total Protein 6.6 6.4-8.2 gm/dl Albumin 2.8 3.4-5.0 gm/dl Globulin 3.8 2.5-4.0 gm/dl Albumin/Globulin Ratio 0.7 0.9-2 Influenza Type A (RT-PCR) Neg for Influ A NEG Influenza Type B (RT-PCR) Neg for Influ B NEG Magnesium Level 2.3 1.8-2.4 mg/dl Diagnostic Radiology CHEST ONE VIEW PORTABLE CLINICAL HISTORY: 71 years-old Male presenting with EVALUATE RESPIRATORY DISTRESS.DYSPNEA. TECHNIQUE: Portable upright AP view of the chest was obtained. COMPARISON: 04/30/2017. FINDINGS: Left subclavian implanted cardiac defibrillator with 2 leads to the right ventricular apex, one of which may be abandoned. Median sternotomy wires, bypass graft rings, and multiple mediastinal surgical clips again noted. Few external leads project over the right hemithorax degrading image quality. Atherosclerosis of the aortic arch. Cardiac silhouette mildly enlarged, slightly decreased from prior. Interval decrease in central and left basilar predominant hazy opacity. No large pleural effusion or pneumothorax. Degenerative changes of the bilateral acromioclavicular joints. IMPRESSION: 1. Interval decrease central and left basilar hazy opacities compatible with improving pulmonary edema. 2. Apparent decreased cardiac enlargement. EKG SR 1AVB 66 BPM, non-specific IV conduction block Impression Assessment and Plan 71-year-old diabetic male with history of ischemic cardiomyopathy ICD placement chronic systolic heart failure and severe CAD status post bypass surgery presents with chest pain for the last 3 days. 1. Chest pain-pain described is fleeting lasting 30-45 seconds and is unlike index angina that he has had in the past. Chest pain is self-reported to be secondary to excessive excessive coughing that is improved. As patient was recently admitted for ventricular tachycardia that was persistent and with multiple comorbidities making him high risk the decision was made to admit him for observation on cardiac telemetry. Initial cardiac enzymes are negative and will be trended overnight. Aspirin was given. Will consult cardiology in the morning 2. ANNA-likely related to diuresis with Lasix which was increased on discharge from [place] on 05/07 in addition to recent vomiting and diarrhea that was reported. Will cont diuresis for now with h/o CHF exacerbation recently. Pt is now tolerating PO and will trend PRP to ensure improving. Baseline creatinine is 1.2-1.4 per records. 3. Diabetes type 2-uncontrolled. continue insulin sliding scale with glargine. 4. Chronic systolic heart failure secondary to heart disease status post ICD- continue medical management with aspirin, spironolactone, Lasix, Toprol, potassium , and Imdur. Of note patient is not on losartan secondary to kidney function. Also no statin is noted. The patient appears compensated. Continue daily weights. 5. Paroxysmal atrial fibrillation-continues on Coumadin with subtherapeutic INR at 1.5. Rhythm controlled with amiodarone. Rate controlled with Toprol- XL. Maintained in sinus rhythm since DC cardioversion on 05 May. 6. Depression/anxiety-stable continue Lexapro and Ativan. 7. COPD-stable, no wheezing on exam. Continue Brio and daily Spiriva with albuterol as needed. 8. Hypothyroidism-continue home dose levothyroxine. DVT prophylaxis-warfarin Full code as discussed with patient on admission Dispo-telemetry. Bree Garcia DO [facility] Resuscitation Status VTE Prophylaxis Will order VTE Prophylaxis: Yes
[2017-05-19] MEDS ORDERED: LORAZEPAM 1 MG TAB PO SCH (00:45)
[2017-05-19] MEDS: ASPIRIN 81 MG ECTAB PO SCH ×2 (00:53→00:54)
[2017-05-19] MEDS ORDERED: IV FLUIDS COMPLETED PRN (01:30)
[2017-05-19 03:34] LABS: ALBUMIN 2.6 gm/dl (3.4-5.0); CALCIUM 7.6 mg/dl (8.5-10.1); CREATININE 1.81 mg/dl (0.60-1.40); POTASSIUM 3.3 mmol/L (3.5-5.1)
[2017-05-19 03:35] LABS: INR 1.4 (0.9-1.1)
[2017-05-19 03:38] LABS: TOTAL PROTEIN 6.2 gm/dl (6.4-8.2)
[2017-05-19] MEDS ORDERED: HEPARIN SOD 5000 UNIT/0.5 ML CARP SQ SCH (06:00)
[2017-05-19] MEDS: LORAZEPAM 1 MG TAB PO SCH ×3 (06:00→22:20)
[2017-05-19 06:15] LABS: HEMOGLOBIN A1C 8.8 % (4.5-5.6)
[2017-05-19] MEDS: LEVOTHYROXINE 100 MCG TAB PO SCH (06:36)
[2017-05-19] MEDS: AMIODARONE 200 MG TAB PO SCH ×3 (06:37→22:20)
[2017-05-19] MEDS: POTASSIUM CHLORIDE 20 MEQ TABCR PO SCH ×2 (07:59→12:09)
[2017-05-19] MEDS: PANTOprazole SOD 40 MG TAB PO SCH (08:00)
[2017-05-19] MEDS: ASCORBIC ACID 500 MG TAB PO SCH ×2 (08:00→20:32)
[2017-05-19] MEDS: AMLODIPINE BESYLATE 5 MG TAB PO SCH (08:00)
[2017-05-19] MEDS: OMEGA-3 (PURIFIED FISH OIL) 1 GM CAP PO SCH ×2 (08:00→20:33)
[2017-05-19] MEDS: TOCOPHERYL, DL-ALPHA 400 INTER.UNIT CAP PO SCH (08:00)
[2017-05-19] MEDS: METOPROLOL SUCC 25MG EXT REL TAB PO SCH (08:00)
[2017-05-19] MEDS: POTASSIUM CHLORIDE 10 MEQ TABCR PO SCH ×2 (08:01→20:34)
[2017-05-19] MEDS: CEROVITE ADV FORMULA TAB PO SCH (08:01)
[2017-05-19] MEDS: FUROSEMIDE 40 MG TAB PO SCH ×2 (08:01→17:39)
[2017-05-19] MEDS: ISOSORBIDE MONONITRATE 30 MG TABCR PO SCH (08:01)
[2017-05-19] MEDS: TIOTROPIUM BROMIDE 5 PUFF/90 MCG INH INH SCH (08:02)
[2017-05-19] MEDS: FLUTICASONE PROPIONATE NA SPR 16 GM BTL NAE SCH (08:02)
[2017-05-19] MEDS: INSULIN ASPART 100 UNITS/ML 3 ML PEN SC SCH ×4 (08:13→20:24)
[2017-05-19] MEDS: INSULIN GLARGINE SOLOSTAR 100 UNITS/ML 3 ML PEN SC SCH ×2 (08:14→20:24)
[2017-05-19] MEDS ORDERED: CALCITRIOL 0.25 MCG CAP PO SCH (09:00)
[2017-05-19] MEDS ORDERED: ESCITALOPRAM OXALATE 10 MG TAB PO SCH (09:00)
[2017-05-19] MEDS ORDERED: SPIRONOLACTONE 25 MG TAB PO SCH (09:00)
--- NOTE | 2017-05-19 12:14 | Cardiology Consultation ---
Cardiology Consultation Date of Consultation: May 19, 2017 Requesting Physician: Jose Attending Riveting Machine Operator: Eder (Teto Flores PA-C) History of Present Illness Mr. Abbasi is a very pleasant yet tremendously complex 71 year old male who is being seen at the request of Dr. Garcia. Reason for consultation is chest pain x 3 days. Mr. Abbasi was recently admitted to [facility] April 27, 2017 to April 30, 2017 after experiencing syncope at home secondary to recurrent ventricular tachycardia for which he received one ICD shock with conversion to atrial fibrillation with borderline rate control. This was preceded to an acute febrile illness, nausea and vomiting with associated electrolyte derangements, acute renal insufficiency, and hypotension. He was transferred to [facility] on 04/30/2017 secondary to atrial fibrillation and VT storm. He was found to be volume overload and diuresed. Improvement in VT was noted with ongoing amiodarone as well as diuresis. On May 05, 2017 he underwent direct current cardioversion using a single 200 J shock with conversion back to normal sinus rhythm. He was eventually discharged to [facility] on 05/07/2017. He notes that he "left (on Wednesday) with a cough just coming on." He goes on to described a "terrible cough, I just could not get rid of the drainage except for when I would give a real big belly cough. " The cough was initially productive of heavy, thick yellow sputum. He notes hemoptysis on occasion only in the morning. He denies fevers or chills. Appetite has improved though weight is down 10 pounds. The cough is now productive of white sputum though he continues to have difficulty expectorating. He denies angina though notes chest discomfort associated with coughing. He described feeling weak, run down, washed out, and fatigued. No angina. No sublingual nitroglycerin use. No palpitations. No ICD discharges. No orthopnea, PND, abdominal bloating, scrotal edema, or lower extremity peripheral edema. No dizziness, near syncope, or syncope. (Teto Flores PA-C) Past Medical/Surgical History Problem List: Severe ischemic cardiomyopathy with EF 25-30% Ischemic heart disease status post acute anterior wall myocardial infarction and coronary bypass grafting in 1991, receiving a free left inferior epigastric graft to the right coronary artery, a free right inferior epigastric artery to the left anterior descending, and a free gastroepiploic graft to the diagonal. Catheterization in 2005 notable for complete occlusion of the table mountain vessels and an occluded graft to the right coronary artery. 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 Chronic transaminase elevation with past acute chemical hepatitis Hemochromatosis, homozygous for h63D, but without evidence of iron overload Chronic diarrhea, chronic pancreatitis. 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 Anxiety Vitamin D deficiency Hospitalization in June, with viral gastroenteritis with symptoms of chest pain, sharp discomfort. He was found to have nonsustained runs of ventriculartachycardia with appropriate paced termination by implantable defibrillator. Moderate hypokalemia was noted on presentation. Hospitalization in July 2015 with indigestion symptoms that improved post eructation. Cholecystectomy Laser cataract surgery, left Remote vein stripping bilaterally. (Teto Flores PA-C) Family History FH: heart disease FATHER FH: lung cancer MOTHER Hypertension MOTHER Father with an PA at 51. Mother with lung cancer at 74. One brother, three years younger, without cardiac issues. (Teto Flores PA-C) FH: heart disease FATHER FH: lung cancer MOTHER Hypertension MOTHER (Tacho Gaines DO) Social History Reformed smoker, 1 ppd x 25 years. Reformed smokeless tobacco user, reformed. No significant alcohol use/abuse. No illegal drug use/abuse. to Calli. Three children. 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 No fever or chills. HEENT: No headache. No head trauma. Cardiovascular: See above. Pulmonary: See above. Gastrointestinal: Nausea. Constipation. Senna was helpful at [facility]. No recent vomiting or diarrhea. No melena or hematochezia. : BPH. Nocturia x 2. Skin: No rash. Neurological: No history of seizures Musculoskeletal: Chronic back pain. Chronic shoulder pain Complete review of systems is as stated above, negative, or noncontributory. (Teto Flores PA-C) Allergies Coded Allergies: Amoxicillin (Verified Allergy, Severe, Anaphylaxis, 04/28/17) Clavulanic Acid (Verified Allergy, Severe, Anaphylaxis, 04/28/17) Medications Reported Home Medications Medications Dose Route/Sig Max Daily Dose Days Date Category Dose Instructions E-400 (Vitamin E) 400 Unit Cap 400 Units PO DAILY 05/19/17 Reported Vitamin C (Ascorbic Acid) 1,000 Mg Tab 1,000 Mg PO BID 05/19/17 Reported Hytrin (Terazosin Hcl) 2 Mg Cap 1 Cap PO HS 90 05/19/17 Reported Spironolactone 25 Mg Tab 12.5 Mg PO MWF 05/19/17 Reported Nitrostat (Nitroglycerin) 0.4 Mg Tab 0.4 Mg UT PRN PRN 05/19/17 Reported Mvi With Minerals (Multivitamins/Minerals) Tab 1 Tab PO DAILY 05/19/17 Reported Toprol Xl (Metoprolol Succinate) 25 Mg Tab 25 Mg PO DAILY 05/19/17 Reported Ativan (Lorazepam) 1 Mg Tab 1 Mg PO Q8H 05/19/17 Reported Fish Oil (Lucama-3 Fatty Acids) 1 Cap Cap 1,000 Mg PO BID 05/19/17 Reported Lexapro (Escitalopram Oxalate) 10 Mg Tab 1 Tab PO DAILY 30 05/19/17 Reported Calcitriol 0.25 Mcg Cap 0.25 Mcg PO MWF 05/19/17 Reported Proair Respiclick (Albuterol Sulfate) 108 Mcg/Act Aer 2 Puff INH QID PRN 05/19/17 Reported Warfarin Sodium 2.5 Mg Tab 2.5 Mg PO HS 05/18/17 Reported TAKE 2.5 MG EVERY DAY OR OTHERWISE DIRECTED TO TAKE BY ANTICOAGULATION CLINIC/MD Spiriva Handihaler (Tiotropium Upperco) 30 Puff/540 Mcg Aerp 1 Cap INH QAM 05/18/17 Reported Furosemide 40 Mg Tab 80 Mg PO BID 05/18/17 Reported Potassium Chloride Cr (Potassium Chloride) 10 Meq Tab 10 Meq PO BID 05/18/17 Reported Pantoprazole Sodium (Pantoprazole) 40 Mg Tab 40 Mg PO QAM 05/18/17 Reported Lantus Solostar (Insulin Glargine) 100 Unit/Ml Inj 40 Units SC QPM 05/18/17 Reported Nystatin Suspension (Nystatin) 1 Ml Susp 5 Ml PO QID 10 05/18/17 Reported PRESCRIBED 05/17/2017, SWISH AND SWALLOW DIRECTED FOR 10 DAYS Cordarone (Amiodarone Hcl) 200 Mg Tab 200 Mg PO Q8 05/18/17 Reported TAKE THIS MEDICATION EVERY 8 HOURS UNTIL 06/03/2017 THEN START TAKING ONE TABLET EVERY 12 HOURS STARTING 06/04/2017 Imdur Ext Rel (Isosorbide Mononitrate) 30 Mg Tabcr 30 Mg PO QAM 05/18/17 Reported Levothyroxine Sodium 100 Mcg Tab 100 Mcg PO DAILY 04/27/17 Reported Flonase Allergy Relief (Fluticasone Propionate (Nasal)) 50 Mcg/Act Spr 2 Sprays PHANI QAM 07/13/15 Reported Breo Ellipta (Fluticasone Furoate-Vilanterol) 1 Inh Inh 1 Puff PO QAM 04/02/15 Reported Aspirin Ec (Aspirin) 81 Mg Tab 81 Mg PO QAM 05/18/14 Reported Amlodipine Besylate 5 Mg Tab 5 Mg PO QAM 05/18/14 Reported Novolog Flexpen (Insulin Aspart) 100 Units/Ml Inj 5 Units SQ ACHS 04/13/14 Reported 5 UNITS PLUS COVERAGE DIRECTED BY SLIDING SCALE (Teto Flores, TRAV-C) Physical Exam Vital Signs (Last 8hrs): Last 8 Hrs Date Time Temp Pulse Resp B/P (MAP) Pulse Ox O2 Delivery O2 Flow Rate FiO2 05/19/17 08:00 Room Air 05/19/17 07:45 37.2 67 16 156/84 (108) 95 Room Air 05/19/17 04:00 96 Room Air General: A&Ox3. NAD. HEENT: Normocephalic. Atraumatic. PER. Conjunctiva pink, sclera pale. Bilateral carotid bruits. Neck: No overt JVD. Heart: RRR, 60 bpm. Grade I-II/ systolic murmur. No diastolic murmur. PMI is displaced. Lungs: Faint dry crackles 1/4 up bilaterally. No wheezing. Abdomen: + Bowel sounds. Soft. Nontender. No organomegaly. Extremities: No clubbing. No cyanosis. No edema. Marked varocosities, left greater than right. Limited neurological examination is without focal deficits. Pulses: radial=2/4, posterior tibial=2/4. Neuro: No focal deficits. Psychiatric: Normal affect. (Teto Flores PA-C) Data Last 24 Hours Test 05/18/17 21:38 05/18/17 21:40 05/18/17 21:43 05/19/17 02:53 White Blood Count 9.25 K/uL Red Blood Count 4.06 M/uL Hemoglobin 12.1 g/dL Hematocrit 36.0 % Mean Corpuscular Volume 88.7 fL Mean Corpuscular Hemoglobin 29.8 pg Mean Corpuscular Hemoglobin Concent 33.6 g/dl Platelet Count 175 K/uL Mean Platelet Volume 9.5 fL Neutrophils (%) (Auto) 69.6 % Lymphocytes (%) (Auto) 17.3 % Monocytes (%) (Auto) 9.7 % Eosinophils (%) (Auto) 3.0 % Basophils (%) (Auto) 0.1 % Neutrophils # (Auto) 6.43 K/uL Lymphocytes # (Auto) 1.60 K/uL Monocytes # (Auto) 0.90 K/uL Eosinophils # (Auto) 0.28 K/uL Basophils # (Auto) 0.01 K/uL RDW Standard Deviation 48.1 fL RDW Coefficient of Variation 14.8 % Immature Granulocyte % (Auto) 0.3 % Immature Granulocyte # (Auto) 0.03 K/uL Prothrombin Time 15.5 SECONDS 14.6 SECONDS Prothromb Time International Ratio 1.5 1.4 Activated Partial Thromboplast Time 34.1 SECONDS Partial Thromboplastin Ratio 1.3 Sodium Level 135 mmol/L 136 mmol/L Potassium Level 3.7 mmol/L 3.3 mmol/L Chloride Level 99 mmol/L 100 mmol/L Carbon Dioxide Level 27 mmol/L 27 mmol/L Anion Gap 9.0 mmol/L 9.0 mmol/L Blood Urea Nitrogen 33 mg/dl 30 mg/dl Creatinine 2.04 mg/dl 1.81 mg/dl Est Creatinine Clear Calc Drug Dose 35.6 ml/min 40.1 ml/min Estimated GFR () 36.9 42.6 Estimated GFR (Non- 31.8 36.8 BUN/Creatinine Ratio 16.1 16.3 Random Glucose 211 mg/dl 185 mg/dl Calcium Level 8.0 mg/dl 7.6 mg/dl Total Bilirubin 0.8 mg/dl 0.8 mg/dl Aspartate Amino Transf (AST/SGOT) 56 U/L 48 U/L Alanine Aminotransferase (ALT/SGPT) 124 U/L 116 U/L Alkaline Phosphatase 74 U/L 67 U/L Total Creatine Kinase 60 U/L Creatine Kinase MB 0.8 ng/ml Creatine Kinase MB Ratio 1.3 Troponin I 0.015 ng/ml 0.020 ng/ml Pro-B-Type Natriuretic Peptide 1243 pg/ml Total Protein 6.6 gm/dl 6.2 gm/dl Albumin 2.8 gm/dl 2.6 gm/dl Globulin 3.8 gm/dl 3.6 gm/dl Albumin/Globulin Ratio 0.7 0.7 Influenza Type A (RT-PCR) Neg for Influ A Influenza Type B (RT-PCR) Neg for Influ B Magnesium Level 2.3 mg/dl Estimated Average Glucose 206 mg/dl Hemoglobin A1c 8.8 % Test 05/19/17 06:46 05/19/17 09:13 05/19/17 11:11 Bedside Glucose 147 mg/dl 230 mg/dl Magnesium Level 2.3 mg/dl Troponin I 0.016 ng/ml May 01, 2017 TTE Interpretation Summary (G[facility]): The qualitative LV ejection fraction is 25-29% (severely reduced). The left ventricular cavity size is moderately enlarged. There is a large sized apical, septal, anteroseptal, anterior, posterior, and lateral wall motion abnormality with hypokinesis to akinesis of the segments. The inferior wall is not well visualized on this study. Right ventricular systolic function is moderately reduced. The proximal ascending thoracic aorta is moderately enlarged. May 03, 2017 Right Heart Catheterization: Mean RA 14 mm Hg. RV 45/5 (Mean 11 mm hg). PA 47/25 (Mean 34 mm Hg). Pwp 23 mm hg. CO Shukri 5.22, CI Shukri 2.51. CO Thermal 6.45, Shukri 3.1 Admission CXR: Interval decrease central and left basilar hazy opacities compatible with improving pulmonary edema. Apparent decreased cardiac enlargement EKG dated and timed 18-MAY-2017 @ 21:27:26: Sinus rhythm at 66 bpm with 1st degree A-V block (MI interval 210 ms). Non-specific intra-ventricular conduction block. Inferior infarct. Poor R wave progression, consider anterior PA vs. lead placement vs. LVH. T wave abnormality, consider lateral ischemia. QTc 475 ms. EKG dated and timed 19-MAY-2017 @ 06:21:22: Sinus rhythm at 62 with sinus arrhythmia with 1st degree A-V block (MI interval 242 ms). Non-specific intra- ventricular conduction block. Inferior infarct. Poor R wave progression, consider anterior PA vs. lead placement vs. LVH T wave abnormality, consider lateral ischemia. QTc 483 ms. Telemetry: Review of his continuous lunchroom monitor since admission reveals sinus/sinus bradycardia ranging from 50 to 70 bpm. PVC in singles only. (Teto Flores PA-C) Assessment & Plan Probable viral respiratory tract infection in the setting of COPD and interstitial lung disease Atypical chest pain associated with the respiratory infection. Negative troponin Severe ischemic heart disease, severe ischemic cardiomyopathy with LVEF 25% with history of VT storm as described above. Paroxysmal atrial fibrillation status post 05/05/2017 direct current cardioversion. Subtherapeutic INR (2.2 yesterday) Hypokalemia Acute on chronic renal dysfunction RECOMMENDATIONS: Add Mucinex twice a day ? Utilize Xopenex via nebulizer Supplement potassium orally. Maintain normokalemia ~4 mmol/L Weight based heparin without bolus given the subtherapeutic INR and recent direct current cardioversion. Consider resumption of losartan in AM Continue all other cardiac medications as presently prescribed. Further recommendations pending the above, evaluation by Dr. Gaines and his ongoing hospitalization. (Teto Flores PA-C) CARDIOLOGY ATTENDING ADDENDUM: The patient was seen and personally examined. Agree with Teto Flores PA-C's findings and plans as documented above. This is a very complex patient. He presents with nonspecific complaints, with a cough productive of whitish sputum. He has been admitted in the in review and he'll think we did anything substantially different. In talking with him this afternoon however, he is feeling much improved and his cough seems to have resolved. I'm sure he's been compliant with his medications. Perhaps he is just anxious to be at home and feels less anxious when he is in the hospital. We will recheck him in the morning. (Tacho Gaines, DO)
[2017-05-19] MEDS ORDERED: HEPARIN IV LOW DOSE NO BOLUS SCH (12:22)
[2017-05-19] MEDS: HEPARIN 25,000 UNIT/500ML D5W 500 ML IV PRN ×2 (13:20→20:21)
[2017-05-19 13:26] LABS: BASO % 0.1 %; BASO ABS # 0.01 K/uL (0-0.2); EOS % 4.3 %; HEMATOCRIT 33.6 % (42-52); HEMOGLOBIN 11.1 g/dL (14.0-18.0); IG# 0.02 K/uL (0.00-0.02); LYMPH % 15.2 %; LYMPH ABS # 1.05 K/uL (1.2-3.4); MEAN CELL VOLUME 89.1 fL (80-100); MEAN CORPUSCULAR HEMOGLOBIN 29.4 pg (25-34); MEAN PLATELET VOLUME 9.6 fL (7.4-10.4); MONO ABS # 0.83 K/uL (0.11-0.59); NEUT % 68.1 %; PLATELET COUNT 143 K/uL (130-400); RED CELL DISTRIBUTION WIDTH CV 14.7 % (11.5-14.5); RED CELL DISTRIBUTION WIDTH SD 48.2 fL (36.4-46.3); WHITE BLOOD COUNT 6.91 K/uL (4.8-10.8)
[2017-05-19 13:34] LABS: INR 1.4 (0.9-1.1); PTT PATIENT 30.6 SECONDS (21.0-31.0)
[2017-05-19 13:57] LABS: CALCIUM 7.6 mg/dl (8.5-10.1); CREATININE 1.71 mg/dl (0.60-1.40); POTASSIUM 3.9 mmol/L (3.5-5.1)
[2017-05-19] MEDS: LEVALBUTEROL 0.63MG/3 ML NEB INH SCH ×2 (15:00→20:04)
[2017-05-19 19:48] LABS: PTT PATIENT 38.3 SECONDS (21.0-31.0)
--- NOTE | 2017-05-19 20:05 | Progress Note ---
Internal Med Progress Note Date of Service: May 19, 2017. Provider Documentation: SUBJECTIVE: Patient mentions his cough is much better, No complaint of chest pain or discomfort No shortness of breath orthopnea OBJECTIVE: Vital Signs-as noted below Exam: General-very pleasant no apparent distress Eyes-sclera nonicteric, EOMI/PERRLA ENT- moist oral mucosa Neck-no JVD noted no carotid bruit no thyromegaly Lungs-no audible wheeze or rales Heart-regular S1-S2 Abdomen-soft nontender Extremities-no lower extremity edema noted Neuro-alert awake oriented 3, no focal neurological deficit Lab data as noted below. ASSESSMENT & PLAN: 1. Atypical chest pain -due to coughing spell -Presented with chest pain due to persistent cough with yellow productive sputum -Symptom has resolved as cough improved -no evidence of angina or ACS -Cardiac markers remains negative -Appreciate input from cardiology 2. Cough shortness of breath/possible viral bronchitis: -Recently recovered from a viral flulike symptoms -History of interstitial lung disease/COPD -Empiric antibiotic with p.o. doxycycline (allergy to penicillin noted) 3. HX OF CAD : pt is continued with all cardiac meds not on Statin for hx of chronic transaminitis 4.Acute kidney injury /CKD stage III: -possible due to poor PO intake -Flu like symptom, bronchitis -cr improved -cont to monitor lytes -Losartan can be resumed if renal function continues to improve 5. Severe ischemic cardiomyopathy with systolic dysfunction -Echo on 05/01/2017: Qualitative ejection fraction 25-29% (severely reduced. The left ventricular cavity size is moderately enlarged. There is a large sized apical, septal, anteroseptal, anterior, posterior and lateral wall motion abnormality with hypokinesis to akinesis of the segments. The inferior wall is not well visualized on this study. Left ventricular systolic function is moderately reduced. The proximal descending thoracic aorta is moderately enlarged. status post AICD placement -Patient denies of any AICD firing in the last 48-72 hours -No evidence of cardiac decompensation Chest x-ray on admission: Interval decrease central and left basilar hazy opacities compatible with improved pulmonary edema. Aberrant decreased cardiac enlargement -Continue to monitor volume status -Intake and output Cardiology following closely 6. History of ventricular tachycardia: -on Amiodarone 7. Chronic atrial fibrillation -Status post recent DC cardioversion in [facility] dental -On Coumadin INR subtherapeutic at 1.5 -Ordered for IV heparin bridge 8. Type 2 DM : cont insulin sliding scale /basal Lantus Hb A1c 8.8 CODE STATUS: Full code DVT PROPHYLAXIS On IV heparin bridge/Coumadin DISPOSITION Expected to be discharged home when medically stable PT OT eval requested Vital Signs: Date Time Temp Pulse Resp B/P (MAP) Pulse Ox O2 Delivery O2 Flow Rate FiO2 05/19/17 20:05 57 16 94 Room Air 05/19/17 16:33 37.2 63 20 109/52 (71) 91 Room Air 05/19/17 16:00 Room Air 05/19/17 12:00 Room Air 05/19/17 11:37 37.3 56 16 134/69 (90) 95 Room Air 05/19/17 08:00 Room Air 05/19/17 07:45 37.2 67 16 156/84 (108) 95 Room Air 05/19/17 04:00 96 Room Air 05/19/17 03:10 37.3 69 18 126/70 (88) 94 Room Air 05/19/17 00:31 37.5 66 20 127/74 96 Room Air 05/18/17 23:30 66 20 136/78 96 Room Air 05/18/17 23:09 67 20 137/77 95 Room Air 05/18/17 22:14 65 12 126/69 95 Room Air 05/18/17 21:44 65 05/18/17 21:39 96 Room Air 05/18/17 21:22 36.8 65 20 127/69 94 Room Air Lab Results: Results Past 24 Hours Test 05/18/17 21:38 05/18/17 21:40 05/18/17 21:43 05/19/17 02:53 Range/Units White Blood Count 9.25 4.8-10.8 K/uL Red Blood Count 4.06 4.7-6.1 M/uL Hemoglobin 12.1 14.0-18.0 g/dL Hematocrit 36.0 42-52 % Mean Corpuscular Volume 88.7 80-100 fL Mean Corpuscular Hemoglobin 29.8 25-34 pg Mean Corpuscular Hemoglobin Concent 33.6 32-36 g/dl Platelet Count 175 130-400 K/uL Mean Platelet Volume 9.5 7.4-10.4 fL Neutrophils (%) (Auto) 69.6 % Lymphocytes (%) (Auto) 17.3 % Monocytes (%) (Auto) 9.7 % Eosinophils (%) (Auto) 3.0 % Basophils (%) (Auto) 0.1 % Neutrophils # (Auto) 6.43 1.4-6.5 K/uL Lymphocytes # (Auto) 1.60 1.2-3.4 K/uL Monocytes # (Auto) 0.90 0.11-0.59 K/uL Eosinophils # (Auto) 0.28 0-0.5 K/uL Basophils # (Auto) 0.01 0-0.2 K/uL RDW Standard Deviation 48.1 36.4-46.3 fL RDW Coefficient of Variation 14.8 11.5-14.5 % Immature Granulocyte % (Auto) 0.3 % Immature Granulocyte # (Auto) 0.03 0.00-0.02 K/uL Prothrombin Time 15.5 14.6 9.0-12.0 SECONDS Prothromb Time International Ratio 1.5 1.4 0.9-1.1 Activated Partial Thromboplast Time 34.1 21.0-31.0 SECONDS Partial Thromboplastin Ratio 1.3 Sodium Level 135 136 136-145 mmol/L Potassium Level 3.7 3.3 3.5-5.1 mmol/L Chloride Level 99 100 98-107 mmol/L Carbon Dioxide Level 27 27 21-32 mmol/L Anion Gap 9.0 9.0 3-11 mmol/L Blood Urea Nitrogen 33 30 7-18 mg/dl Creatinine 2.04 1.81 0.60-1.40 mg/dl Est Creatinine Clear Calc Drug Dose 35.6 40.1 ml/min Estimated GFR () 36.9 42.6 Estimated GFR (Non- 31.8 36.8 BUN/Creatinine Ratio 16.1 16.3 10-20 Random Glucose 211 185 70-99 mg/dl Calcium Level 8.0 7.6 8.5-10.1 mg/dl Total Bilirubin 0.8 0.8 0.2-1 mg/dl Aspartate Amino Transf (AST/SGOT) 56 48 15-37 U/L Alanine Aminotransferase (ALT/SGPT) 124 116 12-78 U/L Alkaline Phosphatase 74 67 45-117 U/L Total Creatine Kinase 60 39-308 U/L Creatine Kinase MB 0.8 0.5-3.6 ng/ml Creatine Kinase MB Ratio 1.3 0-3.0 Troponin I 0.015 0.020 0-0.045 ng/ml Pro-B-Type Natriuretic Peptide 1243 0-900 pg/ml Total Protein 6.6 6.2 6.4-8.2 gm/dl Albumin 2.8 2.6 3.4-5.0 gm/dl Globulin 3.8 3.6 2.5-4.0 gm/dl Albumin/Globulin Ratio 0.7 0.7 0.9-2 Influenza Type A (RT-PCR) Neg for Influ A NEG Influenza Type B (RT-PCR) Neg for Influ B NEG Magnesium Level 2.3 1.8-2.4 mg/dl Estimated Average Glucose 206 mg/dl Hemoglobin A1c 8.8 4.5-5.6 % Test 05/19/17 06:46 05/19/17 09:13 05/19/17 11:11 05/19/17 13:13 Range/Units Bedside Glucose 147 230 70-99 mg/dl Magnesium Level 2.3 2.3 1.8-2.4 mg/dl Troponin I 0.016 0-0.045 ng/ml White Blood Count 6.91 4.8-10.8 K/uL Red Blood Count 3.77 4.7-6.1 M/uL Hemoglobin 11.1 14.0-18.0 g/dL Hematocrit 33.6 42-52 % Mean Corpuscular Volume 89.1 80-100 fL Mean Corpuscular Hemoglobin 29.4 25-34 pg Mean Corpuscular Hemoglobin Concent 33.0 32-36 g/dl Platelet Count 143 130-400 K/uL Mean Platelet Volume 9.6 7.4-10.4 fL Neutrophils (%) (Auto) 68.1 % Lymphocytes (%) (Auto) 15.2 % Monocytes (%) (Auto) 12.0 % Eosinophils (%) (Auto) 4.3 % Basophils (%) (Auto) 0.1 % Neutrophils # (Auto) 4.70 1.4-6.5 K/uL Lymphocytes # (Auto) 1.05 1.2-3.4 K/uL Monocytes # (Auto) 0.83 0.11-0.59 K/uL Eosinophils # (Auto) 0.30 0-0.5 K/uL Basophils # (Auto) 0.01 0-0.2 K/uL RDW Standard Deviation 48.2 36.4-46.3 fL RDW Coefficient of Variation 14.7 11.5-14.5 % Immature Granulocyte % (Auto) 0.3 % Immature Granulocyte # (Auto) 0.02 0.00-0.02 K/uL Prothrombin Time 14.1 9.0-12.0 SECONDS Prothromb Time International Ratio 1.4 0.9-1.1 Activated Partial Thromboplast Time 30.6 21.0-31.0 SECONDS Partial Thromboplastin Ratio 1.2 Sodium Level 134 136-145 mmol/L Potassium Level 3.9 3.5-5.1 mmol/L Chloride Level 102 98-107 mmol/L Carbon Dioxide Level 26 21-32 mmol/L Anion Gap 6.0 3-11 mmol/L Blood Urea Nitrogen 30 7-18 mg/dl Creatinine 1.71 0.60-1.40 mg/dl Est Creatinine Clear Calc Drug Dose 43.6 ml/min Estimated GFR () 45.7 Estimated GFR (Non- 39.4 BUN/Creatinine Ratio 17.3 10-20 Random Glucose 296 70-99 mg/dl Calcium Level 7.6 8.5-10.1 mg/dl Test 05/19/17 15:46 05/19/17 19:26 05/19/17 20:17 Range/Units Bedside Glucose 245 293 70-99 mg/dl Activated Partial Thromboplast Time 38.3 21.0-31.0 SECONDS Partial Thromboplastin Ratio 1.5 Microbiology Results 05/19/17 Gram Stain, Received Pending 05/19/17 Sputum Culture, Received Pending
[2017-05-19] MEDS ORDERED: HEPARIN IV BOLUS 4,500 UNIT in SYRINGE 0 ML IV ONE (20:15)
[2017-05-19] MEDS: DOXYCYCLINE HYCLATE 100 MG CAP PO SCH (20:30)
[2017-05-19] MEDS: GUAIFENESIN 600 MG TABCR PO SCH (20:33)
[2017-05-19] MEDS ORDERED: WARFARIN SOD 2.5 MG TAB PO SCH (21:00)
[2017-05-19] MEDS ORDERED: WARFARIN SOD 5 MG TAB PO SCH (21:00)
[2017-05-20] VITALS (11 sets, daily range): BP systolic 115–138; BP diastolic 58–69; PULSE 58–69; TEMP 36.5–37.5; O2SAT 91–95
[2017-05-20 02:58] LABS: ALBUMIN 2.5 gm/dl (3.4-5.0); CREATININE 1.77 mg/dl (0.60-1.40); POTASSIUM 4.1 mmol/L (3.5-5.1)
[2017-05-20 02:59] LABS: INR 1.3 (0.9-1.1)
[2017-05-20 03:01] LABS: TOTAL PROTEIN 6.3 gm/dl (6.4-8.2)
[2017-05-20 03:02] LABS: PTT PATIENT 55.7 SECONDS (21.0-31.0)
[2017-05-20] MEDS: LORAZEPAM 1 MG TAB PO SCH ×2 (05:46→13:30)
[2017-05-20] MEDS: LEVOTHYROXINE 100 MCG TAB PO SCH (05:46)
[2017-05-20] MEDS: AMIODARONE 200 MG TAB PO SCH ×2 (05:46→13:29)
[2017-05-20] MEDS ORDERED: NURSING DECISION MEDICATION ORDER SCH (06:00)
[2017-05-20] MEDS ORDERED: COUGH DROP (SUGAR FREE) LOZ 24 LOZ/1 BOX LOZ PRN (06:15)
[2017-05-20] MEDS: LEVALBUTEROL 0.63MG/3 ML NEB INH SCH ×2 (06:51→14:26)
[2017-05-20] MEDS: TIOTROPIUM BROMIDE 5 PUFF/90 MCG INH INH SCH (08:00)
[2017-05-20] MEDS: ASCORBIC ACID 500 MG TAB PO SCH (08:00)
[2017-05-20] MEDS: TOCOPHERYL, DL-ALPHA 400 INTER.UNIT CAP PO SCH (08:00)
[2017-05-20] MEDS: FLUTICASONE PROPIONATE NA SPR 16 GM BTL NAE SCH (08:00)
[2017-05-20] MEDS: OMEGA-3 (PURIFIED FISH OIL) 1 GM CAP PO SCH (08:01)
[2017-05-20] MEDS: CEROVITE ADV FORMULA TAB PO SCH (08:01)
[2017-05-20] MEDS: DOXYCYCLINE HYCLATE 100 MG CAP PO SCH (08:01)
[2017-05-20] MEDS: GUAIFENESIN 600 MG TABCR PO SCH (08:01)
[2017-05-20] MEDS: PANTOprazole SOD 40 MG TAB PO SCH (08:01)
[2017-05-20] MEDS: METOPROLOL SUCC 25MG EXT REL TAB PO SCH (08:01)
[2017-05-20] MEDS: ASPIRIN 81 MG ECTAB PO SCH (08:01)
[2017-05-20] MEDS: AMLODIPINE BESYLATE 5 MG TAB PO SCH (08:01)
[2017-05-20] MEDS: FUROSEMIDE 40 MG TAB PO SCH ×2 (08:01→17:08)
[2017-05-20] MEDS: ISOSORBIDE MONONITRATE 30 MG TABCR PO SCH (08:02)
[2017-05-20] MEDS: POTASSIUM CHLORIDE 10 MEQ TABCR PO SCH (08:02)
[2017-05-20] MEDS: INSULIN ASPART 100 UNITS/ML 3 ML PEN SC SCH ×3 (08:13→17:10)
[2017-05-20] MEDS: INSULIN GLARGINE SOLOSTAR 100 UNITS/ML 3 ML PEN SC SCH (08:14)
[2017-05-20] MEDS ORDERED: FLUTICASONE FUROATE-VILANTEROL 30 PUFFS/INHALER INH INH SCH (09:00)
--- NOTE | 2017-05-20 10:44 | Cardiology Follow-Up ---
Subjective General Date of Service: May 20, 2017. Chief Complaint: Chest pain Pt evaluation today including: conversation w/ patient, conversation w/ family , physical exam, chart review, lab review, review of studies, review of inpatient medication list History of Present Illness Patient seen and examined. Chart, medications, and telemetry reviewed. at bedside. Feeling better overall. Able to expectorate. No further chest pain. No palpitations. No new or worsening shortness of breath. He is able to lie flat without orthopnea or PND. No lower extremity peripheral edema. No fevers or chills. Review of his continuous production planner scheduler demonstrates sinus throughout. He is currently in sinus at 65 bpm. There are occasional PVCs in singles only. Occasional ventricular pacing overnight. EKG this morning demonstrates sinus bradycardia with sinus arrhythmia, first- degree AV block. Nonspecific interventricular conduction block. Ventricular rate is 57 bpm. AK interval is 226 ms. Old anterolateral infarct. QTC is 438 ms. Allergies Coded Allergies: Amoxicillin (Verified Allergy, Severe, Anaphylaxis, 04/28/17) Clavulanic Acid (Verified Allergy, Severe, Anaphylaxis, 04/28/17) Social History Smoking Status: Former Smoker (quit 2010) Hx Tobacco Use In Past Year?: No Hx Alcohol Use - Type And Amou: No Hx Substance Use - Type And Am: No Problem List Medical Problems: (1) Acute chest pain Status: Acute (2) Allergic reaction Status: Acute (3) CHF (congestive heart failure) Permanent Comment: echo 05/28/13 LVEF 30-35% Status: Chronic (4) CHF (congestive heart failure) Status: Acute (5) Dysrhythmia Status: Acute (6) Hyperglycemia Status: Acute (7) Hypoxia Status: Acute (8) Subtherapeutic international normalized ratio (INR) Status: Acute Physical Exam Vital Signs Last Vital Signs Documentation Date Time Temp Pulse Resp B/P (MAP) Pulse Ox O2 Delivery O2 Flow Rate FiO2 05/20/17 08:00 Room Air 05/20/17 07:46 37.3 69 18 135/67 (89) 91 Physical Exam Constitutional: General Apperance: heathly-appearing Level of Distress: NAD Ambulation: ambulating normally Psychiatric: Mental Status: active & alert Orientation: to time, to place, to person Memory: recent memory normal, remote memory normal Head: normocephalic, atraumatic Neck: pertinent finding (Normal JVP. No hepatojugular reflux) Lungs: Auscultation: no wheezing, deminished air movement, decreased breath sounds , rales/crackles on the left, rales/crackles on the right, pertinent finding ( Bronchitic cough.) Cardiovascular: Heart Auscultation: RRR, normal S1, normal S2, no murmurs Peripheral Pulses: Dorsalis Pedis Pulse: decreased on the left, decreased on the right Abdomen: Bowel Sounds: normal Inspection & Palpation: soft Liver: hepatomegaly Musculoskeletal: normal Extremities: no cyanosis, no edema, no clubbing, no ulcers, varicosities Neurologic: Cranial Nerves: grossly intact Assessment and Plan Assessment and Plan Admission with a probable viral respiratory tract infection in the setting of COPD and interstitial lung disease Atypical chest pain associated with the respiratory infection. Negative troponin Severe ischemic heart disease, severe ischemic cardiomyopathy with LVEF 25% with history of VT storm as described above. Paroxysmal atrial fibrillation status post 05/05/2017 direct current cardioversion. Subtherapeutic INR Hypokalemia, resolved. Stable renal dysfunction RECOMMENDATIONS: As prescribed. Heparin to proper Coumadin anticoagulation Continue to hold losartan Continue all other cardiac medications as presently prescribed. Increase activity as tolerated CARDIOLOGY ATTENDING ADDENDUM: The patient was seen and personally examined. Agree with Teto Flores PA-C's findings and plans as documented above. This patient is anxious to return home. He is currently in a sinus rhythm. Although, his INR is subtherapeutic I think he can be discharged home and we can adjust his warfarin as an outpatient. Laboratory Results Last 24 Hours Test 05/19/17 11:11 05/19/17 13:13 05/19/17 15:46 05/19/17 19:26 Bedside Glucose 230 mg/dl 245 mg/dl White Blood Count 6.91 K/uL Red Blood Count 3.77 M/uL Hemoglobin 11.1 g/dL Hematocrit 33.6 % Mean Corpuscular Volume 89.1 fL Mean Corpuscular Hemoglobin 29.4 pg Mean Corpuscular Hemoglobin Concent 33.0 g/dl Platelet Count 143 K/uL Mean Platelet Volume 9.6 fL Neutrophils (%) (Auto) 68.1 % Lymphocytes (%) (Auto) 15.2 % Monocytes (%) (Auto) 12.0 % Eosinophils (%) (Auto) 4.3 % Basophils (%) (Auto) 0.1 % Neutrophils # (Auto) 4.70 K/uL Lymphocytes # (Auto) 1.05 K/uL Monocytes # (Auto) 0.83 K/uL Eosinophils # (Auto) 0.30 K/uL Basophils # (Auto) 0.01 K/uL RDW Standard Deviation 48.2 fL RDW Coefficient of Variation 14.7 % Immature Granulocyte % (Auto) 0.3 % Immature Granulocyte # (Auto) 0.02 K/uL Prothrombin Time 14.1 SECONDS Prothromb Time International Ratio 1.4 Activated Partial Thromboplast Time 30.6 SECONDS 38.3 SECONDS Partial Thromboplastin Ratio 1.2 1.5 Sodium Level 134 mmol/L Potassium Level 3.9 mmol/L Chloride Level 102 mmol/L Carbon Dioxide Level 26 mmol/L Anion Gap 6.0 mmol/L Blood Urea Nitrogen 30 mg/dl Creatinine 1.71 mg/dl Est Creatinine Clear Calc Drug Dose 43.6 ml/min Estimated GFR () 45.7 Estimated GFR (Non- 39.4 BUN/Creatinine Ratio 17.3 Random Glucose 296 mg/dl Calcium Level 7.6 mg/dl Magnesium Level 2.3 mg/dl Test 05/19/17 20:17 05/20/17 02:33 05/20/17 06:40 Bedside Glucose 293 mg/dl 172 mg/dl Prothrombin Time 14.0 SECONDS Prothromb Time International Ratio 1.3 Activated Partial Thromboplast Time 55.7 SECONDS Partial Thromboplastin Ratio 2.1 Sodium Level 137 mmol/L Potassium Level 4.1 mmol/L Chloride Level 102 mmol/L Carbon Dioxide Level 27 mmol/L Anion Gap 8.0 mmol/L Blood Urea Nitrogen 25 mg/dl Creatinine 1.77 mg/dl Est Creatinine Clear Calc Drug Dose 42.1 ml/min Estimated GFR () 43.8 Estimated GFR (Non- 37.8 BUN/Creatinine Ratio 14.2 Random Glucose 186 mg/dl Calcium Level 8.0 mg/dl Magnesium Level 2.1 mg/dl Total Bilirubin 0.8 mg/dl Direct Bilirubin 0.3 mg/dl Aspartate Amino Transf (AST/SGOT) 44 U/L Alanine Aminotransferase (ALT/SGPT) 102 U/L Alkaline Phosphatase 64 U/L Total Protein 6.3 gm/dl Albumin 2.5 gm/dl Globulin 3.8 gm/dl Albumin/Globulin Ratio 0.7
[2017-05-20] MEDS: HEPARIN 25,000 UNIT/500ML D5W 500 ML IV PRN (11:11)
[2017-05-20] MEDS ORDERED: CMD5 PO (16:35)
[2017-05-20] MEDS ORDERED: DXY100 PO (16:35)
--- NOTE | 2017-05-20 16:37 | Discharge Instructions ---
Discharge Instructions Date of Service May 20, 2017. Admission Reason for Admission: Chest Pain Discharge Discharge Diagnosis / Problem: ATYPICAL CHEST PAIN /NO ACUTE CORONARY EVENT / VIRAL BRONCHITIS Discharge Goals Goal(s): Decrease discomfort, Improve disease control, Diagnostic testing, Therapeutic intervention Activity Recommendations Activity Limitations: resume your previous activity . Instructions / Follow-Up Instructions / Follow-Up HOSPITAL FOLLOW UP : 05/25/2017 11:00 AM Candelaria Navas DO [facility] Current Hospital Diet Patient's current hospital diet: Low Sodium Diet (2gm Na), Diabetes Type 2 Diet Discharge Diet Recommended Diet: Low Sodium Diet (2gm Na), Diabetes Type 2 Diet Pending Studies Studies pending at discharge: no Laboratory Results Hemoglobin A1c Test 05/19/17 02:53 Range/Units Estimated Average Glucose 206 mg/dl Hemoglobin A1c 8.8 H 4.5-5.6 % Lipid Panel Test 04/28/17 05:34 Range/Units Triglycerides Level 162 H 0-150 mg/dl Cholesterol Level 241 H 0-200 mg/dl HDL Cholesterol 33 mg/dl Cholesterol/HDL Ratio 7.3 LDL Cholesterol, Calculated 176 mg/dl Medical Emergencies . Who to Call and When: Medical Emergencies: If at any time you feel your situation is an emergency, please call 911 immediately. . Non-Emergent Contact Non-Emergency issues call your: Primary Care Provider . . "Provider Documentation" section prepared by Piedad Porter. .
--- NOTE | 2017-05-20 17:56 | Discharge Summary ---
Discharge Summary Date of Service May 20, 2017. Discharge Summary Admission Date: May 18, 2017 at 23:27 Discharge Date: May 20, 2017 Discharge Disposition: Home Admission Information HPI (per Admitting provider): The patient is a 71-year-old male who presents to the emergency room with complaints of cardiac pain beginning 3 days ago. He reports that his was sick with the flu for about 2 weeks and 1 week ago he developed vomiting and diarrhea. A couple of days later he developed a persistent cough runny nose and shortness of breath secondary to nasal congestion as well as weakness and a sore throat. He denied any fevers chills blood per rectum and after a couple of days of the vomiting and diarrhea this cleared up. He is now tolerating p.o. without issue. Tonight he reports that he came to the ER because everything "seem to be getting worse." Specifically his chest pain had stayed the same which was intermittent lasting 30-45 seconds at a time and described as a point tenderness without radiation and unrelated to his index anginal pain. He also reported an improvement in his cough resolution of diarrhea however his low energy level was what was concerning him the most. He was recently admitted to [facility] with ventricular storm and was life flighted to [facility] on 04/30. There he was thought to be an exacerbation of congestive heart failure brought on by persistent recurrent ventricular tachycardia. He had underwent aggressive diuresis and IV amiodarone infusion. He was admitted on 04/30 and underwent DC cardioversion into sinus rhythm from a chronic atrial fibrillation rhythm. A right heart cath at that time also revealed pulmonary edema consistent with CHF. He was [place] [facility] [place] and went to rehab at [facility] recently discharged from [facility] on 05/16, two days ago. Tonight in the ER his vital signs were stable and he was afebrile oxygenating well on room air physical exam was unremarkable a chest x-ray revealed improvement in pulmonary edema EKG revealed normal sinus rhythm status post prior cardioversion lab results revealed a creatinine slightly worse at 2.0 up from 1.44 on discharge 04/30 AST of 56 down from 333 ALT of 124 down from 846, proBNP of 1243 down from 3918. The patient denies any shock or syncopal events since [place] [facility] [place] . Troponin level is negative. Physical Exam (per Admitting): General Appearance: WD/WN, no apparent distress Head: normocephalic, atraumatic Eyes: normal inspection, PERRL, sclerae normal ENT: normal ENT inspection, hearing grossly normal, TMs normal, pharynx normal, + pertinent finding (no sinus TTP) Neck: supple, no adenopathy, no JVD, trachea midline Respiratory/Chest: lungs clear, normal breath sounds, no respiratory distress, no accessory muscle use, + pertinent finding (TTP of L anterior chest wall just inferior to ICD pocket) Cardiovascular: regular rate, rhythm, no edema, no gallop, no JVD, no murmur , normal peripheral pulses Abdomen/GI: normal bowel sounds, non tender, soft, no organomegaly Back: normal inspection Extremities/Musculoskelatal: normal inspection, normal capillary refill, no pedal edema, normal range of motion Neurologic/Psych: clinical laboratory assistant II-XII nml as tested, no motor/sensory deficits, alert , normal mood/affect, oriented x 3 Skin: normal color, warm/dry, no rash Hospital Course 1. Atypical chest pain : No discomfort today Cough has resolved -no evidence of angina or ACS -Cardiac markers remains negative -Appreciate input from cardiology -Stable to be discharged home -Resume outpatient cardiac meds 2. Cough shortness of breath/possible viral bronchitis: -Symptom has improved, denies of any cough, no shortness of breath no fever or chills -Recently recovered from a viral flulike symptoms -History of interstitial lung disease/COPD -Empiric antibiotic with p.o. doxycycline (allergy to penicillin noted) -Complete total 5 days course 3. HX OF CAD : pt is continued with all cardiac meds not on Statin for hx of chronic transaminitis 4.Acute kidney injury /CKD stage III: -cr improved -cont to monitor lytes -Diuretics Lasix and losartan resumed 5. Severe ischemic cardiomyopathy with systolic dysfunction -Echo on 05/01/2017: Qualitative ejection fraction 25-29% (severely reduced. The left ventricular cavity size is moderately enlarged. There is a large sized apical, septal, anteroseptal, anterior, posterior and lateral wall motion abnormality with hypokinesis to akinesis of the segments. The inferior wall is not well visualized on this study. Left ventricular systolic function is moderately reduced. The proximal descending thoracic aorta is moderately enlarged. status post AICD placement -Patient denies of any AICD firing in the last 48-72 hours -No evidence of cardiac decompensation Chest x-ray on admission: Interval decrease central and left basilar hazy opacities compatible with improved pulmonary edema. Aberrant decreased cardiac enlargement -Patient's diuretics resumed Cardiology following closely 6. History of ventricular tachycardia: -on Amiodarone 7. Chronic atrial fibrillation -Status post recent DC cardioversion in [facility] -On Coumadin INR subtherapeutic at 1.5 -Was on IV heparin bridge -Per cardiology patient can be discharged home, will not need bridge treatment -Coumadin dose will be adjusted by [facility] anticoagulation clinic 8. Type 2 DM : cont insulin sliding scale /basal Lantus Hb A1c 8.8 CODE STATUS: Full code DVT PROPHYLAXIS On IV heparin bridge/Coumadin DISPOSITION Stable to be discharged home today Total time spent on discharge = This includes examination of the patient, discharge planning, medication reconciliation, and communication with other providers.
== END 2017-05-20 17:56 | disposition home or self-care (01) ==
LOC: C.EDB 21:17 → C.2E 23:27 → ENRESERV 23:39
PROVIDERS: ADMIT Hospitalist; ATTEND Hospitalist
DX: R07.89 Other chest pain (principal); I25.5 Ischemic cardiomyopathy; R06.00 Dyspnea, unspecified; N17.9 Acute kidney failure, unspecified; I71.4 Abdominal aortic aneurysm, without rupture; I50.22 Chronic systolic (congestive) heart failure; N18.3 Chronic kidney disease, stage 3 (moderate); I25.10 Atherosclerotic heart disease of native coronary artery without angina pectoris; E11.9 Type 2 diabetes mellitus without complications; I25.2 Old myocardial infarction; E78.5 Hyperlipidemia, unspecified; I12.9 Hypertensive chronic kidney disease with stage 1 through stage 4 chronic kidney disease, or unspecified chronic kidney disease; E03.9 Hypothyroidism, unspecified; G47.33 Obstructive sleep apnea (adult) (pediatric); I48.0 Paroxysmal atrial fibrillation; Z95.5 Presence of coronary angioplasty implant and graft; Z98.49 Cataract extraction status, unspecified eye; Z79.01 Long term (current) use of anticoagulants; Z95.0 Presence of cardiac pacemaker; Z90.49 Acquired absence of other specified parts of digestive tract; Z82.49 Family history of ischemic heart disease and other diseases of the circulatory system; Z80.1 Family history of malignant neoplasm of trachea, bronchus and lung; Z79.82 Long term (current) use of aspirin; Z79.4 Long term (current) use of insulin; Z88.1 Allergy status to other antibiotic agents; Z87.891 Personal history of nicotine dependence

== ENCOUNTER → 2017-05-25 | Outpatient (CLI) | payer OTHER, BC ==
[~2017-05-25] MED LIST changes: +ALBU18002 INH; -ALBU1AER9 INH; +AMIO200T4 PO; +ASCO10003 PO; -CALC0.25 PO; +CMD5 PO; -CRD200 PO; -CZR50 PO; -DIPH-416 PO; -ESCI10TA17 PO; +ESCI1TAB9 PO; -FRS/40 PO; -INSDGI SC; +INSDGIPEN SC; +ISOS30TA35 PO; +LSX40 PO; +METO-478 PO; -METO50TA8 PO; -MULT-506 PO; +MULTTAB PO; +NYSS/ PO; -OMEG10007 PO; +OMEGCAP2 PO; -ONDA4TAB46 PO; +PANT40TA2 PO; -POTA10CA28 PO; +POTA10TA30 PO; -PRT40 PO; +RCL25 PO; -SPIR25TA PO; +SPR25 PO; +SPRIN/30 INH; -TIOT1SPR INH; -TRAM-10 PO; -VITA400C15 PO; +VITACAP37 PO; -WARF-246 PO
--- NOTE | 2017-05-25 09:39 | DIAGNOSTIC IMAGING REPORT ---
TWO VIEW CHEST CLINICAL HISTORY: Cough. FINDINGS: PA and lateral chest radiographs are compared to study dated 05/18/2017. Correlation is made with chest CT dated 05/18/2014. The PA view is degraded by patient rotation. A single lead 2-lead cardiac AICD is unchanged in position and partially obscures the left upper chest. Midline sternotomy wires are noted. The heart is enlarged and there is atherosclerotic calcification of the thoracic aorta. The pulmonary vasculature is noncongested. There is unchanged chronic elevation of the left hemidiaphragm and interstitial thickening. Airspace opacities at the left lung base have cleared as compared to 05/18/2017. No pleural effusion is seen. There is no pneumothorax. The skeletal structures are osteopenic. Degenerative changes and hyperkyphosis are noted in the thoracic spine. An aortic stent graft is seen in the upper abdomen and there are numerous upper abdominal surgical clips. IMPRESSION: 1. Cardiomegaly and AICD. There is no radiographic evidence of congestive failure. 2. Airspace opacities at the left lung base have almost completely resolved as compared to 05/18/2017. Electronically signed by: Azeem Turner M.D. 05/25/2017 9:37 AM Dictated Date/Time: 05/25/2017 9:34 AM
== END | disposition home or self-care (01) ==
LOC: C.RAD1850 09:26
PROVIDERS: ATTEND Physician Assistant
DX: R05 Cough (principal)

== ENCOUNTER 2017-06-30 21:39 | Observation (INO) | payer OTHER, BC ==
[~2017-06-30] VITALS: Ht 172.7 cm; Wt 89.9 kg
[2017-06-30 22:57] LABS: BASO % 0.1 %; BASO ABS # 0.01 K/uL (0-0.2); EOS % 0.5 %; EOS ABS # 0.05 K/uL (0-0.5); HEMATOCRIT 42.6 % (42-52); HEMOGLOBIN 14.4 g/dL (14.0-18.0); IG# 0.02 K/uL (0.00-0.02); LYMPH % 2.5 %; LYMPH ABS # 0.26 K/uL (1.2-3.4); MEAN CELL VOLUME 88.4 fL (80-100); MEAN CORPUSCULAR HEMOGLOBIN 29.9 pg (25-34); MEAN CORPUSCULAR HGB CONC 33.8 g/dl (32-36); MEAN PLATELET VOLUME 10.3 fL (7.4-10.4); MONO % 3.3 %; MONO ABS # 0.34 K/uL (0.11-0.59); NEUT % 93.4 %; NEUT ABS # 9.67 K/uL (1.4-6.5); PLATELET COUNT 208 K/uL (130-400); RED CELL DISTRIBUTION WIDTH CV 15.6 % (11.5-14.5); RED CELL DISTRIBUTION WIDTH SD 50.6 fL (36.4-46.3); WHITE BLOOD COUNT 10.35 K/uL (4.8-10.8)
[2017-06-30 23:06] LABS: ALBUMIN 3.6 gm/dl (3.4-5.0); ALT/SGPT 77 U/L (12-78); AST/SGOT 54 U/L (15-37); BLOOD UREA NITROGEN 22 mg/dl (7-18); CALCIUM 8.3 mg/dl (8.5-10.1); CARBON DIOXIDE 22 mmol/L (21-32); CREATININE 1.48 mg/dl (0.60-1.40); GLUCOSE 161 mg/dl (70-99); LIPASE 102 U/L (73-393); POTASSIUM 3.7 mmol/L (3.5-5.1); SODIUM 139 mmol/L (136-145)
[2017-06-30 23:11] LABS: ALKALINE PHOSPHATASE 70 U/L (45-117); TOTAL PROTEIN 7.2 gm/dl (6.4-8.2)
[2017-06-30] MEDS ORDERED: METOCLOPRAMIDE HCL INJ 5 MG/ML 2 ML VIAL IV STA (23:20)
[2017-06-30] MEDS ORDERED: SODIUM CHLORIDE 0.9% 500ML 500 ML IV STA (23:24)
[2017-06-30] MEDS ORDERED: WARF5TAB90 PO (23:47)
[2017-07-01] VITALS (9 sets, daily range): BP systolic 137–169; BP diastolic 60–85; PULSE 60–73; TEMP 36.6–37.2; O2SAT 92–96; Ht 172.7 cm; Wt 89.9 kg
[2017-07-01] MEDS ORDERED: PROMETHAZINE HCL INJ 12.5 MG in SODIUM CHLORIDE 0.9% 50ML 50 ML IV STA (01:33)
[2017-07-01] MEDS ORDERED: POTASSIUM CHLORIDE 10 MEQ TABCR PO STA (01:52)
[2017-07-01] MEDS ORDERED: CALCIUM GLUCONATE 10% 1,000 MG in SODIUM CHLORIDE 0.9% 50ML 50 ML IV STA (02:11)
--- NOTE | 2017-07-01 02:32 | EMERGENCY ROOM VISIT NOTE ---
History Report prepared by Cynthia: Naun Lal Under the Supervision of: Dr. Todd Sevilla M.D. First contact with patient: 22:25 Chief Complaint: GI ASSESSMENT Stated Complaint: VOMITING, HEART FAILURE Nursing Triage Summary: patient c/o nausea and dry heaves today throughout the day that worsened tonight along with diarrhea.c/o feeling weak. patient states he has cardiac hx and sometimes feels these symptoms with cardiac event. History of Present Illness The patient is a 71 year old male who presents to the Emergency Room with complaints of constant nausea that began at 1430. He rates his discomfort as a 5 /10 in severity. The patient states he was normal today and then suddenly developed nausea. He reports he has had intermittent episodes of vomiting and diarrhea since with a total of 8 episodes each. The patient states his symptoms have been accompanied by abdominal pain. The patient admits he has had sick contact with his who has been experiencing diarrhea. The patient denies LOC , headache, fevers, chills, diaphoresis, visual changes, neck pain, chest pain, breathing difficulties, back pain, melena, hematochezia, urinary symptoms, numbness, weakness, lymphadenopathy, rash, or other complaints. The patient reports a history of heart problems. Per the patient's records, he was previously transferred to [place] for sustained v-tach. Source of History: patient Onset: 1430 Position: other (global) Quality: other (global) Timing: constant Associated Symptoms: + vomiting, + abdominal pain, + diarrhea Review of Systems See HPI for pertinent positives and negatives. A total of ten systems were reviewed and were otherwise negative. Past Medical & Surgical Medical Problems: (1) AAA (abdominal aortic aneurysm) (2) Abnormal QT interval present on electrocardiogram (3) Anticoagulated on warfarin (4) Automatic implantable cardiac defibrillator in situ (5) Chest pain (6) CHF (congestive heart failure) (7) Chronic systolic (congestive) heart failure (8) CKD (chronic kidney disease) stage 3, GFR 30-59 ml/min (9) Coronary artery disease (10) Delirium due to another medical condition (11) Diabetes mellitus, type II (12) Dyslipidemia (13) History of ventricular tachycardia (14) HTN (hypertension) (15) Hypomagnesemia (16) Hypothyroidism (17) Non-sustained ventricular tachycardia (18) PHAN treated with BiPAP (19) Pacemaker (20) PAF (paroxysmal atrial fibrillation) (21) V-tach Surgical Problems: (1) S/P triple vessel bypass (2) Status post abdominal aortic aneurysm repair (3) Status post cataract extraction (4) Status post cholecystectomy (5) Status post coronary artery bypass grafting (6) Status post implantation of automatic cardioverter/defibrillator (AICD) Family History FH: heart disease FATHER FH: lung cancer MOTHER Hypertension MOTHER Social History Smoking Status: Former Smoker Alcohol Use: occasionally Drug Use: none Marital Status: Housing Status: lives with family Occupation Status: retired Current/Historical Medications Scheduled Amiodarone Hcl (Cordarone), 200 MG PO Q8 Ascorbic Acid (Vitamin C), 1,000 MG PO BID Aspirin (Aspirin Ec), 81 MG PO QAM Calcitriol (Calcitriol), 0.25 MCG PO MWF Escitalopram Oxalate (Lexapro), 1 TAB PO DAILY Fluticasone Furoate-Vilanterol (Breo Ellipta), 1 PUFF PO QAM Fluticasone Propionate (Nasal) (Flonase Allergy Relief), 2 SPRAYS PHANI QAM Furosemide (Furosemide), 80 MG PO BID Insulin Aspart (Novolog Flexpen), 5 UNITS SQ ACHS Insulin Glargine (Lantus Solostar), 40 UNITS SC QPM Isosorbide Mononitrate Ext Rel (Imdur Ext Rel), 30 MG PO QAM Levothyroxine Sodium (Levothyroxine Sodium), 100 MCG PO DAILY Lorazepam (Ativan), 1 MG PO Q8H Metoprolol Succinate (Toprol Xl), 25 MG PO DAILY Multivitamins/Minerals (Mvi With Minerals), 1 TAB PO DAILY Elbert-3 Fatty Acids (Fish Oil), 1,000 MG PO BID Pantoprazole (Pantoprazole Sodium), 40 MG PO QAM Potassium Chloride (Potassium Chloride Cr), 10 MEQ PO BID Spironolactone (Spironolactone), 12.5 MG PO MWF Terazosin Hcl (Hytrin), 1 CAP PO HS Tiotropium Meridian (Spiriva Handihaler), 1 CAP INH QAM Vitamin E (E-400), 400 UNITS PO DAILY Warfarin Sod (Coumadin), 5 MG PO DAILY Warfarin Sodium (Coumadin), 5 MG PO DAILY Scheduled PRN Albuterol Sulfate (Proair Respiclick), 2 PUFF INH QID PRN for SOB/wheezing Nitroglycerin (Nitrostat), 0.4 MG UT PRN PRN for chest pain Allergies Coded Allergies: Amoxicillin (Verified Allergy, Severe, Anaphylaxis, 06/30/17) Clavulanic Acid (Verified Allergy, Severe, Anaphylaxis, 06/30/17) Physical Exam Vital Signs Date Time Temp Pulse Resp B/P (MAP) Pulse Ox O2 Delivery O2 Flow Rate FiO2 07/01/17 01:49 67 20 118/80 95 Room Air 06/30/17 23:49 64 18 159/76 94 Room Air 06/30/17 22:19 67 06/30/17 21:44 36.8 76 16 151/85 95 Room Air Physical Exam GENERAL: Awake, alert, uncomfortable appearing, in no distress HENT: Normocephalic, atraumatic. Oropharynx unremarkable. EYES: Normal conjunctiva. Sclera non-icteric. NECK: Supple. No nuchal rigidity. FROM. No masses. RESPIRATORY: Clear to auscultation. No wheezes. No rales. Normal respiratory effort. CARDIAC: Normal rate. Normal rhythm. No murmurs. No rubs. Extremities warm and well perfused. Pulses equal. No JVD. GI: Soft, non-distended. Left lower quadrant tenderness. No rebound or guarding. No masses. RECTAL: Deferred. MUSCULOSKELETAL: Atraumatic. Chest examination reveals no tenderness. The back is symmetrical on inspection without obvious abnormality. There is no CVA tenderness to palpation. No joint edema. LOWER EXTREMITIES: Calves are equal size bilaterally and non-tender. No edema. No discoloration. NEURO: Normal sensorium. No sensory or motor deficits noted. SKIN: No rash or jaundice noted. Medical Decision & Procedures ER Provider Diagnostic Interpretation: Radiology results as stated below per my review and radiologist interpretation: CT ABDOMEN & PELVIS Without Contrast: Fluid in the small and large bowel, can be seen with enteritis or diarrheal disease. No evidence of bowel obstruction. Nephrolithiasis. Punctate hyperdensity at the left UVJ, cannot exclude tiny stone. No significant hydronephrosis. Normal caliber appendix. Aortic aneurysm with stent graft noted. Dense hepatic parenchyma, can be seen with increased iron stores or other etiologies. Bibasilar scarring/atelectasis. Prior cholecystectomy. Additional incidental findings. Radiologist: Halle Urbina M.D. Laboratory Results 06/30/17 21:55 Red Blood Count 4.82, Mean Corpuscular Volume 88.4, Mean Corpuscular Hemoglobin 29.9, Mean Corpuscular Hemoglobin Concent 33.8, Mean Platelet Volume 10.3, Neutrophils (%) (Auto) 93.4, Lymphocytes (%) (Auto) 2.5, Monocytes (%) (Auto) 3.3, Eosinophils (%) (Auto) 0.5, Basophils (%) (Auto) 0.1, Neutrophils # (Auto) 9.67, Lymphocytes # (Auto) 0.26, Monocytes # (Auto) 0.34, Eosinophils # (Auto) 0.05, Basophils # (Auto) 0.01 06/30/17 21:55 Test 06/30/17 21:55 07/01/17 01:20 07/01/17 02:15 White Blood Count 10.35 K/uL (4.8-10.8) Red Blood Count 4.82 M/uL (4.7-6.1) Hemoglobin 14.4 g/dL (14.0-18.0) Hematocrit 42.6 % (42-52) Mean Corpuscular Volume 88.4 fL (80-100) Mean Corpuscular Hemoglobin 29.9 pg (25-34) Mean Corpuscular Hemoglobin Concent 33.8 g/dl (32-36) Platelet Count 208 K/uL (130-400) Mean Platelet Volume 10.3 fL (7.4-10.4) Neutrophils (%) (Auto) 93.4 % Lymphocytes (%) (Auto) 2.5 % Monocytes (%) (Auto) 3.3 % Eosinophils (%) (Auto) 0.5 % Basophils (%) (Auto) 0.1 % Neutrophils # (Auto) 9.67 K/uL (1.4-6.5) Lymphocytes # (Auto) 0.26 K/uL (1.2-3.4) Monocytes # (Auto) 0.34 K/uL (0.11-0.59) Eosinophils # (Auto) 0.05 K/uL (0-0.5) Basophils # (Auto) 0.01 K/uL (0-0.2) RDW Standard Deviation 50.6 fL (36.4-46.3) RDW Coefficient of Variation 15.6 % (11.5-14.5) Immature Granulocyte % (Auto) 0.2 % Immature Granulocyte # (Auto) 0.02 K/uL (0.00-0.02) Anion Gap 9.0 mmol/L (3-11) Est Creatinine Clear Calc Drug Dose 49.2 ml/min Estimated GFR () 54.4 Estimated GFR (Non- 46.9 BUN/Creatinine Ratio 15.1 (10-20) Calcium Level 8.3 mg/dl (8.5-10.1) Magnesium Level 2.3 mg/dl (1.8-2.4) Total Bilirubin 0.8 mg/dl (0.2-1) Direct Bilirubin 0.2 mg/dl (0-0.2) Aspartate Amino Transf (AST/SGOT) 54 U/L (15-37) Alanine Aminotransferase (ALT/SGPT) 77 U/L (12-78) Alkaline Phosphatase 70 U/L (45-117) Troponin I < 0.015 ng/ml (0-0.045) Total Protein 7.2 gm/dl (6.4-8.2) Albumin 3.6 gm/dl (3.4-5.0) Lipase 102 U/L (73-393) Urine Color YELLOW Urine Appearance CLEAR (CLEAR) Urine pH 6.0 (4.5-7.5) Urine Specific Moran 1.015 (1.000-1.030) Urine Protein NEG (NEG) Urine Glucose (UA) NEG (NEG) Urine Ketones TRACE (NEG) Urine Occult Blood NEG (NEG) Urine Nitrite NEG (NEG) Urine Bilirubin NEG (NEG) Urine Urobilinogen NEG (NEG) Urine Leukocyte Esterase NEG (NEG) Laboratory results reviewed by me Medications Administered Medications (Trade) Dose Ordered Sig/Obi Route Start Time Stop Time Status Last Admin Dose Admin Metoclopramide HCl (Reglan Inj) 5 mg NOW STAT IV 06/30/17 23:20 06/30/17 23:22 DC 06/30/17 23:47 5 MG Sodium Chloride 500 ml @ 999 mls/hr Q31M STAT IV 06/30/17 23:24 06/30/17 23:54 DC 06/30/17 23:24 999 MLS/HR Promethazine HCl 12.5 mg/Sodium Chloride 50.5 ml @ 204 mls/hr NOW STAT IV 07/01/17 01:33 07/01/17 01:47 DC 07/01/17 01:53 204 MLS/HR ECG Per My Interpretation Indication: nausea Rate (beats per minute): 66 Rhythm: normal sinus Findings: 1st degree AV block, T-wave inversion (Lateral), other (prolonged QT , Non specific intraventricular block) Comparison ECG Date: 05/20/17 Change: no significant change ED Course 2117: The patient was evaluated in room B04B. A complete history and physical exam was performed. 2320: ORdered Reglan INjection 5 mg IV. 2324: Ordered Sodium Chloride 500 ml @ 999 mls/hr IV. 0133: Ordered Promethazine HCl 12.5 mg/Sodium Chloride 50.5 ml @ 204 mls/hr IV. 0141: I reevaluated the patient and he is still nauseated. He is concerned about going home since the last he was in the hospital, he had v tach. He reports he would like to stay. 0148: I discussed the patients case with Dr. Tomlinson, [facility] Hospitalist. He understands the patients condition and agrees to accept the patient. 0152: Ordered Potassium Chloride 40 meq PO. Medical Decision Prior records/ancillary studies reviewed. Triage Nursing notes reviewed and agree them. The patient's history was concerning for nausea, vomiting, diarrhea, and abdominal pain. Differential diagnosis: Etiologies such as gastroenteritis, food borne illness, infections, appendicitis , diverticulitis, inflammatory bowel disease, GI bleed, biliary pathology, as well as others were entertained. Physical examination findings: As above. ER treatment provided: IV hydration with NSS. IV Reglan On reassessment the patient was still having some nausea. IV Phenergan On reassessment the patient felt marginal better. The patient was very concerned about going home given his recent problems and nausea. He is concerned about taking his much needed cardiac medications. Diagnostics interpretation by me: ECG: As above. No current dysrhythmia. Prolonged QT noted. The labs revealed an unremarkable CBC and chemistry panel. Negative urinalysis Imaging studies: CT scan as above Consultation: A consultation was placed with the hospitalist. The case was discussed and diagnostics were reviewed. The patient was evaluated in the ER for further treatment. Medication Reconcilliation Current Medication List: was personally reviewed by me Blood Pressure Screening Patient's blood pressure: Elevated blood pressure Referred to Hospitalist Consults Time Called: 014 Consulting Physician: Sharon Brown Hospitalist Returned Call: 0148 I discussed the patients case with Sharon Brown Hospitalist. He understands the patients condition and agrees to accept the patient. Impression Primary Impression: Nausea vomiting and diarrhea Additional Impression: Gastroenteritis Scribe Attestation The scribe's documentation has been prepared under my direction and personally reviewed by me in its entirety. I confirm that the note above accurately reflects all work, treatment, procedures, and medical decision making performed by me. Departure Information Dispostion Being Evaluated By Hospitalist Referrals Candelaria Navas DO (PCP) Patient Instructions My [facility] Problem Qualifiers
[2017-07-01] MEDS ORDERED: TRAMADOL HCL 50 MG TAB PO PRN (02:45)
[2017-07-01] MEDS ORDERED: NSS + 20MEQ KCL 1000ML 1,000 ML IV ONE (02:45)
[2017-07-01] MEDS ORDERED: LORAZEPAM 1 MG TAB PO PRN (02:45)
[2017-07-01] MEDS ORDERED: GLUCOSE 10 TABS/TUBE PO PRN (02:45)
[2017-07-01] MEDS ORDERED: GLUCOSE 40% GEL 15 GM TUBE PO PRN (02:45)
[2017-07-01] MEDS ORDERED: GLUCAGON FOR INJ 1 MG VIAL SQ PRN (02:45)
[2017-07-01] MEDS ORDERED: HYDROmorphone INJ 0.5 MG/0.5 ML SYR IV PRN (02:45)
[2017-07-01] MEDS ORDERED: ACETAMINOPHEN 325 MG TAB PO PRN (02:45)
[2017-07-01] MEDS ORDERED: PROCHLORPERAZINE INJ 5 MG in SYRINGE 4 ML IV PRN (02:45)
[2017-07-01] MEDS ORDERED: DEXTROSE 50% 50 ML SYR IV PRN (02:45)
[2017-07-01] MEDS ORDERED: INSULIN ASPART 100 UNITS/ML 3 ML PEN SC STA (03:00)
[2017-07-01] MEDS ORDERED: IV FLUIDS COMPLETED PRN (04:45)
[2017-07-01 05:52] LABS: BASO % 0.1 %; BASO ABS # 0.01 K/uL (0-0.2); EOS % 0.4 %; EOS ABS # 0.03 K/uL (0-0.5); HEMATOCRIT 41.3 % (42-52); HEMOGLOBIN 13.8 g/dL (14.0-18.0); IG# 0.02 K/uL (0.00-0.02); LYMPH % 6.6 %; LYMPH ABS # 0.56 K/uL (1.2-3.4); MEAN CORPUSCULAR HEMOGLOBIN 29.7 pg (25-34); MEAN CORPUSCULAR HGB CONC 33.4 g/dl (32-36); MEAN PLATELET VOLUME 9.7 fL (7.4-10.4); MONO % 4.5 %; MONO ABS # 0.38 K/uL (0.11-0.59); NEUT % 88.2 %; NEUT ABS # 7.46 K/uL (1.4-6.5); PLATELET COUNT 208 K/uL (130-400); WHITE BLOOD COUNT 8.46 K/uL (4.8-10.8)
[2017-07-01] MEDS: LEVOTHYROXINE 100 MCG TAB PO SCH (06:01)
[2017-07-01 06:04] LABS: INR 1.6 (0.9-1.1); PTT PATIENT 28.4 SECONDS (21.0-31.0)
[2017-07-01] MEDS ORDERED: WARFARIN SOD 5 MG TAB PO ONE (06:10)
--- NOTE | 2017-07-01 06:31 | DIAGNOSTIC IMAGING REPORT ---
CT SCAN OF THE ABDOMEN AND PELVIS WITHOUT CONTRAST CLINICAL HISTORY: Vomiting. Left lower quadrant abdominal pain COMPARISON STUDY: 07/13/2015 TECHNIQUE: CT scan of the abdomen and pelvis was performed from the lung bases to the proximal femurs. Images are reviewed in the axial, sagittal, and coronal planes. IV contrast was not administered for this examination. A dose lowering technique was utilized adhering to the principles of ALARA. CT DOSE: 540.99 mGy.cm FINDINGS: Lower chest: There is subpleural reticulation. There are no significant pleural effusions. There is mild elevation of the left hemidiaphragm. Liver: There is slight increased attenuation. No focal masses are visualized. Gallbladder: Surgically absent Spleen: Normal in size and attenuation. Pancreas: Unremarkable. Adrenal glands: Unremarkable. Kidneys: There are multiple left renal calculi, the largest of which is located within the lower pole measuring 1 cm. There is a 4 mm lower pole right renal calculus. There is no hydronephrosis. No ureteral calculi are visualized. No bladder calculi are visualized. Bowel: There are no transition zones indicate bowel obstruction. The appendix appears normal. There is no evidence of acute diverticulitis. Peritoneum: There is no intraperitoneal free air or abdominal ascites. Vasculature: There are postsurgical changes of endovascular aortic aneurysm stent graft repair. The chicken ranch aorta measures 41 mm in transverse diameter. Adenopathy: None. Pelvic viscera: The bladder, and pelvic viscera are unremarkable. Skeletal structures: No destructive lesions are visualized. There is a prominent L4-5 disc osteophyte complex. IMPRESSION: 1. No evidence of bowel obstruction. No evidence of free air 2. Bilateral nephrolithiasis 3. No ureteral or bladder calculi identified. No evidence of hydronephrosis 4. Normal appendix. No evidence of diverticulitis 5. Increased hepatic density. This finding is most often seen in long-standing amiodarone usage, or hemachromatosis. Electronically signed by: Alok Gooden M.D. 07/01/2017 6:30 AM Dictated Date/Time: 07/01/2017 6:24 AM
[2017-07-01 06:33] LABS: ALBUMIN 3.3 gm/dl (3.4-5.0); CALCIUM 8.3 mg/dl (8.5-10.1); CREATININE 1.46 mg/dl (0.60-1.40); POTASSIUM 3.9 mmol/L (3.5-5.1); TOTAL PROTEIN 7.2 gm/dl (6.4-8.2)
[2017-07-01] MEDS: FLUTICASONE PROPIONATE NA SPR 16 GM BTL NAE SCH (07:54)
[2017-07-01] MEDS: CEROVITE ADV FORMULA TAB PO SCH (07:55)
[2017-07-01] MEDS: PANTOprazole SOD 40 MG TAB PO SCH (07:55)
[2017-07-01] MEDS: AMIODARONE 200 MG TAB PO SCH ×2 (07:55→21:32)
[2017-07-01] MEDS: ISOSORBIDE MONONITRATE 30 MG TABCR PO SCH (07:55)
[2017-07-01] MEDS: ASPIRIN 81 MG ECTAB PO SCH (07:56)
[2017-07-01] MEDS: ESCITALOPRAM OXALATE 10 MG TAB PO SCH (07:56)
[2017-07-01] MEDS: METOPROLOL SUCC 25MG EXT REL TAB PO SCH (07:56)
[2017-07-01] MEDS: POTASSIUM CHLORIDE 10 MEQ TABCR PO SCH (08:05)
[2017-07-01] MEDS: TIOTROPIUM BROMIDE 5 PUFF/90 MCG INH INH SCH (08:50)
[2017-07-01] MEDS: INSULIN GLARGINE SOLOSTAR 100 UNITS/ML 3 ML PEN SC SCH (08:51)
[2017-07-01] MEDS: INSULIN ASPART 100 UNITS/ML 3 ML PEN SC SCH ×4 (08:52→21:00)
--- NOTE | 2017-07-01 09:03 | HISTORY & PHYSICAL EXAMINATION ---
DATE OF ADMISSION: 07/01/2017 PRIMARY CARE PHYSICIAN: Candelaria Navas DO CHIEF COMPLAINT: Abdominal pain, nausea, vomiting, diarrhea. HISTORY OF PRESENT ILLNESS: History obtained from patient and records. Medical history is significant for chronic systolic heart failure secondary to ischemic cardiomyopathy, EF of 25% to 29% sp ICD, CAD status post CABG, AAA status post surgery, PAF on Coumadin, hx VT, DM2 insulin requiring, Past tobacco abuse. CRI (1.3-2 as per records), chronic anemia (baseline hemoglobin of 11-12) Recent confinement, last May 2017 for atypical chest pain, no ACS. Seen by Cardiology. Last 2 days, patient noted lower abdominal pain, achy, nausea, vomiting, diarrhea, nonbloody. Sick contacts. No chest pain, no shortness of breath. Doxycycline Rx for bronchitis recent confinement last month. Patient still uncomfortable despite intervention at the Emergency Room. Medical history as above. SURGERIES: He has had AAA surgery, CABG, ICD, cataracts, and cholecystectomy. HOME MEDICATIONS: Include potassium chloride, Protonix, Hytrin, Spiriva, vitamin E, Coumadin, levothyroxine, Ativan, metoprolol, multivitamins, Nitrostat, omega fish oil, Ellipta, Flonase, furosemide, NovoLog, Lantus , Cordarone, vitamin C, aspirin, ProAir, calcitriol, Lexapro. ALLERGIES: AUGMENTIN. FAMILY HISTORY: Heart disease, lung cancer. 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 REVIEW OF SYSTEMS: As per HPI, all 10 systems reviewed, all other ROS negative. PHYSICAL EXAMINATION: VITAL SIGNS: Blood pressure was noted to be 158/80, pulse rate 67, RR 20, temperature 36.8, sats 97 room air. GENERAL: Noted to be obese, slightly uncomfortable. No respiratory distress. SKIN: Pallor, warm. HEENT: Pale palpebral conjunctivae. No ptosis. Dry mucosa. NECK: Supple. CHEST: Decreased breath sounds. Healed incisional scar. HEART: Diminished, S1, S2, regular rate and rhythm. ABDOMEN: Some distention, nontender. EXTREMITIES: No edema. No gross deformities. No gross deformities NEUROLOGIC: Coherent, no gross focality. LABORATORY DATA: Hemoglobin 14.5, hematocrit 42.3, white blood cell 10.35, platelets noted to be 208. Sodium 139, potassium 3.7, chloride 107, CO2 22, BUN 23, creatinine 1.48, glucose 161. Troponin negative EKG as per my interpretation rate 65, NSR, 1AVB, Q waves inferior leads, T- wave inversion lateral leads Hemoglobin A1c from May 2017 was 3.7. INR is currently pending. CT abdomen and pelvis initial read showed enteritis. ASSESSMENT: 1. Acute viral gastroenteritis Rule out Clostridium difficile. 2. hx chronic systolic heart failure secondary to ischemic cardiomyopathy (EF 25 -29%) sp ICD patient on the dry side. 3. Coronary artery disease status post coronary artery bypass graft. 4. hx AAA sp surgery. 5. hx VT 6. hx PAF, NSR. INR is still pending. 7. HTN, slightly elevated 8. DM2, insulin requiring suboptimal control as of recent inpatient HgA1c. 9. CRI, creatinine at baseline. 10. Chronic anemia 2 to CKD hemoglobin better than baseline secondary to hemoconcentration 11. past tobacco abuse. PLAN: OBS GMF Supportive management for probable viral gastroenteritis Stool C. difficile. gentle IV hydration. Hold home diuretics until patient euvolemic PT, OT eval. basal insulin adjusted for clear liquid diet for now, ISS BG goal 140-180. PT OT eval DVT prophylaxis. Coumadin INR 2-3. Full code. MTDD
[2017-07-01 14:18] LABS: INR 1.7 (0.9-1.1)
[2017-07-01] MEDS ORDERED: NITROGLYCERIN 0.4 MG SL PER TAB CHARGE UT PRN (16:00)
[2017-07-01] MEDS ORDERED: ALBUTEROL HFA 8 GM INHALER INH PRN (16:00)
--- NOTE | 2017-07-01 16:12 | Discharge Instructions ---
Discharge Instructions Date of Service Jul 01, 2017. Admission Reason for Admission: Abdominal Pain Discharge Discharge Diagnosis / Problem: NAUSEA /VOMITING /VIRAL GASTROENTERITIS / CHRONIC ISCHEMIC CARDIOMYOPATHY Discharge Goals Goal(s): Increase independence, Improve disease control, Diagnostic testing, Therapeutic intervention Activity Recommendations Activity Limitations: resume your previous activity . Instructions / Follow-Up Instructions / Follow-Up HOSPITAL FOLLOW UP : 07/08/2017 11:20 AM Candelaria Navas DO [facility] CARDIOLOGY FOLLOW UP : 08/10/2017 2:00 PM Teto Flores PA-C Cardiology, [facility] Current Hospital Diet Patient's current hospital diet: Diabetes Type 2 Diet, AHA Diet (Heart Healthy) Discharge Diet Recommended Diet: AHA Diet (Heart Healthy), Diabetes Type 2 Diet Pending Studies Studies pending at discharge: no Laboratory Results Hemoglobin A1c Test 05/19/17 02:53 Range/Units Estimated Average Glucose 206 mg/dl Hemoglobin A1c 8.8 H 4.5-5.6 % Lipid Panel Test 04/28/17 05:34 Range/Units Triglycerides Level 162 H 0-150 mg/dl Cholesterol Level 241 H 0-200 mg/dl HDL Cholesterol 33 mg/dl Cholesterol/HDL Ratio 7.3 LDL Cholesterol, Calculated 176 mg/dl Medical Emergencies . Who to Call and When: Medical Emergencies: If at any time you feel your situation is an emergency, please call 911 immediately. . Non-Emergent Contact Non-Emergency issues call your: Primary Care Provider . . "Provider Documentation" section prepared by Piedad Porter. .
--- NOTE | 2017-07-01 16:28 | Progress Note ---
Progress Note Date of Service Jul 01, 2017. Progress Note Patient admitted earlier today, please see the H&P for complete documentation Briefly 71-year-old male with severe ischemic cardiomyopathy EF of less than 20 % status post AICD presented to ED the ER with complaint of nausea vomiting diarrhea for approximately [address] abdomen pelvis shows no evidence of inflammation Patient still GI symptom improved after overnight IV hydration, tolerating diet well Stool for C. difficile negative Complaint of sharp pain on the left at mid axillary area, started on 10 AM worse with movement, feels sharp pain with taking deep breath No hypoxia, no chest heaviness no arrhythmia or ventricular tachycardia in telemetry Patient walked on the hallway with physical therapy did not had any symptoms On exam: Tenderness palpated in the mid axillary region No rash noted Lungs auscultated clear no wheezes or rales CVS: No JVD: Regular S1-S2, no lower extremity edema Extremity no rash or deformity Neuro: Alert awake oriented 3, no focal neurological deficit ASSESSMENT AND PLAN NAUSEA VOMITING/DIARRHEA Symptoms has improved, possibly secondary to viral gastroenteritis Diet advanced to [facility] CHEST PAIN Atypical for angina No new EKG change/troponin ordered Left maxillary axillary chest wall pain, reproducible to palpation Ordered for Lidoderm patch Warm compression SEVERE ISCHEMIC CARDIOMYOPATHY: Transthoracic echo on 05/01/2017: Qualitative EF 2529% There is a large sized apical septal, anteroseptal anterior, posterior and lateral wall motion abnormality With hypokinesis and akinesis of segments Status post ICD placement: Recent AICD interrogation showed normal degenerative function function/no ventricular tachycardia events Patient will be continued with outpatient diuretics of Lasix Aldactone IV fluids discontinued as patient is able to eat well keep food down, no episode of nausea vomiting CHRONIC CONGESTIVE HEART FAILURE WITH SYSTOLIC DYSFUNCTION Due to above Outpatient diuretics Lasix/Aldactone and resumed HISTORY OF VENTRICULAR TACHYCARDIA RECURRENT Status post AICD placement Underwent ablation therapy in 05/2014 Continue on amiodarone 200 mg twice daily had recent electrophysiology/cardiology follow-up with Dr. Shelley Suarez on 06/16 CKD STAGE III Creatinine approximate baseline Follow PRP CHRONIC A. FIB At present rate controlled/sinus Continue Coumadin goal INR 2-3 On Lopressor/amiodarone CODE STATUS: Full code DVT prophylaxis: Coumadin/added subcu heparin until INR less than 2 DISPOSITION: Expected to be discharged home when medically stable Medicine follow-up with Dr. Baylee Ruiz at [facility]
[2017-07-01] MEDS: FUROSEMIDE 40 MG TAB PO SCH (16:57)
[2017-07-01] MEDS: LIDODERM (LIDOCAINE) PATCH 5% TD SCH (16:58)
[2017-07-01] MEDS: OMEGA-3 (PURIFIED FISH OIL) 1 GM CAP PO SCH (21:33)
[2017-07-01] MEDS: ASCORBIC ACID 500 MG TAB PO SCH (21:33)
[2017-07-01] MEDS: HEPARIN SOD 5000 UNIT/0.5 ML CARP SQ SCH (21:39)
[2017-07-02 04:00] VITALS: O2SAT 9
[2017-07-02 04:18] VITALS: BP 130/73; PULSE 60; TEMP 37.1; O2SAT 94
[2017-07-02] MEDS: LEVOTHYROXINE 100 MCG TAB PO SCH (05:51)
[2017-07-02] MEDS: HEPARIN SOD 5000 UNIT/0.5 ML CARP SQ SCH (05:52)
[2017-07-02 07:19] LABS: INR 1.7 (0.9-1.1)
[2017-07-02 07:23] VITALS: BP 149/78; PULSE 55; TEMP 37; O2SAT 94
[2017-07-02 07:54] VITALS: PULSE 65
[2017-07-02 07:55] LABS: CALCIUM 8.2 mg/dl (8.5-10.1); CREATININE 1.25 mg/dl (0.60-1.40); POTASSIUM 3.5 mmol/L (3.5-5.1)
[2017-07-02] MEDS: FLUTICASONE PROPIONATE NA SPR 16 GM BTL NAE SCH (07:57)
[2017-07-02] MEDS: TIOTROPIUM BROMIDE 5 PUFF/90 MCG INH INH SCH (07:57)
[2017-07-02] MEDS: AMIODARONE 200 MG TAB PO SCH (07:57)
[2017-07-02] MEDS: ASCORBIC ACID 500 MG TAB PO SCH (07:58)
[2017-07-02] MEDS: ASPIRIN 81 MG ECTAB PO SCH (07:58)
[2017-07-02] MEDS: PANTOprazole SOD 40 MG TAB PO SCH (07:58)
[2017-07-02] MEDS: CEROVITE ADV FORMULA TAB PO SCH (07:58)
[2017-07-02] MEDS: FUROSEMIDE 40 MG TAB PO SCH (07:58)
[2017-07-02] MEDS: ESCITALOPRAM OXALATE 10 MG TAB PO SCH (07:58)
[2017-07-02] MEDS: POTASSIUM CHLORIDE 10 MEQ TABCR PO SCH (07:58)
[2017-07-02] MEDS: METOPROLOL SUCC 25MG EXT REL TAB PO SCH (07:58)
[2017-07-02] MEDS: OMEGA-3 (PURIFIED FISH OIL) 1 GM CAP PO SCH (07:58)
[2017-07-02] MEDS: ISOSORBIDE MONONITRATE 30 MG TABCR PO SCH (07:58)
[2017-07-02] MEDS: LIDODERM (LIDOCAINE) PATCH 5% TD SCH (07:59)
[2017-07-02] MEDS: INSULIN ASPART 100 UNITS/ML 3 ML PEN SC SCH ×2 (08:01→12:00)
[2017-07-02] MEDS: INSULIN GLARGINE SOLOSTAR 100 UNITS/ML 3 ML PEN SC SCH (08:01)
[2017-07-02] MEDS ORDERED: TOCOPHERYL, DL-ALPHA 400 INTER.UNIT CAP PO SCH (09:00)
[2017-07-02] MEDS ORDERED: SPIRONOLACTONE 25 MG TAB PO SCH (09:00)
--- NOTE | 2017-07-02 11:08 | Discharge Summary ---
Discharge Summary Date of Service Jul 02, 2017. Discharge Summary Admission Date: Jul 01, 2017 at 02:43 Discharge Date: Jul 02, 2017 Discharge Disposition: Home Principal Diagnosis: NAUSEA /VOMITING /VIRAL GASTROENTERITIS /CHRONIC ISCHEMIC CARDIOMYOPATHY Medication Reconciliation Continued Medications: Albuterol Sulfate (Proair Respiclick) 108 Mcg/Act Aer 2 PUFF INH QID PRN for SOB/wheezing Amiodarone Hcl (Cordarone) 200 Mg Tab 200 MG PO Q8, TAB Ascorbic Acid (Vitamin C) 1,000 Mg Tab 1000 MG PO BID Aspirin (Aspirin Ec) 81 Mg Tab 81 MG PO QAM Calcitriol (Calcitriol) 0.25 Mcg Cap 0.25 MCG PO MWF, CAP Escitalopram Oxalate (Lexapro) 10 Mg Tab 1 TAB PO DAILY for 30 Days, #30 TAB 3 Refills Fluticasone Furoate-Vilanterol (Breo Ellipta) 1 Inh Inh 1 PUFF PO QAM Fluticasone Propionate (Nasal) (Flonase Allergy Relief) 50 Mcg/Act Spr 2 SPRAYS PHANI QAM Furosemide (Furosemide) 40 Mg Tab 80 MG PO BID Insulin Aspart (Novolog Flexpen) 100 Units/Ml Inj 5 UNITS SQ ACHS 5 UNITS PLUS COVERAGE DIRECTED BY SLIDING SCALE Insulin Glargine (Lantus Solostar) 100 Unit/Ml Inj 40 UNITS SC QPM Isosorbide Mononitrate Ext Rel (Imdur Ext Rel) 30 Mg Tabcr 30 MG PO QAM Levothyroxine Sodium (Levothyroxine Sodium) 100 Mcg Tab 100 MCG PO DAILY, TAB Lorazepam (Ativan) 1 Mg Tab 1 MG PO Q8H, TAB Metoprolol Succinate (Toprol Xl) 25 Mg Tab 25 MG PO DAILY, #30 TAB Multivitamins/Minerals (Mvi With Minerals) Tab 1 TAB PO DAILY, TAB Nitroglycerin (Nitrostat) 0.4 Mg Tab 0.4 MG UT PRN PRN for chest pain, BTL [place]-3 Fatty Acids (Fish Oil) 1 Cap Cap 1000 MG PO BID Pantoprazole (Pantoprazole Sodium) 40 Mg Tab 40 MG PO QAM Potassium Chloride (Potassium Chloride Cr) 10 Meq Tab 10 MEQ PO BID Spironolactone (Spironolactone) 25 Mg Tab 12.5 MG PO MWF, TAB Terazosin Hcl (Hytrin) 2 Mg Cap 1 CAP PO HS for 90 Days, #90 CAP 1 Refill Tiotropium [place] (Spiriva Handihaler) 30 Puff/540 Mcg Aerp 1 CAP INH QAM, INHALER Vitamin E (E-400) 400 Unit Cap 400 UNITS PO DAILY Warfarin Sod (Coumadin) 5 Mg Tab 5 MG PO DAILY for 30 Days, #30 TAB Warfarin Sodium (Coumadin) 5 Mg Tab 5 MG PO DAILY, TAB pt taking per med clinic Referrals At Discharge Follow up Referrals: Physician Referral - 07/08/17 with Candelaria Navas DO Admission Information HPI (per Admitting provider): DATE OF ADMISSION: 07/01/2017 PRIMARY CARE PHYSICIAN: Candelaria Navas DO CHIEF COMPLAINT: Abdominal pain, nausea, vomiting, diarrhea. HISTORY OF PRESENT ILLNESS: History obtained from patient and records. Medical history is significant for chronic systolic heart failure secondary to ischemic cardiomyopathy, EF of 25% to 29% sp ICD, CAD status post CABG, AAA status post surgery, PAF on Coumadin, hx VT, DM2 insulin requiring, Past tobacco abuse. CRI (1.3-2 as per records), chronic anemia (baseline hemoglobin of 11-12) Recent confinement, last May 2017 for atypical chest pain, no ACS. Seen by Cardiology. Last 2 days, patient noted lower abdominal pain, achy, nausea, vomiting, diarrhea, nonbloody. Sick contacts. No chest pain, no shortness of breath. Doxycycline Rx for bronchitis recent confinement last month. Patient still uncomfortable despite intervention at the Emergency Room. Medical history as above. SURGERIES: He has had AAA surgery, CABG, ICD, cataracts, and cholecystectomy. HOME MEDICATIONS: Include potassium chloride, Protonix, Hytrin, Spiriva, vitamin E, Coumadin, levothyroxine, Ativan, metoprolol, multivitamins, Nitrostat, omega fish oil, Ellipta, Flonase, furosemide, NovoLog, Lantus , Cordarone, vitamin C, aspirin, ProAir, calcitriol, Lexapro. ALLERGIES: AUGMENTIN. FAMILY HISTORY: Heart disease, lung cancer. 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 Physical Exam (per Admitting): REVIEW OF SYSTEMS: As per HPI, all 10 systems reviewed, all other ROS negative. PHYSICAL EXAMINATION: VITAL SIGNS: Blood pressure was noted to be 158/80, pulse rate 67, RR 20, temperature 36.8, sats 97 room air. GENERAL: Noted to be obese, slightly uncomfortable. No respiratory distress. SKIN: Pallor, warm. HEENT: Pale palpebral conjunctivae. No ptosis. Dry mucosa. NECK: Supple. CHEST: Decreased breath sounds. Healed incisional scar. HEART: Diminished, S1, S2, regular rate and rhythm. ABDOMEN: Some distention, nontender. EXTREMITIES: No edema. No gross deformities. No gross deformities NEUROLOGIC: Coherent, no gross focality. Hospital Course NAUSEA VOMITING/DIARRHEA Symptoms has improved, possibly secondary to viral gastroenteritis Diet advanced to [facility] CHEST PAIN Atypical for angina No new EKG change/troponin ordered Left maxillary axillary chest wall pain, reproducible to palpation Ordered for Lidoderm patch Warm compression -symptom completely resolved today stable to be discharged home SEVERE ISCHEMIC CARDIOMYOPATHY: Transthoracic echo on 05/01/2017: Qualitative EF 2529% There is a large sized apical septal, anteroseptal anterior, posterior and lateral wall motion abnormality With hypokinesis and akinesis of segments Status post ICD placement: Recent AICD interrogation showed normal degenerative function function/no ventricular tachycardia events Patient will be continued with outpatient diuretics of Lasix Aldactone IV fluids discontinued as patient is able to eat well keep food down, no episode of nausea vomiting CHRONIC CONGESTIVE HEART FAILURE WITH SYSTOLIC DYSFUNCTION Due to above Outpatient diuretics Lasix/Aldactone and resumed HISTORY OF VENTRICULAR TACHYCARDIA RECURRENT Status post AICD placement Underwent ablation therapy in 05/2014 Continue on amiodarone 200 mg twice daily had recent electrophysiology/cardiology follow-up with Dr. Shelley Suarez on 06/16 CKD STAGE III Creatinine approximate baseline Follow PRP CHRONIC A. FIB At present rate controlled/sinus Continue Coumadin goal INR 2-3 On Lopressor/amiodarone CODE STATUS: Full code DVT prophylaxis: Coumadin/added subcu heparin until INR less than 2 DISPOSITION: discharge home today Medicine follow-up with Dr. Baylee Ruiz at [facility] Discharge Instructions Discharge Instructions Date of Service Jul 01, 2017. Admission Reason for Admission: Abdominal Pain Discharge Discharge Diagnosis / Problem: NAUSEA /VOMITING /VIRAL GASTROENTERITIS / CHRONIC ISCHEMIC CARDIOMYOPATHY Discharge Goals Goal(s): Increase independence, Improve disease control, Diagnostic testing, Therapeutic intervention Activity Recommendations Activity Limitations: resume your previous activity . Instructions / Follow-Up Instructions / Follow-Up HOSPITAL FOLLOW UP : 07/08/2017 11:20 AM Candelaria Navas DO [facility] CARDIOLOGY FOLLOW UP : 08/10/2017 2:00 PM Teto Flores PA-C Cardiology, [facility] Current Hospital Diet Patient's current hospital diet: Diabetes Type 2 Diet, AHA Diet (Heart Healthy) Discharge Diet Recommended Diet: AHA Diet (Heart Healthy), Diabetes Type 2 Diet Pending Studies Studies pending at discharge: no Laboratory Results Hemoglobin A1c Test 05/19/17 02:53 Range/Units Estimated Average Glucose 206 mg/dl Hemoglobin A1c 8.8 H 4.5-5.6 % Lipid Panel Test 04/28/17 05:34 Range/Units Triglycerides Level 162 H 0-150 mg/dl Cholesterol Level 241 H 0-200 mg/dl HDL Cholesterol 33 mg/dl Cholesterol/HDL Ratio 7.3 LDL Cholesterol, Calculated 176 mg/dl Medical Emergencies . Who to Call and When: Medical Emergencies: If at any time you feel your situation is an emergency, please call 911 immediately. . Non-Emergent Contact Non-Emergency issues call your: Primary Care Provider . . "Provider Documentation" section prepared by Piedad Porter. .
[2017-07-02 11:19] VITALS: BP 151/77; PULSE 64; TEMP 36.9; O2SAT 94
[2017-07-02] MEDS ORDERED: WARFARIN SOD 5 MG TAB PO SCH (16:00)
== END 2017-07-02 13:01 | disposition home or self-care (01) ==
LOC: C.EDB 21:40 → C.MED 07-01 02:43 → ENRESERV 07-01 02:56
PROVIDERS: ADMIT Hospitalist; ATTEND Hospitalist
DX: A08.4 Viral intestinal infection, unspecified (principal); I25.5 Ischemic cardiomyopathy; I71.4 Abdominal aortic aneurysm, without rupture; I50.22 Chronic systolic (congestive) heart failure; D64.9 Anemia, unspecified; N18.3 Chronic kidney disease, stage 3 (moderate); I13.0 Hypertensive heart and chronic kidney disease with heart failure and stage 1 through stage 4 chronic kidney disease, or unspecified chronic kidney disease; I25.10 Atherosclerotic heart disease of native coronary artery without angina pectoris; E11.22 Type 2 diabetes mellitus with diabetic chronic kidney disease; E78.5 Hyperlipidemia, unspecified; E03.9 Hypothyroidism, unspecified; G47.33 Obstructive sleep apnea (adult) (pediatric); Z95.1 Presence of aortocoronary bypass graft; Z82.49 Family history of ischemic heart disease and other diseases of the circulatory system; Z83.6 Family history of other diseases of the respiratory system; Z87.891 Personal history of nicotine dependence; Z79.899 Other long term (current) drug therapy; Z79.82 Long term (current) use of aspirin; Z79.4 Long term (current) use of insulin; Z88.1 Allergy status to other antibiotic agents; Z88.8 Allergy status to other drugs, medicaments and biological substances; Z79.01 Long term (current) use of anticoagulants; Z95.810 Presence of automatic (implantable) cardiac defibrillator

== ENCOUNTER 2017-09-27 17:38 | Inpatient (IN) | payer OTHER, BC ==
[~2017-09-27] VITALS: Ht 172.7 cm; Wt 90.1 kg
[~2017-09-27 17:38] MED LIST changes: -DXY100 PO; +FLUT1INH INH; -FLUT1INH PO; -INSDGIPEN SC; -ISOS30TA35 PO; -NRV/5 PO; -NYSS/ PO; -PANT40TA2 PO; -POTA10TA30 PO; +SPIR25TA6 PO; -SPR25 PO; -SPRIN/30 INH
[2017-09-27] MEDS ORDERED: ACETAMINOPHEN 325 MG TAB PO STA (18:12)
[2017-09-27] MEDS ORDERED: ALBUT/IPRATROP 3MG/0.5MG NEB 3 ML VIAL INH STA (18:12)
[2017-09-27] MEDS ORDERED: FENTANYL CITRATE INJ 50 MCG/1 ML 2 ML VIAL IV ONE (18:15)
--- NOTE | 2017-09-27 18:15 | EMERGENCY ROOM VISIT NOTE ---
History Report prepared by Cynthia: Juancho Millan Under the Supervision of: Dr. Beto Simon M.D. First contact with patient: 17:59 Chief Complaint: SHORTNESS OF BREATH Stated Complaint: BACK PAIN, SOB, REF BY History of Present Illness The patient is a 71 year old male with a past medical history of COPD , chronic systolic heart failure secondary to ischemic cardiomyopathy, EF of 25 % to 29% sp ICD, CAD status post CABG, AAA status post surgery, PAF on Coumadin , hx VT, DM2 insulin requiring, Past tobacco abuse, CRI (1.3-2 as per records), chronic anemia (baseline hemoglobin of 11-12) and a past surgical history of AAA surgery, CABG, ICD, cataracts, and cholecystectomy, who presents to the ED with a cc of constant back pain beginning three days ago. Positive for SOB, abdominal pain, a productive cough, and hemoptysis. Negative for swelling/pain in the legs, nausea, vomiting, diaphoresis, urinary symptoms, and bowel problems. The patient states that he has been in cardiac rehab for the last four weeks. He notes that he went to workout this morning and became SOB. He reports that his pain worsens when he breathes. He denies any recent antibiotic use, history of blood clots, and recent travel. The patient states that he takes Coumadin and aspirin. He notes that he has not smoked cigarettes since 2010. Source of History: patient Onset: three days ago Position: back Timing: constant Modifying Factors (Worsening): breathing Associated Symptoms: + cough (productive), + SOB, + abdominal pain, No nausea, No vomiting, No urinary symptoms Note: The patient also complains of hemoptysis. He denies any swelling/pain in the legs, diaphoresis, and bowel problems. Review of Systems See HPI for pertinent positives and negatives. A total of ten systems were reviewed and were otherwise negative. Past Medical & Surgical Medical Problems: (1) AAA (abdominal aortic aneurysm) (2) Abnormal QT interval present on electrocardiogram (3) Anticoagulated on warfarin (4) Automatic implantable cardiac defibrillator in situ (5) Chest pain (6) CHF (congestive heart failure) (7) CHF exacerbation (8) Chronic systolic (congestive) heart failure (9) CKD (chronic kidney disease) stage 3, GFR 30-59 ml/min (10) COPD exacerbation (11) Coronary artery disease (12) Diabetes mellitus, type II (13) Dyslipidemia (14) History of ventricular tachycardia (15) HTN (hypertension) (16) Hypokalemia (17) Hypothyroidism (18) Non-sustained ventricular tachycardia (19) PHAN treated with BiPAP (20) Pacemaker (21) PAF (paroxysmal atrial fibrillation) (22) SOB (shortness of breath) on exertion (23) V-tach Surgical Problems: (1) S/P triple vessel bypass (2) Status post abdominal aortic aneurysm repair (3) Status post cataract extraction (4) Status post cholecystectomy (5) Status post coronary artery bypass grafting (6) Status post implantation of automatic cardioverter/defibrillator (AICD) Family History Diabetes mellitus FH: heart disease FATHER FH: lung cancer MOTHER FHx: gallbladder disease Heart disease Hypertension MOTHER Kidney disease Kidney stones Social History Smoking Status: Never Smoker Alcohol Use: occasionally Drug Use: none Marital Status: Housing Status: lives with family Occupation Status: retired Current/Historical Medications Scheduled Amiodarone HCl (Amiodarone HCl), 200 MG PO BID Amlodipine Besylate (Amlodipine Besylate), 5 MG PO DAILY Ascorbic Acid (Vitamin C), 1,000 MG PO BID Aspirin (Aspirin Ec), 81 MG PO QAM Calcitriol (Calcitriol), 0.25 MCG PO 3XWK Escitalopram Oxalate (Escitalopram Oxalate), 10 MG PO DAILY Fluticasone Furoate-Vilanterol (Breo Ellipta), 1 PUFF INH QAM Furosemide (Furosemide), 80 MG PO BID Hydralazine Hcl (Apresoline), 25 MG PO BID Insulin Aspart (Novolog Flexpen), 5 UNITS SQ ACHS Insulin Glargine (Lantus Solostar), 42 UNITS SC QPM Isosorbide Mononitrate Ext Rel (Imdur Ext Rel), 30 MG PO QAM Levothyroxine Sodium (Levothyroxine Sodium), 100 MCG PO DAILY Metoprolol Succinate (Toprol Xl), 25 MG PO DAILY Multivitamins/Minerals (Mvi With Minerals), 1 TAB PO DAILY [place]-3 Fatty Acids (Fish Oil), 1,000 MG PO BID Pantoprazole (Pantoprazole Sodium), 40 MG PO QAM Potassium Chloride (Potassium Chloride Cr), 10 MEQ PO DAILY Spironolactone (Spironolactone), 12.5 MG PO 3XWK Tiotropium [employer] (Spiriva Handihaler), 1 PUFF INH QAM Vitamin E (E-400), 400 INTER.UNIT PO DAILY Warfarin Sodium (Coumadin), 2.5 MG PO 2XWK Warfarin Sodium (Warfarin Sodium), 5 MG PO 5XWK Scheduled PRN Albuterol Hfa (Ventolin Hfa), 2 PUFFS INH QID PRN for Shortness of Breath Lorazepam (Lorazepam), 1 MG PO Q8 PRN for Anxiety/Sleep Nitroglycerin (Nitrostat), 0.4 MG UT UD PRN for Chest Pain Allergies Coded Allergies: Amoxicillin (Verified Allergy, Severe, Anaphylaxis, 06/30/17) Clavulanic Acid (Verified Allergy, Severe, Anaphylaxis, 06/30/17) Physical Exam Vital Signs Date Time Temp Pulse Resp B/P (MAP) Pulse Ox O2 Delivery O2 Flow Rate FiO2 09/27/17 18:54 160/80 09/27/17 18:38 58 20 99 09/27/17 18:33 95 Room Air 09/27/17 18:07 54 09/27/17 17:46 36.5 59 18 143/77 96 Room Air Physical Exam GENERAL: Awake, alert, well-appearing, NAD HENT: Normocephalic, atraumatic. EYES: Normal conjunctiva. Sclera non-icteric. PERRL. No anisocoria. NECK: Supple. No nuchal rigidity. FROM. RESPIRATORY: No rhonchi, crackles. Mild diffuse wheezes throughout. CARDIAC: RRR, no MRG CHEST: Device noted in left chest, midline sternotomy scar. ABDOMEN: Soft, NTND, BS+, no pulsating masses noted. MSK: No chest wall TTP, no LE edema, no calf pain, negative Doc's sign, no pretibial edema. NEURO: GCS 15, CN 2-12 intact, moves all 4s on command SKIN: No rash or jaundice noted. Medical Decision & Procedures ER Provider Diagnostic Interpretation: Radiology results as stated below per my review and radiologist interpretation: CHEST ONE VIEW PORTABLE FINDINGS: Left subclavian implanted cardiac defibrillator with 2 leads to the right ventricular apex, one likely abandoned. Median sternotomy wires with bypass graft rings. Extensive mediastinal surgical clips. Atherosclerosis of aortic arch. Cardiac silhouette mildly enlarged, which may be slightly increased from prior. Pulmonary vascular prominence increased from prior. Bronchial wall thickening. Bandlike opacity at the left lung base with persistent left hemidiaphragm elevation. No large pleural effusion or pneumothorax. Osseous structures normal. Extensive surgical clips in the epigastrium. IMPRESSION: 1. Cardiomegaly with volume overload and congestive change. No char pulmonary edema. 2. Minimal left basilar atelectasis. Electronically signed by: Isaiah Young M.D. 09/27/2017 6:54 PM Dictated Date/Time: 09/27/2017 6:53 PM (CHEST FOR PE) ANGIO WITH FINDINGS: Cytogenetic Technician topogram: Left subclavian implanted cardiac defibrillator with 2 leads to the right ventricular apex. Extensive surgical clips in the mediastinum and epigastrium. Median sternotomy wires with bypass graft rings. Pulmonary vasculature: The study is adequate for assessment of the pulmonary vascular tree. No filling defect within the pulmonary arteries to suggest embolus. Main pulmonary artery is not enlarged. No flattening of the interventricular septum. No intracardiac filling defect. No reflux of contrast into the hepatic veins. Remaining chest: On soft tissue windows, normal thyroid. Bilateral gynecomastia. Left subclavian implanted cardiac defibrillator with 2 leads to the right ventricular apex. Postsurgical changes of coronary artery bypass grafting. Prominent subcentimeter mediastinal lymph nodes in the prevascular and precarinal regions, likely reactive. Atherosclerosis of the aorta. Multichamber enlargement of the heart. Coronary artery and aortic valve calcification. No pericardial or pleural effusion. Cholecystectomy clips. Partially visualized aortic endograft stent. The density of the liver may suggest minimal deposition or amiodarone exposure. Surgical clips noted in the epigastrium. On lung windows, minimal dependent changes likely atelectasis. Irregular bandlike opacity in the anterior segment of the right upper lobe (series 4 image 214) unchanged from prior consistent with scarring. Minimal tree-in-bud opacities in the posterior segment of the right upper lobe (series 4 and 213). Bronchial wall thickening most prominently in the right upper lobe posterior segment with subsegmental bronchial debris likely mucous plugging. Trace centrilobular emphysematous changes. On bone windows, degenerative changes of the spine. IMPRESSION: 1. No evidence of pulmonary embolus. 2. Tree-in-bud opacities in the posterior segment of the right upper lobe with associated subsegmental] bronchial debris, likely mucous plugging. This suggests an infectious bronchiolitis versus aspiration. 3. Evidence of smoking related lung injury with emphysema. 4. Cardiomegaly with ICD. 5. Postsurgical changes of CABG. 6. The density of the liver may suggest mineral deposition or amiodarone exposure. Correlate clinically. Electronically signed by: Isaiah Young M.D. 09/27/2017 7:03 PM Dictated Date/Time: 09/27/2017 6:55 PM Laboratory Results 09/27/17 18:00 Red Blood Count 4.81, Mean Corpuscular Volume 85.2, Mean Corpuscular Hemoglobin 29.1, Mean Corpuscular Hemoglobin Concent 34.1, Mean Platelet Volume 10.2, Neutrophils (%) (Auto) 67.1, Lymphocytes (%) (Auto) 20.4, Monocytes (%) (Auto) 10.2, Eosinophils (%) (Auto) 1.6, Basophils (%) (Auto) 0.2, Neutrophils # (Auto ) 5.72, Lymphocytes # (Auto) 1.74, Monocytes # (Auto) 0.87, Eosinophils # (Auto ) 0.14, Basophils # (Auto) 0.02 09/27/17 18:00 Test 09/27/17 18:00 09/27/17 18:22 White Blood Count 8.53 K/uL (4.8-10.8) Red Blood Count 4.81 M/uL (4.7-6.1) Hemoglobin 14.0 g/dL (14.0-18.0) Hematocrit 41.0 % (42-52) Mean Corpuscular Volume 85.2 fL (80-100) Mean Corpuscular Hemoglobin 29.1 pg (25-34) Mean Corpuscular Hemoglobin Concent 34.1 g/dl (32-36) Platelet Count 192 K/uL (130-400) Mean Platelet Volume 10.2 fL (7.4-10.4) Neutrophils (%) (Auto) 67.1 % Lymphocytes (%) (Auto) 20.4 % Monocytes (%) (Auto) 10.2 % Eosinophils (%) (Auto) 1.6 % Basophils (%) (Auto) 0.2 % Neutrophils # (Auto) 5.72 K/uL (1.4-6.5) Lymphocytes # (Auto) 1.74 K/uL (1.2-3.4) Monocytes # (Auto) 0.87 K/uL (0.11-0.59) Eosinophils # (Auto) 0.14 K/uL (0-0.5) Basophils # (Auto) 0.02 K/uL (0-0.2) RDW Standard Deviation 45.5 fL (36.4-46.3) RDW Coefficient of Variation 14.6 % (11.5-14.5) Immature Granulocyte % (Auto) 0.5 % Immature Granulocyte # (Auto) 0.04 K/uL (0.00-0.02) Prothrombin Time 19.8 SECONDS (9.0-12.0) Prothromb Time International Ratio 1.9 (0.9-1.1) Activated Partial Thromboplast Time 32.0 SECONDS (21.0-31.0) Partial Thromboplastin Ratio 1.2 Est Creatinine Clear Calc Drug Dose 50.0 ml/min Estimated GFR () 54.0 Estimated GFR (Non- 46.6 BUN/Creatinine Ratio 22.9 (10-20) Calcium Level 8.8 mg/dl (8.5-10.1) Magnesium Level 2.7 mg/dl (1.8-2.4) Total Bilirubin 0.5 mg/dl (0.2-1) Direct Bilirubin 0.1 mg/dl (0-0.2) Aspartate Amino Transf (AST/SGOT) 93 U/L (15-37) Alanine Aminotransferase (ALT/SGPT) 145 U/L (12-78) Alkaline Phosphatase 87 U/L (45-117) Troponin I < 0.015 ng/ml (0-0.045) Pro-B-Type Natriuretic Peptide 1130 pg/ml (0-900) Total Protein 7.6 gm/dl (6.4-8.2) Albumin 3.6 gm/dl (3.4-5.0) Lipase 116 U/L (73-393) Bedside Hemoglobin 16.3 g/dl (14.0-18.0) Bedside Hematocrit 48 % (42-52) Bedside Sodium 141 mEq/L (135-144) Bedside Potassium 3.3 mEq/L (3.3-5.0) Bedside Chloride 102 mEq/L (101-112) Bedside Total CO2 28 mEq/l (24-31) Anion Gap 15.0 mmol/L (16-25) Bedside Blood Urea Nitrogen 33 mg/dl (7-18) Bedside Creatinine 1.5 mg/dl (0.6-1.3) Bedside Glucose (other) 113 mg/dl (70-99) Bedside Ionized Calcium (Mauro) 1.10 mmol/l (1.12-1.32) Laboratory results reviewed by me Medications Administered Medications (Trade) Dose Ordered Sig/Obi Route Start Time Stop Time Status Last Admin Dose Admin Albuterol/ Ipratropium (Duoneb) 3 ml ONE STAT INH 09/27/17 18:12 09/27/17 18:16 DC 09/27/17 18:31 3 ML Fentanyl Citrate (Fentanyl Inj) 25 mcg NOW ONCE IV 09/27/17 18:15 09/27/17 18:16 DC 09/27/17 18:15 25 MCG Acetaminophen (Tylenol Tab) 650 mg NOW STAT PO 09/27/17 18:12 09/27/17 18:16 DC 09/27/17 18:30 650 MG Ondansetron HCl (Zofran Inj) 4 mg NOW STAT IV 09/27/17 19:06 09/27/17 19:07 DC 09/27/17 19:17 4 MG ECG Per My Interpretation Indication: back/shoulder pain Rate (beats per minute): 54 Rhythm: sinus bradycardia Findings: 1st degree AV block, Q waves (Inferior), other (Normal axis, T wave inversion high lateral, 1 ventricularly paced beat noted) Comparison ECG Date: 07/01/2017 Change: Compared to prior, Q waves are new and T wave inversion is old. ED Course 1801: The patient was evaluated in room A12. A complete history and physical exam was performed. 1912: Upon reexamination, the patient was stable. I discussed the test results and treatment plan with him. [facility] the [facility] The patient will be evaluated for further management. 1918: Discussed the patient's CT PE with Dr. Young - Radiology, [facility]. He states that the patient's thoracic aorta is torturous but notes that there is no evidence of aneurysm based on PE study. Medical Decision Nursing notes reviewed. Ancillary studies and prior records reviewed. The patient is a 71 year old male with a past medical history of COPD , chronic systolic heart failure secondary to ischemic cardiomyopathy, EF of 25 % to 29% sp ICD, CAD status post CABG, AAA status post surgery, PAF on Coumadin , hx VT, DM2 insulin requiring, Past tobacco abuse, CRI (1.3-2 as per records), chronic anemia (baseline hemoglobin of 11-12) and a past surgical history of AAA surgery, CABG, ICD, cataracts, and cholecystectomy, who presents to the ED with a cc of constant back pain beginning three days ago. Differential diagnosis: Etiologies such as cardiac ischemia, aortic dissection, pulmonary embolism, pneumonia, pneumothorax, musculoskeletal, infections, pericarditis, myocarditis , esophageal rupture, gastrointestinal, reactive airway disease, COPD, CHF, pulmonary embolism, as well as others were entertained. The patient's abdominal US from April 2017 was reviewed. It shows that the patient had an infrarenal AAA that was approximately 3.4cm, which was smaller in size compared to prior CT. Patient was seen and evaluated the bedside. Patient was complaining of some shortness of breath and chest pain. Patient was stating that his pain would occasionally be in the middle of his back. Patient states this would only change with positions. Patient noted that he was having some difficulty with completing his cardiac rehab exercises. Patient states that they have not increased the amount or intensity of his work and that it was the same as last Wednesday but noticed increasing difficulty trying to completed today. Patient did complain of some productive sputum and hemoptysis. Patient is on aspirin and Coumadin. The patient does not have any calf pain and does not have a positive Homans sign. No lower extremity swelling. Patient did a blood work completed, EKG, troponin, chest x-ray, BNP, and CT PE protocol. Patient CT PE showed questionable tree-in-bud opacities. The patient did have some wheezing on his initial antibiotics were deferred at this time. The patient does not have an elevated white blood cell count. Patient's other blood work did show elevations in LFTs and BMP. The patient does not appear overtly volume overloaded. The patient's LFTs are chronically elevated and are likely secondary to his amiodarone use. Patient's troponin was not elevated. INR was 1.9. Upon reassessment the patient was not feeling much improved. The patient is high risk given his multiple medical comorbidities and substantial long and cardiac problems. Given this I thought he would benefit from further observation and trending cardiac enzymes, formal cardiology consult, and possibly a repeat echo given the patient's new exertional shortness of breath. Medication Reconcilliation Current Medication List: was personally reviewed by me Blood Pressure Screening Patient's blood pressure: Elevated blood pressure Elevated blood pressure will be monitored by hospitalist. Consults Time Called: 1909 Consulting Physician: Dr. Jerome - Hospitalist [facility] Returned Call: 1912 Discussed the patient's case. The patient will be evaluated for further treatment and disposition. Additional Consults: Time Called: 1917 Consulted Physician: Dr. Young - Radiology, [facility] Returned Call: 1918 Additional Comments: Discussed the patient's CT PE with Dr. Young. He states that the patient's thoracic aorta is torturous but notes that there is no evidence of aneurysm based on PE study. Impression Primary Impression: Chest pain Additional Impression: SOB (shortness of breath) Scribe Attestation The scribe's documentation has been prepared under my direction and personally reviewed by me in its entirety. I confirm that the note above accurately reflects all work, treatment, procedures, and medical decision making performed by me. Departure Information Dispostion Being Evaluated By Hospitalist Referrals Candelaria Navas DO (PCP) Patient Instructions My [facility] Problem Qualifiers Primary Impression: Chest pain Chest pain type: unspecified Qualified Codes: R07.9 - Chest pain, unspecified
[2017-09-27 18:23] LABS: BASO % 0.2 %; BASO ABS # 0.02 K/uL (0-0.2); EOS % 1.6 %; EOS ABS # 0.14 K/uL (0-0.5); IG# 0.04 K/uL (0.00-0.02); LYMPH % 20.4 %; LYMPH ABS # 1.74 K/uL (1.2-3.4); MEAN CELL VOLUME 85.2 fL (80-100); MEAN CORPUSCULAR HEMOGLOBIN 29.1 pg (25-34); MEAN CORPUSCULAR HGB CONC 34.1 g/dl (32-36); MEAN PLATELET VOLUME 10.2 fL (7.4-10.4); MONO % 10.2 %; MONO ABS # 0.87 K/uL (0.11-0.59); NEUT % 67.1 %; NEUT ABS # 5.72 K/uL (1.4-6.5); PLATELET COUNT 192 K/uL (130-400); RED CELL DISTRIBUTION WIDTH CV 14.6 % (11.5-14.5); RED CELL DISTRIBUTION WIDTH SD 45.5 fL (36.4-46.3); WHITE BLOOD COUNT 8.53 K/uL (4.8-10.8)
[2017-09-27] MEDS ORDERED: OPTIRAY 320 IV PRN (18:30)
[2017-09-27 18:37] LABS: ISTAT CREATININE 1.5 mg/dl (0.6-1.3); ISTAT IONIZED CALCIUM 1.1 mmol/l (1.12-1.32); ISTAT POTASSIUM 3.3 mEq/L (3.3-5.0)
[2017-09-27 18:39] LABS: INR 1.9 (0.9-1.1)
[2017-09-27 18:53] LABS: ALBUMIN 3.6 gm/dl (3.4-5.0); ALKALINE PHOSPHATASE 87 U/L (45-117); ALT/SGPT 145 U/L (12-78); AST/SGOT 93 U/L (15-37); BLOOD UREA NITROGEN 34 mg/dl (7-18); CALCIUM 8.8 mg/dl (8.5-10.1); CARBON DIOXIDE 27 mmol/L (21-32); CREATININE 1.49 mg/dl (0.60-1.40); GLUCOSE 114 mg/dl (70-99); LIPASE 116 U/L (73-393); POTASSIUM 3.3 mmol/L (3.5-5.1); SODIUM 139 mmol/L (136-145); TOTAL PROTEIN 7.6 gm/dl (6.4-8.2)
--- NOTE | 2017-09-27 18:55 | DIAGNOSTIC IMAGING REPORT ---
CHEST ONE VIEW PORTABLE CLINICAL HISTORY: 71 years-old Male presenting with CHEST PAIN. TECHNIQUE: Portable upright AP view of the chest was obtained. COMPARISON: 05/25/2017. FINDINGS: Left subclavian implanted cardiac defibrillator with 2 leads to the right ventricular apex, one likely abandoned. Median sternotomy wires with bypass graft rings. Extensive mediastinal surgical clips. Atherosclerosis of aortic arch. Cardiac silhouette mildly enlarged, which may be slightly increased from prior. Pulmonary vascular prominence increased from prior. Bronchial wall thickening. Bandlike opacity at the left lung base with persistent left hemidiaphragm elevation. No large pleural effusion or pneumothorax. Osseous structures normal. Extensive surgical clips in the epigastrium. IMPRESSION: 1. Cardiomegaly with volume overload and congestive change. No char pulmonary edema. 2. Minimal left basilar atelectasis. Electronically signed by: Isaiah Young M.D. 09/27/2017 6:54 PM Dictated Date/Time: 09/27/2017 6:53 PM
--- NOTE | 2017-09-27 19:04 | DIAGNOSTIC IMAGING REPORT ---
(CHEST FOR PE) ANGIO WITH CLINICAL HISTORY: 71 years-old Male presenting with ^sob, chest pain, hemoptysis. TECHNIQUE: Multidetector CT angiography of the chest was performed after administration of intravenous contrast. 3-D volumetric and/or maximum intensity projection (MIP) images were subsequently reconstructed for review. IV contrast: 116 mL of Optiray 320. A dose lowering technique was used consistent with the principles of ALARA (as low as reasonably achievable). COMPARISON: Chest x-ray performed earlier today and chest CTA from 05/18/2014. CT DOSE (mGy.cm): The estimated cumulative dose is 667.22 mGy.cm. FINDINGS: Resident Care Aid topogram: Left subclavian implanted cardiac defibrillator with 2 leads to the right ventricular apex. Extensive surgical clips in the mediastinum and epigastrium. Median sternotomy wires with bypass graft rings. Pulmonary vasculature: The study is adequate for assessment of the pulmonary vascular tree. No filling defect within the pulmonary arteries to suggest embolus. Main pulmonary artery is not enlarged. No flattening of the interventricular septum. No intracardiac filling defect. No reflux of contrast into the hepatic veins. Remaining chest: On soft tissue windows, normal thyroid. Bilateral gynecomastia. Left subclavian implanted cardiac defibrillator with 2 leads to the right ventricular apex. Postsurgical changes of coronary artery bypass grafting. Prominent subcentimeter mediastinal lymph nodes in the prevascular and precarinal regions, likely reactive. Atherosclerosis of the aorta. Multichamber enlargement of the heart. Coronary artery and aortic valve calcification. No pericardial or pleural effusion. Cholecystectomy clips. Partially visualized aortic endograft stent. The density of the liver may suggest minimal deposition or amiodarone exposure. Surgical clips noted in the epigastrium. On lung windows, minimal dependent changes likely atelectasis. Irregular bandlike opacity in the anterior segment of the right upper lobe (series 4 image 214) unchanged from prior consistent with scarring. Minimal tree-in-bud opacities in the posterior segment of the right upper lobe (series 4 and 213). Bronchial wall thickening most prominently in the right upper lobe posterior segment with subsegmental bronchial debris likely mucous plugging. Trace centrilobular emphysematous changes. On bone windows, degenerative changes of the spine. IMPRESSION: 1. No evidence of pulmonary embolus. 2. Tree-in-bud opacities in the posterior segment of the right upper lobe with associated subsegmental] bronchial debris, likely mucous plugging. This suggests an infectious bronchiolitis versus aspiration. 3. Evidence of smoking related lung injury with emphysema. 4. Cardiomegaly with ICD. 5. Postsurgical changes of CABG. 6. The density of the liver may suggest mineral deposition or amiodarone exposure. Correlate clinically. Electronically signed by: Isaiah Young M.D. 09/27/2017 7:03 PM Dictated Date/Time: 09/27/2017 6:55 PM
[2017-09-27] MEDS ORDERED: ONDANSETRON INJ 2 MG/ML 2 ML VIAL IV STA (19:06)
[2017-09-27] MEDS ORDERED: CALC1CAP36 PO (19:25)
[2017-09-27] MEDS ORDERED: LSX80 PO (19:25)
[2017-09-27] MEDS ORDERED: NRV/5 PO (19:25)
[2017-09-27] MEDS ORDERED: ATV1 PO (19:25)
[2017-09-27] MEDS ORDERED: APR25 PO (19:25)
[2017-09-27] MEDS ORDERED: METO-217 PO (19:25)
[2017-09-27] MEDS ORDERED: CRD200 PO (19:25)
[2017-09-27] MEDS ORDERED: LXP10 PO (19:25)
[2017-09-27] MEDS ORDERED: VNTHFA/IN INH (19:30)
[2017-09-27] MEDS ORDERED: WARF-246 PO (19:33)
[2017-09-27] MEDS ORDERED: NITROGLYCERIN 0.4 MG SL PER TAB CHARGE SL PRN (20:15)
[2017-09-27] MEDS ORDERED: ACETAMINOPHEN 325 MG TAB PO PRN (20:15)
[2017-09-27] MEDS ORDERED: POTASSIUM CHLORIDE 10 MEQ TABCR PO STA (20:15)
[2017-09-27 20:17] VITALS: BP 157/78; PULSE 59; TEMP 36.9; O2SAT 95; Ht 172.7 cm; Wt 90.1 kg
[2017-09-27] MEDS ORDERED: PHARMACY GLYCEMIC MGMT CONSULT PRN (20:38)
[2017-09-27] MEDS ORDERED: WARFARIN SOD 2.5 MG TAB PO SCH (20:45)
[2017-09-27] MEDS ORDERED: CYCLOBENZAPRINE HCL 10 MG TAB PO PRN (20:45)
[2017-09-27] MEDS ORDERED: LORAZEPAM 1 MG TAB PO PRN (20:45)
[2017-09-27 20:59] VITALS: BP 164/79; PULSE 54; TEMP 37; O2SAT 93
[2017-09-27 21:00] VITALS: BP 164/79; PULSE 54; TEMP 37; O2SAT 93
[2017-09-27] MEDS ORDERED: LEVALBUTEROL/IPRATROPIUM NEB INH SCH ×2 (21:00)
[2017-09-27] MEDS ORDERED: LEVALBUTEROL 0.63MG/3 ML NEB INH PRN (21:45)
[2017-09-27] MEDS ORDERED: IPRATROPIUM BROMIDE NEB SOLN 0.02% 2.5 ML VIAL INH PRN (21:45)
[2017-09-27] MEDS ORDERED: FUROSEMIDE INJ 40 MG in SYRINGE 0 ML IV ONE (21:45)
--- NOTE | 2017-09-27 22:12 | History and Physical ---
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 Anderson s/p CABG in 1991, s/p ICD implantation , NYHA Class III CHF, PAF on Coumadin therapy, chronic transaminase elevation with past acute chemical hepatitis, COPD, obstructive sleep apnea on BiPAP therapy, CKD stage III, hypothyroidism, normal calcific primary hyperparathyroidism, hypertension, hyperlipidemia, uncontrolled insulin- dependent type 2 diabetes mellitus with most recent A1C 8.8, AAA status post endovascular repair 10/29/2011, hemochromatosis, who presented to [facility] on 09/27/2017 due to shortness of breath. Patient states he was at cardiac rehab when he felt it was more difficult to do the exercises than it was in days prior due to SOB. He returned home from cardiac rehab when he continued to have exertional shortness of breath. Rest made SOB better, he was unable to quantify how long it took to improved. He called his PCP for appointment and they urged him to be seen in the ED. He denied any associated lightheadedness, dizziness, syncope, chest pain, radiation of pain to jaw or neck, palpitations, nausea, vomiting, diarrhea, dark tarry stool or melena. He does elicit that he was having left shoulder discomfort that was not associated to shortness of breath, rated as 8 out of 10, described as a pin like pain that was worse with leaning over like tying his shoes, but was relieved as soon as he remained upright. Further complained of occasional dry nonproductive cough, painful when coughing, and slight abdominal bloating. He has chronic SOB due to his chronic CHF and COPD; however he feels today it is much worse. Overall has a good appetite and good fluid intake, but he feels he may have drank excessive fluid in account for the excessive humidity. His bowels are moving normally and is urinating with out difficulty. Denies urgency, dysuria, hematuria. is present and she feels he has been having more difficulty breathing over the past few days secondary to the humidity. Past Medical/Surgical History Medical Problems: (1) AAA (abdominal aortic aneurysm) Status: Chronic (2) Abnormal QT interval present on electrocardiogram Status: Chronic (3) Anticoagulated on warfarin Status: Chronic (4) Automatic implantable cardiac defibrillator in situ Status: Chronic (5) Chest pain Status: Chronic (6) CHF (congestive heart failure) Permanent Comment: echo 05/28/13 LVEF 30-35% Status: Chronic (7) Chronic systolic (congestive) heart failure Status: Chronic (8) CKD (chronic kidney disease) stage 3, GFR 30-59 ml/min Status: Chronic (9) Coronary artery disease Permanent Comment: s/p [place] ischemic cardiomyopathy s/p CABG Status: Chronic (10) Diabetes mellitus, type II Status: Chronic (11) Dyslipidemia Status: Chronic (12) History of ventricular tachycardia Status: Chronic (13) HTN (hypertension) Status: Chronic (14) Hypothyroidism Status: Chronic (15) Non-sustained ventricular tachycardia Status: Chronic (16) PHAN treated with BiPAP Status: Chronic (17) Pacemaker Status: Chronic (18) PAF (paroxysmal atrial fibrillation) Status: Chronic (19) V-tach Status: Chronic Surgical Problems: (1) S/P triple vessel bypass Status: Chronic (2) Status post abdominal aortic aneurysm repair [place] [facility] [place]. Gallagher stent graft Status: Chronic (3) Status post cataract extraction Status: Chronic (4) Status post cholecystectomy Status: Chronic (5) Status post coronary artery bypass grafting Status: Chronic (6) Status post implantation of automatic cardioverter/defibrillator (AICD) Status: Chronic Family History Diabetes mellitus FH: heart disease FATHER, Onset:50's - 60 ( at age 51 due to ME) FH: lung cancer MOTHER, Onset:74 () FHx: gallbladder disease Heart disease Hypertension MOTHER Kidney disease Kidney stones Social History He currently lives at home with his , he is a former smoker which he quit 10 years ago. Previously had a 25 pack year hx. At that time he quit he was smoking cigars roughly 5 a day. He is a nondrinker, denies any illicit drug use. to [place]i, Three Children. 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 Smoking Status: Former Smoker Smokeless Tobacco Use: No Alcohol Use: none Drug Use: none Marital Status: Housing status: lives with significant other Occupational Status: retired Immunizations History of Influenza Vaccine: Yes Influenza Vaccine Date: Dec 01, 2016 History of Tetanus Vaccine?: Yes Tetanus Immunization Date: Apr 18, 2010 History of Pneumococcal: Yes Pneumococcal Date: Dec 01, 2016 History of Hepatitis B Vaccine: Yes Hepatitis Immunization Date: Aug 21, 1996 Allergies Coded Allergies: Amoxicillin (Verified Allergy, Severe, Anaphylaxis, 06/30/17) Clavulanic Acid (Verified Allergy, Severe, Anaphylaxis, 06/30/17) Home Medications Scheduled Amiodarone HCl (Amiodarone HCl), 200 MG PO BID Amlodipine Besylate (Amlodipine Besylate), 5 MG PO DAILY Ascorbic Acid (Vitamin C), 1,000 MG PO BID Aspirin (Aspirin Ec), 81 MG PO QAM Calcitriol (Calcitriol), 0.25 MCG PO 3XWK Escitalopram Oxalate (Escitalopram Oxalate), 10 MG PO DAILY Fluticasone Furoate-Vilanterol (Breo Ellipta), 1 PUFF INH QAM Furosemide (Furosemide), 80 MG PO BID Hydralazine Hcl (Apresoline), 25 MG PO BID Insulin Aspart (Novolog Flexpen), 5 UNITS SQ ACHS Insulin Glargine (Lantus Solostar), 42 UNITS SC QPM Isosorbide Mononitrate Ext Rel (Imdur Ext Rel), 30 MG PO QAM Levothyroxine Sodium (Levothyroxine Sodium), 100 MCG PO DAILY Metoprolol Succinate (Toprol Xl), 25 MG PO DAILY Multivitamins/Minerals (Mvi With Minerals), 1 TAB PO DAILY Dutton-3 Fatty Acids (Fish Oil), 1,000 MG PO BID Pantoprazole (Pantoprazole Sodium), 40 MG PO QAM Potassium Chloride (Potassium Chloride Cr), 10 MEQ PO DAILY Spironolactone (Spironolactone), 12.5 MG PO 3XWK Tiotropium Baudette (Spiriva Handihaler), 1 PUFF INH QAM Vitamin E (E-400), 400 INTER.UNIT PO DAILY Warfarin Sodium (Coumadin), 2.5 MG PO 2XWK Warfarin Sodium (Warfarin Sodium), 5 MG PO 5XWK Scheduled PRN Albuterol Hfa (Ventolin Hfa), 2 PUFFS INH QID PRN for Shortness of Breath Lorazepam (Lorazepam), 1 MG PO Q8 PRN for Anxiety/Sleep Nitroglycerin (Nitrostat), 0.4 MG UT UD PRN for Chest Pain Review of Systems As per HPI, 10 systems were reviewed and negative unless noted above Physical Exam Vital Signs Date Time Temp Pulse Resp B/P (MAP) Pulse Ox O2 Delivery O2 Flow Rate FiO2 09/27/17 20:20 59 16 157/78 92 Room Air 09/27/17 20:17 36.9 59 14 157/78 95 Room Air 09/27/17 18:54 160/80 09/27/17 18:38 58 20 99 09/27/17 18:33 95 Room Air 09/27/17 18:07 54 09/27/17 17:46 36.5 59 18 143/77 96 Room Air General Appearance: WD/WN, no apparent distress, + obese Head: normocephalic, atraumatic Eyes: normal inspection, PERRL, EOMI, sclerae normal ENT: normal ENT inspection, hearing grossly normal, pharynx normal, + pertinent finding (mucous membranes moist) Neck: supple, no adenopathy, thyroid normal, no JVD, no carotid bruits, trachea midline Respiratory/Chest: chest non-tender, lungs clear, normal breath sounds, no respiratory distress, no accessory muscle use, + wheezing (inspiratory/ expiratory wheezing that clears with coughing) Cardiovascular: regular rate, rhythm, no edema, no gallop, no JVD, no murmur, normal peripheral pulses, + bradycardia Abdomen/GI: normal bowel sounds, non tender, soft, no organomegaly, no pulsatile mass Extremities/Musculoskelatal: normal inspection, no calf tenderness, normal capillary refill, no pedal edema, normal range of motion, non-tender Neurologic/Psych: heat regulator II-XII nml as tested, alert, normal mood/affect, oriented x 3 Skin: normal color, warm/dry (warm), no rash Diagnostics Laboratory Results Results Past 24 Hours Test 09/27/17 18:00 09/27/17 18:22 09/27/17 20:35 Range/Units White Blood Count 8.53 4.8-10.8 K/uL Red Blood Count 4.81 4.7-6.1 M/uL Hemoglobin 14.0 14.0-18.0 g/dL Hematocrit 41.0 42-52 % Mean Corpuscular Volume 85.2 80-100 fL Mean Corpuscular Hemoglobin 29.1 25-34 pg Mean Corpuscular Hemoglobin Concent 34.1 32-36 g/dl Platelet Count 192 130-400 K/uL Mean Platelet Volume 10.2 7.4-10.4 fL Neutrophils (%) (Auto) 67.1 % Lymphocytes (%) (Auto) 20.4 % Monocytes (%) (Auto) 10.2 % Eosinophils (%) (Auto) 1.6 % Basophils (%) (Auto) 0.2 % Neutrophils # (Auto) 5.72 1.4-6.5 K/uL Lymphocytes # (Auto) 1.74 1.2-3.4 K/uL Monocytes # (Auto) 0.87 0.11-0.59 K/uL Eosinophils # (Auto) 0.14 0-0.5 K/uL Basophils # (Auto) 0.02 0-0.2 K/uL RDW Standard Deviation 45.5 36.4-46.3 fL RDW Coefficient of Variation 14.6 11.5-14.5 % Immature Granulocyte % (Auto) 0.5 % Immature Granulocyte # (Auto) 0.04 0.00-0.02 K/uL Prothrombin Time 19.8 9.0-12.0 SECONDS Prothromb Time International Ratio 1.9 0.9-1.1 Activated Partial Thromboplast Time 32.0 21.0-31.0 SECONDS Partial Thromboplastin Ratio 1.2 Sodium Level 139 136-145 mmol/L Potassium Level 3.3 3.5-5.1 mmol/L Chloride Level 103 98-107 mmol/L Carbon Dioxide Level 27 21-32 mmol/L Anion Gap 9.0 15.0 16-25 mmol/L Blood Urea Nitrogen 34 7-18 mg/dl Creatinine 1.49 0.60-1.40 mg/dl Est Creatinine Clear Calc Drug Dose 50.0 ml/min Estimated GFR () 54.0 Estimated GFR (Non- 46.6 BUN/Creatinine Ratio 22.9 10-20 Random Glucose 114 70-99 mg/dl Calcium Level 8.8 8.5-10.1 mg/dl Total Bilirubin 0.5 0.2-1 mg/dl Direct Bilirubin 0.1 0-0.2 mg/dl Aspartate Amino Transf (AST/SGOT) 93 15-37 U/L Alanine Aminotransferase (ALT/SGPT) 145 12-78 U/L Alkaline Phosphatase 87 45-117 U/L Troponin I < 0.015 0-0.045 ng/ml Pro-B-Type Natriuretic Peptide 1130 0-900 pg/ml Total Protein 7.6 6.4-8.2 gm/dl Albumin 3.6 3.4-5.0 gm/dl Lipase 116 73-393 U/L Bedside Hemoglobin 16.3 14.0-18.0 g/dl Bedside Hematocrit 48 42-52 % Bedside Sodium 141 135-144 mEq/L Bedside Potassium 3.3 3.3-5.0 mEq/L Bedside Chloride 102 101-112 mEq/L Bedside Total CO2 28 24-31 mEq/l Bedside Blood Urea Nitrogen 33 7-18 mg/dl Bedside Creatinine 1.5 0.6-1.3 mg/dl Bedside Glucose (other) 113 70-99 mg/dl Bedside Ionized Calcium (Mauro) 1.10 1.12-1.32 mmol/l Diagnostic Radiology CXR: IMPRESSION: 1. Cardiomegaly with volume overload and congestive change. No char pulmonary edema. 2. Minimal left basilar atelectasis CT Chest: IMPRESSION: 1. No evidence of pulmonary embolus. 2. Tree-in-bud opacities in the posterior segment of the right upper lobe with associated subsegmental] bronchial debris, likely mucous plugging. This suggests an infectious bronchiolitis versus aspiration. 3. Evidence of smoking related lung injury with emphysema. 4. Cardiomegaly with ICD. 5. Postsurgical changes of CABG. 6. The density of the liver may suggest mineral deposition or amiodarone exposure. Correlate clinically. EKG Sinus bradycardia, ventricular rate 54 bpm, V paced, sinus arrhythmia, first- degree AV block, left bundle branch block. Impression Assessment and Plan (1) SOB (shortness of breath) on exertion Assessment & Plan: [place] most likely to be multifactorial secondary to mild CHF and mild COPD. 1. Give IV Lasix 40mg stat 2. Start on prednisone p.o. 40 mg daily 5 days 3. Start on Xopenex 0.63 mg/3 mL every 6 hours as needed. Will be cautious with this due to history of V. tach 4. Consult speech therapy due to chest CT concerning for questionable aspiration. 5. Trend troponins every 62, initial troponin was negative. 6. Check CBC, BMP, mag, PT/INR, pro calcitonin in am. 7. Consult pharmacy for diabetic management secondary to insulin and starting on oral prednisone. (2) Hypokalemia Assessment & Plan: 1. 40 mEq p.o. 1 now. 2. Continue 10 mEq p.o. daily 3. Repeat BMP in a.m. replete potassium as needed (3) CHF exacerbation Assessment & Plan: 1. We will hold p.o. Lasix, give 40 mg IV Lasix 1 now and reevaluate in a.m. 2. Continue Metoprolol, Aldactone, Imdur as ordered. He is off Losartan due to renal dysfunction per cardiology. 3. Daily weights 4. Strict I and Os 5. Low sodium diet 6. Repeat BMP in a.m. Monitor Renal Function with IV Diuresis 7. Consult Dr. Solano for eval and management due to complex cardiac history Most recent Echo 05/01/17 LVEF 25-29%, left ventricle moderately enlarged, large size apical, septal, anteroseptal, anterior, posterior, and lateral wall motion abnormality with hypokinesis to akinesis of the segments. Right ventricular systolic function is moderately reduced. Proximal descending thoracic aorta moderately enlarged. (4) COPD exacerbation Assessment & Plan: 1. Start Prednisone 40mg po x 5 days 2. Continue BREO 3. PRN Xopenex/Ipratropium 0.63mg/3ml, low dose due to hx of VTACH q6hr routine and q2prn 4. Will check procalcitonin in a.m. to r/o infectious cause. He is afebrile and WBC is WNL therefore will not start any antibiotics at this time. (5) Coronary artery disease Assessment & Plan: Currently without active chest pain - initial troponin negative We will trend troponins 3 Continue metoprolol, imdur, ASA (6) Diabetes mellitus, type II Assessment & Plan: 1. Check A1c in the a.m. 2. Continue current insulin regimen 3. Monitor blood sugars closely secondary to prednisone therapy 4. We will consult pharmacy for glucose management (7) Hypothyroidism Assessment & Plan: Continue Levothyroxine (8) CKD (chronic kidney disease) stage 3, GFR 30-59 ml/min Assessment & Plan: Renal function at baseline with creatinine 1.49. Repeat BMP in a.m. Monitor closely due to diuretics. (9) History of ventricular tachycardia Assessment & Plan: s/p AICD implantation with generator exchange on 09/05/2012, status post knee replacement on 12/04/2015. (10) Anticoagulated on warfarin Assessment & Plan: Continue current coumadin regimen. Check PT/INR in a.m. (11) Dyslipidemia Assessment & Plan: Last lipid panel was on 05/01/2017 Triglycerides 162, total cholesterol 241, LDL 176 Patient currently not on statin therapy secondary to chronic transaminase elevation due to acute chemical hepatitis (12) PAF (paroxysmal atrial fibrillation) Assessment & Plan: Currently Rate and Rhythm Controlled Continue Metoprolol, Amiodarone and Coumadin therapy. PT/INR in a.m. (13) HTN (hypertension) Assessment & Plan: Blood pressure currently uncontrolled. Continue multidrug regimen of amlodipine, metoprolol, hydralazine, Lasix, Imdur , and spironolactone. Will monitor closely. (14) Automatic implantable cardiac defibrillator in situ (15) PHAN treated with BiPAP Assessment & Plan: Continue Bipap at HS (16) Abnormal QT interval present on electrocardiogram Assessment & Plan: Monitor on telemetry. Avoid QT prolonging agents. (17) AAA (abdominal aortic aneurysm) Assessment & Plan: Status post percutaneous endovascular repair 10/29/2011 (18) Pacemaker Advanced Directives Existing Living Will: Yes Existing Power of Bag Hanger: Yes Resuscitation Status Full Code VTE Prophylaxis Will order VTE Prophylaxis: Yes Problem Qualifiers (1) CHF exacerbation: Heart failure type: systolic Qualified Codes: I50.23 - Acute on chronic systolic (congestive) heart failure (2) Coronary artery disease: Coronary Disease-Associated Artery/Lesion type: bypass graft [place] vs. 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
[2017-09-27] MEDS ORDERED: ISOS30TA35 PO (22:18)
[2017-09-27] MEDS ORDERED: POTA10TA30 PO (22:18)
[2017-09-27] MEDS: SPIRONOLACTONE 25 MG TAB PO SCH (22:18)
[2017-09-27] MEDS ORDERED: INSDGIPEN SC (22:18)
[2017-09-27] MEDS ORDERED: PANT40TA2 PO (22:18)
[2017-09-27] MEDS: AMIODARONE 200 MG TAB PO SCH (22:20)
[2017-09-27] MEDS: OMEGA-3 (PURIFIED FISH OIL) 1 GM CAP PO SCH (22:20)
[2017-09-27] MEDS: CALCITRIOL 0.25 MCG CAP PO SCH (22:21)
[2017-09-27] MEDS ORDERED: SPRIN/30 INH (22:23)
[2017-09-27] MEDS: ASCORBIC ACID 500 MG TAB PO SCH (22:23)
[2017-09-27] MEDS: IPRATROPIUM BROMIDE NEB SOLN 0.02% 2.5 ML VIAL INH SCH (22:33)
[2017-09-27 22:34] VITALS: PULSE 56; O2SAT 96
[2017-09-27] MEDS: LEVALBUTEROL 0.63MG/3 ML NEB INH SCH (22:34)
[2017-09-27 23:03] VITALS: BP 136/74; PULSE 50; TEMP 36.4; O2SAT 95
[2017-09-27 23:04] VITALS: PULSE 59; O2SAT 94
[2017-09-27] MEDS ORDERED: WARF5TAB90 PO (23:47)
[2017-09-27] MEDS: INSULIN ASPART 100 UNITS/ML 3 ML PEN SC SCH (23:49)
[2017-09-27] MEDS: INSULIN GLARGINE SOLOSTAR 100 UNITS/ML 3 ML PEN SC SCH (23:50)
[2017-09-28] VITALS (15 sets, daily range): BP systolic 113–157; BP diastolic 64–78; PULSE 48–68; TEMP 36.6–37; O2SAT 92–97
[2017-09-28] MEDS: IPRATROPIUM BROMIDE NEB SOLN 0.02% 2.5 ML VIAL INH SCH ×4 (02:26→19:46)
[2017-09-28] MEDS: LEVALBUTEROL 0.63MG/3 ML NEB INH SCH ×4 (02:27→19:46)
[2017-09-28] MEDS ORDERED: INSULIN ASPART 100 UNITS/ML 3 ML PEN SC ONE (04:00)
[2017-09-28] MEDS: LEVOTHYROXINE 100 MCG TAB PO SCH (05:51)
[2017-09-28 06:29] LABS: HEMATOCRIT 41.4 % (42-52); HEMOGLOBIN 13.8 g/dL (14.0-18.0); MEAN CELL VOLUME 85.9 fL (80-100); MEAN CORPUSCULAR HEMOGLOBIN 28.6 pg (25-34); MEAN CORPUSCULAR HGB CONC 33.3 g/dl (32-36); MEAN PLATELET VOLUME 10.5 fL (7.4-10.4); PLATELET COUNT 194 K/uL (130-400); RED CELL DISTRIBUTION WIDTH CV 14.7 % (11.5-14.5); RED CELL DISTRIBUTION WIDTH SD 46.1 fL (36.4-46.3); WHITE BLOOD COUNT 8.53 K/uL (4.8-10.8)
[2017-09-28 06:34] LABS: INR 2.1 (0.9-1.1)
[2017-09-28 06:36] LABS: HEMOGLOBIN A1C 7.6 % (4.5-5.6)
[2017-09-28 07:08] LABS: BLOOD UREA NITROGEN 30 mg/dl (7-18); CALCIUM 8.5 mg/dl (8.5-10.1); CARBON DIOXIDE 28 mmol/L (21-32); CREATININE 1.65 mg/dl (0.60-1.40); GLUCOSE 200 mg/dl (70-99); POTASSIUM 4.8 mmol/L (3.5-5.1); SODIUM 139 mmol/L (136-145)
[2017-09-28 07:10] LABS: CHOLESTEROL 303 mg/dl (0-200); LDL CHOLESTEROL CALCULATED 228 mg/dl
--- NOTE | 2017-09-28 07:22 | Clinical Documentation Query ---
CLINICAL DOCUMENTATION QUERY 71 YO male admitted with SOB on exertion. CXR shows cardiomegaly with volume overload and congestive changes. Patient was given stat Lasix 40mg IV. Most recent echo 05/01/17 showed EF = 25-29% and right ventricular systolic function moderately reduced. Patient has a history of chronic systolic CHF. In your clinical opinion is this patient being managed for: ( x ) Acute on chronic systolic (congestive) heart failure ( ) Not Agree ( ) Other explanation of clinical findings (No explanation is considered a No Response) ( ) Unable to determine ( ) Need to Discuss (Phone CDS or qliq) (No discussion is considered a No Response) The medical record reflects the following clinical findings, treatment, and risk factors. Clinical Indicators: As above Treatment: Lasix 40mg IV, I&O, CXR, daily weights, low NA diet, Cardiology consult Risk Factors: Chronic systolic CHF, CAD, post MN/CABG, Afib, HTN Please clarify and document your clinical opinion in the progress notes and discharge summary. Terms such as "probable", "suspected", "likely", "questionable", "possible", or "still to be ruled out" are acceptable. IF IN AGREEMENT, YOU MUST DOCUMENT ABOVE DIAGNOSTIC STATEMENT IN DAILY PROGRESS NOTES AND DISCHARGE SUMMARY. This document is not part of the patient's record. Thank You, Trudi Gray RN, MSN [phone]
[2017-09-28] MEDS: OMEGA-3 (PURIFIED FISH OIL) 1 GM CAP PO SCH ×2 (08:28→20:56)
[2017-09-28] MEDS: TOCOPHERYL, DL-ALPHA 400 INTER.UNIT CAP PO SCH (08:28)
[2017-09-28] MEDS: ASPIRIN 81 MG ECTAB PO SCH (08:28)
[2017-09-28] MEDS: PANTOprazole SOD 40 MG TAB PO SCH (08:28)
[2017-09-28] MEDS: ASCORBIC ACID 500 MG TAB PO SCH ×2 (08:28→20:56)
[2017-09-28] MEDS: ESCITALOPRAM OXALATE 10 MG TAB PO SCH (08:29)
[2017-09-28] MEDS: CEROVITE ADV FORMULA TAB PO SCH (08:29)
[2017-09-28] MEDS: INSULIN ASPART 100 UNITS/ML 3 ML PEN SC SCH ×5 (08:30→23:54)
[2017-09-28] MEDS: INSULIN HUMAN NPH SC SCH (08:31)
[2017-09-28] MEDS: LIDODERM (LIDOCAINE) PATCH 5% TD SCH (08:31)
--- NOTE | 2017-09-28 08:35 | Progress Note ---
Progress Note Date of Service Sep 28, 2017. Progress Note ATTENDING ADDENDUM care coordinated with CR MANASA meade and TRAV Rossi please refer to her notes for full details, I agree with her notes patient seen and examined, records reviewed by myself as well on exam, patient seen sitting up in bed, comfortable, nondistressed States he started to feel better Denies active shortness of breath, chest pain Has dry cough no other symptoms VS noted and reviewed oriented 3, not in distress, speaks in sentences with no effort nor accessory muscle use normal rate, regular rhythm, no murmurs Positive mild diffuse expiratory wheezing bilaterally non distended, soft, nontender no bipedal edema, erythema, warmth no neuro deficits CT chest Right upper lobe bronchiolitis/mucous plug/aspiration ASSESSMENT/PLAN> Shortness of breath possibly secondary to mild acute and chronic systolic CHF exacerbation Possible bronchitis/COPD exacerbation Lasix 40 mg IV Prednisone 40 mg then taper Nebs every 6 hours Cardiology consulted other diagnoses and plan of care as per CR ENGRAVING SUPERVISOR Ortega meade and TRAV Rossi's documentation Jordan Jerome MD
[2017-09-28] MEDS ORDERED: NON-FORMULARY MEDICATION (Fluticasone Furoate-Vilanterol (Breo Ellipta) 1 PUFF) INH SCH (09:00)
--- NOTE | 2017-09-28 09:27 | Pharmacy Progress Note ---
Glycemic Control Intl Consult Date of Service Sep 28, 2017. Scope Glycemic Pharmacist consulted for glycemic control and to write orders per [facility] inpatient glycemic control protocol Objective Weight (Kilograms): 91.700 Accuchecks BSG (last 24hrs): Test 09/27/17 18:00 09/27/17 23:27 09/28/17 04:41 09/28/17 06:00 Random Glucose 114 mg/dl (70-99) 200 mg/dl (70-99) Bedside Glucose 225 mg/dl (70-99) 205 mg/dl (70-99) Laboratory Data (last 24hrs) Test 09/27/17 18:00 09/27/17 18:22 09/28/17 06:00 Anion Gap 9.0 mmol/L 15.0 mmol/L 7.0 mmol/L BUN/Creatinine Ratio 22.9 17.9 Blood Urea Nitrogen 34 mg/dl 30 mg/dl Creatinine 1.49 mg/dl 1.65 mg/dl Potassium Level 3.3 mmol/L 4.8 mmol/L Sodium Level 139 mmol/L 139 mmol/L White Blood Count 8.53 K/uL 8.53 K/uL Red Blood Count 4.81 M/uL Hemoglobin 14.0 g/dL Hematocrit 41.0 % Mean Corpuscular Volume 85.2 fL Mean Corpuscular Hemoglobin 29.1 pg Mean Corpuscular Hemoglobin Concent 34.1 g/dl Platelet Count 192 K/uL Mean Platelet Volume 10.2 fL Neutrophils (%) (Auto) 67.1 % Lymphocytes (%) (Auto) 20.4 % Monocytes (%) (Auto) 10.2 % Eosinophils (%) (Auto) 1.6 % Basophils (%) (Auto) 0.2 % Neutrophils # (Auto) 5.72 K/uL Lymphocytes # (Auto) 1.74 K/uL Monocytes # (Auto) 0.87 K/uL Eosinophils # (Auto) 0.14 K/uL Basophils # (Auto) 0.02 K/uL Hemoglobin A1c 7.6 % HbA1c Test 09/28/17 06:00 Hemoglobin A1c 7.6 % (4.5-5.6) H Recent Pertinent Medications Outpatient Anti-diabetic Regimen: * Lantus 42 units SQ PM * NovoLog 5 units SQ ACHS + SSI * Total daily dose ~ +52 units/day The patient is currently receiving: * Basal insulin: Lantus 42 units every 24 hours given at bedtime * Correctional Insulin: Novolog Correction per scale ACHS Goal Range: Low 110 mg/dL - High 150 mg/dL Correction Factor: 25 mg/dL/unit * Prandial insulin: Per carb ratio of 1 unit per 8 grams CHO consumed Risk Factors for Insulin Resistance: * Steroids * Diet Assessment & Plan ASSESSMENT: * 71yo T2DM male with adequate outpatient control per recent A1c of 7.6% on 09/28 * Pt currently with steroid induced hyperglycemia secondary to prednisone * NPH insulin is used to counteract the hyperglycemic effect of prednisone. The rationale for this approach is that the pharmacodynamics profile of NPH, with a peak effect of 4-8hrs and duration of action of 12-16hrs, mirrors the pharmacodynamics of prednisone. NPH should be dosed at the same time that prednisone is given * The dose of NPH given is dependent on the steroid dose given * For doses of prednisone 40mg/day or above NPH dose should be 0.4 units/kg * NPH dosing above is given in addition to patients basal insulin needs * Typically, patients will also need rapid-acting insulin with meals PLAN FOR INPATIENT GLYCEMIC CONTROL: Continue outpatient regimen and add NPH to cover steroid induced hyperglycemia * Basal insulin * Lantus 42 units SQ PM * Bolus insulin * NovoLog per scale ACHS or Q6hrs while NPO * Goal Range: Low 110 mg/dL - High 150 mg/dL * Correction Factor: 25 mg/dL/unit * Nutritional / Prandial insulin per carb ratio of 1 unit per 8 grams CHO consumed * NPH 35 units (0.4units/kg) Sq daily with prednisone 40mg daily. * Will titrate dosing down with each step down in steroid dosing. * Please note that the plan above was derived based on current level of insulin resistance and hospital stress. These recommendations are appropriate for inpatient admission only. Plan of care upon discharge will need to be reassessed to avoid potential outpatient hypo/hyperglycemia. Thank you.
[2017-09-28] MEDS: ISOSORBIDE MONONITRATE 30 MG TABCR PO SCH (09:52)
[2017-09-28] MEDS: AMLODIPINE BESYLATE 5 MG TAB PO SCH (09:52)
[2017-09-28] MEDS: METOPROLOL SUCC 25MG EXT REL TAB PO SCH (09:53)
[2017-09-28] MEDS: AMIODARONE 200 MG TAB PO SCH ×2 (09:53→20:55)
[2017-09-28] MEDS: POTASSIUM CHLORIDE 10 MEQ TABCR PO SCH (09:53)
[2017-09-28] MEDS ORDERED: FUROSEMIDE INJ 40 MG in SYRINGE 0 ML IV ONE (10:45)
--- NOTE | 2017-09-28 10:45 | Cardiology Consultation ---
Cardiology Consultation Date of Service Sep 28, 2017. (Jessica Nicolas PA-C) Cardiology Consultation Requesting Provider: Lopez Cantu PA-C Attending Farm Equipment Maintenance Supervisor: Dr. Solano History of Present Illness: Mr. Christopher Abbasi is complex 71 year old male who is well known to [facility], followed by Dr. Anderson and Dr. Suarez. Patient was in usual state of health, progressing well over the last month at cardiac rehab without worsening SOB/chest pain. On Wednesday afternoon, patient began to note mild dyspnea with activities at home with mild cough. Wednesday he went to a picnic with his grandson and admits to dietary indescretions and increased fluid intake to maintain hydration in the heat. Wednesday he reported ongoing cough and SOB wiht activities and reported 2 lb weight gain with abdominal bloating. Wednesday AM he attended cardiac rehab and reported that he was intolerant of the exercises that he had been previously able to complete. He needed to stop prematurely due to dyspnea. he also reported left shoulder pain with movement. Due to SOB, cough, left shoulder pain, he was referred to ER for evaluation. On arrival to ER, patient treated with steroids, nebs, and IV furosemide. Cardiac enzymes unremarakable. EKG wihtout ischemic changes. BNP only minimally elevated. Chest xray demonstrating mild pulm congestion and chest CT demonstrating inflammatory process with chronic emphysema, consistent with acute bronchitis. he was admitted for further treatment and observation. At time of consult, patient resting in bed, feeling improved. Less SOB with ambulation int he room. No chest pain. Cough improved this AM. Diuresed about 1400 L. Still reports mild abdominal bloating and mild orthopnea last evening. No edema. No palpitations, dizziness, syncope or near syncope. Review of Systems: SEE HPI for pertinent positives. All other 10 point review of systems is negative. Complete Review of Systems is as stated above or negative. Past Medical and Surgical History: 1. Severe ischemic cardiomyopathy with EF 25-29% 2. Ischemic heart disease status post acute anterior wall myocardial infarction and coronary bypass grafting in 1991, receiving a free left inferior epigastric graft to the right coronary artery, a free right inferior epigastric artery to the left anterior descending, and a free gastroepiploic graft to the diagonal. 3. Catheterization in 2005 notable for complete occlusion of the ak chin vessels and an occluded graft to the right coronary artery. 4. Status post ICD implantation with generator exchange on 09/05/2012, Nuria Siegels lead failure status post lead replacement on 12/04/2015 5. Ventricular storm status post VT ablation September of 2014 6. NYHA Class III congestive heart failure 7. Paroxysmal atrial fibrillation 8. Abdominal aortic aneurysm status post percutaneous endovascular repair . 9. 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 Hemochromatosis, homozygous for h63D, but without evidence of iron overload 11. COPD 12. Sleep apnea, BiPAP therapy 13. Chronic diarrhea, chronic pancreatitis. 14. Stage III chronic kidney disease 15. Hypothyroidism 16. Normocalcemic primary hyperparathyroidism 17. Hypertension 18. Dyslipidemia 19. Type II diabetes mellitus 20. 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 21. Anxiety 22. Vitamin D deficiency 23. Cholecystectomy 24. Laser cataract surgery, left 25. Remote vein stripping bilaterally. Family History: Father with an NH at 51. Mother with lung cancer at 74. One brother, three years younger, without cardiac issues. Social History: Reformed smoker, 1 ppd x 25 years. Reformed smokeless tobacco user, reformed. No significant alcohol use/abuse. No illegal drug use/abuse. to Calli. Three children. 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 Review of patient's allergies indicates: Allergen Reactions Augmentin [Amoxicillin-Pot Clavulanate] Edema airway Face, lips, hands edema Current Outpatient Prescriptions Reported Home Medications Medications Dose Route/Sig Max Daily Dose Days Date Category Dose Instructions Warfarin Sodium 5 Mg Tab 5 Mg PO 5XWK 09/27/17 Reported Wednesday, Wednesday, Wednesday, , Wednesday Ventolin Hfa (Albuterol) 200 Puffs/60853 Mcg Aers 2 Puffs INH QID PRN 09/27/17 Reported Amlodipine Besylate 5 Mg Tab 5 Mg PO DAILY 09/27/17 Reported Furosemide 80 Mg Tab 80 Mg PO BID 09/27/17 Reported Toprol Xl (Metoprolol Succinate) 50 Mg Tabcr 25 Mg PO DAILY 09/27/17 Reported Amiodarone HCl 200 Mg Tab 200 Mg PO BID 09/27/17 Reported Apresoline (Hydralazine Hcl) 25 Mg Tab 25 Mg PO BID 09/27/17 Reported Lorazepam 1 Mg Tab 1 Mg PO Q8 PRN 09/27/17 Reported Calcitriol 0.25 Mcg Cap 0.25 Mcg PO 3XWK 09/27/17 Reported TAKE THIS MEDICATION EVERY WEDNESDAY,WEDNESDAY AND WEDNESDAY Escitalopram Oxalate 10 Mg Tab 10 Mg PO DAILY 09/27/17 Reported Coumadin (Warfarin Sodium) 5 Mg Tab 2.5 Mg PO 2XWK 06/30/17 Reported M, F E-400 (Vitamin E) 400 Unit Cap 400 Inter.unit PO DAILY 05/19/17 Reported Vitamin C (Ascorbic Acid) 1,000 Mg Tab 1,000 Mg PO BID 05/19/17 Reported Spironolactone 25 Mg Tab 12.5 Mg PO 3XWK 05/19/17 Reported TAKE THIS MEDICATION EVERY WEDNESDAY,WEDNESDAY AND WEDNESDAY Nitrostat (Nitroglycerin) 0.4 Mg Tab 0.4 Mg UT UD PRN 05/19/17 Reported Mvi With Minerals (Multivitamins/Minerals) Tab 1 Tab PO DAILY 05/19/17 Reported Fish Oil ([place]-3 Fatty Acids) 1 Cap Cap 1,000 Mg PO BID 05/19/17 Reported Spiriva Handihaler (Tiotropium [place]) 30 Puff/540 Mcg Aerp 1 Puff INH QAM 05/18/17 Reported Potassium Chloride Cr (Potassium Chloride) 10 Meq Tab 10 Meq PO DAILY 05/18/17 Reported Pantoprazole Sodium (Pantoprazole) 40 Mg Tab 40 Mg PO QAM 05/18/17 Reported Lantus Solostar (Insulin Glargine) 100 Unit/Ml Inj 42 Units SC QPM 05/18/17 Reported Imdur Ext Rel (Isosorbide Mononitrate) 30 Mg Tabcr 30 Mg PO QAM 05/18/17 Reported Levothyroxine Sodium 100 Mcg Tab 100 Mcg PO DAILY 04/27/17 Reported Breo Ellipta (Fluticasone Furoate-Vilanterol) 1 Inh Inh 1 Puff INH QAM 04/02/15 Reported Aspirin Ec (Aspirin) 81 Mg Tab 81 Mg PO QAM 05/18/14 Reported Novolog Flexpen (Insulin Aspart) 100 Units/Ml Inj 5 Units SQ ACHS 04/13/14 Reported 5 UNITS PLUS COVERAGE DIRECTED BY SLIDING SCALE OBJECTIVE/PHYSICAL EXAMINATION: Last 8 Hrs Date Time Temp Pulse Resp B/P (MAP) Pulse Ox O2 Delivery O2 Flow Rate FiO2 09/28/17 07:22 52 16 97 Room Air 09/28/17 03:29 37.0 52 18 113/68 (83) 95 52 09/28/17 03:06 48 97 09/28/17 02:27 48 16 97 BiPAP/CPAP General: A&Ox3. NAD. HEENT: Normocephalic. Atraumatic. PER. Conjunctiva pink, sclera clear. Bilateral carotid bruits. Neck: No JVD. Heart: RRR, 60 bpm. Grade I-II/ systolic murmur. No diastolic murmur. PMI is displaced. Lungs: Faint dry crackles 1/4 up bilaterally. No wheezing. Abdomen: + Bowel sounds. Soft. Nontender. No organomegaly. Extremities: No clubbing. No cyanosis. No edema. Marked varicosities, left greater than right. Limited neurological examination is without focal deficits. Pulses: radial=2/4, posterior tibial=2/ 4. Data: EKG on admission: NSR with 1st degree AV block LBBB Intermittent ventricular pacing Chest xray report on admission; IMPRESSION: 1. Cardiomegaly with volume overload and congestive change. No char pulmonary edema. 2. Minimal left basilar atelectasis. Chest CT report on admission: IMPRESSION: 1. No evidence of pulmonary embolus. 2. Tree-in-bud opacities in the posterior segment of the right upper lobe with associated subsegmental] bronchial debris, likely mucous plugging. This suggests an infectious bronchiolitis versus aspiration. 3. Evidence of smoking related lung injury with emphysema. 4. Cardiomegaly with ICD. 5. Postsurgical changes of CABG. 6. The density of the liver may suggest mineral deposition or amiodarone exposure. Correlate clinically. Device interrogated on admission- Appropriate function, battery longevity. multiple non sustained episodes of VT since interrogation in June. One pace terminated episode of VT occurring end of July. No shocks. May 01, 2017 TTE Interpretation Summary ([facility] [place], Dr. Gupta): The qualitative LV ejection fraction is 25-29% (severely reduced). The left ventricular cavity size is moderately enlarged. There is a large sized apical, septal, anteroseptal , anterior, posterior, and lateral wall motion abnormality with hypokinesis to akinesis of the segments. The inferior wall is not well visualized on this study. Right ventricular systolic function is moderately reduced. The proximal ascending thoracic aorta is moderately enlarged. May 03, 2017 Right Heart Catheterization: Mean RA 14 mm Hg. RV 45/5 (Mean 11 mm hg). PA 47/25 (Mean 34 mm Hg). Pwp 23 mm hg. CO Shukri 5.22, CI Shukri 2.51. CO Thermal 6.45, Shukri 3.1 IMPRESSION and PLAN: 71 year old male 1. SOB, multifactorial with COPD exacerbation and mild acute on chronic systolic HF exacerbation -symptoms improving with IV furosemide, steroids, nebs -one additional dose of IV furosemide 40 mg this AM ordered -monitor renal function 2. history of ischemic cardiopathy, LVEF 25%, continue ASA, amio, beta katharina, imdur, hydralazine. Off losartan due to CKD. 3. history of VT, s/p VT ablation in 10/27, follows with Dr. Suarez. Chronic amiodarone, beta katharina 4. ICD in situ, Now has LBBB, consider upgrade to BIV 5. Coronary artery disease - coronary bypass grafting in 1991, 6. Abdominal aortic aneurysm - percutaneous endovascular repair 10/29/2011. 7. Paroxysmal atrial fibrillation - chronic Coumadin. 8. CKD - stable Case discussed with Dr. Solano. Will follow. (Jessica Nicolas PA-C) Pt seen and examined, agree with findings and assessment as per Jessica Damian. Pt volume overloaded on presentation and still with slight bibasilar crackles. Will give one more dose of IV lasix this PM and follow volume status clinically. I expect him to be at baseline in the AM, will likely restart po lasix and d/c home at that point. (Abiodun Solano, D.O.)
--- NOTE | 2017-09-28 14:23 | Progress Note ---
Internal Med Progress Note Date of Service: Sep 28, 2017. Provider Documentation: SUBJECTIVE: Seen and examined at bedside Denies any chest pain, dizziness SOB, cough is improving Left shoulder pain is controlled No other complaints Used BiPAP overnight OBJECTIVE: Vital Signs-as noted below Physical Exam: General Appearance:Moderately built and nourished, no apparent distress Head: normocephalic, Atraumatic Eyes: normal inspection, EOMI, PERRL Neck: supple, Trachea midline Respiratory/Chest: Decreased breath sounds, scattered wheezes/crackles Cardiovascular: S1, S2, No murmur,+bradycardia Abdomen/GI:Soft, Non tender, Bowel sounds present Extremities/Musculoskelatal:normal inspection, no edema Neurologic/Psych:AAOX3, grossly no focal neurological deficits Skin: normal color, warm Lab data as noted below. ASSESSMENT & PLAN: Acute on chronic systolic HF exacerbation mild COPD exacerbation H/O Ischemic cardiopathy, LVEF 25% S/P ICD Continue IV Lasix 40mg as per Cardiology Continue prednisone, Nebs Troponin negative Procalcitonin negative No Abx for now Appreciate Cardiology Input Monitor renal function, electrolytes continue aspirin, Metoprolol, Aldactone, Imdur Off losartan due to CKD Low salt diet continue home inhalers Hypokalemia: Resolved Monitor CAD S/P CABG Troponin negative Continue metoprolol, imdur, ASA DM II A1C:7.6 continue ISS, Lantus Hypothyroidism: Continue Levothyroxine CKD III: Cr at baseline monitor renal function H/O VT, s/p VT ablation IN 2014 P.afib s/p ICD continue home meds Monitor INR continue coumadin Dyslipidemia: Currently not on statin therapy secondary to chronic transaminase elevation due to acute chemical hepatitis HTN: Stable continue current meds PHAN: BiPAP QHS Abdominal aortic aneurysm s/p percutaneous endovascular repair 10/29/2011 DVT Px: On coumadin Code Status: Full Code Disposition: Expect to discharge home when stable Vital Signs: Date Time Temp Pulse Resp B/P (MAP) Pulse Ox O2 Delivery O2 Flow Rate FiO2 09/28/17 12:00 36.8 58 16 125/64 (84) 94 Room Air 09/28/17 10:30 95 Room Air 09/28/17 09:51 36.6 55 16 142/74 (96) 94 Room Air 09/28/17 07:22 52 16 97 Room Air 09/28/17 03:29 37.0 52 18 113/68 (83) 95 52 09/28/17 03:06 48 97 09/28/17 02:27 48 16 97 BiPAP/CPAP 09/28/17 00:00 95 BiPAP 09/27/17 23:04 59 94 09/27/17 23:03 36.4 50 18 136/74 (94) 95 CPAP 09/27/17 22:34 56 18 96 Room Air 09/27/17 21:10 Room Air 09/27/17 21:00 37.0 54 20 164/79 (107) 93 Room Air 09/27/17 20:59 37.0 54 20 164/79 (107) 93 Room Air 09/27/17 20:20 59 16 157/78 92 Room Air 09/27/17 20:17 36.9 59 14 157/78 95 Room Air 09/27/17 18:54 160/80 09/27/17 18:38 58 20 99 09/27/17 18:33 95 Room Air 09/27/17 18:07 54 09/27/17 17:46 36.5 59 18 143/77 96 Room Air Lab Results: Results Past 24 Hours Test 09/27/17 18:00 09/27/17 18:22 09/27/17 23:27 09/27/17 23:45 Range/Units White Blood Count 8.53 4.8-10.8 K/uL Red Blood Count 4.81 4.7-6.1 M/uL Hemoglobin 14.0 14.0-18.0 g/dL Hematocrit 41.0 42-52 % Mean Corpuscular Volume 85.2 80-100 fL Mean Corpuscular Hemoglobin 29.1 25-34 pg Mean Corpuscular Hemoglobin Concent 34.1 32-36 g/dl Platelet Count 192 130-400 K/uL Mean Platelet Volume 10.2 7.4-10.4 fL Neutrophils (%) (Auto) 67.1 % Lymphocytes (%) (Auto) 20.4 % Monocytes (%) (Auto) 10.2 % Eosinophils (%) (Auto) 1.6 % Basophils (%) (Auto) 0.2 % Neutrophils # (Auto) 5.72 1.4-6.5 K/uL Lymphocytes # (Auto) 1.74 1.2-3.4 K/uL Monocytes # (Auto) 0.87 0.11-0.59 K/uL Eosinophils # (Auto) 0.14 0-0.5 K/uL Basophils # (Auto) 0.02 0-0.2 K/uL RDW Standard Deviation 45.5 36.4-46.3 fL RDW Coefficient of Variation 14.6 11.5-14.5 % Immature Granulocyte % (Auto) 0.5 % Immature Granulocyte # (Auto) 0.04 0.00-0.02 K/uL Prothrombin Time 19.8 9.0-12.0 SECONDS Prothromb Time International Ratio 1.9 0.9-1.1 Activated Partial Thromboplast Time 32.0 21.0-31.0 SECONDS Partial Thromboplastin Ratio 1.2 Sodium Level 139 136-145 mmol/L Potassium Level 3.3 3.5-5.1 mmol/L Chloride Level 103 98-107 mmol/L Carbon Dioxide Level 27 21-32 mmol/L Anion Gap 9.0 15.0 16-25 mmol/L Blood Urea Nitrogen 34 7-18 mg/dl Creatinine 1.49 0.60-1.40 mg/dl Est Creatinine Clear Calc Drug Dose 50.0 ml/min Estimated GFR () 54.0 Estimated GFR (Non- 46.6 BUN/Creatinine Ratio 22.9 10-20 Random Glucose 114 70-99 mg/dl Calcium Level 8.8 8.5-10.1 mg/dl Magnesium Level 2.7 1.8-2.4 mg/dl Total Bilirubin 0.5 0.2-1 mg/dl Direct Bilirubin 0.1 0-0.2 mg/dl Aspartate Amino Transf (AST/SGOT) 93 15-37 U/L Alanine Aminotransferase (ALT/SGPT) 145 12-78 U/L Alkaline Phosphatase 87 45-117 U/L Troponin I < 0.015 < 0.015 0-0.045 ng/ml Pro-B-Type Natriuretic Peptide 1130 0-900 pg/ml Total Protein 7.6 6.4-8.2 gm/dl Albumin 3.6 3.4-5.0 gm/dl Lipase 116 73-393 U/L Procalcitonin < 0.05 0-0.5 ng/ml Hepatitis C Antibody Screen NEG NEG Bedside Hemoglobin 16.3 14.0-18.0 g/dl Bedside Hematocrit 48 42-52 % Bedside Sodium 141 135-144 mEq/L Bedside Potassium 3.3 3.3-5.0 mEq/L Bedside Chloride 102 101-112 mEq/L Bedside Total CO2 28 24-31 mEq/l Bedside Blood Urea Nitrogen 33 7-18 mg/dl Bedside Creatinine 1.5 0.6-1.3 mg/dl Bedside Glucose (other) 113 70-99 mg/dl Bedside Ionized Calcium (Mauro) 1.10 1.12-1.32 mmol/l Bedside Glucose 225 70-99 mg/dl Test 09/28/17 04:41 09/28/17 06:00 09/28/17 11:55 Range/Units Bedside Glucose 205 250 70-99 mg/dl White Blood Count 8.53 4.8-10.8 K/uL Red Blood Count 4.82 4.7-6.1 M/uL Hemoglobin 13.8 14.0-18.0 g/dL Hematocrit 41.4 42-52 % Mean Corpuscular Volume 85.9 80-100 fL Mean Corpuscular Hemoglobin 28.6 25-34 pg Mean Corpuscular Hemoglobin Concent 33.3 32-36 g/dl RDW Standard Deviation 46.1 36.4-46.3 fL RDW Coefficient of Variation 14.7 11.5-14.5 % Platelet Count 194 130-400 K/uL Mean Platelet Volume 10.5 7.4-10.4 fL Prothrombin Time 21.6 9.0-12.0 SECONDS Prothromb Time International Ratio 2.1 0.9-1.1 Sodium Level 139 136-145 mmol/L Potassium Level 4.8 3.5-5.1 mmol/L Chloride Level 104 98-107 mmol/L Carbon Dioxide Level 28 21-32 mmol/L Anion Gap 7.0 3-11 mmol/L Blood Urea Nitrogen 30 7-18 mg/dl Creatinine 1.65 0.60-1.40 mg/dl Est Creatinine Clear Calc Drug Dose 45.1 ml/min Estimated GFR () 47.7 Estimated GFR (Non- 41.1 BUN/Creatinine Ratio 17.9 10-20 Random Glucose 200 70-99 mg/dl Estimated Average Glucose 171 mg/dl Hemoglobin A1c 7.6 4.5-5.6 % Calcium Level 8.5 8.5-10.1 mg/dl Magnesium Level 2.7 1.8-2.4 mg/dl Troponin I < 0.015 0-0.045 ng/ml Triglycerides Level 219 0-150 mg/dl Cholesterol Level 303 0-200 mg/dl HDL Cholesterol 31 mg/dl LDL Cholesterol, Calculated 228 mg/dl VLDL Cholesterol, Calculated 44 mg/dl Cholesterol/HDL Ratio 9.8
[2017-09-28] MEDS ORDERED: WARFARIN SOD 5 MG TAB PO SCH (16:00)
[2017-09-28] MEDS: INSULIN GLARGINE SOLOSTAR 100 UNITS/ML 3 ML PEN SC SCH (21:08)
[2017-09-29 02:25] VITALS: PULSE 58; O2SAT 95
[2017-09-29] MEDS: IPRATROPIUM BROMIDE NEB SOLN 0.02% 2.5 ML VIAL INH SCH ×2 (02:25→06:56)
[2017-09-29] MEDS: LEVALBUTEROL 0.63MG/3 ML NEB INH SCH ×2 (02:25→06:56)
[2017-09-29] MEDS: INSULIN ASPART 100 UNITS/ML 3 ML PEN SC SCH ×2 (03:52→08:13)
[2017-09-29 04:10] VITALS: BP 135/74; PULSE 58; TEMP 36.7; O2SAT 93
[2017-09-29] MEDS: LEVOTHYROXINE 100 MCG TAB PO SCH (05:31)
[2017-09-29 06:56] VITALS: BP 132/75; PULSE 55; TEMP 36.6; O2SAT 91; O2SAT 93
[2017-09-29 07:12] LABS: INR 2.1 (0.9-1.1)
[2017-09-29 07:43] LABS: CALCIUM 8.7 mg/dl (8.5-10.1); CREATININE 1.85 mg/dl (0.60-1.40); POTASSIUM 3.4 mmol/L (3.5-5.1)
[2017-09-29] MEDS: LIDODERM (LIDOCAINE) PATCH 5% TD SCH (08:07)
[2017-09-29] MEDS: OMEGA-3 (PURIFIED FISH OIL) 1 GM CAP PO SCH (08:08)
[2017-09-29] MEDS: AMIODARONE 200 MG TAB PO SCH (08:08)
[2017-09-29] MEDS: ASPIRIN 81 MG ECTAB PO SCH (08:08)
[2017-09-29] MEDS: SPIRONOLACTONE 25 MG TAB PO SCH (08:08)
[2017-09-29] MEDS: ESCITALOPRAM OXALATE 10 MG TAB PO SCH (08:08)
[2017-09-29] MEDS: AMLODIPINE BESYLATE 5 MG TAB PO SCH (08:08)
[2017-09-29] MEDS: CALCITRIOL 0.25 MCG CAP PO SCH (08:08)
[2017-09-29] MEDS: ISOSORBIDE MONONITRATE 30 MG TABCR PO SCH (08:08)
[2017-09-29] MEDS: POTASSIUM CHLORIDE 10 MEQ TABCR PO SCH (08:09)
[2017-09-29] MEDS: CEROVITE ADV FORMULA TAB PO SCH (08:09)
[2017-09-29] MEDS: PANTOprazole SOD 40 MG TAB PO SCH (08:09)
[2017-09-29] MEDS: METOPROLOL SUCC 25MG EXT REL TAB PO SCH (08:09)
[2017-09-29] MEDS: ASCORBIC ACID 500 MG TAB PO SCH (08:09)
[2017-09-29] MEDS: TOCOPHERYL, DL-ALPHA 400 INTER.UNIT CAP PO SCH (08:09)
[2017-09-29] MEDS: INSULIN HUMAN NPH SC SCH (08:13)
[2017-09-29] MEDS ORDERED: POTASSIUM CHLORIDE 20 MEQ TABCR PO ONE (08:30)
--- NOTE | 2017-09-29 09:27 | Cardiology Follow-Up ---
Subjective General Date of Service: Sep 29, 2017. Chief Complaint: SOB Pt evaluation today including: conversation w/ patient, physical exam, chart review, lab review, review of studies, review of inpatient medication list History of Present Illness Patient feeling much improved this AM. Cough improving. Dyspnea improving. Slept well. Abdominal bloating improved. No edema. No chest pain. No orthopnea , PND. Allergies Coded Allergies: Amoxicillin (Verified Allergy, Severe, Anaphylaxis, 06/30/17) Clavulanic Acid (Verified Allergy, Severe, Anaphylaxis, 06/30/17) Social History Smoking Status: Former Smoker Hx Tobacco Use In Past Year?: No Hx Alcohol Use - Type And Amou: No Hx Substance Use - Type And Am: Yes Problem List Medical Problems: (1) Acute chest pain Status: Acute (2) Allergic reaction Status: Acute (3) Chest pain Status: Chronic (4) CHF (congestive heart failure) Permanent Comment: echo 05/28/13 LVEF 30-35% Status: Chronic (5) CHF (congestive heart failure) Status: Acute (6) CHF exacerbation Status: Acute (7) COPD exacerbation Status: Acute (8) Diabetes mellitus, type II Status: Chronic (9) Dysrhythmia Status: Acute (10) Gastroenteritis Status: Acute (11) Hyperglycemia Status: Acute (12) Hypokalemia Status: Acute (13) Hypoxia Status: Acute (14) Nausea vomiting and diarrhea Status: Acute (15) SOB (shortness of breath) on exertion Status: Acute (16) Subtherapeutic international normalized ratio (INR) Status: Acute Review of Systems Respiratory: + cough, + dyspnea on exertion, No sputum, No dyspnea at rest, No hemoptysis Cardiac: No chest pain, No orthopnea, No PND, No edema, No palpitations Physical Exam Vital Signs Last Vital Signs Documentation Date Time Temp Pulse Resp B/P (MAP) Pulse Ox O2 Delivery O2 Flow Rate FiO2 09/29/17 06:56 36.6 55 19 132/75 (94) 93 Room Air Physical Exam Constitutional: General Apperance: heathly-appearing Level of Distress: NAD Head: normocephalic, atraumatic Eyes: Pupils: PERRLA Neck: supple Cardiovascular: Heart Auscultation: RRR, II/ JUSTIN Abdomen: Bowel Sounds: normal Inspection & Palpation: soft, non-distended Extremities: no edema Assessment and Plan Assessment and Plan IMPRESSION and PLAN: 71 year old male 1. SOB, multifactorial with COPD exacerbation and mild acute on chronic systolic HF exacerbation -symptoms improving with IV furosemide, steroids, nebs -Hold additional IV furosemide, and transition to home oral furosemide 80 mg BID on discharge. -monitor renal function. 2. history of ischemic cardiopathy, LVEF 25%, continue ASA, amio, beta katharina, Imdur, hydralazine. Off losartan due to CKD. 3. history of VT, s/p VT ablation in 10/27, follows with Dr. Suarez. Chronic amiodarone, beta katharina 4. ICD in situ, Now has LBBB, consider upgrade to BIV 5. Coronary artery disease - coronary bypass grafting in 1991, 6. Abdominal aortic aneurysm - percutaneous endovascular repair 10/29/2011. 7. Paroxysmal atrial fibrillation - chronic Coumadin. 8. CKD - stable Stable cardiac signs/symptoms. Continue home cardiac medications on discharge. No changes were made during hospitalization. Keep f/u as scheduled in October with Dr. Anderson. Patient is aware of this appointment. Case discussed with Dr. Solano Cardiology attending: Pt seen and examined, agree with findings and assessment as per Jessica Damian. Pt states that sob has resolved and now back to baseline. Does not examine as volume overloaded, no need for further IV diuretics. Will resume home diuretics and d/c to home. Keep appointment with Dr. Anderson in October. Laboratory Results Last 24 Hours Test 09/28/17 11:55 09/28/17 16:43 09/28/17 20:08 09/28/17 23:51 Bedside Glucose 250 mg/dl 254 mg/dl 280 mg/dl 172 mg/dl Test 09/29/17 03:42 09/29/17 06:28 09/29/17 07:13 Bedside Glucose 120 mg/dl 101 mg/dl Prothrombin Time 22.2 SECONDS Prothromb Time International Ratio 2.1 Sodium Level 140 mmol/L Potassium Level 3.4 mmol/L Chloride Level 103 mmol/L Carbon Dioxide Level 29 mmol/L Anion Gap 8.0 mmol/L Blood Urea Nitrogen 35 mg/dl Creatinine 1.85 mg/dl Est Creatinine Clear Calc Drug Dose 39.9 ml/min Estimated GFR () 41.5 Estimated GFR (Non- 35.8 BUN/Creatinine Ratio 19.1 Random Glucose 97 mg/dl Calcium Level 8.7 mg/dl
--- NOTE | 2017-09-29 10:20 | Progress Note ---
Internal Med Progress Note Date of Service: Sep 29, 2017. Provider Documentation: SUBJECTIVE: Seen and examined at bedside Doing much better today Denies chest pain, dizziness, SOB cough improved Left shoulder pain is controlled No other complaints Eager to get discharged OBJECTIVE: Vital Signs-as noted below Physical Exam: General Appearance:Moderately built and nourished, no apparent distress Head: normocephalic, Atraumatic Eyes: normal inspection, EOMI, PERRL Neck: supple, Trachea midline Respiratory/Chest: Decreased breath sounds, scattered wheezes/crackles Cardiovascular: S1, S2, No murmur,+bradycardia Abdomen/GI:Soft, Non tender, Bowel sounds present Extremities/Musculoskelatal:normal inspection, no edema Neurologic/Psych:AAOX3, grossly no focal neurological deficits Skin: normal color, warm Lab data as noted below. ASSESSMENT & PLAN: Acute on chronic systolic HF exacerbation mild COPD exacerbation H/O Ischemic cardiopathy, LVEF 25% S/P ICD IV Lasix transition to PO Lasix Continue prednisone, Nebs Troponin negative Procalcitonin negative No Abx for now Appreciate Cardiology Input Monitor renal function, electrolytes continue aspirin, Metoprolol, Aldactone, Imdur Off losartan due to CKD Low salt diet, fluid restriction continue home inhalers Hypokalemia: Replace and monitor CAD S/P CABG Troponin negative Continue metoprolol, Imdur, ASA DM II A1C:7.6 continue ISS, Lantus Hypothyroidism: Continue Levothyroxine CKD III: Cr at baseline monitor renal function H/O VT, s/p VT ablation IN 2014 P.afib s/p ICD continue home meds Monitor INR continue Coumadin Dyslipidemia: Currently not on statin therapy secondary to chronic transaminase elevation due to acute chemical hepatitis HTN: Stable continue current meds PHAN: BiPAP QHS Abdominal aortic aneurysm s/p percutaneous endovascular repair 10/29/2011 DVT Px: On coumadin Code Status: Full Code Disposition: Plan to discharge home today Follow up with Dr. Navas on 10/01/17 at 10:55AM Follow up with your Fabric Pattern Grader in 2-3 weeks Follow up with your Fuel Manager Africa Nava PA-C in 2 weeks as advised Complete the prednisone course as prescribed Seek immediate medical attention if your symptoms reoccur or worsen Vital Signs: Date Time Temp Pulse Resp B/P (MAP) Pulse Ox O2 Delivery O2 Flow Rate FiO2 09/29/17 06:56 36.6 55 19 132/75 (94) 93 Room Air 09/29/17 06:56 55 20 91 Room Air 09/29/17 04:10 36.7 58 18 135/74 (94) 93 09/29/17 02:25 58 20 95 Room Air 09/28/17 23:15 68 96 09/28/17 22:51 36.7 65 18 157/78 (104) 96 Room Air 09/28/17 20:00 93 Room Air 09/28/17 19:46 61 16 96 Room Air 09/28/17 19:12 36.6 56 18 133/70 (91) 93 Room Air 09/28/17 15:43 37.0 56 18 121/65 (83) 95 Room Air 09/28/17 14:24 59 16 92 Room Air 09/28/17 12:00 36.8 58 16 125/64 (84) 94 Room Air 09/28/17 10:30 95 Room Air Lab Results: Results Past 24 Hours Test 09/28/17 11:55 09/28/17 16:43 09/28/17 20:08 09/28/17 23:51 Range/Units Bedside Glucose 250 254 280 172 70-99 mg/dl Test 09/29/17 03:42 09/29/17 06:28 09/29/17 07:13 Range/Units Bedside Glucose 120 101 70-99 mg/dl Prothrombin Time 22.2 9.0-12.0 SECONDS Prothromb Time International Ratio 2.1 0.9-1.1 Sodium Level 140 136-145 mmol/L Potassium Level 3.4 3.5-5.1 mmol/L Chloride Level 103 98-107 mmol/L Carbon Dioxide Level 29 21-32 mmol/L Anion Gap 8.0 3-11 mmol/L Blood Urea Nitrogen 35 7-18 mg/dl Creatinine 1.85 0.60-1.40 mg/dl Est Creatinine Clear Calc Drug Dose 39.9 ml/min Estimated GFR () 41.5 Estimated GFR (Non- 35.8 BUN/Creatinine Ratio 19.1 10-20 Random Glucose 97 70-99 mg/dl Calcium Level 8.7 8.5-10.1 mg/dl
[2017-09-29] MEDS ORDERED: PRD20 PO (10:23)
--- NOTE | 2017-09-29 10:26 | Discharge Summary ---
Discharge Summary Date of Service Sep 29, 2017. Discharge Summary Admission Date: Sep 27, 2017 at 20:08 Discharge Date: Sep 29, 2017 Principal Diagnosis: CHF and COPD Exacerbation Procedures: CTA: 1. No evidence of pulmonary embolus. 2. Tree-in-bud opacities in the posterior segment of the right upper lobe with associated subsegmental] bronchial debris, likely mucous plugging. This suggests an infectious bronchiolitis versus aspiration. 3. Evidence of smoking related lung injury with emphysema. 4. Cardiomegaly with ICD. 5. Postsurgical changes of CABG. 6. The density of the liver may suggest mineral deposition or amiodarone exposure. Correlate clinically. Consultations: Cardiology Pending Studies/Follow-Up: Follow up with Dr. Navas on 10/01/17 at 10:55AM Follow up with your Special Procedure Tech in 2-3 weeks Follow up with your Transfer Table Operator Helper Africa Nava PA-C in 2 weeks as advised Complete the prednisone course as prescribed Seek immediate medical attention if your symptoms reoccur or worsen Medication Reconciliation New Medications: Prednisone (Prednisone) 20 Mg Tab 40 MG PO DAILY for 2 Days, #4 TAB Continued Medications: Albuterol Hfa (Ventolin Hfa) 200 Puffs/99490 Mcg Aers 2 PUFFS INH QID PRN for Shortness of Breath Amiodarone HCl (Amiodarone HCl) 200 Mg Tab 200 MG PO BID Amlodipine Besylate (Amlodipine Besylate) 5 Mg Tab 5 MG PO DAILY Ascorbic Acid (Vitamin C) 1,000 Mg Tab 1000 MG PO BID Aspirin (Aspirin Ec) 81 Mg Tab 81 MG PO QAM Calcitriol (Calcitriol) 0.25 Mcg Cap 0.25 MCG PO 3XWK TAKE THIS MEDICATION EVERY WEDNESDAY,WEDNESDAY AND WEDNESDAY Escitalopram Oxalate (Escitalopram Oxalate) 10 Mg Tab 10 MG PO DAILY Fluticasone Furoate-Vilanterol (Breo Ellipta) 1 Inh Inh 1 PUFF INH QAM Furosemide (Furosemide) 80 Mg Tab 80 MG PO BID Hydralazine Hcl (Apresoline) 25 Mg Tab 25 MG PO BID Insulin Aspart (Novolog Flexpen) 100 Units/Ml Inj 5 UNITS SQ ACHS 5 UNITS PLUS COVERAGE DIRECTED BY SLIDING SCALE Insulin Glargine (Lantus Solostar) 100 Unit/Ml Inj 42 UNITS SC QPM Isosorbide Mononitrate Ext Rel (Imdur Ext Rel) 30 Mg Tabcr 30 MG PO QAM Levothyroxine Sodium (Levothyroxine Sodium) 100 Mcg Tab 100 MCG PO DAILY, TAB Lorazepam (Lorazepam) 1 Mg Tab 1 MG PO Q8 PRN for Anxiety/Sleep Metoprolol Succinate (Toprol Xl) 50 Mg Tabcr 25 MG PO DAILY Multivitamins/Minerals (Mvi With Minerals) Tab 1 TAB PO DAILY, TAB Nitroglycerin (Nitrostat) 0.4 Mg Tab 0.4 MG UT UD PRN for Chest Pain, BTL Goessel-3 Fatty Acids (Fish Oil) 1 Cap Cap 1000 MG PO BID Pantoprazole (Pantoprazole Sodium) 40 Mg Tab 40 MG PO QAM Potassium Chloride (Potassium Chloride Cr) 10 Meq Tab 10 MEQ PO DAILY Spironolactone (Spironolactone) 25 Mg Tab 12.5 MG PO 3XWK, TAB TAKE THIS MEDICATION EVERY WEDNESDAY,WEDNESDAY AND WEDNESDAY Tiotropium Sterling (Spiriva Handihaler) 30 Puff/540 Mcg Aerp 1 PUFF INH QAM, INHALER Vitamin E (E-400) 400 Unit Cap 400 INTER.UNIT PO DAILY Warfarin Sodium (Coumadin) 5 Mg Tab 2.5 MG PO 2XWK, TAB M, F Warfarin Sodium (Warfarin Sodium) 5 Mg Tab 5 MG PO 5XWK Wednesday, Wednesday, Wednesday, , Wednesday Admission Information HPI (per Admitting provider): This is a pleasant 71 year old white male who has a significant PMH of 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 Anderson s/p CABG in 1991, s/p ICD implantation , NYHA Class III CHF, PAF on Coumadin therapy, chronic transaminase elevation with past acute chemical hepatitis, COPD, obstructive sleep apnea on BiPAP therapy, CKD stage III, hypothyroidism, normal calcific primary hyperparathyroidism, hypertension, hyperlipidemia, uncontrolled insulin- dependent type 2 diabetes mellitus with most recent A1C 8.8, AAA status post endovascular repair 10/29/2011, hemochromatosis, who presented to [facility] on 09/27/2017 due to shortness of breath. Patient states he was at cardiac rehab when he felt it was more difficult to do the exercises than it was in days prior due to SOB. He returned home from cardiac rehab when he continued to have exertional shortness of breath. Rest made SOB better, he was unable to quantify how long it took to improved. He called his PCP for appointment and they urged him to be seen in the ED. He denied any associated lightheadedness, dizziness, syncope, chest pain, radiation of pain to jaw or neck, palpitations, nausea, vomiting, diarrhea, dark tarry stool or melena. He does elicit that he was having left shoulder discomfort that was not associated to shortness of breath, rated as 8 out of 10, described as a pin like pain that was worse with leaning over like tying his shoes, but was relieved as soon as he remained upright. Further complained of occasional dry nonproductive cough, painful when coughing, and slight abdominal bloating. He has chronic SOB due to his chronic CHF and COPD; however he feels today it is much worse. Overall has a good appetite and good fluid intake, but he feels he may have drank excessive fluid in account for the excessive humidity. His bowels are moving normally and is urinating with out difficulty. Denies urgency, dysuria, hematuria. is present and she feels he has been having more difficulty breathing over the past few days secondary to the humidity. Physical Exam (per Admitting): General Appearance: WD/WN, no apparent distress, + obese Head: normocephalic, atraumatic Eyes: normal inspection, PERRL, EOMI, sclerae normal ENT: normal ENT inspection, hearing grossly normal, pharynx normal, + pertinent finding (mucous membranes moist) Neck: supple, no adenopathy, thyroid normal, no JVD, no carotid bruits, trachea midline Respiratory/Chest: chest non-tender, lungs clear, normal breath sounds, no respiratory distress, no accessory muscle use, + wheezing (inspiratory/ expiratory wheezing that clears with coughing) Cardiovascular: regular rate, rhythm, no edema, no gallop, no JVD, no murmur , normal peripheral pulses, + bradycardia Abdomen/GI: normal bowel sounds, non tender, soft, no organomegaly, no pulsatile mass Extremities/Musculoskelatal: normal inspection, no calf tenderness, normal capillary refill, no pedal edema, normal range of motion, non-tender Neurologic/Psych: research professional II-XII nml as tested, alert, normal mood/affect, oriented x 3 Skin: normal color, warm/dry (warm), no rash Hospital Course (1) SOB (shortness of breath) on exertion (2) Hypokalemia (3) CHF exacerbation (4) COPD exacerbation (5) Coronary artery disease (6) Diabetes mellitus, type II (7) Hypothyroidism (8) CKD (chronic kidney disease) stage 3, GFR 30-59 ml/min (9) History of ventricular tachycardia (10) Anticoagulated on warfarin (11) Dyslipidemia (12) PAF (paroxysmal atrial fibrillation) (13) HTN (hypertension) (14) Automatic implantable cardiac defibrillator in situ (15) PHAN treated with BiPAP (16) Abnormal QT interval present on electrocardiogram (17) AAA (abdominal aortic aneurysm) (18) Pacemaker Acute on chronic systolic HF exacerbation mild COPD exacerbation H/O Ischemic cardiopathy, LVEF 25% S/P ICD IV Lasix transition to PO Lasix Continue prednisone, Nebs Troponin negative Procalcitonin negative No Abx for now Appreciate Cardiology Input Monitor renal function, electrolytes continue aspirin, Metoprolol, Aldactone, Imdur Off losartan due to CKD Low salt diet, fluid restriction continue home inhalers Hypokalemia: Replace and monitor CAD S/P CABG Troponin negative Continue metoprolol, Imdur, ASA DM II A1C:7.6 continue ISS, Lantus Hypothyroidism: Continue Levothyroxine CKD III: Cr at baseline monitor renal function H/O VT, s/p VT ablation IN 2014 P.afib s/p ICD continue home meds Monitor INR continue Coumadin Dyslipidemia: Currently not on statin therapy secondary to chronic transaminase elevation due to acute chemical hepatitis HTN: Stable continue current meds PHAN: BiPAP QHS Abdominal aortic aneurysm s/p percutaneous endovascular repair 10/29/2011 DVT Px: On coumadin Code Status: Full Code Disposition: Plan to discharge home today Follow up with Dr. Navas on 10/01/17 at 10:55AM Follow up with your Special Procedure Tech in 2-3 weeks Follow up with your Transfer Table Operator Helper Africa Nava PA-C in 2 weeks as advised Complete the prednisone course as prescribed Seek immediate medical attention if your symptoms reoccur or worsen Total time spent on discharge = 40 minutes This includes examination of the patient, discharge planning, medication reconciliation, and communication with other providers. Discharge Instructions Discharge Instructions Date of Service Sep 29, 2017. Admission Reason for Admission: Sob (Shortness Of Breath)) Discharge Discharge Diagnosis / Problem: CHF and COPD Exacerbation Discharge Goals Goal(s): Decrease discomfort, Improve function Activity Recommendations Activity Limitations: resume your previous activity Exercise/Sports Limitations: as tolerated . Instructions / Follow-Up Instructions / Follow-Up Follow up with Dr. Navas on 10/01/17 at 10:55AM Follow up with your Special Procedure Tech in 2-3 weeks Follow up with your Transfer Table Operator Helper Africa Nava PA-C in 2 weeks as advised Complete the prednisone course as prescribed Seek immediate medical attention if your symptoms reoccur or worsen Call your Primary Care doctor if any of the following symptoms or problems start or get worse: * Shortness of breath or difficulty breathing * Wake up at night short of breath * Chest pain * Cough * Swelling of your hands, feet, or legs * More fatigued or tired with your normal activity * Palpitations - sudden fast heart beats WEIGHT * Weigh yourself every morning after using the bathroom. * Use the same scale. * Wear the same amount of clothing. * Write your weight down on a chart. * Call your Primary Care doctor if you gain more than 2-3 pounds in 1-2 days. MEDICATIONS * Use this discharge instruction sheet for medication instructions. * Take your medications at the time your doctor ordered. * Do not skip a dose of your medicines. * If you miss a dose of medicine, take it as soon as possible, but DO NOT DOUBLE A DOSE. * Read your medicine information when you get home. * Know all of the side effects of your medicine. If in doubt, ask your pharmacist * Call your Primary Care doctor's office if you have any side effects. * Be sure all of your doctors know what medicine and herbs you take (including cold, flu, and herbal medicine). Take the following with you to your follow-up doctor appointments: * Weight Chart * Medication List * List of questions Do not drink excessive alcohol, beer or wine. Current Hospital Diet Patient's current hospital diet: AHA Diet (Heart Healthy), Low Sodium Diet (2gm Na), Diabetes Type 2 Diet Discharge Diet Recommended Diet: AHA Diet (Heart Healthy), Low Sodium Diet (2gm Na), Diabetes Type 2 Diet Pending Studies Studies pending at discharge: no Laboratory Results Hemoglobin A1c Test 09/28/17 06:00 Range/Units Estimated Average Glucose 171 mg/dl Hemoglobin A1c 7.6 H 4.5-5.6 % Lipid Panel Test 09/28/17 06:00 Range/Units Triglycerides Level 219 H 0-150 mg/dl Cholesterol Level 303 H 0-200 mg/dl HDL Cholesterol 31 mg/dl Cholesterol/HDL Ratio 9.8 LDL Cholesterol, Calculated 228 mg/dl Medical Emergencies . Who to Call and When: Call 911 or go to the Emergency Room if: * If at any time you feel your situation is an emergency * You have tightness or pain in your chest that does not go away with rest or Nitroglycerin * You are very short of breath even with rest . Non-Emergent Contact Non-Emergency issues call your: Primary Care Provider, Special Procedure Tech, Transfer Table Operator Helper Call Non-Emergent contact if: you have a fever, your pain is not controlled, your pain is worsening, your pain is unusual for you, your pain is concerning you, you have any medication questions Seek immediate medical attention if your symptoms reoccur or worsen . . "Provider Documentation" section prepared by Jonel Logan. . Problem Qualifiers (1) CHF exacerbation: Heart failure type: systolic Qualified Codes: I50.23 - Acute on chronic systolic (congestive) heart failure (2) Coronary artery disease: Coronary Disease-Associated Artery/Lesion type: bypass graft [place] vs. transplanted heart: [place] heart Associated angina: without angina Qualified Codes: I25.810 - Atherosclerosis of coronary artery bypass graft(s) without angina pectoris (3) Diabetes mellitus, type II: Diabetes mellitus custodial insulin use: with termite inspector use Diabetes mellitus complication status: with hyperglycemia Qualified Codes: E11.65 - Type 2 diabetes mellitus with hyperglycemia; Z79.4 - computer terminal operator (current) use of insulin (4) Hypothyroidism: Hypothyroidism type: unspecified Qualified Codes: E03.9 - Hypothyroidism, unspecified (5) HTN (hypertension): Hypertension type: essential hypertension Qualified Codes: I10 - Essential ( primary) hypertension
--- NOTE | 2017-09-29 10:32 | Pharmacy Progress Note ---
Pharmacy Glycemic Short Note 2 Date of Service Sep 29, 2017. OUTPATIENT ANTIDIABETIC REGIMEN: * Lantus 42 units SQ PM * NovoLog 5 units SQ ACHS + SSI * Total daily dose ~ +52 units/day Item Value Date Time Bedside Glucose 205 mg/dl H 09/28/17 0441 Bedside Glucose 250 mg/dl H 09/28/17 1155 Bedside Glucose 254 mg/dl H 09/28/17 1643 Bedside Glucose 280 mg/dl H 09/28/172007 Bedside Glucose 172 mg/dl H 09/28/17 2351 Bedside Glucose 120 mg/dl H 09/29/17 0342 Bedside Glucose 101 mg/dl H 09/29/17 0713 ASSESSMENT: * Pt currently with steroid induced hyperglycemia secondary to prednisone * Pt is currently receiving: * Lantus 42 units SQ HS * NPH 35 units SQ daily with prednisone administration * NovoLog per scale with CF = 25, CR = 9 * NPH insulin is used to counteract the hyperglycemic effect of prednisone. The rationale for this approach is that the pharmacodynamics profile of NPH, with a peak effect of 4-8hrs and duration of action of 12-16hrs, mirrors the pharmacodynamics of prednisone. NPH should be dosed at the same time that prednisone is given * The dose of NPH given is dependent on the steroid dose given * For doses of prednisone 40mg/day or above NPH dose should be 0.4 units/kg -- > pt received first dose of 35 units yesterday morning * NPH dosing above is given in addition to patients basal insulin needs * Typically, patients will also need rapid-acting insulin with meals * Pt with sustained hyperglycemia yesterday secondary to prednisone 40mg given late PM 09/27/17 and then again 09/28/17 AM. BSGs much better controlled today with current regimen but BSGs trending downwards. Will decrease doses slightly to prevent hypoglycemia. PLAN FOR INPATIENT GLYCEMIC CONTROL: Continue outpatient regimen and add NPH to cover steroid induced hyperglycemia * Basal insulin: decrease dose * Lantus 40 units SQ PM * Bolus insulin : loosen CR * NovoLog per scale ACHS or Q6hrs while NPO * Goal Range: Low 110 mg/dL - High 150 mg/dL * Correction Factor: 25 mg/dL/unit * Nutritional / Prandial insulin per carb ratio of 1 unit per 9 grams CHO consumed * NPH 35 units (0.4units/kg) Sq daily with prednisone 40mg daily. * Will titrate dosing down with each step down in steroid dosing. PLAN FOR DISCHARGE: * 71yo T2DM male with adequate outpatient control per recent A1c of 7.6% on 09/28 * However, pt will likely continue to experience severe hyperglycemia secondary to prednisone taper continued at discharge. * 2 options for discharge: * 1. Pt was dispensed a vial of NPH and has been receiving one time doses in the morning to cover steroid induced hyperglycemia secondary to daily prednisone. Pt could take this vial home with him and continue this dosing with prednisone taper. This dosing would be in addition to normal outpatient regimen Prednisone 40mg daily --> Give NPH 35 units daily with prednisone Prednisone 30mg daily --> Give NPH 27 units daily with prednisone Prednisone 20mg daily --> Give NPH 18 units daily with prednisone Prednisone 10mg daily --> Give NPH 9 units daily with prednisone * 2. Pt could increase his scheduled boluses of NovoLog that he already uses. Pt typically uses NovoLog 5 units SQ TIDM. Recommend increasing these boluses based on Prednisone dosing Prednisone 40mg daily --> Give NovoLog 18 units SQ TIDM Prednisone 30mg daily --> Give NovoLog 15 units SQ TIDM Prednisone 20mg daily --> Give NovoLog 12 units SQ TIDM Prednisone 10mg daily --> Give NovoLog 9 units SQ TIDM
[2017-09-29 11:04] VITALS: BP 132/75; PULSE 55; TEMP 36.6; O2SAT 93
[2017-09-29] MEDS ORDERED: INSULIN GLARGINE SOLOSTAR 100 UNITS/ML 3 ML PEN SC SCH (21:00)
[2017-09-29] MEDS ORDERED: FLUTICASONE/SALMETEROL 250/50 (ADVAIR) 14 PUFF/1 INHALER INH SCH (21:00)
[2017-10-06] MEDS ORDERED: METO-478 PO (15:11)
[2017-10-07] MEDS ORDERED: APR25 PO (12:13)
== END 2017-09-29 11:30 | disposition home or self-care (01) | DRG 291 ==
LOC: C.EDB 17:40 → C.2T 20:08 → ENRESERV 20:14
PROVIDERS: ADMIT Internal Medicine; ATTEND Internal Medicine
DX: I13.0 Hypertensive heart and chronic kidney disease with heart failure and stage 1 through stage 4 chronic kidney disease, or unspecified chronic kidney disease (principal); I50.23 Acute on chronic systolic (congestive) heart failure; J44.1 Chronic obstructive pulmonary disease with (acute) exacerbation; I25.5 Ischemic cardiomyopathy; I48.0 Paroxysmal atrial fibrillation; E11.22 Type 2 diabetes mellitus with diabetic chronic kidney disease; N18.3 Chronic kidney disease, stage 3 (moderate); E87.6 Hypokalemia; E03.9 Hypothyroidism, unspecified; G47.33 Obstructive sleep apnea (adult) (pediatric); Z79.01 Long term (current) use of anticoagulants; Z79.4 Long term (current) use of insulin; Z79.82 Long term (current) use of aspirin; Z79.899 Other long term (current) drug therapy; Z88.1 Allergy status to other antibiotic agents; Z87.891 Personal history of nicotine dependence; Z95.0 Presence of cardiac pacemaker

== ENCOUNTER → 2017-10-29 | Outpatient (CLI) | payer OTHER, BC ==
[~2017-10-29] MED LIST changes: -ALBU18002 INH; -AMIO200T4 PO; +APR25 PO; -ATV/1 PO; +ATV1 PO; +CALC1CAP36 PO; -CMD5 PO; +CRD200 PO; -ESCI1TAB9 PO; -FLUT0.15 NAE; -HYT/2 PO; +INSDGIPEN SC; +ISOS30TA35 PO; -LSX40 PO; +LSX80 PO; +LXP10 PO; +NRV/5 PO; +PANT40TA2 PO; +POTA10TA30 PO; -RCL25 PO; +SPRIN/30 INH; +VNTHFA/IN INH; +WARF-246 PO; +WARF5TAB90 PO
--- NOTE | 2017-10-29 12:15 | DIAGNOSTIC IMAGING REPORT ---
VIDEO SWALLOW HISTORY: DYSPHAGIA TECHNIQUE: Video fluoroscopic evaluation of swallowing was performed in the AP and lateral projections by the speech pathology staff. The patient is fed nectar-thick and thin liquid barium, a barium coated wafer, and barium pudding. FLUOROSCOPY TIME: 2.9 minutes. A cine loop submitted. COMPARISON STUDY: None. FINDINGS: There is normal hyoid excursion and epiglottic deflection. A few episodes of penetration without aspiration. Mild vallecular residue seen with the thicker barium consistencies. Mild esophageal dysmotility. IMPRESSION: 1. No aspiration identified. 2. Please see the speech pathologist report for detailed findings and recommendations. Electronically signed by: Jeffry Ly M.D. 10/29/2017 12:14 PM Dictated Date/Time: 10/29/2017 12:12 PM
--- NOTE | 2017-10-29 13:28 | SWALLOWING EVALUATION ---
HISTORY: This 71 year old man was referred to [facility] [address] ([facility]) for a Video Fluoroscopic Swallow Study (VFSS) in order to rule out aspiration, and identify the safest consistencies for oral intake. The patient is reporting that he feels increased phlegm in his throat, has increased coughing, has difficulty swallowing scatter foods (such as rice), and hoarse vocal quality. He denies difficulty swallowing thick and/or pasty foods. PMH is significant for: CABG x3, CHF, A-fib, PHAN on Bi-pap, COPD, CKD Stage III, DMII, AAA, HTN, and hypothyroidism. Current diet is regular. PROCEDURE: The patient was seen in the Radiology Department of [facility] [address] for the VFSS. Cursory examination of the oral cavity revealed the patient to have natural upper and lower dentition, scattered missing, in fair condition. Movement of the articulators was wnl. The patient was positioned upright on a stool for the procedure and was viewed in both the Anterior-Posterior (A-P) and Lateral planes. Volitional phonation exercises completed in the A-P plane revealed bilateral vocal fold movement. Vocal intensity was low. Intermittent hoarse vocal quality also noted. In the lateral plane, the patient was given the following boluses: 1 tsp. thin liquid barium x 2, single swallow thin liquid barium self-presented from a cup, serial swallows of thin liquid barium self-presented via straw, 1 tsp. nectar-thick liquid barium, single swallow nectar-thick liquid barium self-presented from a cup, 1 tsp. barium pudding, and 1 club cracker coated in barium pudding. The patient was then repositioned into the A-P plane and given the following boluses: 1 tsp. nectar thick barium, and 1 tsp. barium pudding. RESULTS: Oral Stage: Lip closure was adequate. The patient was able to maintain a cohesive liquid bolus in the oral cavity upon command. Mastication was slow and prolonged, as was lingual motion for bolus transport. There was a collection of residue along the tongue and palate after the initial swallow. The initiation of the pharyngeal swallow was delayed and triggered when the bolus head reached the pyriforms. Pharyngeal Stage: Soft palate elevation was complete. Laryngeal elevation revealed partial superior movement of the thyroid cartilage and partial approximation of the arytenoids to the epiglottic base. Anterior hyoid excursion was partially reduced. Epiglottic deflection was complete. Laryngeal vestibular closure was in-complete, as evidenced by a narrow column of contrast located in the vestibule at the height of the swallow. The pharyngeal stripping wave was present yet diminished. Pharyngeal contraction was complete. There was partial distention and duration to the opening of the pharyngoesophageal segment (PES). Tongue base retraction was reduced, with a narrow column of contrast located between the tongue base and pharyngeal wall during the swallow. There was retention in the valleculae and pyriforms after the swallow. There was evidence of inconsistent laryngeal penetration of thin and nectar thick liquids. Otherwise, there was NO aspiration for this study. Retention that remained triggered a second swallow independently, that cleared some of the retention but not fully. A liquid wash had the same results. No other difficulty identified. Laryngeal penetration is being attributed to the patient's delayed swallow reflex. Esophageal Stage: There was mid esophageal retention. This is suggestive of esophageal dysmotility. SUMMARY/RECOMMENDATIONS: The patient presents with mild yandel-pharyngeal dysphagia. He also presents with s/s esophageal dysfunction. Therefore the following is recommended: 1. Moist regular diet and thin liquids. 2. Aspiration and GERD precautions: Straws OK. FULLY UPRIGHT for meals and for 30 minutes after meals; head of bed at least 30-degrees at all times. 3. Safe swallow strategies: Alternate solids and liquids while eating. Rest breaks while eating. 4. Consider follow up with an ENT for ongoing hoarseness. 5. Follow up with GI for management for esophageal dysfunction (medications and/or further testing) as appropriate. A summary of the results and recommendations were provided to the patient with verbal understanding. Thank you for referral of this patient. Please contact me at if any additional information is needed.
== END | disposition home or self-care (01) ==
LOC: C.RAD 11:05
PROVIDERS: ATTEND Physician Assistant
DX: R13.12 Dysphagia, oropharyngeal phase (principal); K22.4 Dyskinesia of esophagus

== ENCOUNTER 2017-11-03 11:30 | Emergency (ER) | payer OTHER, BC ==
[~2017-11-03] VITALS: Ht 172.7 cm; Wt 95.1 kg
[2017-11-03 11:37] VITALS: TEMP 37; O2SAT 95
[2017-11-03 12:21] LABS: BASO % 0.3 %; BASO ABS # 0.03 K/uL (0-0.2); EOS % 1.3 %; EOS ABS # 0.11 K/uL (0-0.5); HEMATOCRIT 39.6 % (42-52); HEMOGLOBIN 13.2 g/dL (14.0-18.0); IG# 0.04 K/uL (0.00-0.02); LYMPH % 12.9 %; LYMPH ABS # 1.11 K/uL (1.2-3.4); MEAN CELL VOLUME 86.5 fL (80-100); MEAN CORPUSCULAR HEMOGLOBIN 28.8 pg (25-34); MEAN CORPUSCULAR HGB CONC 33.3 g/dl (32-36); MEAN PLATELET VOLUME 10.3 fL (7.4-10.4); MONO % 8.4 %; MONO ABS # 0.72 K/uL (0.11-0.59); NEUT % 76.6 %; NEUT ABS # 6.57 K/uL (1.4-6.5); PLATELET COUNT 192 K/uL (130-400); RED CELL DISTRIBUTION WIDTH CV 15.3 % (11.5-14.5); RED CELL DISTRIBUTION WIDTH SD 48.2 fL (36.4-46.3); WHITE BLOOD COUNT 8.58 K/uL (4.8-10.8)
--- NOTE | 2017-11-03 12:21 | EMERGENCY ROOM VISIT NOTE ---
History Report prepared by Cynthia: Rolan Flores Under the Supervision of: Dr. Todd Sevilla M.D. First contact with patient: 12:08 Chief Complaint: CARDIAC ASSESSMENT Nursing Triage Summary: Pt sent over from pulmonary, pt was there for rehab after a cardiac ablasion. Pt was completing rehab program and during a routine check found to be hypotensive and having runs of vtach. Pt has pacer/defib. Pt has hx of CABG. Pt denies CP, SOB, N/V/D. History of Present Illness The patient is a 71 year old male who presents to the Emergency Room with complaints of Ventricular Tachycardia x1 hour. The patient states today he was at rehab when he felt his breath go "dry" and he became short of breath. He notes they placed him on a monitor and noticed the v-tachycardia, so they sent him here for evaluation. 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 He notes he is also on Coumadin. The patient denies any recent leg swelling. Pt denies LOC, headache, fevers, chills, diaphoresis, visual changes, neck pain , chest pain, nausea, vomiting, abdominal pain, back pain, melena, hematochezia , urinary symptoms, numbness, weakness, lymphadenopathy, rash, or other complaints. Source of History: patient Onset: x1 hour Symptom Intensity: moderate Associated Symptoms: No fevers, No chills, No headache, No cough, No chest pain, No nausea, No vomiting, No abdominal pain, No diarrhea, No weakness, No numbness Review of Systems See HPI for pertinent positives and negatives. A total of ten systems were reviewed and were otherwise negative. Constitutional: No fever, No chills Respiratory: + shortness of breath, No cough Cardiovascular: + palpitations, No chest pain Abdomen: No pain, No nausea, No vomiting, No diarrhea Neurologic: No weakness, No numbness/tingling Past Medical & Surgical Medical Problems: (1) AAA (abdominal aortic aneurysm) (2) Abnormal QT interval present on electrocardiogram (3) Anticoagulated on warfarin (4) Automatic implantable cardiac defibrillator in situ (5) Chest pain (6) CHF (congestive heart failure) (7) Chronic systolic (congestive) heart failure (8) CKD (chronic kidney disease) stage 3, GFR 30-59 ml/min (9) Coronary artery disease (10) Diabetes mellitus, type II (11) Dyslipidemia (12) History of ventricular tachycardia (13) HTN (hypertension) (14) Hypothyroidism (15) Non-sustained ventricular tachycardia (16) PHAN treated with BiPAP (17) Pacemaker (18) PAF (paroxysmal atrial fibrillation) (19) V-tach Surgical Problems: (1) S/P triple vessel bypass (2) Status post abdominal aortic aneurysm repair (3) Status post cataract extraction (4) Status post cholecystectomy (5) Status post coronary artery bypass grafting (6) Status post implantation of automatic cardioverter/defibrillator (AICD) Family History Diabetes mellitus FH: heart disease FATHER, Onset:50's - 60 ( at age 51 due to MD) FH: lung cancer MOTHER, Onset:74 () FHx: gallbladder disease Heart disease Hypertension MOTHER Kidney disease Kidney stones Social History Smoking Status: Former Smoker Alcohol Use: occasionally Drug Use: none Marital Status: Housing Status: lives with family Occupation Status: retired Current/Historical Medications Scheduled Amiodarone HCl (Amiodarone HCl), 200 MG PO BID Amlodipine Besylate (Amlodipine Besylate), 5 MG PO DAILY Ascorbic Acid (Vitamin C), 1,000 MG PO BID Aspirin (Aspirin Ec), 81 MG PO QAM Calcitriol (Calcitriol), 0.25 MCG PO 3XWK Escitalopram Oxalate (Escitalopram Oxalate), 10 MG PO DAILY Fluticasone Furoate-Vilanterol (Breo Ellipta), 1 PUFF INH QAM Furosemide (Furosemide), 80 MG PO BID Hydralazine Hcl (Apresoline), 12.5 MG PO BID Insulin Aspart (Novolog Flexpen), 5 UNITS SQ ACHS Insulin Glargine (Lantus Solostar), 42 UNITS SC QPM Isosorbide Mononitrate Ext Rel (Imdur Ext Rel), 30 MG PO QAM Levothyroxine Sodium (Levothyroxine Sodium), 100 MCG PO DAILY Metoprolol Succinate (Toprol Xl), 1 TAB PO DAILY Multivitamins/Minerals (Mvi With Minerals), 1 TAB PO DAILY [place]-3 Fatty Acids (Fish Oil), 1,000 MG PO BID Pantoprazole (Pantoprazole Sodium), 40 MG PO QAM Potassium Chloride (Potassium Chloride Cr), 10 MEQ PO DAILY Spironolactone (Spironolactone), 12.5 MG PO 3XWK Tiotropium Climax (Spiriva Handihaler), 1 PUFF INH QAM Vitamin E (E-400), 400 INTER.UNIT PO DAILY Warfarin Sodium (Coumadin), 2.5 MG PO 3XWK Warfarin Sodium (Warfarin Sodium), 5 MG PO 4XWK Scheduled PRN Albuterol Hfa (Ventolin Hfa), 2 PUFFS INH QID PRN for Shortness of Breath Lorazepam (Lorazepam), 1 MG PO Q8 PRN for Anxiety/Sleep Nitroglycerin (Nitrostat), 0.4 MG UT UD PRN for Chest Pain Allergies Coded Allergies: Amoxicillin (Verified Allergy, Severe, Anaphylaxis, 11/03/17) Clavulanic Acid (Verified Allergy, Severe, Anaphylaxis, 11/03/17) Physical Exam Vital Signs Date Time Temp Pulse Resp B/P (MAP) Pulse Ox O2 Delivery O2 Flow Rate FiO2 11/03/17 15:20 51 20 140/73 94 11/03/17 15:00 51 20 140/73 94 Room Air 11/03/17 13:00 52 16 143/69 96 Room Air 11/03/17 11:45 52 11/03/17 11:37 37.0 52 16 128/65 95 Room Air 11/03/17 11:37 95 Room Air 11/03/17 11:37 95 Room Air Physical Exam GENERAL: Awake, alert, well-appearing, in no distress HENT: Normocephalic, atraumatic. Oropharynx unremarkable. EYES: Normal conjunctiva. Sclera non-icteric. NECK: Supple. No nuchal rigidity. FROM. No masses. RESPIRATORY: Clear to auscultation. No wheezes. No rales. Normal respiratory effort. CARDIAC: Bradycardic. Normal rhythm. No murmurs. No rubs. Extremities warm and well perfused. Pulses equal. No JVD. GI: Soft, non-distended. No tenderness to palpation. No rebound or guarding. No masses. RECTAL: Deferred. MUSCULOSKELETAL: Atraumatic. Chest examination reveals no tenderness. The back is symmetrical on inspection without obvious abnormality. There is no CVA tenderness to palpation. No joint edema. LOWER EXTREMITIES: Calves are equal size bilaterally and non-tender. No edema. No discoloration. NEURO: Normal sensorium. No sensory or motor deficits noted. SKIN: Chronic venous discoloration. No rash or jaundice noted. Medical Decision & Procedures ER Provider Diagnostic Interpretation: Radiology results as stated below per my review and radiologist interpretation: CHEST ONE VIEW PORTABLE CLINICAL HISTORY: Particular tachycardia COMPARISON STUDY: 10/06/2017 FINDINGS: The heart is enlarged. There are postsurgical changes of midline sternotomy. There is borderline elevation left hemidiaphragm. There is elevation of the interstitium consistent with mild pulmonary vascular congestion/fluid overload. There is a linear band of atelectasis/scar at the left lung base. There is no lobar consolidation. There is a left subclavian pacer/defibrillator present.[ IMPRESSION: Cardiomegaly and radiographic evidence of mild pulmonary vascular congestion/fluid overload. Laboratory Results 11/03/17 11:55 Red Blood Count 4.58, Mean Corpuscular Volume 86.5, Mean Corpuscular Hemoglobin 28.8, Mean Corpuscular Hemoglobin Concent 33.3, Mean Platelet Volume 10.3, Neutrophils (%) (Auto) 76.6, Lymphocytes (%) (Auto) 12.9, Monocytes (%) (Auto) 8.4, Eosinophils (%) (Auto) 1.3, Basophils (%) (Auto) 0.3, Neutrophils # (Auto) 6.57, Lymphocytes # (Auto) 1.11, Monocytes # (Auto) 0.72, Eosinophils # (Auto) 0.11, Basophils # (Auto) 0.03 11/03/17 11:55 Test 11/03/17 11:55 White Blood Count 8.58 K/uL (4.8-10.8) Red Blood Count 4.58 M/uL (4.7-6.1) Hemoglobin 13.2 g/dL (14.0-18.0) Hematocrit 39.6 % (42-52) Mean Corpuscular Volume 86.5 fL (80-100) Mean Corpuscular Hemoglobin 28.8 pg (25-34) Mean Corpuscular Hemoglobin Concent 33.3 g/dl (32-36) Platelet Count 192 K/uL (130-400) Mean Platelet Volume 10.3 fL (7.4-10.4) Neutrophils (%) (Auto) 76.6 % Lymphocytes (%) (Auto) 12.9 % Monocytes (%) (Auto) 8.4 % Eosinophils (%) (Auto) 1.3 % Basophils (%) (Auto) 0.3 % Neutrophils # (Auto) 6.57 K/uL (1.4-6.5) Lymphocytes # (Auto) 1.11 K/uL (1.2-3.4) Monocytes # (Auto) 0.72 K/uL (0.11-0.59) Eosinophils # (Auto) 0.11 K/uL (0-0.5) Basophils # (Auto) 0.03 K/uL (0-0.2) RDW Standard Deviation 48.2 fL (36.4-46.3) RDW Coefficient of Variation 15.3 % (11.5-14.5) Immature Granulocyte % (Auto) 0.5 % Immature Granulocyte # (Auto) 0.04 K/uL (0.00-0.02) Prothrombin Time 22.4 SECONDS (9.0-12.0) Prothromb Time International Ratio 2.2 (0.9-1.1) Activated Partial Thromboplast Time 34.2 SECONDS (21.0-31.0) Partial Thromboplastin Ratio 1.3 Anion Gap 11.0 mmol/L (3-11) Est Creatinine Clear Calc Drug Dose 43.3 ml/min Estimated GFR () 44.4 Estimated GFR (Non- 38.3 BUN/Creatinine Ratio 14.6 (10-20) Calcium Level 8.6 mg/dl (8.5-10.1) Magnesium Level 2.3 mg/dl (1.8-2.4) Total Bilirubin 0.5 mg/dl (0.2-1) Direct Bilirubin 0.2 mg/dl (0-0.2) Aspartate Amino Transf (AST/SGOT) 70 U/L (15-37) Alanine Aminotransferase (ALT/SGPT) 93 U/L (12-78) Alkaline Phosphatase 82 U/L (45-117) Total Creatine Kinase 113 U/L (39-308) Creatine Kinase MB 2.0 ng/ml (0.5-3.6) Creatine Kinase MB Ratio 1.8 (0-3.0) Troponin I < 0.015 ng/ml (0-0.045) Total Protein 7.2 gm/dl (6.4-8.2) Albumin 3.3 gm/dl (3.4-5.0) Thyroid Stimulating Hormone (TSH) 5.470 uIu/ml (0.300-4.500) Laboratory results reviewed by me Medications Administered Medications (Trade) Dose Ordered Sig/Obi Route Start Time Stop Time Status Last Admin Dose Admin Amiodarone HCl (Cordarone Tab) 400 mg NOW ONCE PO 11/03/17 14:45 11/03/17 14:51 DC 11/03/17 15:16 400 MG ECG Per My Interpretation Indication: palpitations, SOB/dyspnea Rate (beats per minute): 50 Rhythm: sinus bradycardia Findings: 1st degree AV block, Q waves (Inferior), other (poor R-Wave progression, non-specific intraventricular block, no ST elevation) Comparison ECG Date: September 2017 Change: no significant change ED Course Monitoring strip from rehab showed wide-complex tachycardia. Rechecks: 1400: Patient resting comfortably. Medical Decision Prior records/ancillary studies reviewed. Triage Nursing notes reviewed and agree them. Additional history obtained from the family. The patient's history was concerning for nonsustained ventricular tachycardia Differential diagnosis: Etiologies such as electrolyte abnormality, cardiac dysrhythmia, thyroid dysfunction, pulmonary embolism, infection, gastrointestinal, as well as others were entertained. Physical examination: Benign as above. ER treatment provided: Cardiac monitoring. Oral amiodarone given to the patient by cardiology On reassessment the patient felt better. Diagnostic interpretation by me: The electrocardiogram was negative for pathologic change. The labs revealed an unremarkable CBC and chemistry panel. Pacemaker interrogation revealed several instances of nonsustained ventricular tachycardia with a maximum rate of 115 bpm and 9 seconds in duration. Imaging studies: Chest x-ray as above. Consultation: A consultation was placed with Dr. Russ Herrera cardiology. He evaluated patient in the ER. Patient is doing quite well at this time. He recommended a change in his amiodarone dosing at home and also give the patient a dose of amiodarone here. He will have the patient follow-up in the office. The patient and feel very comfortable with this plan. By the evaluation outlined above other emergent etiologies such as those listed in the differential, as well as others, were deemed relatively unlikely. The patient was educated about the findings as listed above. All questions were answered and the patient was pleased with the treatment. Return instructions were outlined and the patient was discharged in stable condition. The patient was referred to cardiology for follow-up for a recheck of the current condition. Medication Reconcilliation Current Medication List: was personally reviewed by me Blood Pressure Screening Patient's blood pressure: Normal blood pressure Consults Consulting Physician: [employer] [employer] Fellow Returned Call: [phone] Patient has had several episodes of non-sustained ventricular tachycardia with the longest episodes being today lasting 9 seconds and his heart-rate was 115 beats per minute. It resolved spontaneously. They also note the device appears to be functioning normally. Additional Consults: Consulted Physician: Dr. Solano Returned Call: [phone] Additional Comments: Will increase patient's Amiodarone and patient can be discharged home with follow up in the office. Impression Primary Impression: Non-sustained ventricular tachycardia Scribe Attestation The scribe's documentation has been prepared under my direction and personally reviewed by me in its entirety. I confirm that the note above accurately reflects all work, treatment, procedures, and medical decision making performed by me. Departure Information Dispostion Home / Self-Care Referrals Candelaria Navas DO (PCP) Forms IMPORTANT VISIT INFORMATION Patient Instructions My [facility] Additional Instructions Follow all instructions given to you by Dr. Solano of cardiology regarding your amiodarone medication. The office with [facility] cardiology should be contacting you for a follow-up appointment. Continue your current medications. Return to emergency department for racing heartbeat, passing out, lightheadedness, chest pain, difficulty breathing, or as needed.
[2017-11-03 12:22] VITALS: Ht 172.7 cm; Wt 95.1 kg
[2017-11-03 12:38] LABS: INR 2.2 (0.9-1.1); PTT PATIENT 34.2 SECONDS (21.0-31.0)
--- NOTE | 2017-11-03 12:40 | DIAGNOSTIC IMAGING REPORT ---
CHEST ONE VIEW PORTABLE CLINICAL HISTORY: Particular tachycardia COMPARISON STUDY: 10/06/2017 FINDINGS: The heart is enlarged. There are postsurgical changes of midline sternotomy. There is borderline elevation left hemidiaphragm. There is elevation of the interstitium consistent with mild pulmonary vascular congestion/fluid overload. There is a linear band of atelectasis/scar at the left lung base. There is no lobar consolidation. There is a left subclavian pacer/defibrillator present.[ IMPRESSION: Cardiomegaly and radiographic evidence of mild pulmonary vascular congestion/fluid overload. Electronically signed by: Alok Gooden M.D. 11/03/2017 12:38 PM Dictated Date/Time: 11/03/2017 12:37 PM
[2017-11-03 12:41] LABS: ALBUMIN 3.3 gm/dl (3.4-5.0); ALKALINE PHOSPHATASE 82 U/L (45-117); ALT/SGPT 93 U/L (12-78); AST/SGOT 70 U/L (15-37); BLOOD UREA NITROGEN 26 mg/dl (7-18); CALCIUM 8.6 mg/dl (8.5-10.1); CARBON DIOXIDE 25 mmol/L (21-32); CREATININE 1.75 mg/dl (0.60-1.40); GLUCOSE 140 mg/dl (70-99); POTASSIUM 3.9 mmol/L (3.5-5.1); SODIUM 138 mmol/L (136-145); TOTAL PROTEIN 7.2 gm/dl (6.4-8.2)
[2017-11-03] MEDS ORDERED: AMIODARONE 200 MG TAB PO ONE (14:45)
[2017-11-03 15:20] VITALS: BP 140/73; PULSE 51; O2SAT 94
--- NOTE | 2017-11-03 16:04 | CARDIOLOGY CONSULTATION ---
DATE OF CONSULTATION: 11/03/2017 CONSULTATION REQUESTED BY: Todd Sevilla MD REASON FOR CONSULTATION: Nonsustained ventricular tachycardia. HISTORY OF PRESENT ILLNESS: Mr. Abbasi is a very pleasant 71-year-old gentleman who normally follows with Dr. Anderson and Dr. Suarez in our cardiology practice for his extensive cardiac history. He presents to the [facility] Emergency Department today from cardiac rehab where he was found to have some nonsustained ventricular tachycardia on the monitor. The patient was most recently admitted to the [facility] last month and since then states he has been doing actually very well. He has not had any complaints of chest pain, shortness of breath, palpitations, lightheadedness, dizziness, or syncope. He did notice today that while he was at rehab, he did have some fluttering in his chest and some slight lightheadedness when he was walking and this did correlate with a 9-beat run of nonsustained ventricular tachycardia on the monitor. He did not lose consciousness and his device did not go off, but given his extensive history, he was transported to [facility] Emergency Department. In the ER, his device was remotely interrogating and he was found to be having short salvos of nonsustained ventricular tachycardia, none of which lasted long enough to trigger anti-tachycardic therapy from his device. Otherwise, he states he has been feeling well lately. He has been taking his medications as directed and not having any other issues. PAST SURGICAL HISTORY: 1. Coronary artery bypass grafting surgery x3 in 1991. 2. Most recent cardiac catheterization in 2013. 3. Abdominal aortic aneurysm repair. 4. History of electrophysiology study with ventricular tachycardia ablation. 5. Cataract surgery. 6. [employer] single lead ICD. 7. Cholecystectomy. MEDICAL ILLNESSES: 1. Ventricular tachycardia status post ablation, on chronic amiodarone. 2. Coronary artery disease. 3. Ischemic cardiomyopathy, EF 25-30%. 4. Diabetes. 5. Paroxysmal atrial fibrillation. 6. History of transaminitis, on higher doses of amiodarone. 7. Paroxysmal atrial fibrillation. 8. Hypertension. 9. Anxiety. 10. Abdominal aortic aneurysm. 11. Dyslipidemia. FAMILY HISTORY: Noncontributory. SOCIAL HISTORY: Denies any alcohol, tobacco or recreational drug use. He is and lives at home with his . 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 ALLERGIES: AUGMENTIN. MEDICATIONS AN OUTPATIENT: 1. Amiodarone 200 mg b.i.d. 2. Amlodipine 5 mg daily. 3. Spironolactone 12.5 mg Mondays, Wednesdays, and Fridays only. 4. Coumadin as directed by the Coumadin clinic. 5. Imdur 30 mg daily. 6. Potassium chloride 10 mEq daily. 7. Metoprolol succinate 25 mg daily. 8. Aspirin 81 mg daily. 9. Hydralazine 12.5 mg b.i.d. 10. Lasix 80 mg b.i.d. 11. Levoxyl daily. 12. Lexapro daily. 13. Insulin as directed. 14. Breo inhaler. 15. Lomotil as needed. 16. Lorazepam as needed. 17. Spiriva daily. 18. Protonix daily. PHYSICAL EXAMINATION: VITALS: Temperature 37, pulse 52, respiratory rate 12, blood pressure 128/65. GENERAL: Awake, alert, oriented x3 in no acute distress. HEENT: Normocephalic, atraumatic. Pupils equal, round, reactive to light and accommodation. Extraocular muscles intact. Anicteric sclerae. Moist mucous membranes. NECK: No JVD, no bruit. CARDIOVASCULAR: Regular. Positive S4. Normal S1 and S2. No S3. No murmurs or rubs. PULMONARY: Clear to auscultation bilaterally. No rales, rhonchi, or wheezing. ABDOMEN: Bowel sounds x4, soft. No rebound, guarding, tenderness. No organomegaly. EXTREMITIES: No clubbing, cyanosis or edema. +2 pedal pulses bilaterally. SKIN: Warm and dry. TEST RESULTS: Device interrogation with the [employer] electroplating sales representative does show short multiple salvos of nonsustained ventricular tachycardia. LABORATORY DATA: Laboratory studies in the Emergency Department show sodium 138, potassium 3.9, BUN 26, creatinine 1.75. AST of 70, ALT of 93. IMPRESSION: 1. Nonsustained ventricular tachycardia. 2. History of ventricular tachycardia, on chronic amiodarone, status post ICD placement. 3. Ischemic cardiomyopathy, EF 25-30%, status post ICD placement. 4. Complex coronary artery disease. 5. Paroxysmal atrial fibrillation. 6. Peripheral artery disease. 7. Hypertension. RECOMMENDATIONS: It was my pleasure to see Mr. Abbasi in reevaluation today. Given the fact he is not significantly symptomatic with only short salvos of nonsustained ventricular tachycardia, the options for medical therapy at this point will be either to increase his amiodarone to 400 mg b.i.d. for the next few days or to increase his metoprolol dose. The pros and cons of both were discussed with the patient and his . Given his recent history of hypotension now, I do believe it would be more efficacious to increase the amiodarone for the time being. He has had a longstanding history of transaminitis when he has been on higher dosages for extended periods of time, so I will also contact his primary tablet tester, Dr. Suarez to discuss long-term plan, but for now, the patient will given amiodarone 400 x1 p.o. in the ER and I have instructed him to increase his amiodarone to 400 mg b.i.d. for the time being and further followup will be scheduled through [facility] cardiology. I would recommend the patient be discharged home from the Emergency Room after receiving the amiodarone.
== END 2017-11-03 15:22 | disposition home or self-care (01) ==
LOC: EDBD 11:30 → C.EDC 11:30 → EDSEX 11:30 → C.EDC 15:22
DX: I47.2 Ventricular tachycardia (principal); I25.10 Atherosclerotic heart disease of native coronary artery without angina pectoris; Z95.1 Presence of aortocoronary bypass graft; I48.0 Paroxysmal atrial fibrillation; N18.3 Chronic kidney disease, stage 3 (moderate); E03.9 Hypothyroidism, unspecified; I71.4 Abdominal aortic aneurysm, without rupture; E11.22 Type 2 diabetes mellitus with diabetic chronic kidney disease; Z79.01 Long term (current) use of anticoagulants; F41.9 Anxiety disorder, unspecified; I25.5 Ischemic cardiomyopathy; I50.22 Chronic systolic (congestive) heart failure; G47.33 Obstructive sleep apnea (adult) (pediatric); Z98.49 Cataract extraction status, unspecified eye; I13.0 Hypertensive heart and chronic kidney disease with heart failure and stage 1 through stage 4 chronic kidney disease, or unspecified chronic kidney disease; Z90.49 Acquired absence of other specified parts of digestive tract; Z95.810 Presence of automatic (implantable) cardiac defibrillator; Z83.3 Family history of diabetes mellitus; Z82.49 Family history of ischemic heart disease and other diseases of the circulatory system; Z83.79 Family history of other diseases of the digestive system; Z84.1 Family history of disorders of kidney and ureter; Z80.1 Family history of malignant neoplasm of trachea, bronchus and lung; Z87.891 Personal history of nicotine dependence; Z79.899 Other long term (current) drug therapy; Z79.82 Long term (current) use of aspirin; Z79.4 Long term (current) use of insulin; Z88.0 Allergy status to penicillin; Z88.8 Allergy status to other drugs, medicaments and biological substances